=== PATIENT | female | born 1955 | race Caucasian/White ===

== ENCOUNTER 2016-12-05 02:53 | Inpatient (IN) ==
--- NOTE | 2016-12-05 02:55 | Emergency Department Note ---
Disposition Clinical Impression: Leukopenia, Pancytopenia, Panniculitis, Sepsis, Fever, Acute renal failure, Elevated troponin Disposition: Admitted As Inpatient Condition: Serious Referrals: NO,PCP [Primary Care Provider] - Forms: ED Satisfaction Letter General Adult HPI - General Chief complaint: ED Shortness of Breath/Dyspnea Stated complaint: fever,weakness, sob Time Seen by Provider: 12/05/16 02:54 - Related Data Home Medications Medication Instructions Recorded Confirmed Albuterol Sulfate [Proair Hfa] 2 puff IH Q6HR PRN 12/05/16 12/05/16 Allopurinol [Zyloprim] 300 mg PO DAILY 12/05/16 12/05/16 Carvedilol [Coreg] 25 mg PO BID 12/05/16 12/05/16 Furosemide [Lasix] 40 mg PO BID 12/05/16 12/05/16 Gabapentin [Neurontin] 900 mg PO BID 12/05/16 12/05/16 Insulin DETEMIR [Levemir] 27 unit SQ BID 12/05/16 12/05/16 Liraglutide [Victoza 2-Jordan] 1.2 ml SQ DAILY 12/05/16 12/05/16 Lisinopril [Zestril] 40 mg PO DAILY 12/05/16 12/05/16 Oxygen 2 unit CONT 12/05/16 12/05/16 Potassium Chloride [K-Tab ER] 20 meq PO BID 12/05/16 12/05/16 Sertraline [Zoloft] 100 mg PO DAILY 12/05/16 12/05/16 Simvastatin [Zocor] 40 mg PO HS 12/05/16 12/05/16 Warfarin [Coumadin] 3.75 mg PO 1800 12/05/16 12/05/16 Warfarin [Coumadin] 7.5 mg PO 1800 12/05/16 12/05/16 Allergies Allergy/AdvReac Type Severity Reaction Status Date / Time Oxycodone [From Percocet] AdvReac Nausea Verified 12/05/16 03:29 sulfamethoxazole AdvReac See Verified 12/05/16 03:29 [From Bactrim] Comments trimethoprim [From Bactrim] AdvReac See Verified 12/05/16 03:29 Comments Past Medical History - Past Medical History Medical history: Reports: arthritis, CHF, diabetes, hypertension, TIA Psychiatric history: Reports: no psych history 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 - Social History Smoking Status: Never smoker Smokeless Tobacco Status: No Alcohol use: Reports: none Drug use: Reports: none Course Vital Signs Temperature 100.8 F H 12/05/16 02:54 Pulse Rate 109 12/05/16 02:54 Respiratory Rate 22 12/05/16 02:54 Blood Pressure 86/53 12/05/16 02:54 O2 Sat by Pulse Oximetry 99 12/05/16 02:54 Temperature 100.8 F H 12/05/16 02:54 Pulse Rate 108 12/05/16 03:45 Respiratory Rate 24 12/05/16 03:45 Blood Pressure 94/74 12/05/16 03:45 O2 Sat by Pulse Oximetry 100 12/05/16 03:45 Oxygen Delivery Oxygen Delivery Nasal Cannula Medical Decision Making - Lab Data Result diagrams: 12/05/16 04:05 12/05/16 04:05 Lab Results 12/05/16 12/05/16 12/05/16 Range/Units 03:24 04:05 04:05 WBC 3.7 L (4.3-11.1) K/mcL RBC 3.12 L (3.82-4.97) M/mcL Hgb 10.0 L (11.5-15.4) g/dL Hct 31.4 L (35.3-44.9) % MCV 100.6 H (83.0-100.0) fL MCH 32.1 (28.0-33.3) pg MCHC 31.8 (31.6-35.5) g/dL RDW 13.1 (11.5-14.5) % Plt Count 72 L (140-400) K/mcL MPV 13.1 H (9.4-12.4) fL Immature Plt Fraction 8.7 H (1.1-6.1) % PT 35.3 H (9.4-12.1) Seconds INR 3.2 APTT 38.6 H (26.0-36.0) Seconds Sodium (136-145) mEq/L Potassium (3.5-4.5) mEq/L Chloride (98-109) mEq/L Carbon Dioxide (19-29) mEq/L BUN (7-20) mg/dL Creatinine (0.57-1.11) mg/dL Est GFR ( Amer) (> 60) Est GFR (Non-Af Amer) (> 60) BUN/Creatinine Ratio (6-26) Glucose (70-99) mg/dL Calculated Osmolality (280-300) Lactic Acid (0.5-2.2) mmol/L Calcium (8.6-10.8) mg/dL Phosphorus (2.3-4.7) mg/dL Magnesium (1.6-2.6) mg/dL Total Bilirubin (0.2-1.2) mg/dL Direct Bilirubin (0.0-0.5) mg/dL Indirect Bilirubin (0.0-1.2) mg/dL AST (5-34) Units/L ALT (0-55) Units/L Alkaline Phosphatase (38-126) Units/L Troponin I (0-0.03) ng/mL B-Natriuretic Peptide (0-100) pg/mL Serum Total Protein (6.0-8.3) g/dL Albumin (3.5-5.0) g/dL Globulin (2.4-3.5) g/dL Albumin/Globulin Ratio (1.1-2.2) Urine Color Yellow (Yellow) Urine Clarity Clear (Clear) Urine pH 5.0 (5.0-8.0) pH Units Ur Specific Hoffman 1.010 (1.010-1.025) Urine Protein Negative (Neg-Trace) mg/dL Urine Glucose (UA) Normal (Normal) mg/dL Urine Ketones Negative (Negative) mg/dL Urine Blood Negative (Negative) Urine Nitrite Negative (Negative) Urine Bilirubin Negative (Negative) Urine Urobilinogen Normal (Normal) mg/dL Ur Leukocyte Esterase Moderate H (Negative) Urine Microscopic RBC 0-3 (0-3) per hpf Urine Microscopic WBC 50-100 H (0-3) per hpf Ur Squamous Epith Cells Many H (None-Few) per lpf Urine Bacteria Moderate H (None-Few) per hpf Hyaline Casts Few (None-Few) per lpf Ur Culture Indicated? YES A (NO) 12/05/16 12/05/16 12/05/16 Range/Units 04:05 04:05 04:05 WBC (4.3-11.1) K/mcL RBC (3.82-4.97) M/mcL Hgb (11.5-15.4) g/dL Hct (35.3-44.9) % MCV (83.0-100.0) fL MCH (28.0-33.3) pg MCHC (31.6-35.5) g/dL RDW (11.5-14.5) % Plt Count (140-400) K/mcL MPV (9.4-12.4) fL Immature Plt Fraction (1.1-6.1) % PT (9.4-12.1) Seconds INR APTT (26.0-36.0) Seconds Sodium 138 (136-145) mEq/L Potassium 5.1 H (3.5-4.5) mEq/L Chloride 102 (98-109) mEq/L Carbon Dioxide 21 (19-29) mEq/L BUN 62 H (7-20) mg/dL Creatinine 3.07 H (0.57-1.11) mg/dL Est GFR ( Amer) 19 L (> 60) Est GFR (Non-Af Amer) 15 L (> 60) BUN/Creatinine Ratio 20 (6-26) Glucose 167 H (70-99) mg/dL Calculated Osmolality 307 H (280-300) Lactic Acid 2.8 H (0.5-2.2) mmol/L Calcium 8.8 (8.6-10.8) mg/dL Phosphorus 2.3 (2.3-4.7) mg/dL Magnesium 1.7 (1.6-2.6) mg/dL Total Bilirubin 1.0 (0.2-1.2) mg/dL Direct Bilirubin 0.5 (0.0-0.5) mg/dL Indirect Bilirubin 0.5 (0.0-1.2) mg/dL AST 15 (5-34) Units/L ALT 15 (0-55) Units/L Alkaline Phosphatase 64 (38-126) Units/L Troponin I 0.06 H* (0-0.03) ng/mL B-Natriuretic Peptide (0-100) pg/mL Serum Total Protein 5.6 L (6.0-8.3) g/dL Albumin 2.5 L (3.5-5.0) g/dL Globulin 3.1 (2.4-3.5) g/dL Albumin/Globulin Ratio 0.8 L (1.1-2.2) Urine Color (Yellow) Urine Clarity (Clear) Urine pH (5.0-8.0) pH Units Ur Specific Hoffman (1.010-1.025) Urine Protein (Neg-Trace) mg/dL Urine Glucose (UA) (Normal) mg/dL Urine Ketones (Negative) mg/dL Urine Blood (Negative) Urine Nitrite (Negative) Urine Bilirubin (Negative) Urine Urobilinogen (Normal) mg/dL Ur Leukocyte Esterase (Negative) Urine Microscopic RBC (0-3) per hpf Urine Microscopic WBC (0-3) per hpf Ur Squamous Epith Cells (None-Few) per lpf Urine Bacteria (None-Few) per hpf Hyaline Casts (None-Few) per lpf Ur Culture Indicated? (NO) 12/05/16 Range/Units 04:05 WBC (4.3-11.1) K/mcL RBC (3.82-4.97) M/mcL Hgb (11.5-15.4) g/dL Hct (35.3-44.9) % MCV (83.0-100.0) fL MCH (28.0-33.3) pg MCHC (31.6-35.5) g/dL RDW (11.5-14.5) % Plt Count (140-400) K/mcL MPV (9.4-12.4) fL Immature Plt Fraction (1.1-6.1) % PT (9.4-12.1) Seconds INR APTT (26.0-36.0) Seconds Sodium (136-145) mEq/L Potassium (3.5-4.5) mEq/L Chloride (98-109) mEq/L Carbon Dioxide (19-29) mEq/L BUN (7-20) mg/dL Creatinine (0.57-1.11) mg/dL Est GFR ( Amer) (> 60) Est GFR (Non-Af Amer) (> 60) BUN/Creatinine Ratio (6-26) Glucose (70-99) mg/dL Calculated Osmolality (280-300) Lactic Acid (0.5-2.2) mmol/L Calcium (8.6-10.8) mg/dL Phosphorus (2.3-4.7) mg/dL Magnesium (1.6-2.6) mg/dL Total Bilirubin (0.2-1.2) mg/dL Direct Bilirubin (0.0-0.5) mg/dL Indirect Bilirubin (0.0-1.2) mg/dL AST (5-34) Units/L ALT (0-55) Units/L Alkaline Phosphatase (38-126) Units/L Troponin I (0-0.03) ng/mL B-Natriuretic Peptide 270 H (0-100) pg/mL Serum Total Protein (6.0-8.3) g/dL Albumin (3.5-5.0) g/dL Globulin (2.4-3.5) g/dL Albumin/Globulin Ratio (1.1-2.2) Urine Color (Yellow) Urine Clarity (Clear) Urine pH (5.0-8.0) pH Units Ur Specific Hoffman (1.010-1.025) Urine Protein (Neg-Trace) mg/dL Urine Glucose (UA) (Normal) mg/dL Urine Ketones (Negative) mg/dL Urine Blood (Negative) Urine Nitrite (Negative) Urine Bilirubin (Negative) Urine Urobilinogen (Normal) mg/dL Ur Leukocyte Esterase (Negative) Urine Microscopic RBC (0-3) per hpf Urine Microscopic WBC (0-3) per hpf Ur Squamous Epith Cells (None-Few) per lpf Urine Bacteria (None-Few) per hpf Hyaline Casts (None-Few) per lpf Ur Culture Indicated? (NO) Critical Care Time Critical Care Time: Yes Total Critical Care Time: 45 Attestation: Patient presented with fever and weakness. She met sepsis criteria. Broad spectrum antibiotics initiated. Patient admitted Attestation Statement - Attestation Attestation: I examined this patient and my medical decision-making was reviewed with the DEMOGRAPHER/PA/Advanced Practice Nurse/Resident Physician. I agree with the documented findings, disposition and treatment plan as described except to the extent set forth below. [id number] time provided in conjunction with the resident physician Patient presents from home via EMS. She reports generalized weakness, fever. Pulse ox in the 70s prehospital. She appears unkempt. She is able to speak in full sentences. 03:05: Patient has a large skin fold which is either a pannus or hernia to her lower abdomen. It is erythematous with increased tactile warmth and some bluish discoloration to the skin. She states some of this is chronic and some of this is also new. This could be the source of her fever. 04:30: Case discussed with the on-call surgeon by the resident physician 04:44: Patient accepted for admission to the medicine service. Patient was not given 30 mL/kg of IV fluids due to her BMI of 55 and concern for volume overload
[2016-12-05] MEDS ORDERED: 0.9 % Sodium Chloride 1,000 ML IVC ONE ×4 (03:03→12:38)
--- NOTE | 2016-12-05 03:06 | Emergency Department Note ---
Disposition Clinical Impression: Pancytopenia, Panniculitis, Elevated troponin Leukopenia Qualifiers: Leukopenia type: unspecified Qualified Code(s): D72.819 - Decreased white blood cell count, unspecified Sepsis Qualifiers: Sepsis type: sepsis due to unspecified organism Qualified Code(s): A41.9 - Sepsis, unspecified organism Fever Qualifiers: Fever type: other Qualified Code(s): R50.81 - Fever presenting with conditions classified elsewhere Acute renal failure Qualifiers: Acute renal failure type: unspecified Qualified Code(s): N17.9 - Acute kidney failure, unspecified Disposition: Admitted As Inpatient Condition: Serious Time of Disposition: 04:50 (Accepted by Jr. ) SOB HPI - General Chief Complaint: ED Shortness of Breath/Dyspnea Stated Complaint: fever,weakness, sob Time Seen by Provider: 12/05/16 02:54 Source: patient, EMS Mode of arrival: EMS Limitations: no limitations Nursing Notes Reviewed: Yes Vital Signs Reviewed: Yes - History of Present Illness Patient is a 61-year-old female with past medical history of CHF, diabetes, hypertension, previous TIA. She presents today via EMS due to shortness of breath, pain in lower extremities, increased abdominal swelling and redness. EMS states that the patient was diaphoretic and mildly confused, hypoxic on arrival. They placed the patient on nonrebreather and then nasal cannula and got her O2 sat to upper 90s. Patient wears 2 L nasal cannula oxygen at home. Patient says she takes a water pill daily and has not missed any doses. She does admit to increased swelling of her abdomen and lower extremities. She also has increased redness and new purple discoloration of right lower abdomen pannus that she states started yesterday. Denies any fevers, nausea, vomiting. - Related Data Home Medications Medication Instructions Recorded Confirmed Albuterol Sulfate [Proair Hfa] 2 puff IH Q6HR PRN 12/05/16 12/05/16 Allopurinol [Zyloprim] 300 mg PO DAILY 12/05/16 12/05/16 Carvedilol [Coreg] 25 mg PO BID 12/05/16 12/05/16 Furosemide [Lasix] 40 mg PO BID 12/05/16 12/05/16 Gabapentin [Neurontin] 900 mg PO BID 12/05/16 12/05/16 Insulin DETEMIR [Levemir] 27 unit SQ BID 12/05/16 12/05/16 Liraglutide [Victoza 2-Jordan] 1.2 ml SQ DAILY 12/05/16 12/05/16 Lisinopril [Zestril] 40 mg PO DAILY 12/05/16 12/05/16 Oxygen 2 unit CONT 12/05/16 12/05/16 Potassium Chloride [K-Tab ER] 20 meq PO BID 12/05/16 12/05/16 Sertraline [Zoloft] 100 mg PO DAILY 12/05/16 12/05/16 Simvastatin [Zocor] 40 mg PO HS 12/05/16 12/05/16 Warfarin [Coumadin] 3.75 mg PO 1800 12/05/16 12/05/16 Warfarin [Coumadin] 7.5 mg PO 1800 12/05/16 12/05/16 Allergies Allergy/AdvReac Type Severity Reaction Status Date / Time Oxycodone [From Percocet] AdvReac Nausea Verified 12/05/16 03:29 sulfamethoxazole AdvReac See Verified 12/05/16 03:29 [From Bactrim] Comments trimethoprim [From Bactrim] AdvReac See Verified 12/05/16 03:29 Comments All systems ED: reviewed and negative except as stated. Past Medical History - Past Medical History Attestation: Yes The following information was validated with the patient. Medical history: Reports: arthritis, CHF, diabetes, hypertension, TIA Psychiatric history: Reports: no psych history ORTHOTICS ASSISTANT history: Reports: no ORTHOTICS ASSISTANT history - Social History Smoking Status: Never smoker Smokeless Tobacco Status: No Alcohol use: Reports: none Drug use: Reports: none Physical Exam - General Limitations: no limitations General appearance: alert, obese, other (mildly sleepy on exam) - Head Head exam: atraumatic, normocephalic, normal inspection - Eye Eye exam: Present: normal appearance, PERRL, EOMI - ENT ENT exam: normal exam, normal oropharynx, mucous membranes moist - Neck Neck exam: Present: normal inspection, full ROM, trachea midline - Chest Chest inspection: Present: normal inspection, symmetric chest wall rise - Respiratory Respiratory exam: Present: normal lung sounds bilaterally - Cardiovascular Cardiovascular exam: Present: normal rhythm, tachycardia, normal heart sounds - Abdominal Exam Abdominal exam: Present: other (Obese abdomen, large right lower abdominal pannus versus hernia with erythema, induration, purple discoloration) - Extremities Exam Extremities exam: Present: normal inspection, full ROM, pedal edema (Bilateral lower extremity nonpitting edema). Absent: tenderness - Back Exam Back exam: Present: normal inspection, full ROM. Absent: tenderness - Neurological Exam Neurological exam: Present: alert, oriented X3 - Psychiatric Psychiatric exam: Present: normal affect, normal mood - Skin Skin exam: Present: warm, dry, intact, normal color Course Course Narrative: Patient febrile, tachycardic, hypotensive on presentation. She is currently on 2 L nasal cannula and saturating and upper 90s. Concern for sepsis at this point. We will not give full 30 mL/kg IV fluids due to very large BMI and concern for fluid overload. WIll start with 3L of fluid and reassess. Sepsis labs are underway. We will also check EKG, troponin. We will obtain CT of abdomen and pelvis to assess for hernia versus panniculitis. Also give Tylenol for fever. 04:46 patient is pancytopenic, patient has acute renal failure with a creatinine of 3.0. Troponin is elevated 0.06. Patient will be given aspirin. UA shows possible signs of UTI, nitrate negative but positive for moderate leukocyte esterace. We will send for culture. CT scan shows panniculitis and significant fat stranding of lower abdomen. I spoke with surgery, Dr. Mejia, she stated that since there is no bowel or abscess in the pannus and it is panniculitis, this is a medicine admit and surgery will not be seeing the patient. Spoke with the hospitalist admit for pancytopenia, sepsis, panniculitis, acute renal failure, elevated troponin. Patient was accepted for admission by Dr. Norris. All cultures have been drawn. Zosyn and vancomycin have been started empirically for panniculitis/sepsis. BP is improved at 100/80s. Chest X-Ray 12/05/16 02:59 IMPRESSION: Unchanged cardiomegaly. Pulmonary venous congestion without overt edema. D/ / Donnie Almodovar MD / Donnie Almodovar MD Interpreting Provider: Donnie Almodovar MD Abdomen/Pelvis CT 12/05/16 03:07 IMPRESSION: 1. There is a large pannus of the lower abdomen/pelvis with extensive fat stranding and skin thickening. No discrete/drainable fluid collection. 2. No acute abnormality identified within the unenhanced abdomen or pelvis. 3. Cholelithiasis without CT evidence of acute cholecystitis. 4. Right adrenal adenoma. 5. Umbilical hernia containing fat as well as a small amount of fluid. 6. Cardiomegaly. D/ / Hans Lynch MD / Hans Lynch MD Interpreting Provider: Hans Lynch MD Vital Signs Temperature 100.8 F H 12/05/16 02:54 Pulse Rate 109 12/05/16 02:54 Respiratory Rate 22 12/05/16 02:54 Blood Pressure 86/53 12/05/16 02:54 O2 Sat by Pulse Oximetry 99 12/05/16 02:54 Temperature 100.8 F H 12/05/16 02:54 Pulse Rate 92 12/05/16 04:52 Respiratory Rate 20 12/05/16 04:52 Blood Pressure 122/103 12/05/16 04:52 O2 Sat by Pulse Oximetry 97 12/05/16 04:52 Oxygen Delivery Oxygen Delivery Nasal Cannula Shortness of Breath/Dyspnea - [facility] Narrative Medical decision making narrative: Patient febrile, tachycardic, hypotensive on presentation. She is currently on 2 L nasal cannula and saturating and upper 90s. Concern for sepsis at this point. We will not give full 30 mL/kg IV fluids due to very large BMI and concern for fluid overload. WIll start with 3L of fluid and reassess. Sepsis labs are underway. We will also check EKG, troponin. We will obtain CT of abdomen and pelvis to assess for hernia versus panniculitis. Also give Tylenol for fever. 04:46 patient is pancytopenic, patient has acute renal failure with a creatinine of 3.0. Troponin is elevated 0.06. Patient will be given aspirin. UA shows possible signs of UTI, nitrate negative but positive for moderate leukocyte esterace. We will send for culture. CT scan shows panniculitis and significant fat stranding of lower abdomen. I spoke with surgery, Dr. Mejia, she stated that since there is no bowel in the pannus and it is panniculitis, this is a medicine admit and surgery will not be seeing the patient. Spoke with the hospitalist admit for pancytopenia, sepsis, panniculitis, acute renal failure, elevated troponin. Patient was accepted for admission by Dr. Norris. All cultures have been drawn. Zosyn and vancomycin have been started empirically for panniculitis/sepsis. BP is improved at 100/70s. - Medical Records Medical records reviewed: Yes I reviewed the patient's medical records. - Lab Data Lab results reviewed: Yes I reviewed the patient's lab results. Result diagrams: 12/05/16 04:05 12/05/16 04:05 Lab Results 12/05/16 12/05/16 12/05/16 Range/Units 03:24 04:05 04:05 WBC 3.7 L (4.3-11.1) K/mcL RBC 3.12 L (3.82-4.97) M/mcL Hgb 10.0 L (11.5-15.4) g/dL Hct 31.4 L (35.3-44.9) % MCV 100.6 H (83.0-100.0) fL MCH 32.1 (28.0-33.3) pg MCHC 31.8 (31.6-35.5) g/dL RDW 13.1 (11.5-14.5) % Plt Count 72 L (140-400) K/mcL MPV 13.1 H (9.4-12.4) fL Immature Gran % 1.6 (0-4) % Seg Neutrophils % 80.0 % Lymphocytes % 7.0 % Monocytes % 10.8 % Eosinophils % 0.3 % Basophils % 0.3 % Neutrophils # 3.0 (1.6-8.9) K/mcL Lymphocytes # 0.3 L (0.6-4.6) K/mcL Monocytes # 0.4 (0.0-1.3) K/mcL Eosinophils # 0.0 (0.0-0.6) K/mcL Basophils # 0.0 (0.0-0.2) K/mcL Platelet Estimate Decreased L (Normal) Large Platelets Present A (Not Present) Immature Plt Fraction 8.7 H (1.1-6.1) % PT 35.3 H (9.4-12.1) Seconds INR 3.2 APTT 38.6 H (26.0-36.0) Seconds Sodium (136-145) mEq/L Potassium (3.5-4.5) mEq/L Chloride (98-109) mEq/L Carbon Dioxide (19-29) mEq/L BUN (7-20) mg/dL Creatinine (0.57-1.11) mg/dL Est GFR ( Amer) (> 60) Est GFR (Non-Af Amer) (> 60) BUN/Creatinine Ratio (6-26) Glucose (70-99) mg/dL Calculated Osmolality (280-300) Lactic Acid (0.5-2.2) mmol/L Calcium (8.6-10.8) mg/dL Phosphorus (2.3-4.7) mg/dL Magnesium (1.6-2.6) mg/dL Total Bilirubin (0.2-1.2) mg/dL Direct Bilirubin (0.0-0.5) mg/dL Indirect Bilirubin (0.0-1.2) mg/dL AST (5-34) Units/L ALT (0-55) Units/L Alkaline Phosphatase (38-126) Units/L Troponin I (0-0.03) ng/mL B-Natriuretic Peptide (0-100) pg/mL Serum Total Protein (6.0-8.3) g/dL Albumin (3.5-5.0) g/dL Globulin (2.4-3.5) g/dL Albumin/Globulin Ratio (1.1-2.2) Urine Color Yellow (Yellow) Urine Clarity Clear (Clear) Urine pH 5.0 (5.0-8.0) pH Units Ur Specific [place] 1.010 (1.010-1.025) Urine Protein Negative (Neg-Trace) mg/dL Urine Glucose (UA) Normal (Normal) mg/dL Urine Ketones Negative (Negative) mg/dL Urine Blood Negative (Negative) Urine Nitrite Negative (Negative) Urine Bilirubin Negative (Negative) Urine Urobilinogen Normal (Normal) mg/dL Ur Leukocyte Esterase Moderate H (Negative) Urine Microscopic RBC 0-3 (0-3) per hpf Urine Microscopic WBC 50-100 H (0-3) per hpf Ur Squamous Epith Cells Many H (None-Few) per lpf Urine Bacteria Moderate H (None-Few) per hpf Hyaline Casts Few (None-Few) per lpf Ur Culture Indicated? YES A (NO) 12/05/16 12/05/16 12/05/16 Range/Units 04:05 04:05 04:05 WBC (4.3-11.1) K/mcL RBC (3.82-4.97) M/mcL Hgb (11.5-15.4) g/dL Hct (35.3-44.9) % MCV (83.0-100.0) fL MCH (28.0-33.3) pg MCHC (31.6-35.5) g/dL RDW (11.5-14.5) % Plt Count (140-400) K/mcL MPV (9.4-12.4) fL Immature Gran % (0-4) % Seg Neutrophils % % Lymphocytes % % Monocytes % % Eosinophils % % Basophils % % Neutrophils # (1.6-8.9) K/mcL Lymphocytes # (0.6-4.6) K/mcL Monocytes # (0.0-1.3) K/mcL Eosinophils # (0.0-0.6) K/mcL Basophils # (0.0-0.2) K/mcL Platelet Estimate (Normal) Large Platelets (Not Present) Immature Plt Fraction (1.1-6.1) % PT (9.4-12.1) Seconds INR APTT (26.0-36.0) Seconds Sodium 138 (136-145) mEq/L Potassium 5.1 H (3.5-4.5) mEq/L Chloride 102 (98-109) mEq/L Carbon Dioxide 21 (19-29) mEq/L BUN 62 H (7-20) mg/dL Creatinine 3.07 H (0.57-1.11) mg/dL Est GFR ( Amer) 19 L (> 60) Est GFR (Non-Af Amer) 15 L (> 60) BUN/Creatinine Ratio 20 (6-26) Glucose 167 H (70-99) mg/dL Calculated Osmolality 307 H (280-300) Lactic Acid 2.8 H (0.5-2.2) mmol/L Calcium 8.8 (8.6-10.8) mg/dL Phosphorus 2.3 (2.3-4.7) mg/dL Magnesium 1.7 (1.6-2.6) mg/dL Total Bilirubin 1.0 (0.2-1.2) mg/dL Direct Bilirubin 0.5 (0.0-0.5) mg/dL Indirect Bilirubin 0.5 (0.0-1.2) mg/dL AST 15 (5-34) Units/L ALT 15 (0-55) Units/L Alkaline Phosphatase 64 (38-126) Units/L Troponin I 0.06 H* (0-0.03) ng/mL B-Natriuretic Peptide (0-100) pg/mL Serum Total Protein 5.6 L (6.0-8.3) g/dL Albumin 2.5 L (3.5-5.0) g/dL Globulin 3.1 (2.4-3.5) g/dL Albumin/Globulin Ratio 0.8 L (1.1-2.2) Urine Color (Yellow) Urine Clarity (Clear) Urine pH (5.0-8.0) pH Units Ur Specific [place] (1.010-1.025) Urine Protein (Neg-Trace) mg/dL Urine Glucose (UA) (Normal) mg/dL Urine Ketones (Negative) mg/dL Urine Blood (Negative) Urine Nitrite (Negative) Urine Bilirubin (Negative) Urine Urobilinogen (Normal) mg/dL Ur Leukocyte Esterase (Negative) Urine Microscopic RBC (0-3) per hpf Urine Microscopic WBC (0-3) per hpf Ur Squamous Epith Cells (None-Few) per lpf Urine Bacteria (None-Few) per hpf Hyaline Casts (None-Few) per lpf Ur Culture Indicated? (NO) 12/05/16 Range/Units 04:05 WBC (4.3-11.1) K/mcL RBC (3.82-4.97) M/mcL Hgb (11.5-15.4) g/dL Hct (35.3-44.9) % MCV (83.0-100.0) fL MCH (28.0-33.3) pg MCHC (31.6-35.5) g/dL RDW (11.5-14.5) % Plt Count (140-400) K/mcL MPV (9.4-12.4) fL Immature Gran % (0-4) % Seg Neutrophils % % Lymphocytes % % Monocytes % % Eosinophils % % Basophils % % Neutrophils # (1.6-8.9) K/mcL Lymphocytes # (0.6-4.6) K/mcL Monocytes # (0.0-1.3) K/mcL Eosinophils # (0.0-0.6) K/mcL Basophils # (0.0-0.2) K/mcL Platelet Estimate (Normal) Large Platelets (Not Present) Immature Plt Fraction (1.1-6.1) % PT (9.4-12.1) Seconds INR APTT (26.0-36.0) Seconds Sodium (136-145) mEq/L Potassium (3.5-4.5) mEq/L Chloride (98-109) mEq/L Carbon Dioxide (19-29) mEq/L BUN (7-20) mg/dL Creatinine (0.57-1.11) mg/dL Est GFR ( Amer) (> 60) Est GFR (Non-Af Amer) (> 60) BUN/Creatinine Ratio (6-26) Glucose (70-99) mg/dL Calculated Osmolality (280-300) Lactic Acid (0.5-2.2) mmol/L Calcium (8.6-10.8) mg/dL Phosphorus (2.3-4.7) mg/dL Magnesium (1.6-2.6) mg/dL Total Bilirubin (0.2-1.2) mg/dL Direct Bilirubin (0.0-0.5) mg/dL Indirect Bilirubin (0.0-1.2) mg/dL AST (5-34) Units/L ALT (0-55) Units/L Alkaline Phosphatase (38-126) Units/L Troponin I (0-0.03) ng/mL B-Natriuretic Peptide 270 H (0-100) pg/mL Serum Total Protein (6.0-8.3) g/dL Albumin (3.5-5.0) g/dL Globulin (2.4-3.5) g/dL Albumin/Globulin Ratio (1.1-2.2) Urine Color (Yellow) Urine Clarity (Clear) Urine pH (5.0-8.0) pH Units Ur Specific [place] (1.010-1.025) Urine Protein (Neg-Trace) mg/dL Urine Glucose (UA) (Normal) mg/dL Urine Ketones (Negative) mg/dL Urine Blood (Negative) Urine Nitrite (Negative) Urine Bilirubin (Negative) Urine Urobilinogen (Normal) mg/dL Ur Leukocyte Esterase (Negative) Urine Microscopic RBC (0-3) per hpf Urine Microscopic WBC (0-3) per hpf Ur Squamous Epith Cells (None-Few) per lpf Urine Bacteria (None-Few) per hpf Hyaline Casts (None-Few) per lpf Ur Culture Indicated? (NO) - Radiology Data Radiology results reviewed: Yes I reviewed the patient's radiology results. Chest X-Ray 12/05/16 02:59 IMPRESSION: Unchanged cardiomegaly. Pulmonary venous congestion without overt edema. D/ / Donnie Almodovar MD / Donnie Almodovar MD Interpreting Provider: Donnie Almodovar MD Abdomen/Pelvis CT 12/05/16 03:07 IMPRESSION: 1. There is a large pannus of the lower abdomen/pelvis with extensive fat stranding and skin thickening. No discrete/drainable fluid collection. 2. No acute abnormality identified within the unenhanced abdomen or pelvis. 3. Cholelithiasis without CT evidence of acute cholecystitis. 4. Right adrenal adenoma. 5. Umbilical hernia containing fat as well as a small amount of fluid. 6. Cardiomegaly. D/ / Hans Lynch MD / Hans Lynch MD Interpreting Provider: Hans Lynch MD - EKG Data EKG attestation: Yes I reviewed and interpreted this EKG. EKG results narrative: 12/05/2016 03:08. A. fib. Rate 108. QTC 380. No acute ST elevation or depression. Unchanged from previous EKG on 05.01.14 S.B.A.R. - S.B.A.R. Situation: Demographics, MOA Background: Presenting Complaint, Relevant PMH, Meds, & Allergies Assessment: Vital Signs, Course and respsone to treatment, Exam Concerns, Patient/Family Expectation, Pertinant Lab Results, Outstanding Labs Recommendation: Barrier(s) to disposition, Recommendation based on pending studies, treatments, or consults Sacha Report Given to: Dr. Jr Goncalves Repor Time: 04:50
[2016-12-05 03:32] LABS: Bilirubin,Urine Negative (Negative); Blood,Urine Negative (Negative); Clarity,Urine Clear (Clear); Color,Urine Yellow (Yellow); Glucose,Urine (UA) Normal (Normal); Ketones,Urine Negative (Negative); Leukocyte Esterase,Urine Moderate (Negative); Nitrite,Urine Negative (Negative); Protein,Urine Negative (Neg-Trace); Urobilinogen,Urine Normal (Normal)
[2016-12-05 03:35] LABS: Bacteria,Urine Moderate per hpf (None-Few); Hyaline Casts,Urine Few per lpf (None-Few); RBC,Urine 0-3 per hpf (0-3); Squamous Epithelial Cell,Urine Many per lpf (None-Few); WBC,Urine 50-100 per hpf (0-3)
[2016-12-05 04:18] LABS: INR 3.2; Prothrombin Time 35.3 Seconds (9.4-12.1)
[2016-12-05 04:21] LABS: Activated Partial Thrombo Time 38.6 Seconds (26.0-36.0)
[2016-12-05 04:25] LABS: Basophils % 0.3 %; Eosinophils % 0.3 %; Hematocrit 31.4 % (35.3-44.9); Immature Granulocytes % 1.6 % (0-4); Immature Platelets 8.7 % (1.1-6.1); Lymphocytes # 0.3 K/mcL (0.6-4.6); Mean Corpuscular HGB Conc 31.8 g/dL (31.6-35.5); Mean Corpuscular Hemoglobin 32.1 pg (28.0-33.3); Mean Corpuscular Volume 100.6 fL (83.0-100.0); Mean Platelet Volume 13.1 fL (9.4-12.4); Monocytes # 0.4 K/mcL (0.0-1.3); Monocytes % 10.8 %; Red Blood Count 3.12 M/mcL (3.82-4.97); Red Cell Distribution Width 13.1 % (11.5-14.5)
[2016-12-05 04:26] LABS: Platelet Count 72 K/mcL (140-400)
[2016-12-05 04:29] LABS: Albumin 2.5 g/dL (3.5-5.0); Albumin/Globulin Ratio 0.8 (1.1-2.2); Bilirubin,Direct 0.5 mg/dL (0.0-0.5); Bilirubin,Indirect 0.5 mg/dL (0.0-1.2); Calcium 8.8 mg/dL (8.6-10.8); Globulin 3.1 g/dL (2.4-3.5); Potassium 5.1 mEq/L (3.5-4.5); Total Protein 5.6 g/dL (6.0-8.3)
[2016-12-05] MEDS ORDERED: Piperacillin/Tazobactam 3.375 GM in D5% in Water (Mini-Bag+) 100 ML IVPB ONE (04:31)
[2016-12-05 04:42] LABS: Magnesium 1.7 mg/dL (1.6-2.6); Phosphorous 2.3 mg/dL (2.3-4.7)
[2016-12-05 04:54] LABS: Large Platelets Present (Not Present); Platelet Estimate Decreased (Normal)
[2016-12-05] MEDS ORDERED: Vancomycin 2,000 MG in D5% in Water 500 ML IVPB ONE (05:00)
[2016-12-05] MEDS ORDERED: Naloxone 0.4 MG/ML INJ IVP PRN (07:48)
[2016-12-05] MEDS ORDERED: Acetaminophen 325 MG TABLET PO PRN (07:48)
[2016-12-05] MEDS ORDERED: Dextrose Gel 15 GM PO PRN ×2 (07:53)
[2016-12-05] MEDS ORDERED: *HR* Dextrose 50 % in Water (Syg) 50 ML SYRINGE IVP PRN (07:53)
[2016-12-05] MEDS ORDERED: D5% in Water 1,000 ML IV PRN (07:53)
[2016-12-05] MEDS ORDERED: Vancomycin 2,000 MG in D5% in Water 250 ML IVPB SCH (08:00)
--- NOTE | 2016-12-05 08:06 | Internal Med History&Physical ---
Date of Encounter: 12/05/16 Time of Encounter: 06:30 Assessment and Plan (1) Panniculitis Current visit: Yes Status: Acute Treat with intervenous vancomycin and Zosyn. Consult surgery for further advise (2) Sepsis Current visit: Yes Status: Acute Likely due to panniculitis. Continue Vancomycin, zosyn, IV fluids. Surgical consultation. Qualifiers: Sepsis type: sepsis due to unspecified organism Qualified Code(s): A41.9 - Sepsis, unspecified organism (3) Pancytopenia Current visit: Yes Status: Acute We do not have labs to compare. Likely secondary to infection versus chronic. Monitor CBC (4) Acute renal failure Current visit: Yes Status: Acute Likely secondary to sepsis. Treated with intravenous fluids. Monitor renal function. Qualifiers: Acute renal failure type: unspecified Qualified Code(s): N17.9 - Acute kidney failure, unspecified (5) Diabetes mellitus Current visit: Yes Status: Chronic Treat with sliding-scale insulin Qualifiers: Diabetes mellitus type: type 2 Diabetes mellitus complication status: without complication Diabetes mellitus chcf insulin use: with chcf use Qualified Code(s): E11.9 - Type 2 diabetes mellitus without complications ; Z79.4 - long term care administrator (current) use of insulin (6) Elevated troponin Current visit: Yes Status: Acute Likely secondary to sepsis. Cardica monitor. Trend troponins (7) Leukopenia Current visit: Yes Status: Acute Qualifiers: Leukopenia type: unspecified Qualified Code(s): D72.819 - Decreased white blood cell count, unspecified (8) DVT prophylaxis Current visit: Yes Status: Acute Pt is on warfarin with therapeutic INR (9) Morbid obesity with BMI of 50.0-59.9, adult Current visit: Yes Status: Chronic Supportive care (10) Chronic anticoagulation Current visit: Yes Status: Chronic Pt is on warfarin and INR is therapeutic. Internal Medicine - H&P: HPI Chief complaint: Anterior abdominal wall pain Admitted From: Home Plans for Post Hospital Care: Home History of present illness: Ms. Dawn is a 61 year old female with past medical history of obesity, CAD / CABG, CHF, diabetes, CKD, gout, hypertension, previous TIA. She reports pain in the lower anterior abdominal wall started yesterday - moderate severity, feels like burning sensation, nonradiating, had some relief with pain medications in the emergency department. She noticed redness / purple coloration. Reports fever. She also reports dry cough for 2 weeks and shortness of breath. No orthopnea or PND. Denies dysuria, hematuria, bowel problems. She was evaluated in the emergency department and was given vancomycin and Zosyn for suspected panniculitis. He was thought to have sepsis and was given intravenous fluids. She is admitted to the hospitalist service for further management.. Past Med Surg Social Fam HX - Past Medical History Medical history: arthritis, CHF, diabetes, hypertension, renal disease, TIA Psychiatric history: no psych history - Past Surgical History Surgical History: coronary bypass (CABG) - Social History Smoking Status: Never smoker Smokeless Tobacco Status: No Alcohol use: none Drug use: none - Family History Mother Living Status: Hx Family Cancer: Yes (lung cancer) Father Living Status: Hx Family Cardiac Disorders: Yes (CHF) Internal Medicine - H&P: Meds Albuterol Sulfate [Proair Hfa] 2 puff IH Q6HR PRN 12/05/16 [History] Allopurinol [Zyloprim] 300 mg PO DAILY 12/05/16 [History] Carvedilol [Coreg] 25 mg PO BID 12/05/16 [History] Furosemide [Lasix] 40 mg PO BID 12/05/16 [History] Gabapentin [Neurontin] 900 mg PO BID 12/05/16 [History] Insulin DETEMIR [Levemir] 27 unit SQ BID 12/05/16 [History] Liraglutide [Victoza 2-Jordan] 1.2 ml SQ DAILY 12/05/16 [History] Lisinopril [Zestril] 40 mg PO DAILY 12/05/16 [History] Oxygen 2 unit CONT 12/05/16 [History] Potassium Chloride [K-Tab ER] 20 meq PO BID 12/05/16 [History] Sertraline [Zoloft] 100 mg PO DAILY 12/05/16 [History] Simvastatin [Zocor] 40 mg PO HS 12/05/16 [History] Warfarin [Coumadin] 3.75 mg PO 1800 12/05/16 [History] Warfarin [Coumadin] 7.5 mg PO 1800 12/05/16 [History] Allergies Oxycodone [From Percocet] Adverse Reaction (Verified 12/05/16 03:29) Nausea sulfamethoxazole [From Bactrim] Adverse Reaction (Verified 12/05/16 03:29) See Comments trimethoprim [From Bactrim] Adverse Reaction (Verified 12/05/16 03:29) See Comments All Systems PM: A 10-system review of systems was performed and is negative for pertinent findings except as documented above in the HPI. - Constitutional Vitals: Temp Pulse Resp BP Pulse Ox 99.4 F 102 18 69/42 100 12/05/16 07:03 12/05/16 07:03 12/05/16 07:03 12/05/16 07:03 12/05/16 07:03 Exam: General: Not in acute distress at the time of my evaluation HEENT: Oral mucosa is dry. No conjunctival palor or scleral icterus Neck: No obvious neck swellings Lungs: Clear to auscultation Cardiac: Regular rate and rhythm. No significant murmurs Abdomen: Obese. There is erythema, swelling, local warmth and tenderness of the lower anterior abdominal wall present. Bowel sounds present Genito-urinary: Fenton catheter in place Neurological: Alert and oriented. No gross localizing deficits Psych: Not aggressive or agitated Extremities: mild leg edema Skin: No generalized rash Internal Med - H&P Results - Labs CBC & Chem 7: 12/05/16 04:05 12/05/16 04:05 - Impressions ITS Impressions Chest X-Ray 12/05/16 02:59 IMPRESSION: Unchanged cardiomegaly. Pulmonary venous congestion without overt edema. D/ / Donnie Almodovar MD / Donnie Almodovar MD Interpreting Provider: Donnie Almodovar MD Abdomen/Pelvis CT 12/05/16 03:07 IMPRESSION: 1. There is a large pannus of the lower abdomen/pelvis with extensive fat stranding and skin thickening. No discrete/drainable fluid collection. 2. No acute abnormality identified within the unenhanced abdomen or pelvis. 3. Cholelithiasis without CT evidence of acute cholecystitis. 4. Right adrenal adenoma. 5. Umbilical hernia containing fat as well as a small amount of fluid. 6. Cardiomegaly. D/ / Hans Lynch MD / Hans Lynch MD Interpreting Provider: Hans Lynch MD
[2016-12-05] MEDS: Insulin LISPRO 300 UNITS/3 ML VIAL SQ SCH ×4 (08:36→20:41)
[2016-12-05] MEDS: 0.9 % Sodium Chloride 1,000 ML IVC SCH ×2 (08:55→23:31)
[2016-12-05] MEDS ORDERED: *HR* Heparin 5,000 UNIT/ML VIAL SQ SCH (10:00)
--- NOTE | 2016-12-05 16:13 | Electrocardiograph Report ---
[facility] Test Date: 2016-12-05 Pat Name: Jaimee Dawn Department: 103 Room: 2A35 Gender: F Compliance Analyst: VIOLETA : 1955 Requested By: Branden Vincent Order Number: [id number] Reading MD: Yolanda Ansari Measurements Intervals [place] Rate: 108 P: [place]: 0 QRS: 141 QRSD: 105 T: 93 QT: 317 QTc: 380 Interpretive Statements ATRIAL FIBRILLATION WITH RAPID VENTRICULAR RESPONSE POSSIBLE ANTERIOR MYOCARDIAL INFARCTION, PROBABLY OLD LOW VOLTAGE LIMB LEADS Electronically Signed On 12-05-16 16:12:00 EST by Yolanda Ansari
[2016-12-05] MEDS: Piperacillin/Tazobactam 3.375 GM in D5% in Water (Mini-Bag+) 100 ML IVPB SCH (16:46)
--- NOTE | 2016-12-05 17:00 | Event Note ---
Date of Encounter: 12/05/16 Time of Encounter: 12:45 Patient evaluated at bedside with all her daughters present Patient seemed to be in painful distress, history was obtained from her daughters She was apparently recently hospitalized at [facility] for acute systolic CHF exacerbation and discharged two weeks ago on Lasix 80mg daily, Coumadin, Lisinopril 20mg, KCL 20mg daily, Gabaentin 900mg bid, Coreg an Allopurinol Patient said to have been in her usual state of health since then, ambulatory until she started complaining of lower abdominal pain 2 days prior to hospitalization. No documented fever. Her other PMH is DM (Controlled, with A1C ~5), CKD III-Discharging Cr at outside facility was 1.41, GFR 40 Patient is able to answer questions and denies decreased urinary output but states she has been having more urine output for th past few days. Work up since admission revealed IVIS on CKD,CR 3.07, GFR 15, K5.1, Lactate 3.0 ( 2.8 on admission) Elevated roponin 0.06, BNP 270, with minimal urine output, Pancytopenia with PLT 71(79 at time of discharge from [place]), supratherapeutic INR 3.2, Abd CT with abd wall paniculitis, R adrenal adenoma and no hydronephrosis. ECHO from [place] 11/14/16 showed Concentric LVH with EF 40-45%, Mid inferior hypokinesis, apical hypokinesis severely dilated Left atrium. Physical Exam VS: Hypotensive, BP low, with MAP ranging from 60-69. Afebrile at time of review, febrile on admission Tmax 1008. HR-Tachycardia, possibly Afib. Gen: In painful distress, alert, oriented X4, able to speak full sentences Neuro: Moves all limbs spontaneously, no speech deficits HEENT: Dry oral mucosa Neck: No JVD Abdomen: Obese+++ with signiicant abdominal fold. RLQ abdominal wall with diffuse skin thickening, redness, some areas are mottled but warm, no palpable collections or abscess, tender to palpation, able to see underneath skin fold with no hidden ulcers. Extremities: No edema Labs and imaging reviewed, as above assessment/Plan 1. Severe Sepsis: With fever, tachycardia, hypotension, lactic acidosis, thrombocytopenia and IVIS. -Continue IV Vancomycin and Zosyn -Source of sepsis for now is abdominal wall cellulitis and panniculitis -Blood and Urine cultures have been drawn, follow results -Patient is high risk with current multiorgan failure and need for aggressive IVF hydration in the setting of systolic CHF -She is full code 2. Cellulitis: Continue Antibiotics. Consult surgery for possible extra tissue excision non-emergently. INR is supratherapeutic, I do not think the patient has acute thrombotic event at this time. 3. IVIS on CKD: Multifactorial; Sepsis, dehydration from diuretics, medications, ATN from hypotension. She is oliguric. Keep [place], strict intake/output, Renal anatomy on Abd CT no obstructive uropathy, no hydronephrosis. Continue to hold lasix. Will consult renal if no improvement 4. Hyperkalemia: GIve Kayexelate po. Possibly due to IVIS and Potassium supplements 5. Systolic CHF-Chronic. Hold Coreg, Lisinopril, Lasix. 6. Afib: Rate uncontrolled. Will start low dose Lopressor for rate control, continue IVF at same rate. Continue to hold Coumadin. 7. DM: Controlled, continue sliding scale insulin. Plan of care discussed with family, verbalized understanding patient is full code
--- NOTE | 2016-12-05 18:41 | Event Note ---
Date of Encounter: 12/05/16 Time of Encounter: 18:36 Patient with severe sepsis , lactic acidosis and IVIS She has not responded to IVF hydration and is not making adequate urine. She is now in septic shock BP initially responded to IVF bolus but has dropped once again Urine output is still minimal Patient and family requesting transfer out of [place] to [facility] BP at this time 79/50 with MAP of 60. Patient is wake, alert, oriented Will start dopamine infusion, transfer to I have initiated transfer to [facility] Will sign out to night team if this doesn't take place before end of shift
--- NOTE | 2016-12-05 19:34 | General Surgery Consult Note ---
Date of Encounter: 12/05/16 Time of Encounter: 19:00 History of Present Illness Consult date: 12/05/16 Requesting physician: Mohsen Durán History of present illness: 61-year-old female referred surgical services for further evaluation of possible cellulitis anterior abdominal wall. The patient is morbidly obese with a massive pannus. This pannus is severely dependent with significant fluid within the skin and subcutaneous tissue. There is extensive ecchymoses noted in the dependent portions of this pannus. The endings do not suggest cellulitis or an infectious process. Review of laboratories indicate the patient was supratherapeutic in her anticoagulation with an INR of 3.2 and PTT of 35.3. Daughter was present at bedside during my examination of the patient and we had a lengthy discussion about this patient's care. Past medical history is notable for morbid obesity; chronic atrial fibrillation for which the patient is anticoagulated; recent hospitalization at [facility] for acute systolic CHF; diabetes mellitus; CKD 3; with significant worsening renal status leading up to this admission. (BUN 62, creatinine 3.07, estimated GFR 15); right adrenal adenoma CT of the abdomen was personally reviewed with [facility]. Findings include a large dependent pannus of the lower abdomen/pelvis with extensive fat stranding and skin thickening strongly suggestive of a chronic condition. No discrete drainable fluid collection was identified. Incidental note of cholelithiasis without acute findings; right adrenal adenoma; and a fat containing umbilical hernia. Laboratories notable for white count of 3.7, hemoglobin 10.0, hematocrit 31.4, platelet count 72,000. PT as previously noted 35.3, INR 3.2 Impression: 61-year-old patient with significant ecchymoses of the dependent portion of a prominent abdominal wall pannus. I did not detect any signs or evidence of cellulitis cannot completely exclude this possibility. I have discussed this extensively with the patient and her daughter. I have no indications that require surgery. An incision and drainage of this abdominal wall pannus is likely to result in a nonhealing chronic wound which then could become secondarily infected. Any surgical intervention is severely complicated large compromised by the patient's morbid obesity, chronic atrial fibrillation and anticoagulated state. During my discussion with the patient and her family , expressed a desire to be transferred to a [facility] such as [facility]. My findings and the family's request has been discussed with Dr. Durán. I will follow with you as long as the patient remains at [facility]. Past Med Surg Social Fam HX - Past Medical History Medical history: arthritis, CHF, diabetes, hypertension, renal disease, TIA Psychiatric history: no psych history - Past Surgical History Surgical History: coronary bypass (CABG) - Social History Smoking Status: Never smoker Smokeless Tobacco Status: No Alcohol use: none Drug use: none - Family History Mother Living Status: Hx Family Cancer: Yes (lung cancer) Father Living Status: Hx Family Cardiac Disorders: Yes (CHF) Medications and Allergies Albuterol Sulfate [Proair Hfa] 2 puff IH Q6HR PRN 12/05/16 [History] Allopurinol [Zyloprim] 300 mg PO DAILY 12/05/16 [History] Aspirin [Lo-Dose Aspirin EC] 81 mg PO DAILY 12/05/16 [History] Carvedilol [Coreg] 25 mg PO BID 12/05/16 [History] Ergocalciferol (VITAMIN D2) [Vitamin D2] 50,000 unit PO QWEEK 12/05/16 [History] Furosemide [Lasix] 40 mg PO BID 12/05/16 [History] Gabapentin [Neurontin] 600 mg PO BID 12/05/16 [History] Insulin DETEMIR [Levemir] 27 unit SQ BID 12/05/16 [History] Liraglutide [Victoza 2-Jordan] 1.2 ml SQ DAILY 12/05/16 [History] Lisinopril [Zestril] 10 mg PO DAILY 12/05/16 [History] Omeprazole [PriLOSEC] 20 mg PO DAILY 12/05/16 [History] Oxygen 2 unit CONT 12/05/16 [History] Potassium Chloride [K-Tab ER] 10 meq PO DAILY 12/05/16 [History] Sertraline [Zoloft] 100 mg PO DAILY 12/05/16 [History] Simvastatin [Zocor] 40 mg PO HS 12/05/16 [History] Spironolactone [Aldactone] 12.5 mg PO DAILY 12/05/16 [History] Warfarin [Coumadin] 3.75 mg PO SUMOWEFR 12/05/16 [History] Warfarin [Coumadin] 7.5 mg PO TUTHSA 12/05/16 [History] Allergies sulfamethoxazole [From Bactrim] Allergy (Unknown, Verified 12/05/16 10:31) See Comments PATIENT'S FAMILY UNSURE OF REACTION- trimethoprim [From Bactrim] Allergy (Unknown, Verified 12/05/16 10:31) See Comments PATIENT'S FAMILY UNSURE OF REACTION- Oxycodone [From Percocet] Adverse Reaction (Verified 12/05/16 03:29) Nausea Review of Systems All systems PM: A 10-system review of systems was performed and is negative for pertinent findings except as documented above in the HPI. General Surgery Exam Initial Vital Signs Temp Pulse Resp BP Pulse Ox 100.8 F H 109 22 86/53 99 12/05/16 02:54 12/05/16 02:54 12/05/16 02:54 12/05/16 02:54 12/05/16 02:54 Exam Initial Vital Signs Temp Pulse Resp BP Pulse Ox 100.8 F H 109 22 86/53 99 12/05/16 02:54 12/05/16 02:54 12/05/16 02:54 12/05/16 02:54 12/05/16 02:54 Results - Labs 12/05/16 04:05 12/05/16 04:05 Abnormal lab results WBC 3.7 K/mcL (4.3-11.1) L 12/05/16 04:05 RBC 3.12 M/mcL (3.82-4.97) L 12/05/16 04:05 Hgb 10.0 g/dL (11.5-15.4) L 12/05/16 04:05 Hct 31.4 % (35.3-44.9) L 12/05/16 04:05 MCV 100.6 fL (83.0-100.0) H 12/05/16 04:05 Plt Count 72 K/mcL (140-400) L 12/05/16 04:05 MPV 13.1 fL (9.4-12.4) H 12/05/16 04:05 Lymphocytes # 0.3 K/mcL (0.6-4.6) L 12/05/16 04:05 Platelet Estimate Decreased (Normal) L 12/05/16 04:05 Large Platelets Present (Not Present) A 12/05/16 04:05 Immature Plt Fraction 8.7 % (1.1-6.1) H 12/05/16 04:05 PT 35.3 Seconds (9.4-12.1) H 12/05/16 04:05 APTT 38.6 Seconds (26.0-36.0) H 12/05/16 04:05 Potassium 5.1 mEq/L (3.5-4.5) H 12/05/16 04:05 BUN 62 mg/dL (7-20) H 12/05/16 04:05 Creatinine 3.07 mg/dL (0.57-1.11) H 12/05/16 04:05 Est GFR ( Amer) 19 (> 60) L 12/05/16 04:05 Est GFR (Non-Af Amer) 15 (> 60) L 12/05/16 04:05 Glucose 167 mg/dL (70-99) H 12/05/16 04:05 POC Glucose 166 (58-89) H 12/05/16 16:12 Calculated Osmolality 307 (280-300) H 12/05/16 04:05 Lactic Acid 3.0 mmol/L (0.5-2.2) H 12/05/16 08:59 Troponin I 0.06 ng/mL (0-0.03) H* 12/05/16 08:59 B-Natriuretic Peptide 270 pg/mL (0-100) H 12/05/16 04:05 Serum Total Protein 5.6 g/dL (6.0-8.3) L 12/05/16 04:05 Albumin 2.5 g/dL (3.5-5.0) L 12/05/16 04:05 Albumin/Globulin Ratio 0.8 (1.1-2.2) L 12/05/16 04:05 Ur Leukocyte Esterase Moderate (Negative) H 12/05/16 03:24 Urine Microscopic WBC 50-100 per hpf (0-3) H 12/05/16 03:24 Ur Squamous Epith Cells Many per lpf (None-Few) H 12/05/16 03:24 Urine Bacteria Moderate per hpf (None-Few) H 12/05/16 03:24 Ur Culture Indicated? YES (NO) A 12/05/16 03:24 All other labs normal. Consult Discharge Plan - Plan Referrals: Prema West MD [Primary Care Provider] -
[2016-12-06] MEDS ORDERED: Piperacillin/Tazobactam 3.375 GM in D5% in Water (Mini-Bag+) 100 ML IVPB SCH
[2016-12-06 01:03] LABS: Hematocrit 29.6 % (35.3-44.9); Hemoglobin 9.4 g/dL (11.5-15.4); Mean Corpuscular HGB Conc 31.8 g/dL (31.6-35.5); Mean Corpuscular Hemoglobin 31.9 pg (28.0-33.3); Mean Corpuscular Volume 100.3 fL (83.0-100.0); Mean Platelet Volume 12.1 fL (9.4-12.4); Red Blood Count 2.95 M/mcL (3.82-4.97); Red Cell Distribution Width 13.2 % (11.5-14.5)
[2016-12-06 01:05] LABS: Platelet Count 55 K/mcL (140-400)
[2016-12-06 01:08] LABS: INR 2.8; Prothrombin Time 30.8 Seconds (9.4-12.1)
[2016-12-06 01:18] LABS: Calcium 8.4 mg/dL (8.6-10.8)
[2016-12-06 02:00] LABS: ABG HCO3 25.4 mEQ/L (21-27); ABG Oxygen Saturation 98 % (95-98); ABG PCO2 44 mmHg (35-45); ABG PH 7.37 pH Units (7.32-7.45); ABG PO2 104 mmHg (85-104); ABG TCO2 26.8 mEq/L (20-26); Blood Gas FiO2 32 %
[2016-12-06] MEDS: Norepinephrine 4 MG in D5% in Water 250 ML IVC SCH (02:29)
[2016-12-06] MEDS ORDERED: 0.9 % Sodium Chloride 250 ML ONE (02:49)
[2016-12-06] MEDS: Piperacillin/Tazobactam 3.375 GM in D5% in Water (Mini-Bag+) 100 ML IVPB SCH ×2 (04:32→15:40)
--- NOTE | 2016-12-06 05:20 | Pulmonology History & Physical ---
Date of Encounter: 12/06/16 Time of Encounter: 05:19 History of Present Illness Chief complaint: Abdominal pain 2 days. Dry cough 2 weeks. HPI: Ms. Dawn is a 61 year old female Past Med Surg Social Fam HX - Past Medical History Medical history: arthritis, CHF, diabetes, hypertension, renal disease, TIA Psychiatric history: no psych history - Past Surgical History Surgical History: coronary bypass (CABG) - Social History Smoking Status: Never smoker Smokeless Tobacco Status: No Alcohol use: none Drug use: none - Family History Mother Living Status: Hx Family Cancer: Yes (lung cancer) Father Living Status: Hx Family Cardiac Disorders: Yes (CHF) Medications and Allergies Albuterol Sulfate [Proair Hfa] 2 puff IH Q6HR PRN 12/05/16 [History] Allopurinol [Zyloprim] 300 mg PO DAILY 12/05/16 [History] Aspirin [Lo-Dose Aspirin EC] 81 mg PO DAILY 12/05/16 [History] Carvedilol [Coreg] 25 mg PO BID 12/05/16 [History] Ergocalciferol (VITAMIN D2) [Vitamin D2] 50,000 unit PO QWEEK 12/05/16 [History] Furosemide [Lasix] 40 mg PO BID 12/05/16 [History] Gabapentin [Neurontin] 600 mg PO BID 12/05/16 [History] Insulin DETEMIR [Levemir] 27 unit SQ BID 12/05/16 [History] Liraglutide [Victoza 2-Jordan] 1.2 ml SQ DAILY 12/05/16 [History] Lisinopril [Zestril] 10 mg PO DAILY 12/05/16 [History] Omeprazole [PriLOSEC] 20 mg PO DAILY 12/05/16 [History] Oxygen 2 unit CONT 12/05/16 [History] Potassium Chloride [K-Tab ER] 10 meq PO DAILY 12/05/16 [History] Sertraline [Zoloft] 100 mg PO DAILY 12/05/16 [History] Simvastatin [Zocor] 40 mg PO HS 12/05/16 [History] Spironolactone [Aldactone] 12.5 mg PO DAILY 12/05/16 [History] Warfarin [Coumadin] 3.75 mg PO SUMOWEFR 12/05/16 [History] Warfarin [Coumadin] 7.5 mg PO TUTHSA 12/05/16 [History] Allergies sulfamethoxazole [From Bactrim] Allergy (Unknown, Verified 12/05/16 10:31) See Comments PATIENT'S FAMILY UNSURE OF REACTION- trimethoprim [From Bactrim] Allergy (Unknown, Verified 12/05/16 10:31) See Comments PATIENT'S FAMILY UNSURE OF REACTION- Oxycodone [From Percocet] Adverse Reaction (Verified 12/05/16 03:29) Nausea All Systems: A 10-system review of systems was performed and is negative for pertinent findings except as documented above in the HPI. Physical Examination Vital Signs: Vital Signs, Last 4 Hours Temp Pulse Resp BP Pulse Ox 12/06/16 05:00 125 16 91/77 99 12/06/16 04:00 115 16 87/63 99 12/06/16 03:58 100.6 F H 109 18 82/58 97 12/06/16 03:41 100.6 F H 123 24 70/51 100 12/06/16 03:04 100.8 F H 116 20 72/58 100 12/06/16 03:00 100.8 F H 121 23 72/58 99 12/06/16 02:49 100.8 F H 121 23 89/46 99 12/06/16 02:31 114 12/06/16 02:00 118 72/42 12/06/16 01:35 16 99 Results - Laboratory Findings CBC and BMP: 12/06/16 00:39 12/06/16 00:39 ABG ABG pH 7.37 pH Units (7.32-7.45) 12/06/16 01:48 ABG pCO2 44 mmHg (35-45) 12/06/16 01:48 ABG pO2 104 mmHg (85-104) 12/06/16 01:48 ABG O2 Saturation 98 % (95-98) 12/06/16 01:48 PT/INR, D-dimer PT 30.8 Seconds (9.4-12.1) H 12/06/16 00:39 Abnormal lab findings: Abnormal lab results WBC 3.5 K/mcL (4.3-11.1) L 12/06/16 00:39 RBC 2.95 M/mcL (3.82-4.97) L 12/06/16 00:39 Hgb 9.4 g/dL (11.5-15.4) L 12/06/16 00:39 Hct 29.6 % (35.3-44.9) L 12/06/16 00:39 MCV 100.3 fL (83.0-100.0) H 12/06/16 00:39 Plt Count 55 K/mcL (140-400) L 12/06/16 00:39 Lymphocytes # 0.3 K/mcL (0.6-4.6) L 12/05/16 04:05 Platelet Estimate Decreased (Normal) L 12/05/16 04:05 Large Platelets Present (Not Present) A 12/05/16 04:05 Immature Plt Fraction 8.7 % (1.1-6.1) H 12/05/16 04:05 PT 30.8 Seconds (9.4-12.1) H 12/06/16 00:39 APTT 38.6 Seconds (26.0-36.0) H 12/05/16 04:05 ABG Total CO2 26.8 mEq/L (20-26) H 12/06/16 01:48 Potassium 5.0 mEq/L (3.5-4.5) H 12/06/16 00:39 BUN 70 mg/dL (7-20) H 12/06/16 00:39 Creatinine 3.55 mg/dL (0.57-1.11) H 12/06/16 00:39 Est GFR ( Amer) 16 (> 60) L 12/06/16 00:39 Est GFR (Non-Af Amer) 13 (> 60) L 12/06/16 00:39 Glucose 156 mg/dL (70-99) H 12/06/16 00:39 POC Glucose 164 (58-89) H 12/06/16 01:05 Calculated Osmolality 306 (280-300) H 12/06/16 00:39 Lactic Acid 3.0 mmol/L (0.5-2.2) H 12/05/16 08:59 Calcium 8.4 mg/dL (8.6-10.8) L 12/06/16 00:39 Troponin I 0.06 ng/mL (0-0.03) H* 12/05/16 08:59 B-Natriuretic Peptide 270 pg/mL (0-100) H 12/05/16 04:05 Serum Total Protein 5.6 g/dL (6.0-8.3) L 12/05/16 04:05 Albumin 2.5 g/dL (3.5-5.0) L 12/05/16 04:05 Albumin/Globulin Ratio 0.8 (1.1-2.2) L 12/05/16 04:05 Ur Leukocyte Esterase Moderate (Negative) H 12/05/16 03:24 Urine Microscopic WBC 50-100 per hpf (0-3) H 12/05/16 03:24 Ur Squamous Epith Cells Many per lpf (None-Few) H 12/05/16 03:24 Urine Bacteria Moderate per hpf (None-Few) H 12/05/16 03:24 Ur Culture Indicated? YES (NO) A 12/05/16 03:24
[2016-12-06 06:38] LABS: INR 2.4; Prothrombin Time 26.4 Seconds (9.4-12.1)
[2016-12-06] MEDS: Insulin LISPRO 300 UNITS/3 ML VIAL SQ SCH ×4 (08:35→23:42)
--- NOTE | 2016-12-06 09:51 | Nephrology Consult Note ---
<Shraddha Blum - Last Filed: 12/06/16 14:48> Date of Encounter: 12/06/16 Time of Encounter: 09:30 Assessment and Plan (1) Acute kidney injury superimposed on chronic kidney disease Current Visit: Yes Status: Acute Oliguric acute kidney injury in the setting of septic shock. Patient with known chronic kidney disease stage III, baseline GFR approximately 50. Patient with pancytopenia and panniculitis requiring short-term vasopressors due to hypotension. Patient had a rise in her serum creatinine overnight to 3.55 with minimal urine output. Creatinine kinase, uric acid, urine creatinine, and urine sodium pending. Temporary hemodialysis catheter will be placed at the bedside by interventional radiology and Lalitha initiated. Continue a renal protective strategy with dosing medications accordingly. (2) Septic shock Current Visit: Yes Status: Acute (3) Pancytopenia Current Visit: Yes Status: Acute (4) Panniculitis Current Visit: Yes Status: Acute (5) Atrial fibrillation, chronic Current Visit: Yes Status: Acute History of Present Illness - Reason for Consult Consult date: 12/06/16 Acute Kidney Injury, Chronic Kidney Disease - Chief Complaint IVIS on CKDIII - History of Present Illness Ms. Dawn is a 61-year-old woman with a past medical history of diabetes mellitus, coronary artery disease, congestive heart failure, chronic kidney disease stage III, hypertension, prior CVA, atrial fibrillation on chronic Coumadin, obstructive sleep apnea requiring CPAP, and gout who presented to the emergency department complaining of shortness of breath and lower anterior abdominal wall pain 2 days. Vancomycin and Zosyn was started in the emergency department for suspected panniculitis and patient was ultimately transferred to the ICU for septic shock. Patient does have a history of chronic kidney disease stage III, but nephrology was consulted for acute kidney injury. Serum creatinine on admission was found to be 3.07, today 3.55. Patient required vasopressors for a short period of time and since has been stable with IV fluid. Patient has had only 150 mL of urine output today. Past Med Surg Social Fam HX - Past Medical History Medical history: arthritis, atrial fibrillation, CHF, coronary artery disease, CVA, diabetes, hypertension, renal disease, TIA Psychiatric history: no psych history - Past Surgical History Surgical History: coronary bypass (CABG) - Social History Smoking Status: Never smoker Smokeless Tobacco Status: No Alcohol use: none Drug use: none - Family History Mother Living Status: Hx Family Cancer: Yes (lung cancer) Father Living Status: Hx Family Cardiac Disorders: Yes (CHF) Medications and Allergies Albuterol Sulfate [Proair Hfa] 2 puff IH Q6HR PRN 12/05/16 [History] Allopurinol [Zyloprim] 300 mg PO DAILY 12/05/16 [History] Aspirin [Lo-Dose Aspirin EC] 81 mg PO DAILY 12/05/16 [History] Carvedilol [Coreg] 25 mg PO BID 12/05/16 [History] Ergocalciferol (VITAMIN D2) [Vitamin D2] 50,000 unit PO QWEEK 12/05/16 [History] Furosemide [Lasix] 40 mg PO BID 12/05/16 [History] Gabapentin [Neurontin] 600 mg PO BID 12/05/16 [History] Insulin DETEMIR [Levemir] 27 unit SQ BID 12/05/16 [History] Liraglutide [Victoza 2-Jordan] 1.2 ml SQ DAILY 12/05/16 [History] Lisinopril [Zestril] 10 mg PO DAILY 12/05/16 [History] Omeprazole [PriLOSEC] 20 mg PO DAILY 12/05/16 [History] Oxygen 2 unit CONT 12/05/16 [History] Potassium Chloride [K-Tab ER] 10 meq PO DAILY 12/05/16 [History] Sertraline [Zoloft] 100 mg PO DAILY 12/05/16 [History] Simvastatin [Zocor] 40 mg PO HS 12/05/16 [History] Spironolactone [Aldactone] 12.5 mg PO DAILY 12/05/16 [History] Warfarin [Coumadin] 3.75 mg PO SUMOWEFR 12/05/16 [History] Warfarin [Coumadin] 7.5 mg PO TUTHSA 12/05/16 [History] Allergies sulfamethoxazole [From Bactrim] Allergy (Unknown, Verified 12/05/16 10:31) See Comments PATIENT'S FAMILY UNSURE OF REACTION- trimethoprim [From Bactrim] Allergy (Unknown, Verified 12/05/16 10:31) See Comments PATIENT'S FAMILY UNSURE OF REACTION- Oxycodone [From Percocet] Adverse Reaction (Verified 12/05/16 03:29) Nausea Review of Systems All Systems: reviewed and no additional remarkable complaints except as stated Exam - Vital Signs Vital signs: Initial Vital Signs Temp Pulse Resp BP Pulse Ox 100.8 F H 109 22 86/53 99 12/05/16 02:54 12/05/16 02:54 12/05/16 02:54 12/05/16 02:54 12/05/16 02:54 Vital Signs - Last 8 Hours Temp Pulse Resp BP Pulse Ox 12/06/16 07:49 101 24 93/71 99 12/06/16 07:10 99.8 F H 12/06/16 06:00 101 24 90/66 99 12/06/16 05:30 100.1 F H 109 24 99/64 99 12/06/16 05:00 125 16 91/77 99 12/06/16 04:00 115 16 87/63 99 12/06/16 03:58 100.6 F H 109 18 82/58 97 12/06/16 03:41 100.6 F H 123 24 70/51 100 12/06/16 03:04 100.8 F H 116 20 72/58 100 12/06/16 03:00 100.8 F H 121 23 72/58 99 12/06/16 02:49 100.8 F H 121 23 89/46 99 12/06/16 02:31 114 12/06/16 02:00 118 72/42 Intake and Output 12/05/16 12/06/16 12/06/16 23:59 07:59 15:59 Intake Total 1100 / 1100 812.6 / 812.6 100 / 100 Output Total 425 / 425 250 / 250 Balance 675 / 675 562.6 / 562.6 100 / 100 Intake: IV Fluids 1100 / 1100 72.6 / 72.6 100 / 100 0.9 % Sodium Chloride 1, 1000 / 1000 000 ML @ 80 mls/hr IVC . [id number] [facility] Rx#: [id number] Levophed 4 MG In Dextrose 72.6 / 72.6 5% 250 ML @ 2 MCG/MIN 7. 62 mls/hr IVC .CONT [facility] Rx#:[id number] Zosyn 3.375 GM In 100 / 100 100 / 100 Dextrose 5% (Minibag+) 100 ML 100 ML @ 25 mls/hr IVPB Q12H [facility] Rx#: [id number] Oral 240 / 240 Blood Product 500 / 500 Plasma Unit 250 / 250 [id number] Plasma Unit 250 / 250 [id number] Output: Rectal Tube 100 / 100 Catheter 425 / 425 150 / 150 Other: Stool Size Copious Stool Consistency loose liquid Stool Color Brown Weight 137.2 kg Blood Glucose* 171 162 - General Appearance Exam: General: Patient is alert and in no acute distress HEENT: Normocephalic atraumatic, pupils are equal round and reactive to light and accommodation, tympanic membrane is intact, nares is patent, mucous membranes moist, throat is not injected, no JVD, trachea is midline Cardiovascular: Tachycardic with irregularly irregular rhythm Respiratory: Lungs are managed bilaterally clear to auscultation bilaterally, no wheezing, rhonchi, rales Abdomen: Obese with significant abdominal pannus, induration of the right lower pannus, ecchymosis noted Extremities: Warm, dry, trace lower extremity edema Neuro: A&Ox3, speech is appropriate, cranial nerves II through XII are normal as tested Results - Lab Results 12/06/16 00:39 12/06/16 00:39 Most recent lab results ABG pH 7.37 pH Units (7.32-7.45) 12/06/16 01:48 ABG pCO2 44 mmHg (35-45) 12/06/16 01:48 ABG pO2 104 mmHg (85-104) 12/06/16 01:48 ABG HCO3 25.4 mEQ/L (21-27) 12/06/16 01:48 ABG O2 Saturation 98 % (95-98) 12/06/16 01:48 Calcium 8.4 mg/dL (8.6-10.8) L 12/06/16 00:39 Phosphorus 2.3 mg/dL (2.3-4.7) 12/05/16 04:05 Magnesium 1.7 mg/dL (1.6-2.6) 12/05/16 04:05 Consult Discharge Plan - Plan Referrals: Prema West MD [Primary Care Provider] - <Ye Ghosh - Last Filed: 12/06/16 16:45> Exam - Vital Signs Vital signs: Initial Vital Signs Temp Pulse Resp BP Pulse Ox 100.8 F H 109 22 86/53 99 12/05/16 02:54 12/05/16 02:54 12/05/16 02:54 12/05/16 02:54 12/05/16 02:54 Vital Signs - Last 8 Hours Temp Pulse Resp BP Pulse Ox 12/06/16 16:00 111 20 96/53 97 12/06/16 15:00 119 20 73/59 97 12/06/16 14:00 106 20 78/58 99 12/06/16 13:36 97.7 F 115 20 90/34 99 12/06/16 13:02 98.3 F 120 22 79/61 100 12/06/16 13:00 113 20 79/61 99 12/06/16 12:53 98.3 F 129 20 82/48 98 12/06/16 12:23 99.2 F 113 18 87/74 100 12/06/16 12:00 99.2 F 113 20 87/74 100 12/06/16 11:04 112 12/06/16 11:00 112 24 78/50 99 12/06/16 10:00 131 24 86/46 99 Intake and Output 12/06/16 12/06/16 12/06/16 07:59 15:59 23:59 Intake Total 812.6 / 812.6 3260 / 3260 Output Total 250 / 250 0 / 0 Balance 562.6 / 562.6 3260 / 3260 Intake: IV Fluids 72.6 / 72.6 2100 / 2100 0.9 % Sodium Chloride 500 2000 / 2000 ML @ 200 mls/hr IVC . Q2H30M [facility] Rx#:[id number] Levophed 4 MG In Dextrose 72.6 / 72.6 5% 250 ML @ 2 MCG/MIN 7. 62 mls/hr IVC .CONT [facility] Rx#:[id number] Zosyn 3.375 GM In 100 / 100 Dextrose 5% (Minibag+) 100 ML 100 ML @ 25 mls/hr IVPB Q12H [facility] Rx#: [id number] Oral 240 / 240 Blood Product 500 / 500 1160 / 1160 Plasma Unit 250 / 250 [id number] Plasma Unit 250 / 250 [id number] Plasma Unit 592 / 592 [id number] Plasma Unit 568 / 568 [id number] Output: Rectal Tube 100 / 100 0 / 0 Catheter 150 / 150 0 / 0 Other: Blood Glucose* 162 192 192 Results - Lab Results 12/06/16 00:39 12/06/16 00:39 Most recent lab results ABG pH 7.37 pH Units (7.32-7.45) 12/06/16 01:48 ABG pCO2 44 mmHg (35-45) 12/06/16 01:48 ABG pO2 104 mmHg (85-104) 12/06/16 01:48 ABG HCO3 25.4 mEQ/L (21-27) 12/06/16 01:48 ABG O2 Saturation 98 % (95-98) 12/06/16 01:48 Calcium 8.4 mg/dL (8.6-10.8) L 12/06/16 00:39 Phosphorus 2.3 mg/dL (2.3-4.7) 12/05/16 04:05 Magnesium 1.7 mg/dL (1.6-2.6) 12/05/16 04:05 Urine Creatinine 71 mg/dL 12/05/16 03:24 Urine Sodium < 20.0 mEq/L 12/05/16 03:24 - Attending Attestation I examined this patient and my medical decision-making was reviewed with the COMMUNICATIONS DEPARTMENT HEAD/PA/Advanced Practice Nurse/Resident Physician. I agree with the documented findings, disposition and treatment plan as described except to the extent set forth below. Pt seen and examined with family present in septic shock with resultant IVIS would benefit from renal replacemnet therapy. Pt agreable, will proceed with temporary HD catheter placement via IR once inr corrected and subsequently CRRT
[2016-12-06 10:20] LABS: Uric Acid 5.6 mg/dL (2.6-6.0)
[2016-12-06] MEDS ORDERED: Vancomycin 750 MG in D5% in Water 250 ML IVPB ONE (12:00)
[2016-12-06] MEDS: 0.9 % Sodium Chloride 1,000 ML IVC SCH (12:49)
--- NOTE | 2016-12-06 13:08 | General Surgery Progress Note ---
Date of Encounter: 12/06/16 Time of Encounter: 13:02 Subjective Narrative: General Surgery: follow up ecchymosis v cellulitis abdominal panus. Patient has been transferred to ICU for continued care and management. Seems slightly more awake and alert. Daughter at bedside. Patient on pressors for BP support The abdominal pannus appears stable, stable in appearance and the blue discoloration consistent with ecchymosis Labs: stable CBC; PT improved to 26.4; INR 2.4. persistent hyperkalemia, BUN has increased to 70 and Cr 3.55 Urine cultures - GNR, appears likely source of sepsis picture. Discussed with patient ' s daughter - no surgical intervention anticipated at this time. Will continue to follow. Patient to have IV access for Lalitha. Objective Vital Signs - Last 8 Hours Temp Pulse Resp BP Pulse Ox 12/06/16 12:53 98.3 F 129 20 82/48 98 12/06/16 12:23 99.2 F 113 18 87/74 100 12/06/16 12:00 99.2 F 113 20 87/74 100 12/06/16 11:04 112 12/06/16 11:00 112 24 78/50 99 12/06/16 10:00 131 24 86/46 99 12/06/16 07:49 101 24 93/71 99 12/06/16 07:10 99.8 F H 12/06/16 06:00 101 24 90/66 99 12/06/16 05:30 100.1 F H 109 24 99/64 99 Intake and Output 12/05/16 12/06/16 12/06/16 23:59 07:59 15:59 Intake Total 1100 / 1100 812.6 / 812.6 1692 / 1692 Output Total 425 / 425 250 / 250 Balance 675 / 675 562.6 / 562.6 1692 / 1692 Intake: IV Fluids 1100 / 1100 72.6 / 72.6 1100 / 1100 0.9 % Sodium Chloride 1, 1000 / 1000 1000 / 1000 000 ML @ 80 mls/hr IVC . [id number] [facility] Rx#: [id number] Levophed 4 MG In Dextrose 72.6 / 72.6 5% 250 ML @ 2 MCG/MIN 7. 62 mls/hr IVC .CONT [facility] Rx#:[id number] Zosyn 3.375 GM In 100 / 100 100 / 100 Dextrose 5% (Minibag+) 100 ML 100 ML @ 25 mls/hr IVPB Q12H [facility] Rx#: [id number] Oral 240 / 240 Blood Product 500 / 500 592 / 592 Plasma Unit 250 / 250 [id number] Plasma Unit 250 / 250 [id number] Plasma Unit 592 / 592 [id number] Output: Rectal Tube 100 / 100 Catheter 425 / 425 150 / 150 Other: Stool Size Copious Stool Consistency loose liquid Stool Color Brown Weight 137.2 kg Blood Glucose* 171 162 164 - Labs 12/06/16 00:39 12/06/16 00:39 Diabetes panel 12/06/16 Range/Units 00:39 Sodium 136 (136-145) mEq/L Potassium 5.0 H (3.5-4.5) mEq/L Chloride 101 (98-109) mEq/L Carbon Dioxide 20 (19-29) mEq/L BUN 70 H (7-20) mg/dL Creatinine 3.55 H (0.57-1.11) mg/dL Glucose 156 H (70-99) mg/dL Calcium 8.4 L (8.6-10.8) mg/dL Calcium panel 12/06/16 Range/Units 00:39 Calcium 8.4 L (8.6-10.8) mg/dL Pituitary panel 12/06/16 Range/Units 00:39 Sodium 136 (136-145) mEq/L Potassium 5.0 H (3.5-4.5) mEq/L Chloride 101 (98-109) mEq/L Carbon Dioxide 20 (19-29) mEq/L BUN 70 H (7-20) mg/dL Creatinine 3.55 H (0.57-1.11) mg/dL Glucose 156 H (70-99) mg/dL Calcium 8.4 L (8.6-10.8) mg/dL Adrenal panel 12/06/16 Range/Units 00:39 Sodium 136 (136-145) mEq/L Potassium 5.0 H (3.5-4.5) mEq/L Chloride 101 (98-109) mEq/L Carbon Dioxide 20 (19-29) mEq/L BUN 70 H (7-20) mg/dL Creatinine 3.55 H (0.57-1.11) mg/dL Glucose 156 H (70-99) mg/dL Calcium 8.4 L (8.6-10.8) mg/dL Consult Discharge Plan - Plan Referrals: Prema West MD [Primary Care Provider] -
--- NOTE | 2016-12-06 13:29 | Pulmonology Consult Note ---
Addendum entered and electronically signed by Carmel Julien DO 12/06/16 18:07: Review of systems: Patient admits: Lower abdominal pain, low back pain bilaterally, right upper quadrant abdominal pain, changes in vision described as black spots appearing earlier in the morning before her blood pressure had come up, skin changes in color of her lower abdomen associated with pain and redness, burning on urination and pain on urination. Patient denies: Nausea, vomiting, fever, constipation, headache, syncope, neck stiffness or pain, dysphasia, early satiety, chest pain, dyspnea, numbness or tingling of the upper or lower extremities, paresthesia. Physical examination: Gen.: No acute distress. Morbidly obese white female. Pleasant and responding appropriately. HEENT: Dry oral mucosa. No conjunctival pallor or scleral icterus. Neck: Increased neck circumference without lymphadenopathy, trachea midline. Lungs: Clear to auscultation bilaterally however decreased sounds. Cardiac: Irregular rate and rhythm. Atrial fibrillation and Tachycardia with rates 110 to 115. No murmurs rubs or gallops appreciated. Abdomen: Extensive abdominal panniculus adiposis extending down bilaterally to both knees with erythema, localized warmth and tenderness to palpation of the lower anterior abdominal wall with ecchymosis present in dependent areas and areas that are hardened/sclerotic. Bowel sounds are present. Genitourinary: Fenton catheter in place Neurologic: Alert and oriented 4. Nonfocal neurologic exam. Psych: Patient is pleasant and interactive without agitation or aggression. Extremities: Mild 2+ edema noted bilaterally Skin: Warm, no generalized rash. Original Note: <Carmel Julien - Last Filed: 12/06/16 16:59> Date of Encounter: 12/06/16 Time of Encounter: 05:19 Assessment and Plan (1) Septic shock Current Visit: Yes Status: Acute Patient arrived to ICU meeting criteria for severe sepsis and septic shock due to hypotension unresponsive to fluid. Source of infection is likely a urinary tract infection/sepsis secondary to UTI. Severe sepsis: Likely secondary to UTI/urosepsis. Fever: 100.8 tachycardia: Heart Rate of 125 Tachypnea: Respiratory rate of 26 with labored breathing and use of accessory muscles hypotension: Blood pressure of 70/30 lactic acidosis: 3.0 pancytopenia IVIS: Oliguria and creatinine of 3.0 and GFR of 15 Altered mental status: Confusion and changes in vision High risk due to multiorgan failure and need for aggressive IVF in the setting of systolic CHF. (2) Panniculitis Current Visit: Yes Status: Acute Patient is morbidly obese with extensive abdominal panniculus adiposis extending down to her knees bilaterally. Inflammation of the subcutaneous fat or panniculitis is evident on physical exam as nonspecific erythema and on palpation there appeared to be a deep-seated areas of hardened/sclerosis characteristic of inflammatory process beneath the dermis. Cellulitis cannot be excluded however, physical exam is more consistent with panniculitis versus cellulitis (where the overlying dermis is mainly affected and underlying fascia with extension to nearby tissue). Extensive ecchymosis on dependent portions of the panniculus may be due to small capillary bleeding. Patient is supratherapeutic on anticoagulation with INR 3.2 and PTT of 35.3. CT scan of abdomen more consistent with a chronic condition. Unclear etiology of panniculitis at this time likely chronic in nature superimposed with subtherapeutic INR versus infectious panniculitis through hematogenous dissemination of microorganisms/bacteremia/sepsis. Chest X-Ray 12/05/16 02:59 IMPRESSION: Unchanged cardiomegaly. Pulmonary venous congestion without overt edema. Abdomen/Pelvis CT 12/05/16 03:07 IMPRESSION: 1. There is a large pannus of the lower abdomen/pelvis with extensive fat stranding and skin thickening. No discrete/drainable fluid collection. 2. No acute abnormality identified within the unenhanced abdomen or pelvis. 3. Cholelithiasis without CT evidence of acute cholecystitis. 4. Right adrenal adenoma. 5. Umbilical hernia containing fat as well as a small amount of fluid. 6. Cardiomegaly. Patient presented to the ICU in a state of septic shock with oliguric acute kidney injury on chronic kidney disease occurring acutely overnight having a rise in serum creatinine to 3.35, pancytopenia, positive urine culture for gram- negative rods so her septic shock may be due to urosepsis. Vasopressors were needed for a short period of time however have since been stopped and patient has been stable with IV fluids. Surgery was consulted: is following. Surgical intervention noted to be severely complicated by patient's morbid obesity, chronic atrial fibrillation and anticoagulation state. Supratherapeutic on anticoagulation: INR 3.2, 2.8, 2.4. A total of 4 units of fresh frozen plasma were given today. Acute kidney injury on chronic kidney disease: BUN of 70, creatinine of 3.55 estimated GFR at 16. Nephrology is following. Right internal jugular temporary hemodialysis catheter was placed by interventional radiology on 12/06/16 in anticipation of CVVHF therapy. Serology: C. difficile toxin PCR was negative. Urine cultures: Preliminary results revealed gram-negative rods. Blood cultures x2 : Preliminary results demonstrate no growth. Antibiotics: Vancomycin was started in the emergency room 12/05/16 but has subsequently been stopped due to trough of 17.6 on 12/06/16 and acute kidney injury. May consider restarting at later date after CVVHF. Zosyn start date: 12/05/16 for 7-10 days. Stop date: 12/15/16 Added Cipro at renal dosing for additional gram-negative coverage. Start date: 12/06/16 (3) Acute renal failure Current Visit: Yes Status: Acute Nephrology following as above. Qualifiers: Acute renal failure type: unspecified Qualified Code(s): N17.9 - Acute kidney failure, unspecified (4) Pancytopenia Current Visit: Yes Status: Acute see above (5) Chronic anticoagulation Current Visit: Yes Status: Chronic Supratherapeutic we will hold for now. 4 units of fresh frozen plasma were given. Continue to monitor INR. Will check daily coags/PT/INR. (6) Diabetes mellitus Current Visit: Yes Status: Chronic Qualifiers: Diabetes mellitus type: type 2 Diabetes mellitus complication status: without complication Diabetes mellitus middle or intermediate school principal insulin use: with middle or intermediate school principal use Qualified Code(s): E11.9 - Type 2 diabetes mellitus without complications ; Z79.4 - intermediate designer (current) use of insulin (7) Morbid obesity with BMI of 50.0-59.9, adult Current Visit: Yes Status: Chronic (8) Elevated troponin Current Visit: Yes Status: Acute In the setting of sepsis and CHF unlikely due to acute myocardial event. Most likely supply demand ischemia. History of Present Illness Consult date: 12/06/16 Requesting physician: Mohsen Durán Reason for consult: dyspnea, COPD, hypoxemia Chief complaint: Abdominal pain 2 days and cough for 2 weeks History of present illness: Patient is a 61-year-old female with a past medical history of hypertension, coronary artery disease/CABG, CHF, TIA, diabetes, chronic kidney disease stage III, gout, morbid obesity, atrial fibrillation on chronic anticoagulation with Coumadin therapy who presented to the ICU in septic shock as a transfer from the medical floor . Patient was noted to have severe sepsis with lactic acidosis and acute kidney injury she had not been responding to IV fluid hydration or making adequate urine. Blood pressure continued to drop despite IV fluid boluses and a dopamine infusion was required to maintain adequate perfusion. A left intraosseous was placed due to poor venous access and 2 units of fresh frozen plasma were given due to supratherapeutic INR. Patient was on vancomycin and Zosyn as well. Additionally, there were 2 peripheral IVs established in the left and right antecubital fossa. Patient was on CPAP overnight with an FiO2 of 32. Initially, patient presented to the emergency department via EMS on 12/05/16 for generalized weakness and fever. Patient reported pain in the lower anterior abdominal wall that began 2 days ago describing burning sensation that was localized and was made worse when she attempted to walk. Patient states that she noticed changes in the color of her lower abdomen describing it as red and purple. Patient reported subjective fever as well as dry cough and shortness of breath over the past 2 weeks stable without progression. Patient is on home oxygen 2 L nasal cannula at home. Patient was recently hospitalized at [facility] due to acute systolic CHF exacerbation 2 weeks prior, however, she had been in good health until 2 days prior to admission. Past Med Surg Social Fam HX - Past Medical History Medical history: arthritis, atrial fibrillation, CHF, coronary artery disease, CVA, diabetes, hypertension, renal disease, TIA Psychiatric history: no psych history - Past Surgical History Surgical History: coronary bypass (CABG) - Social History Smoking Status: Never smoker Smokeless Tobacco Status: No Alcohol use: none Drug use: none - Family History Mother Living Status: Hx Family Cancer: Yes (lung cancer) Father Living Status: Hx Family Cardiac Disorders: Yes (CHF) Medications and Allergies Albuterol Sulfate [Proair Hfa] 2 puff IH Q6HR PRN 12/05/16 [History] Allopurinol [Zyloprim] 300 mg PO DAILY 12/05/16 [History] Aspirin [Lo-Dose Aspirin EC] 81 mg PO DAILY 12/05/16 [History] Carvedilol [Coreg] 25 mg PO BID 12/05/16 [History] Ergocalciferol (VITAMIN D2) [Vitamin D2] 50,000 unit PO QWEEK 12/05/16 [History] Furosemide [Lasix] 40 mg PO BID 12/05/16 [History] Gabapentin [Neurontin] 600 mg PO BID 12/05/16 [History] Insulin DETEMIR [Levemir] 27 unit SQ BID 12/05/16 [History] Liraglutide [Victoza 2-Jordan] 1.2 ml SQ DAILY 12/05/16 [History] Lisinopril [Zestril] 10 mg PO DAILY 12/05/16 [History] Omeprazole [PriLOSEC] 20 mg PO DAILY 12/05/16 [History] Oxygen 2 unit CONT 12/05/16 [History] Potassium Chloride [K-Tab ER] 10 meq PO DAILY 12/05/16 [History] Sertraline [Zoloft] 100 mg PO DAILY 12/05/16 [History] Simvastatin [Zocor] 40 mg PO HS 12/05/16 [History] Spironolactone [Aldactone] 12.5 mg PO DAILY 12/05/16 [History] Warfarin [Coumadin] 3.75 mg PO SUMOWEFR 12/05/16 [History] Warfarin [Coumadin] 7.5 mg PO TUTHSA 12/05/16 [History] Allergies sulfamethoxazole [From Bactrim] Allergy (Unknown, Verified 12/05/16 10:31) See Comments PATIENT'S FAMILY UNSURE OF REACTION- trimethoprim [From Bactrim] Allergy (Unknown, Verified 12/05/16 10:31) See Comments PATIENT'S FAMILY UNSURE OF REACTION- Oxycodone [From Percocet] Adverse Reaction (Verified 12/05/16 03:29) Nausea All Systems: A 10-system review of systems was performed and is negative for pertinent findings except as documented above in the HPI. Physical Examination Vital Signs: Vital Signs, Last 4 Hours Temp Pulse Resp BP Pulse Ox 12/06/16 13:02 98.3 F 120 22 79/61 100 12/06/16 13:00 113 20 79/61 99 12/06/16 12:53 98.3 F 129 20 82/48 98 12/06/16 12:23 99.2 F 113 18 87/74 100 12/06/16 12:00 99.2 F 113 20 87/74 100 12/06/16 11:04 112 12/06/16 11:00 112 24 78/50 99 12/06/16 10:00 131 24 86/46 99 Results - Laboratory Findings CBC and BMP: 12/06/16 00:39 12/06/16 00:39 ABG ABG pH 7.37 pH Units (7.32-7.45) 12/06/16 01:48 ABG pCO2 44 mmHg (35-45) 12/06/16 01:48 ABG pO2 104 mmHg (85-104) 12/06/16 01:48 ABG O2 Saturation 98 % (95-98) 12/06/16 01:48 PT/INR, D-dimer PT 26.4 Seconds (9.4-12.1) H 12/06/16 06:16 Abnormal lab findings: Abnormal lab results WBC 3.5 K/mcL (4.3-11.1) L 12/06/16 00:39 RBC 2.95 M/mcL (3.82-4.97) L 12/06/16 00:39 Hgb 9.4 g/dL (11.5-15.4) L 12/06/16 00:39 Hct 29.6 % (35.3-44.9) L 12/06/16 00:39 MCV 100.3 fL (83.0-100.0) H 12/06/16 00:39 Plt Count 55 K/mcL (140-400) L 12/06/16 00:39 Lymphocytes # 0.3 K/mcL (0.6-4.6) L 12/05/16 04:05 Platelet Estimate Decreased (Normal) L 12/05/16 04:05 Large Platelets Present (Not Present) A 12/05/16 04:05 Immature Plt Fraction 8.7 % (1.1-6.1) H 12/05/16 04:05 PT 26.4 Seconds (9.4-12.1) H 12/06/16 06:16 APTT 38.6 Seconds (26.0-36.0) H 12/05/16 04:05 ABG Total CO2 26.8 mEq/L (20-26) H 12/06/16 01:48 Potassium 5.0 mEq/L (3.5-4.5) H 12/06/16 00:39 BUN 70 mg/dL (7-20) H 12/06/16 00:39 Creatinine 3.55 mg/dL (0.57-1.11) H 12/06/16 00:39 Est GFR ( Amer) 16 (> 60) L 12/06/16 00:39 Est GFR (Non-Af Amer) 13 (> 60) L 12/06/16 00:39 Glucose 156 mg/dL (70-99) H 12/06/16 00:39 POC Glucose 184 (58-89) H 12/06/16 11:52 Calculated Osmolality 306 (280-300) H 12/06/16 00:39 Lactic Acid 3.0 mmol/L (0.5-2.2) H 12/05/16 08:59 Calcium 8.4 mg/dL (8.6-10.8) L 12/06/16 00:39 Troponin I 0.06 ng/mL (0-0.03) H* 12/05/16 08:59 B-Natriuretic Peptide 270 pg/mL (0-100) H 12/05/16 04:05 Serum Total Protein 5.6 g/dL (6.0-8.3) L 12/05/16 04:05 Albumin 2.5 g/dL (3.5-5.0) L 12/05/16 04:05 Albumin/Globulin Ratio 0.8 (1.1-2.2) L 12/05/16 04:05 Ur Leukocyte Esterase Moderate (Negative) H 12/05/16 03:24 Urine Microscopic WBC 50-100 per hpf (0-3) H 12/05/16 03:24 Ur Squamous Epith Cells Many per lpf (None-Few) H 12/05/16 03:24 Urine Bacteria Moderate per hpf (None-Few) H 12/05/16 03:24 Ur Culture Indicated? YES (NO) A 12/05/16 03:24 - Clinical Findings Intake & Output: Intake & Output 12/05/16 12/06/16 12/06/16 23:59 07:59 15:59 Intake Total 1100 / 1100 812.6 / 812.6 1975 Output Total 425 / 425 250 / 250 Balance 675 / 675 562.6 / 562.6 1975 Weight 137.2 kg Consult Discharge Plan - Plan Referrals: Prema West MD [Primary Care Provider] - <Rosie Hope Brittany - Last Filed: 12/06/16 17:53> All Systems: A 10-system review of systems was performed and is negative for pertinent findings except as documented above in the HPI. Physical Examination Vital Signs: Vital Signs, Last 4 Hours Pulse Resp BP Pulse Ox 12/06/16 17:00 123 18 85/52 97 12/06/16 16:00 111 20 96/53 97 12/06/16 15:00 119 20 73/59 97 12/06/16 14:00 106 20 78/58 99 Results - Laboratory Findings CBC and BMP: 12/06/16 00:39 12/06/16 00:39 ABG ABG pH 7.37 pH Units (7.32-7.45) 12/06/16 01:48 ABG pCO2 44 mmHg (35-45) 12/06/16 01:48 ABG pO2 104 mmHg (85-104) 12/06/16 01:48 ABG O2 Saturation 98 % (95-98) 12/06/16 01:48 PT/INR, D-dimer PT 26.4 Seconds (9.4-12.1) H 12/06/16 06:16 Abnormal lab findings: Abnormal lab results WBC 3.5 K/mcL (4.3-11.1) L 12/06/16 00:39 RBC 2.95 M/mcL (3.82-4.97) L 12/06/16 00:39 Hgb 9.4 g/dL (11.5-15.4) L 12/06/16 00:39 Hct 29.6 % (35.3-44.9) L 12/06/16 00:39 MCV 100.3 fL (83.0-100.0) H 12/06/16 00:39 Plt Count 55 K/mcL (140-400) L 12/06/16 00:39 Lymphocytes # 0.3 K/mcL (0.6-4.6) L 12/05/16 04:05 Platelet Estimate Decreased (Normal) L 12/05/16 04:05 Large Platelets Present (Not Present) A 12/05/16 04:05 Immature Plt Fraction 8.7 % (1.1-6.1) H 12/05/16 04:05 PT 26.4 Seconds (9.4-12.1) H 12/06/16 06:16 APTT 38.6 Seconds (26.0-36.0) H 12/05/16 04:05 ABG Total CO2 26.8 mEq/L (20-26) H 12/06/16 01:48 Potassium 5.0 mEq/L (3.5-4.5) H 12/06/16 00:39 BUN 70 mg/dL (7-20) H 12/06/16 00:39 Creatinine 3.55 mg/dL (0.57-1.11) H 12/06/16 00:39 Est GFR ( Amer) 16 (> 60) L 12/06/16 00:39 Est GFR (Non-Af Amer) 13 (> 60) L 12/06/16 00:39 Glucose 156 mg/dL (70-99) H 12/06/16 00:39 POC Glucose 192 (58-89) H 12/06/16 15:07 Calculated Osmolality 306 (280-300) H 12/06/16 00:39 Calcium 8.4 mg/dL (8.6-10.8) L 12/06/16 00:39 Troponin I 0.06 ng/mL (0-0.03) H* 12/05/16 08:59 B-Natriuretic Peptide 270 pg/mL (0-100) H 12/05/16 04:05 Serum Total Protein 5.6 g/dL (6.0-8.3) L 12/05/16 04:05 Albumin 2.5 g/dL (3.5-5.0) L 12/05/16 04:05 Albumin/Globulin Ratio 0.8 (1.1-2.2) L 12/05/16 04:05 Ur Leukocyte Esterase Moderate (Negative) H 12/05/16 03:24 Urine Microscopic WBC 50-100 per hpf (0-3) H 12/05/16 03:24 Ur Squamous Epith Cells Many per lpf (None-Few) H 12/05/16 03:24 Urine Bacteria Moderate per hpf (None-Few) H 12/05/16 03:24 Ur Culture Indicated? YES (NO) A 12/05/16 03:24 - Clinical Findings Intake & Output: Intake & Output 12/06/16 12/06/16 12/06/16 07:59 15:59 23:59 Intake Total 812.6 / 812.6 3259 / 3259 Output Total 250 / 250 0 / 0 Balance 562.6 / 562.6 3259 - Attending Attestation I examined this patient and my medical decision-making was reviewed with the PHYSICS TEACHER/PA/Advanced Practice Nurse/Resident Physician. I agree with the documented findings, disposition and treatment plan as described except to the extent set forth below. Patient seen and examined. Labs, radiology, chart personally reviewed. 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 She does have chronic respiratory failure on home oxygen and I am concerned that her condition could deteriorate that may require invasive mechanical ventilation and explained that to the family at the bedside and they understand. Cardiovascular: Patient has history of congestive heart failure into the family which is chronic and no evidence of exacerbation, however with fluid resuscitation she could deteriorate and the family understand that. GI: Patient to be nothing by mouth at this time Heme: Patient received FFP due to coagulopathy and also she needs central line placement. ID: Continue antibiotics and plan to de-escalation. It is not clear if septic shock source, however it could be urinary tract and also she has evidence of abdominal wall inflammation. Surgery has been consulted and appreciate the input. Renal; urine out put and renal funtion reviewed. Patient has chronic kidney disease and no evidence of acute kidney injury with organ system dysfunction and agree with manufacturing operations manager recommendation. Endorcine: blood glucose is monitored Lines: all lines checked and no evidence of infections Skin: skin care to prevent pressure ulcers per nursing routine care I spent 40 min of Critical Care time with this patient. It involved decision making of high complexity to assess, manipulate, and support vital organ system failure and/or to prevent further life threatening deterioration of the patient' s condition. The time involved in the performance of separately reportable procedures was not counted toward critical care time.
[2016-12-06 14:17] LABS: Creatinine,Urine 71 mg/dL; Sodium, Urine < 20.0 mEq/L
[2016-12-06] MEDS ORDERED: *HR* Heparin 5,000 UNIT/ML VIAL ONE (14:53)
[2016-12-06] MEDS: 0.9 % Sodium Chloride 500 ML IVC SCH ×2 (15:48→15:50)
--- NOTE | 2016-12-06 16:01 | IR Procedure Note ---
Date of procedure: 12/06/16 Consent Obtained: Verbal consent Timeout: Correct patient and procedure verified, Correct site verified, Time out performed, Skin prep completed Local anesthetic: Lidocaine 1% Indications: Sepsis, cellulitis, to be d/c'd on abx Procedure Performed: Tunneled small bore catheter placement. Site/Technique: RIJV Results/Findings: Catheter working well. Estimated blood loss (cc): 1 Complications: None; Tolerated procedure well Post Procedure Treatment Plan: Monitoring in pts room
[2016-12-06] MEDS ORDERED: 0.9 % Sodium Chloride 1,000 ML PRIME SCH (16:34)
[2016-12-06] MEDS ORDERED: *HR* Alteplase (Cathflo) 2 MG VIAL IVP PRN (16:34)
[2016-12-06] MEDS: PrismaSATE BGK 4/2.5 5,000 ML CRRT SCH ×2 (17:26→17:27)
[2016-12-07] MEDS ORDERED: Piperacillin/Tazobactam 3.375 GM in D5% in Water (Mini-Bag+) 100 ML IVPB SCH
[2016-12-07] MEDS: PrismaSATE BGK 4/2.5 5,000 ML CRRT SCH ×6 (00:26→20:00)
[2016-12-07] MEDS: 0.9 % Sodium Chloride 1,000 ML IVC SCH ×2 (00:34→08:57)
--- NOTE | 2016-12-07 05:00 | Pulmonology Progress Note ---
<Carmel Julien - Last Filed: 12/07/16 11:22> Date of Encounter: 12/07/16 Time of Encounter: 04:59 Assessment and Plan (1) Septic shock Current Visit: Yes Status: Acute Patient arrived to ICU meeting criteria for severe sepsis and septic shock due to hypotension unresponsive to fluid. Source of infection is likely a urinary tract infection/sepsis secondary to UTI. Severe sepsis: Likely secondary to UTI/urosepsis. Fever: 100.8 tachycardia: Heart Rate of 125 Tachypnea: Respiratory rate of 26 with labored breathing and use of accessory muscles hypotension: Blood pressure of 70/30 lactic acidosis: 3.0 pancytopenia IVIS: Oliguria and creatinine of 3.0 and GFR of 15 Altered mental status: Confusion and changes in vision High risk due to multiorgan failure and need for aggressive IVF in the setting of systolic CHF. Initially, 4 L of fluid given without significant response. We will continue supportive therapy with fluids. Normal saline at 80 mils an hour discontinued. Boluses of 250 as needed. BP continues to be labile 79-89/45-60. pt still in Afib. Left radial arterial line was attempted. Will assess femoral arterial line for placement. Chest X-Ray 12/05/16 02:59 IMPRESSION: Unchanged cardiomegaly. Pulmonary venous congestion without overt edema. Serology: C. difficile toxin PCR was negative. Blood cultures x2 : Preliminary results demonstrate no growth. Urine cultures: Final results revealed gram-negative rods identified as Ecoli. Pansensitive. Will deescalate Vancomycin and Zosyn switch to Ceftriaxone for Skin/Staph Coverage and enteric Gram negative rods. Antibiotics: STOP: 12/07/16 -Vancomycin was initiated in the emergency room 12/05/16 but has subsequently been stopped due to trough of 17.6 on 12/06/16 and acute kidney injury. Trough on 12/07/16 of 11.4. - Zosyn start date: 12/05/16. - Cipro at renal dosing 400 Q24 for additional gram-negative coverage. May return to Q 12 as renal function improves. Start date: 12/06/16 START 12/07/16: Ceftriaxone 2 mg Q 24 for 7 days. Stop: 12/13/16. Acute kidney injury on chronic kidney disease: BUN of 70, creatinine of 3.55 estimated GFR at 16. Nephrology is following. Right internal jugular temporary hemodialysis catheter was placed by interventional radiology on 12/06/16 in anticipation of CVVHF therapy. On pressor support: Decreased gastric excretions may prevent full absorb - will give Protonix IV until pt is off pressor support - then switch to PO Omeprazole for Stress ulcer prophylaxis (2) Panniculitis Current Visit: Yes Status: Acute Patient is morbidly obese with extensive abdominal panniculus adiposis extending down to her knees bilaterally. Inflammation of the subcutaneous fat or panniculitis is evident on physical exam as nonspecific erythema and on palpation there appeared to be a deep-seated areas of hardened/sclerosis characteristic of inflammatory process beneath the dermis. Cellulitis cannot be excluded however, physical exam is more consistent with panniculitis versus cellulitis (where the overlying dermis is mainly affected and underlying fascia with extension to nearby tissue). Extensive ecchymosis on dependent portions of the panniculus may be due to small capillary bleeding. Patient is supratherapeutic on anticoagulation with INR 3.2 and PTT of 35.3. CT scan of abdomen more consistent with a chronic condition. Unclear etiology of panniculitis at this time likely chronic in nature superimposed with subtherapeutic INR versus infectious panniculitis through hematogenous dissemination of microorganisms/bacteremia/sepsis. Abdomen/Pelvis CT 12/05/16 03:07 IMPRESSION: 1. There is a large pannus of the lower abdomen/pelvis with extensive fat stranding and skin thickening. No discrete/drainable fluid collection. 2. No acute abnormality identified within the unenhanced abdomen or pelvis. 3. Cholelithiasis without CT evidence of acute cholecystitis. 4. Right adrenal adenoma. 5. Umbilical hernia containing fat as well as a small amount of fluid. 6. Cardiomegaly. Patient presented to the ICU in a state of septic shock with oliguric acute kidney injury on chronic kidney disease occurring acutely overnight after admission having a rise in serum creatinine to 3.35, pancytopenia, positive urine culture for gram-negative rods so her septic shock may be due to urosepsis. Vasopressors were needed for a short period of time however have since been stopped and patient has been stable with IV fluids. Surgery was consulted: is following. Surgical intervention noted to be severely complicated by patient's morbid obesity, chronic atrial fibrillation and anticoagulation state. Supratherapeutic on anticoagulation: INR 3.2, 2.8, 2.4, A total of 4 units of fresh frozen plasma were given. (3) Acute renal failure Current Visit: Yes Status: Acute Nephrology following as above. Qualifiers: Acute renal failure type: unspecified Qualified Code(s): N17.9 - Acute kidney failure, unspecified (4) Pancytopenia Current Visit: Yes Status: Acute As above. (5) Chronic anticoagulation Current Visit: Yes Status: Chronic Patient has history of paroxysmal atrial fibrillation and has been on Coumadin. Also, history of TIA. Supratherapeutic on presentation to the ICU. 4 units of fresh frozen plasma were given. Continue to monitor INR. Will check daily coags/PT/INR. 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 Most likely supply demand ischemia. (9) Congestive cardiac failure Current Visit: Yes Status: Acute Patient was experiencing increased shortness of breath on 11/13/16. Patient was brought in by ambulance to [facility] and was hospitalized 11/13/16-11/15/16 for acute decompensated heart failure. On 11/14/16 AGUSTINA demonstrated concentric hypertrophy of the left ventricle with mild inferior hypokinesis. Left atrium severely dilated. Right atrium mildly dilated. Mild to moderate mitral tricuspid and pulmonic regurgitation. LVEF of 40-45% Qualifiers: Congestive heart failure type: unspecified congestive heart failure type Congestive heart failure chronicity: unspecified congestive heart failure chronicity Qualified Code(s): I50.9 - Heart failure, unspecified (10) Atrial fibrillation, chronic Current Visit: Yes Status: Acute Paroxysmal atrial fibrillation patient is on long-term Coumadin. Please see above. EKG 12/05/16 demonstrated atrial fibrillation with rapid ventricular response as well as right ventricular hypertrophy. At bedside rates have been between 110 and 117. Subjective Principal diagnosis: Septic shock Interval history: Overnight patient rested comfortably and was on 3 L of oxygen by nasal cannula satting well at 99%. Patient's blood pressure was labile systolic 93-79 and diastolic 59 -45. Patient received a total of 4 L of IV fluid as well as 4 units of fresh frozen plasma and fluids with her antibiotics total fluid intake was 645 while total out put was 557 for a total balance of +88, with overall balance greater than 8L. At bedside monitor still atrial fibrillation rate between 111-117. Patient has no complaints at this time. Patient did have a right jugular temporary HD catheter placed and is currently CVVHF/Lalitha. Objective PUL Vital signs: Last Vital Signs Temp 97.7 F 12/07/16 04:00 Pulse 117 12/07/16 04:00 Resp 17 12/07/16 04:00 BP 79/45 12/07/16 04:00 Pulse Ox 99 12/07/16 04:00 General appearance: no acute distress Eyes: nonicteric ENT: oropharynx moist Mallampati (class): 3 Neck: supple, no lymphadenopathy, other (Right jugular temporary hemodialysis catheter) Effort: normal Auscultation: bilateral: diminished breath sounds Cardiovascular: irregular rhythm, other (Atrial fibrillation rate 117) Gastrointestinal: normoactive bowel sounds, tender (Over dependent portion of abdominal panniculus adiposis and right upper quadrant), hepatomegaly, splenomegaly Integumentary: other (Erythema and hardening of the dermis on the dependent portion of the abdominal panniculus adiposis with ecchymosis) Extremities: pink and warm, edema (2+ bilaterally lower extremities), other ( Pulses 1+) Musculoskeletal: other (Morbid obesity and decreased range of motion due to body habitus. Patient states she has arthritis and a right knee arthroplasty. There is no pain, swelling within the right knee.) normal mental status, non-focal exam, pupils equal and round mood appropriate, affect normal Results - Laboratory Findings CBC and BMP: 12/07/16 04:52 12/07/16 04:52 ABG ABG pH 7.37 pH Units (7.32-7.45) 12/06/16 01:48 ABG pCO2 44 mmHg (35-45) 12/06/16 01:48 ABG pO2 104 mmHg (85-104) 12/06/16 01:48 ABG O2 Saturation 98 % (95-98) 12/06/16 01:48 PT/INR, D-dimer PT 26.4 Seconds (9.4-12.1) H 12/06/16 06:16 Abnormal lab findings: Abnormal lab results WBC 3.5 K/mcL (4.3-11.1) L 12/06/16 00:39 RBC 2.95 M/mcL (3.82-4.97) L 12/06/16 00:39 Hgb 9.4 g/dL (11.5-15.4) L 12/06/16 00:39 Hct 29.6 % (35.3-44.9) L 12/06/16 00:39 MCV 100.3 fL (83.0-100.0) H 12/06/16 00:39 Plt Count 55 K/mcL (140-400) L 12/06/16 00:39 Lymphocytes # 0.3 K/mcL (0.6-4.6) L 12/05/16 04:05 Platelet Estimate Decreased (Normal) L 12/05/16 04:05 Large Platelets Present (Not Present) A 12/05/16 04:05 Immature Plt Fraction 8.7 % (1.1-6.1) H 12/05/16 04:05 PT 26.4 Seconds (9.4-12.1) H 12/06/16 06:16 APTT 38.6 Seconds (26.0-36.0) H 12/05/16 04:05 ABG Total CO2 26.8 mEq/L (20-26) H 12/06/16 01:48 Potassium 5.0 mEq/L (3.5-4.5) H 12/06/16 00:39 BUN 70 mg/dL (7-20) H 12/06/16 00:39 Creatinine 3.55 mg/dL (0.57-1.11) H 12/06/16 00:39 Est GFR ( Amer) 16 (> 60) L 12/06/16 00:39 Est GFR (Non-Af Amer) 13 (> 60) L 12/06/16 00:39 Glucose 156 mg/dL (70-99) H 12/06/16 00:39 POC Glucose 127 (58-89) H 12/06/16 23:18 Calculated Osmolality 306 (280-300) H 12/06/16 00:39 Calcium 8.4 mg/dL (8.6-10.8) L 12/06/16 00:39 Troponin I 0.06 ng/mL (0-0.03) H* 12/05/16 08:59 B-Natriuretic Peptide 270 pg/mL (0-100) H 12/05/16 04:05 Serum Total Protein 5.6 g/dL (6.0-8.3) L 12/05/16 04:05 Albumin 2.5 g/dL (3.5-5.0) L 12/05/16 04:05 Albumin/Globulin Ratio 0.8 (1.1-2.2) L 12/05/16 04:05 Ur Leukocyte Esterase Moderate (Negative) H 12/05/16 03:24 Urine Microscopic WBC 50-100 per hpf (0-3) H 12/05/16 03:24 Ur Squamous Epith Cells Many per lpf (None-Few) H 12/05/16 03:24 Urine Bacteria Moderate per hpf (None-Few) H 12/05/16 03:24 Ur Culture Indicated? YES (NO) A 12/05/16 03:24 - Clinical Findings Intake & Output: Intake & Output 12/06/16 12/06/16 12/07/16 15:59 23:59 07:59 Intake Total 3260 / 3260 4380.4 / 4380.4 645 / 645 Output Total 0 / 0 616 / 616 557 / 557 Balance 3260 / 3260 3764.4 / 3764.4 88 / 88 Weight 137 kg 137 kg Pulmonary Procedures - Arterial Line Consent obtained: written consent Time out performed: Yes Size (Gauge): 22 (introducer needle) Technique used: guide wire technique Patient tolerated procedure: well, other Complications: other (Guide wire unable to traverse fully as upstream of puncture site there were aterial calcifications.) Site: left, radial Additional comments: Radial artery significantly calcified. 3 attempts with radial artery set were attempted without success. Consult Discharge Plan - Plan Referrals: Prema West MD [Primary Care Provider] - <Rosie Hope - Last Filed: 12/07/16 16:18> Objective PUL Vital signs: Last Vital Signs Temp 97 F L 12/07/16 08:00 Pulse 121 12/07/16 14:10 Resp 16 12/07/16 14:10 BP 92/57 12/07/16 14:10 Pulse Ox 99 12/07/16 14:10 Results - Laboratory Findings CBC and BMP: 12/07/16 04:52 12/07/16 04:52 ABG ABG pH 7.37 pH Units (7.32-7.45) 12/06/16 01:48 ABG pCO2 44 mmHg (35-45) 12/06/16 01:48 ABG pO2 104 mmHg (85-104) 12/06/16 01:48 ABG O2 Saturation 98 % (95-98) 12/06/16 01:48 PT/INR, D-dimer PT 27.9 Seconds (9.4-12.1) H 12/07/16 04:52 Abnormal lab findings: Abnormal lab results RBC 2.89 M/mcL (3.82-4.97) L 12/07/16 04:52 Hgb 9.0 g/dL (11.5-15.4) L 12/07/16 04:52 Hct 29.3 % (35.3-44.9) L 12/07/16 04:52 MCV 101.4 fL (83.0-100.0) H 12/07/16 04:52 MCHC 30.7 g/dL (31.6-35.5) L 12/07/16 04:52 Plt Count 76 K/mcL (140-400) L 12/07/16 04:52 MPV 13.0 fL (9.4-12.4) H 12/07/16 04:52 Lymphocytes # 0.3 K/mcL (0.6-4.6) L 12/07/16 04:52 Nucleated RBCs/100 WBC 0.2 /100 WBC (0) H 12/07/16 04:52 Platelet Estimate Decreased (Normal) L 12/07/16 04:52 Large Platelets Present (Not Present) A 12/07/16 04:52 Immature Plt Fraction 14.8 % (1.1-6.1) H 12/07/16 04:52 Macrocytosis Present (Not Present) A 12/07/16 04:52 PT 27.9 Seconds (9.4-12.1) H 12/07/16 04:52 APTT 41.5 Seconds (26.0-36.0) H 12/07/16 04:52 ABG Total CO2 26.8 mEq/L (20-26) H 12/06/16 01:48 Potassium 4.8 mEq/L (3.5-4.5) H 12/07/16 04:52 BUN 67 mg/dL (7-20) H 12/07/16 04:52 Creatinine 3.50 mg/dL (0.57-1.11) H 12/07/16 04:52 Est GFR ( Amer) 16 (> 60) L 12/07/16 04:52 Est GFR (Non-Af Amer) 13 (> 60) L 12/07/16 04:52 Glucose 154 mg/dL (70-99) H 12/07/16 04:52 POC Glucose 187 (58-89) H 12/07/16 11:13 Calculated Osmolality 306 (280-300) H 12/07/16 04:52 Magnesium 1.5 mg/dL (1.6-2.6) L 12/07/16 04:52 Total Bilirubin 1.4 mg/dL (0.2-1.2) H 12/07/16 04:52 Direct Bilirubin 0.9 mg/dL (0.0-0.5) H 12/07/16 04:52 Troponin I 0.06 ng/mL (0-0.03) H* 12/05/16 08:59 B-Natriuretic Peptide 270 pg/mL (0-100) H 12/05/16 04:05 Serum Total Protein 5.8 g/dL (6.0-8.3) L 12/07/16 04:52 Albumin 2.1 g/dL (3.5-5.0) L 12/07/16 04:52 Globulin 3.7 g/dL (2.4-3.5) H 12/07/16 04:52 Albumin/Globulin Ratio 0.6 (1.1-2.2) L 12/07/16 04:52 Ur Leukocyte Esterase Moderate (Negative) H 12/05/16 03:24 Urine Microscopic WBC 50-100 per hpf (0-3) H 12/05/16 03:24 Ur Squamous Epith Cells Many per lpf (None-Few) H 12/05/16 03:24 Urine Bacteria Moderate per hpf (None-Few) H 12/05/16 03:24 Ur Culture Indicated? YES (NO) A 12/05/16 03:24 - Clinical Findings Intake & Output: Intake & Output 12/07/16 12/07/16 12/07/16 07:59 15:59 23:59 Intake Total 1290 / 1290 1394 / 1394 Output Total 667 / 667 1140 / 1140 Balance 623 / 623 254 / 254 Weight 141 kg 141 kg - Attending Attestation I examined this patient and my medical decision-making was reviewed with the ANALYTICAL LAB ANALYST/PA/Advanced Practice Nurse/Resident Physician. I agree with the documented findings, disposition and treatment plan as described except to the extent set forth below. Patient seen and examined. Labs, radiology, chart personally reviewed. 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 Cardiovascular: Shock and patient has history of CHF and it is difficult to remove any fluid even though she is way positive at this time. Patient had A- line placed for better monitoring BP since patient has A. fib. Patient condition could deteriorate with her history of underlying heart disease. If possible to wean off Levophed, otherwise will need to add Vasopressin GI: Nutrition per dietary and GI prophylaxis per routine. Need to be careful because her breathing if she deteriorate and need to be intubated. Heme: DVT prophylaxis per routine. Monitor INR. ID: Continue antibiotics and plan to de-escalation Renal; urine out put and renal funtion reviewed. Continue CRRT per nephrology. Gentle fluid removal Endorcine: blood glucose is monitored Lines: all lines checked and no evidence of infections Skin: skin care to prevent pressure ulcers per nursing routine care I spent 35 min of Critical Care time with this patient. It involved decision making of high complexity to assess, manipulate, and support vital organ system failure and/or to prevent further life threatening deterioration of the patient' s condition. The time involved in the performance of separately reportable procedures was not counted toward critical care time.
[2016-12-07 05:04] LABS: Mean Corpuscular Volume 101.4 fL (83.0-100.0)
[2016-12-07 05:05] LABS: Basophils % 0.1 %; Eosinophils % 0.1 %; Hematocrit 29.3 % (35.3-44.9); Immature Granulocytes % 0.7 % (0-4); Immature Platelets 14.8 % (1.1-6.1); Lymphocytes # 0.3 K/mcL (0.6-4.6); Lymphocytes % 3.5 %; Mean Corpuscular HGB Conc 30.7 g/dL (31.6-35.5); Mean Corpuscular Hemoglobin 31.1 pg (28.0-33.3); Monocytes % 11.5 %; Neutrophils # 7.5 K/mcL (1.6-8.9); Nucleated Red Blood Cells 0.2 /100 WBC (0); Red Blood Count 2.89 M/mcL (3.82-4.97); Red Cell Distribution Width 13.3 % (11.5-14.5); Segmented Neutrophils % 84.1 %
[2016-12-07 05:10] LABS: Activated Partial Thrombo Time 41.5 Seconds (26.0-36.0)
[2016-12-07 05:17] LABS: Albumin 2.1 g/dL (3.5-5.0); Albumin/Globulin Ratio 0.6 (1.1-2.2); Bilirubin,Direct 0.9 mg/dL (0.0-0.5); Bilirubin,Indirect 0.5 mg/dL (0.0-1.2); Bilirubin,Total 1.4 mg/dL (0.2-1.2); Calcium 8.8 mg/dL (8.6-10.8); Globulin 3.7 g/dL (2.4-3.5); Magnesium 1.5 mg/dL (1.6-2.6); Potassium 4.8 mEq/L (3.5-4.5); Total Protein 5.8 g/dL (6.0-8.3)
[2016-12-07 05:23] LABS: Phosphorous 4.3 mg/dL (2.3-4.7)
[2016-12-07 05:30] LABS: Platelet Count 76 K/mcL (140-400)
[2016-12-07 05:32] LABS: Macrocytosis Present (Not Present); Platelet Estimate Decreased (Normal)
[2016-12-07 05:33] LABS: Large Platelets Present (Not Present)
[2016-12-07] MEDS ORDERED: 0.9 % Sodium Chloride 250 ML IVC PRN (05:48)
[2016-12-07] MEDS ORDERED: Vancomycin 1,000 MG in D5% in Water 250 ML IVPB ONE (06:00)
[2016-12-07] MEDS: Norepinephrine 4 MG in D5% in Water 250 ML IVC SCH ×3 (06:20→21:33)
[2016-12-07 07:49] LABS: INR 2.5; Prothrombin Time 27.9 Seconds (9.4-12.1)
[2016-12-07] MEDS ORDERED: Aminoglycoside Consult 1 EACH MC ONE (08:01)
[2016-12-07] MEDS: Insulin LISPRO 300 UNITS/3 ML VIAL SQ SCH ×4 (08:10→19:59)
[2016-12-07] MEDS: Pantoprazole 40 MG VIAL IVP SCH (09:18)
--- NOTE | 2016-12-07 09:46 | Nephrology Progress Note ---
<Shraddha Blum Uriah - Last Filed: 12/07/16 13:57> Date of Encounter: 12/07/16 Time of Encounter: 09:00 - Assessment and Plan (1) Acute kidney injury superimposed on chronic kidney disease Current Visit: Yes Status: Acute Oliguric acute kidney injury in the setting of septic shock. Patient with a known history of chronic kidney disease stage III. Serum creatinine today 3.5 from 3.55 yesterday. Continuing to require low-dose vasopressor during Lalitha. Attempting to wean down if possible and begin gentle fluid removal. Patient's +11 L since admission. Continue renal protective strategy with any medications and attempt to avoid nephrotoxins. (2) Septic shock Current Visit: Yes Status: Acute (3) Panniculitis Current Visit: Yes Status: Acute (4) UTI (urinary tract infection) Current Visit: Yes Status: Acute Qualifiers: Urinary tract infection type: acute cystitis Hematuria presence: without hematuria Qualified Code(s): N30.00 - Acute cystitis without hematuria (7) Atrial fibrillation, chronic Current Visit: Yes Status: Acute (8) Pancytopenia Current Visit: Yes Status: Acute Subjective Principal diagnosis: Septic shock Interval history: Patient seen and examined at the bedside. No acute events overnight per nursing staff. Difficulty yesterday removing any fluid with Lalitha secondary to the patient's hypotension. Currently requiring 8-12 g of levophed to maintain appropriate mean arterial pressure. Patient is resting comfortably in bed on 3 L nasal cannula. She denies any complaints or concerns at this time. Arterial line attempted by ICU staff. Continue Lalitha with gentle fluid removal. Objective - Vital Signs Vital signs: Vital Signs Temp Pulse Resp BP Pulse Ox 12/07/16 08:00 97 F L 122 20 78/43 99 12/07/16 07:50 97.0 F L 12/07/16 07:00 114 14 83/56 99 12/07/16 06:00 118 12 79/59 99 12/07/16 05:00 125 12 89/68 99 12/07/16 04:00 97.7 F 117 17 79/45 99 12/07/16 03:00 113 17 89/60 98 12/07/16 02:00 112 18 89/56 98 12/07/16 01:00 111 20 93/59 98 12/07/16 00:00 98.5 F 115 12 91/68 98 01/31/17 23:00 114 12 80/58 98 12/06/16 22:00 114 13 70/41 100 12/06/16 21:00 113 22 78/45 100 12/06/16 20:00 122 16 97/67 99 12/06/16 19:36 98.2 F 106 16 92/62 97 12/06/16 19:00 114 18 80/52 99 12/06/16 18:00 109 17 76/53 97 12/06/16 17:00 123 18 85/52 97 12/06/16 16:00 111 20 96/53 97 12/06/16 15:00 119 20 73/59 97 12/06/16 14:00 106 20 78/58 99 12/06/16 13:36 97.7 F 115 20 90/34 99 12/06/16 13:02 98.3 F 120 22 79/61 100 12/06/16 13:00 113 20 79/61 99 12/06/16 12:53 98.3 F 129 20 82/48 98 12/06/16 12:23 99.2 F 113 18 87/74 100 12/06/16 12:00 99.2 F 113 20 87/74 100 12/06/16 11:04 112 12/06/16 11:00 112 24 78/50 99 12/06/16 10:00 131 24 86/46 99 Intake and Output 12/06/16 12/07/16 12/07/16 23:59 07:59 15:59 Intake Total 4380.4 / 4380.4 1290 / 1290 783 / 783 Output Total 616 / 616 667 / 667 0 / 0 Balance 3764.4 / 3764.4 623 / 623 783 / 783 Intake: IV Fluids 2231.4 / 2231.4 1250 / 1250 783 / 783 PrismaSATE BGK 4/2.5 5, 0 / 0 0 / 0 000 ML @ 1000 mls/hr CRRT CONT [facility] Rx#:[id number] 0.9 % Sodium Chloride 1, 900 / 900 750 / 750 620 / 620 000 ML @ 80 mls/hr IVC . [id number] [facility] Rx#: [id number] Levophed 4 MG In Dextrose 31.4 / 31.4 150 / 150 163 / 163 5% 250 ML @ 2 MCG/MIN 7. 62 mls/hr IVC .CONT [facility] Rx#:[id number] Cipro 400 MG/200 ML 400 200 / 200 mg In 200 ml @ 200 mls/hr IVPB Q24H [facility] Rx#: [id number] Zosyn 3.375 GM In 100 / 100 100 / 100 Dextrose 5% (Minibag+) 100 ML 100 ML @ 25 mls/hr IVPB Q8H [facility] Rx#: [id number] Vancocin 1,000 MG In 250 / 250 Dextrose 5% 250 ML @ 166. 667 mls/hr IVPB ONCE [facility] Rx#:[id number] 0.9 % Sodium Chloride 1, 1000 / 1000 000 ML @ 999 mls/hr PRIME .Q1H1M [facility] Rx#: [id number] Oral 40 / 40 0 / 0 Other 2148 / 2148 Output: Lalitha 293 / 293 0 / 0 Catheter 110 / 110 5 / 5 0 / 0 Fluid Removed by 213 / 213 662 / 662 0 / 0 Prismaflex Other: Weight 137 kg 141 kg 141 kg Blood Glucose* 127 177 177 Patient Weight 12/07/16 23:59 Weight 141 kg - General Appearance Exam: General: Patient is alert and in no acute distress HEENT: Normocephalic atraumatic, pupils are equal round and reactive to light and accommodation, tympanic membrane is intact, nares is patent, mucous membranes moist, throat is not injected, no JVD, trachea is midline Cardiovascular: Tachycardic, irregularly irregular rhythm Respiratory: Lungs are diminished bilaterally Abdomen: Obese with significant abdominal pannus, induration of the right lower pannus, ecchymosis noted Extremities: Warm, dry, 2+ bilateral lower extremity edema Neuro: A&Ox3, speech is appropriate, cranial nerves II through XII are normal as tested - Lab 12/07/16 04:52 12/07/16 04:52 Most recent lab results ABG pH 7.37 pH Units (7.32-7.45) 12/06/16 01:48 ABG pCO2 44 mmHg (35-45) 12/06/16 01:48 ABG pO2 104 mmHg (85-104) 12/06/16 01:48 ABG HCO3 25.4 mEQ/L (21-27) 12/06/16 01:48 ABG O2 Saturation 98 % (95-98) 12/06/16 01:48 Calcium 8.8 mg/dL (8.6-10.8) 12/07/16 04:52 Phosphorus 4.3 mg/dL (2.3-4.7) D 12/07/16 04:52 Magnesium 1.5 mg/dL (1.6-2.6) L 12/07/16 04:52 Urine Creatinine 71 mg/dL 12/05/16 03:24 Urine Sodium < 20.0 mEq/L 12/05/16 03:24 Consult Discharge Plan - Plan Referrals: Prema West MD [Primary Care Provider] - <Ye Ghosh - Last Filed: 12/09/16 00:06> Objective - Vital Signs Vital signs: Vital Signs Temp Pulse Resp BP Pulse Ox 12/08/16 23:13 97.8 F 83 14 106/57 100 12/08/16 23:00 97.8 F 83 14 106/57 100 12/08/16 22:07 98 F 94 20 108/55 12/08/16 22:05 97.8 F 108 100 106/55 12/08/16 22:00 98 F 108 14 106/55 100 12/08/16 21:00 98.3 F 102 13 136/64 98 12/08/16 20:17 98.3 F 17 109/53 99 12/08/16 20:14 105 16 104/52 99 12/08/16 20:00 105 16 104/52 99 12/08/16 19:00 112 14 99/50 98 12/08/16 18:45 97.5 F L 101 18 102/52 98 12/08/16 18:30 97.6 F 105 16 94/49 12/08/16 18:21 98.3 F 98 16 96/53 98 12/08/16 18:00 97.6 F 107 16 96/55 97 12/08/16 17:04 97.6 F 113 18 107/63 99 12/08/16 17:00 114 20 97/55 97 12/08/16 16:49 97.5 F L 118 18 104/60 98 12/08/16 16:00 98.2 F 114 16 111/60 99 12/08/16 15:00 119 16 108/84 99 12/08/16 14:00 76 18 106/58 99 12/08/16 13:30 129 20 104/53 98 12/08/16 12:00 125 18 106/66 97 12/08/16 11:00 97.9 F 129 20 105/55 98 12/08/16 10:00 124 16 92/53 97 12/08/16 09:00 120 18 99/56 97 12/08/16 08:00 98.3 F 120 16 97/56 99 12/08/16 07:00 97.9 F 125 16 110/60 99 12/08/16 06:00 127 12 98/55 98 12/08/16 05:00 97.9 F 128 16 98/53 99 12/08/16 04:52 118 12/08/16 04:00 118 16 101/62 98 12/08/16 03:00 124 22 96/57 98 12/08/16 02:00 118 20 100/59 100 12/08/16 01:00 114 16 96/54 93 L 12/08/16 00:19 120 Intake and Output 12/08/16 12/08/16 12/09/16 15:59 23:59 07:59 Intake Total 316.25 / 316.25 2048 / 2048 Output Total 185 / 185 137 / 137 Balance 131.25 / 131.25 1911 / 1911 Intake: IV Fluids 310.25 / 310.25 340 / 340 0.9 % Sodium Chloride 250 40 / 40 ML As .ROUTE .[facility] Rx#:[id number] 0.9 % Sodium Chloride 500 100 / 100 ML As .ROUTE .[facility] Rx#:[id number] PrismaSATE BGK 4/2.5 5, 0 / 0 000 ML @ 1000 mls/hr CRRT CONT [facility] Rx#:[id number] Flexbumin 25 gm In 100 ml 160 / 160 200 / 200 @ 60 mls/hr IVC .Q1H40M [facility] Rx#:[id number] Rocephin 2,000 MG In 100 / 100 Dextrose 5% (Minibag+) 100 ML 100 ML @ 200 mls/ hr IVPB Q24H [facility] Rx#: [id number] AquaMephyton 2.5 MG In 0. 50.25 / 50.25 9 % Sodium Chloride 50 ML @ 100 mls/hr IVPB ONCE ONE Rx#:[id number] Oral 6 / 6 0 / 0 Blood Product 1709 / 1709 Plasma Unit 330 / 330 [id number] Plasma Unit 289 / 289 [id number] Plasma Unit 375 / 375 [id number] Plasma Unit 715 / 715 [id number] Output: Lalitha 143 / 143 127 / 127 Catheter 42 / 42 Other: Meal Lunch Percent of Meal Consumed 5% Blood Glucose* 147 136 - Lab 12/08/16 14:00 12/08/16 04:13 Most recent lab results ABG pH 7.37 pH Units (7.32-7.45) 12/06/16 01:48 ABG pCO2 44 mmHg (35-45) 12/06/16 01:48 ABG pO2 104 mmHg (85-104) 12/06/16 01:48 ABG HCO3 25.4 mEQ/L (21-27) 12/06/16 01:48 ABG O2 Saturation 98 % (95-98) 12/06/16 01:48 Calcium 9.4 mg/dL (8.6-10.8) 12/08/16 04:13 Phosphorus 4.3 mg/dL (2.3-4.7) D 12/07/16 04:52 Magnesium 1.5 mg/dL (1.6-2.6) L 12/07/16 04:52 Urine Creatinine 71 mg/dL 12/05/16 03:24 Urine Sodium < 20.0 mEq/L 12/05/16 03:24 - Attending Attestation I examined this patient and my medical decision-making was reviewed with the [employer]ENT/PA/Advanced Practice Nurse/Resident Physician. I agree with the documented findings, disposition and treatment plan as described except to the extent set forth below. Pt seen and examined on CVVH, discussed with nurse who has been unable to keep even fluid balance due to hypotensive issues despite albumin bolus earlier.
[2016-12-07] MEDS ORDERED: 0.9 % Sodium Chloride 500 ML ONE (10:18)
[2016-12-07] MEDS ORDERED: Albumin 25% 25gram/100mL 25 GM/100 ML IV.SOLN IVPB ONE (13:38)
--- NOTE | 2016-12-07 14:53 | General Surgery Progress Note ---
Date of Encounter: 12/07/16 Time of Encounter: 14:53 Subjective Patient reports: no new complaints, other (anemia) Narrative: General Surgery: Continued follow-up ecchymoses abdominal pannus Hemodialysis/Lalitha initiated; with removal of fluid the patient has been hypotensive requiring pressor port Intermittently confused alternating with patient being awake alert and oriented. Patient remains afebrile, heart rate tachycardic as high as 122; respiratory rate 16, blood pressure currently 92/57 on pressors. Abdominal pannus remained stable with slight improvement in blue discoloration dependent portion of the pannus. No detected erythema or overt inflammation. Skin thickening due to her cutaneous and subcutaneous fluid persists and is likely chronic Laboratories: White count 8.9; hemoglobin 9.0 with hematocrit 29.3; PT is increased to 27.9; INR also increased to 2.5; APTT 41.5 Potassium improved to 4.8; BUN 67, creatinine 3.5. Magnesium 1.5, total bilirubin 1.4, other LFTs within normal limits Ultrasound of the gallbladder, completed due to CT evidence of cholelithiasis confirms the presence of cholelithiasis no intra- or extrahepatic ductal dilatation. Trace focal pericholecystic fluid is described without obvious gallbladder wall thickening. Impression: Morbidly obese female with a prominent pannus. Blue discoloration consistent with ecchymoses related to the patient's supratherapeutic status on presentation to the hospital. The abdominal pannus is notable for extensive fat stranding and skin thickening consistent with a chronic condition. Acute kidney injury superimposed on CK D3 - patient currently on hemodialysis. Chronic atrial fibrillation with history of anticoagulation Acute systolic CHF; chronic CHF Hyperbilirubinemia - likely due to the patient's acute renal failure as well as CHF but cannot exclude cholecystitis due to cholelithiasis Cholelithiasis - no detected symptomatology except for the hyperbilirubinemia. Patient is an extremely poor candidate for any surgical intervention. Recommendation: Continue to monitor abdominal pannus. Serial examinations over the last 3 days indicative of slow resolution. Continue to monitor bilirubin and other LFTs due to the presence of cholelithiasis. I will follow along with you Objective Vital Signs - Last 8 Hours Temp Pulse Resp BP Pulse Ox 12/07/16 14:10 121 16 92/57 99 12/07/16 13:10 119 20 92/63 99 12/07/16 12:25 116 18 101/74 99 12/07/16 12:00 101 12/07/16 11:00 114 14 98/47 99 12/07/16 10:00 106 16 88/64 100 12/07/16 09:00 116 18 92/76 100 12/07/16 08:00 97 F L 122 20 78/43 99 12/07/16 07:50 97.0 F L 12/07/16 07:00 114 14 83/56 99 Intake and Output 12/06/16 12/07/16 12/07/16 23:59 07:59 15:59 Intake Total 4380.4 / 4380.4 1290 / 1290 1294 / 1294 Output Total 616 / 616 667 / 667 1140 / 1140 Balance 3764.4 / 3764.4 623 / 623 154 / 154 Intake: IV Fluids 2231.4 / 2231.4 1250 / 1250 974 / 974 PrismaSATE BGK 4/2.5 5, 0 / 0 0 / 0 0 / 0 000 ML @ 1000 mls/hr CRRT CONT [facility] Rx#:[id number] 0.9 % Sodium Chloride 1, 900 / 900 750 / 750 620 / 620 000 ML @ 80 mls/hr IVC . [id number] [facility] Rx#: [id number] Levophed 4 MG In Dextrose 31.4 / 31.4 150 / 150 254 / 254 5% 250 ML @ 2 MCG/MIN 7. 62 mls/hr IVC .CONT [facility] Rx#:[id number] Rocephin 2,000 MG In 100 / 100 Dextrose 5% (Minibag+) 100 ML 100 ML @ 200 mls/ hr IVPB Q24H [facility] Rx#: [id number] Cipro 400 MG/200 ML 400 200 / 200 mg In 200 ml @ 200 mls/hr IVPB Q24H [facility] Rx#: [id number] Zosyn 3.375 GM In 100 / 100 100 / 100 Dextrose 5% (Minibag+) 100 ML 100 ML @ 25 mls/hr IVPB Q8H [facility] Rx#: [id number] Vancocin 1,000 MG In 250 / 250 Dextrose 5% 250 ML @ 166. 667 mls/hr IVPB ONCE ONE Rx#:[id number] 0.9 % Sodium Chloride 1, 1000 / 1000 000 ML @ 999 mls/hr PRIME .Q1H1M [facility] Rx#: [id number] Oral 40 / 40 320 / 320 Other 2148 Output: Lalitha 293 / 293 570 / 570 Rectal Tube 0 / 0 Catheter 110 / 110 5 / 5 0 / 0 Fluid Removed by 213 / 213 662 / 662 570 / 570 Prismaflex Other: Meal Lunch Percent of Meal Consumed 10% Weight 137 kg 141 kg 141 kg Blood Glucose* 127 177 187 Patient Weight 12/07/16 23:59 Weight 141 kg - Labs 12/07/16 04:52 12/07/16 04:52 Diabetes panel 12/07/16 Range/Units 04:52 Sodium 137 (136-145) mEq/L Potassium 4.8 H (3.5-4.5) mEq/L Chloride 102 (98-109) mEq/L Carbon Dioxide 20 (19-29) mEq/L BUN 67 H (7-20) mg/dL Creatinine 3.50 H (0.57-1.11) mg/dL Glucose 154 H (70-99) mg/dL Calcium 8.8 (8.6-10.8) mg/dL AST 20 (5-34) Units/L ALT 16 (0-55) Units/L Alkaline Phosphatase 51 (38-126) Units/L Albumin 2.1 L (3.5-5.0) g/dL Calcium panel 12/07/16 Range/Units 04:52 Calcium 8.8 (8.6-10.8) mg/dL Phosphorus 4.3 D (2.3-4.7) mg/dL Albumin 2.1 L (3.5-5.0) g/dL Pituitary panel 12/07/16 Range/Units 04:52 Sodium 137 (136-145) mEq/L Potassium 4.8 H (3.5-4.5) mEq/L Chloride 102 (98-109) mEq/L Carbon Dioxide 20 (19-29) mEq/L BUN 67 H (7-20) mg/dL Creatinine 3.50 H (0.57-1.11) mg/dL Glucose 154 H (70-99) mg/dL Calcium 8.8 (8.6-10.8) mg/dL Adrenal panel 02/01/17 Range/Units 04:52 Sodium 137 (136-145) mEq/L Potassium 4.8 H (3.5-4.5) mEq/L Chloride 102 (98-109) mEq/L Carbon Dioxide 20 (19-29) mEq/L BUN 67 H (7-20) mg/dL Creatinine 3.50 H (0.57-1.11) mg/dL Glucose 154 H (70-99) mg/dL Calcium 8.8 (8.6-10.8) mg/dL Total Bilirubin 1.4 H (0.2-1.2) mg/dL AST 20 (5-34) Units/L ALT 16 (0-55) Units/L Alkaline Phosphatase 51 (38-126) Units/L Albumin 2.1 L (3.5-5.0) g/dL Consult Discharge Plan - Plan Referrals: Prema Wset MD [Primary Care Provider] -
--- NOTE | 2016-12-07 15:26 | Procedure Note ---
<Alexis Rae G - Last Filed: 12/07/16 15:22> Date of procedure: 12/07/16 Pre-op diagnosis: hypotension Post-op diagnosis: same Procedure: Written consent was obtained from the daughter. The patient was cleaned and draped in usual sterile fashion. The right radial artery was identified using ultrasound and under ultrasound guidance a needle was passed into the right radial artery. Bright red pulsatile blood flow was returned. A guidewire was passed through the needle without resistance. The needle was removed and a catheter was passed over the guidewire and into the radial artery. The guidewire was removed intact. At this point a pressure transducer set up was attached to the catheter and a good arterial waveform was displayed. The catheter was sutured in place. Sterile dressing was applied. The patient tolerated the procedure well. There were no immediate complications. Barbara Blum, PGY 3, was present and assisted with the procedure. Anesthesia: none Surgeon: Alexis Rae Watch Crystal Cutter: Shraddha Blum Estimated blood loss (cc): 5 Pathology: none sent Condition: critical Disposition: ICU <Rosie Hope M - Last Filed: 12/07/16 16:28> Procedure: First left side radial artery was tried, but due to calcification was not able to pass the guide wire, but then right side was successful by Dr. Rae.
[2016-12-08] MEDS: PrismaSATE BGK 4/2.5 5,000 ML CRRT SCH ×4 (02:09→17:17)
[2016-12-08] MEDS: 0.9 % Sodium Chloride 1,000 ML IVC SCH (03:09)
[2016-12-08] MEDS ORDERED: 0.9 % Sodium Chloride 1,000 ML PRIME PRN (03:12)
[2016-12-08 04:22] LABS: Basophils % 0.1 %; Hematocrit 28.4 % (35.3-44.9); Hemoglobin 8.9 g/dL (11.5-15.4); Immature Granulocytes % 2.4 % (0-4); Immature Platelets 13.4 % (1.1-6.1); Lymphocytes # 0.3 K/mcL (0.6-4.6); Lymphocytes % 2.8 %; Mean Corpuscular HGB Conc 31.3 g/dL (31.6-35.5); Mean Corpuscular Hemoglobin 31.6 pg (28.0-33.3); Mean Corpuscular Volume 100.7 fL (83.0-100.0); Mean Platelet Volume 12.6 fL (9.4-12.4); Monocytes # 0.8 K/mcL (0.0-1.3); Monocytes % 7.4 %; Red Blood Count 2.82 M/mcL (3.82-4.97); Red Cell Distribution Width 13.5 % (11.5-14.5); Segmented Neutrophils % 87.3 %
[2016-12-08 04:28] LABS: INR 3.8
[2016-12-08 04:32] LABS: Platelet Count 76 K/mcL (140-400)
[2016-12-08 04:35] LABS: Albumin/Globulin Ratio 0.5 (1.1-2.2); Bilirubin,Total 0.9 mg/dL (0.2-1.2); Calcium 9.4 mg/dL (8.6-10.8); Globulin 3.8 g/dL (2.4-3.5); Potassium 4.9 mEq/L (3.5-4.5); Total Protein 5.8 g/dL (6.0-8.3)
[2016-12-08 04:39] LABS: Ionized Calcium 1.16 mmol/L (1.15-1.35)
--- NOTE | 2016-12-08 05:23 | Pulmonology Progress Note ---
<Carmel Julien - Last Filed: 12/08/16 13:18> Date of Encounter: 12/08/16 Time of Encounter: 05:00 Assessment and Plan (1) Septic shock Current Visit: Yes Status: Acute Patient arrived to ICU meeting criteria for severe sepsis and septic shock due to hypotension unresponsive to fluid. Source of infection is likely a urinary tract infection/sepsis secondary to UTI. Severe sepsis: Likely secondary to UTI/urosepsis. Fever: 100.8 tachycardia: Heart Rate of 125 Tachypnea: Respiratory rate of 26 with labored breathing and use of accessory muscles hypotension: Blood pressure of 70/30 lactic acidosis: 3.0 pancytopenia IVIS: Oliguria and creatinine of 3.0 and GFR of 15 Altered mental status: Confusion and changes in vision High risk due to multiorgan failure and need for aggressive IVF in the setting of systolic CHF. Initially, 4 L of fluid given without significant response. Abdomen/Pelvis CT 12/05/16 03:07 IMPRESSION: 1. There is a large pannus of the lower abdomen/pelvis with extensive fat stranding and skin thickening. No discrete/drainable fluid collection. 2. No acute abnormality identified within the unenhanced abdomen or pelvis. 3. Cholelithiasis without CT evidence of acute cholecystitis. 4. Right adrenal adenoma. 5. Umbilical hernia containing fat as well as a small amount of fluid. 6. Cardiomegaly. Insertion Non-Tunneled Catheter 12/06/16 00:00 IMPRESSION: Successful ultrasound guided non-tunneled temporary hemodialysis catheter placement. Gallbladder Ultrasound 12/06/16 20:00 IMPRESSION: Cholelithiasis with a trace amount of focal pericholecystic fluid. Negative sonographic Womack's sign. Chest X-Ray 12/08/16 04:24 IMPRESSION: Mild congestive heart failure slightly improved from prior study. Serology: C. difficile toxin PCR was negative. Blood cultures x2 : Preliminary results demonstrate no growth. Urine cultures: Final results revealed gram-negative rods identified as Ecoli. Pansensitive. Ceftriaxone for Skin/Staph Coverage and enteric Gram negative rods. Antibiotics: START 12/07/16: Ceftriaxone 2 mg Q 24 for 7 days. Stop: 12/13/16. Acute kidney injury on chronic kidney disease: Initially, BUN of 70, creatinine of 3.55 estimated GFR at 16. Nephrology is following. Right internal jugular temporary hemodialysis catheter was placed by interventional radiology on 12/06/16 in anticipation of CVVHF therapy. Gentle fluid removal 25-30cc/hr. Pressor suport: Decreased gastric excretions may prevent full absorb -will give Protonix IV until pt is off pressor support and eating. Will switch to PO Omeprazole for Stress ulcer prophylaxis when pt is eating full diet. DIC panel: PT 43.7 INR 3.9 AP TT 49.0 D-dimer 1041 Fibrinogen 942: This should be decreased in DIC not elevated as labs demonstrate today. 12/08/16 (2) Panniculitis Current Visit: Yes Status: Acute Patient is morbidly obese with extensive abdominal panniculus adiposis extending down to her knees bilaterally. Inflammation of the subcutaneous fat or panniculitis is evident on physical exam as nonspecific erythema and on palpation there appeared to be a deep-seated areas of hardened/sclerosis characteristic of inflammatory process beneath the dermis. Cellulitis cannot be excluded however, physical exam is more consistent with panniculitis versus cellulitis (where the overlying dermis is mainly affected and underlying fascia with extension to nearby tissue). Extensive ecchymosis on dependent portions of the panniculus may be due to small capillary bleeding. Patient is supratherapeutic on anticoagulation with INR 3.2 and PTT of 35.3. CT scan of abdomen more consistent with a chronic condition. Unclear etiology of panniculitis at this time likely chronic in nature superimposed with subtherapeutic INR versus infectious panniculitis through hematogenous dissemination of microorganisms/bacteremia/sepsis. Abdomen/Pelvis CT 12/05/16 03:07 IMPRESSION: 1. There is a large pannus of the lower abdomen/pelvis with extensive fat stranding and skin thickening. No discrete/drainable fluid collection. 2. No acute abnormality identified within the unenhanced abdomen or pelvis. 3. Cholelithiasis without CT evidence of acute cholecystitis. 4. Right adrenal adenoma. 5. Umbilical hernia containing fat as well as a small amount of fluid. 6. Cardiomegaly. Patient presented to the ICU in a state of septic shock with oliguric acute kidney injury on chronic kidney disease occurring acutely overnight after admission having a rise in serum creatinine to 3.35, pancytopenia, positive urine culture for gram-negative rods so her septic shock may be due to urosepsis. Vasopressors were needed for a short period of time however have since been stopped and patient has been stable with IV fluids. Surgery was consulted: is following. Surgical intervention noted to be severely complicated by patient's morbid obesity, chronic atrial fibrillation and anticoagulation state. Supratherapeutic on anticoagulation: INR 3.2, 2.8, 2.4, 3.8 A total of 4 units of fresh frozen plasma were given initially on arrival to ICU. 2.5 mg of vitamin K IV PB given 12/08/16. (3) Acute renal failure Current Visit: Yes Status: Acute Nephrology following as above. Qualifiers: Acute renal failure type: unspecified Qualified Code(s): N17.9 - Acute kidney failure, unspecified (4) Pancytopenia Current Visit: Yes Status: Acute Anemia, thrombocytopenia, neutropenia. As above. (5) Chronic anticoagulation Current Visit: Yes Status: Chronic Patient has history of paroxysmal atrial fibrillation and has been on Coumadin. Also, history of TIA. Supratherapeutic on presentation to the ICU. 4 units of fresh frozen plasma were given. 12/08/16 Vitamin K 2.5 given IVPB. Continue to monitor INR. Will check daily coags/PT/INR. (6) Atrial fibrillation, chronic Current Visit: Yes Status: Chronic Paroxysmal atrial fibrillation patient is on long-term Coumadin. Please see above. EKG 12/05/16 demonstrated atrial fibrillation with rapid ventricular response as well as right ventricular hypertrophy. At bedside rates have been between 110 and 117. 12.5 mg twice a day carvedilol for rate control. (7) Congestive cardiac failure Current Visit: Yes Status: Acute Patient was experiencing increased shortness of breath on 11/13/16. Patient was brought in by ambulance to [facility] and was hospitalized 11/13/16-11/15/16 for acute decompensated heart failure. On 11/14/16 AGUSTINA demonstrated concentric hypertrophy of the left ventricle with mild inferior hypokinesis. Left atrium severely dilated. Right atrium mildly dilated. Mild to moderate mitral tricuspid and pulmonic regurgitation. 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 Most likely supply demand ischemia. (11) DVT prophylaxis Current Visit: Yes Status: Acute Continue Heparin 5000 units IV. Subjective Principal diagnosis: Septic shock Interval history: Overnight patient rested comfortably and was on 2 L of oxygen by nasal cannula satting well at 99%. Pressor support was turned off. Patient's blood pressure improved systolic 101-96 and diastolic 62 -53. Patients overall fluid balance greater than 11 L. At bedside monitor still atrial fibrillation rate between 128-118. Patient has no complaints at this time. Patient does have a right jugular temporary HD catheter placed and is currently CVVHF/Lalitha. Objective PUL Vital signs: Last Vital Signs Temp 97.9 F 12/08/16 05:00 Pulse 128 12/08/16 05:00 Resp 16 12/08/16 05:00 BP 98/53 12/08/16 05:00 Pulse Ox 99 12/08/16 05:00 General appearance: no acute distress Eyes: nonicteric ENT: oropharynx dry Mallampati (class): 3 Neck: supple, no lymphadenopathy, other (Increased neck circumference. Right jugular temporary hemodialysis catheter) Effort: normal Auscultation: bilateral: diminished breath sounds Cardiovascular: irregular rhythm (Atrial fibrillation 118-128) Gastrointestinal: normoactive bowel sounds, tender (Over dependent portion of the abdominal panniculus adiposis), hepatomegaly, splenomegaly Integumentary: other (Erythema and hardening of the dermis on dependent portion of abdominal panniculus is adipose is with ecchymosis) Extremities: pink and warm Musculoskeletal: other (Morbid obesity decreased range of motion due to body habitus.) pupils equal and round mood appropriate, affect normal Results - Laboratory Findings CBC and BMP: 12/08/16 10:15 12/08/16 04:13 ABG ABG pH 7.37 pH Units (7.32-7.45) 12/06/16 01:48 ABG pCO2 44 mmHg (35-45) 12/06/16 01:48 ABG pO2 104 mmHg (85-104) 12/06/16 01:48 ABG O2 Saturation 98 % (95-98) 12/06/16 01:48 PT/INR, D-dimer PT 43.0 Seconds (9.4-12.1) H D 12/08/16 04:13 Abnormal lab findings: Abnormal lab results RBC 2.82 M/mcL (3.82-4.97) L 12/08/16 04:13 Hgb 8.9 g/dL (11.5-15.4) L 12/08/16 04:13 Hct 28.4 % (35.3-44.9) L 12/08/16 04:13 MCV 100.7 fL (83.0-100.0) H 12/08/16 04:13 MCHC 31.3 g/dL (31.6-35.5) L 12/08/16 04:13 Plt Count 76 K/mcL (140-400) L 12/08/16 04:13 MPV 12.6 fL (9.4-12.4) H 12/08/16 04:13 Lymphocytes # 0.3 K/mcL (0.6-4.6) L 12/07/16 04:52 Nucleated RBCs/100 WBC 0.2 /100 WBC (0) H 12/07/16 04:52 Platelet Estimate Decreased (Normal) L 12/07/16 04:52 Large Platelets Present (Not Present) A 12/07/16 04:52 Immature Plt Fraction 13.4 % (1.1-6.1) H 12/08/16 04:13 Macrocytosis Present (Not Present) A 12/07/16 04:52 PT 43.0 Seconds (9.4-12.1) H D 12/08/16 04:13 APTT 41.5 Seconds (26.0-36.0) H 12/07/16 04:52 ABG Total CO2 26.8 mEq/L (20-26) H 12/06/16 01:48 Sodium 134 mEq/L (136-145) L 12/08/16 04:13 Potassium 4.9 mEq/L (3.5-4.5) H 12/08/16 04:13 BUN 57 mg/dL (7-20) H 12/08/16 04:13 Creatinine 3.00 mg/dL (0.57-1.11) H 12/08/16 04:13 Est GFR ( Amer) 19 (> 60) L 12/08/16 04:13 Est GFR (Non-Af Amer) 16 (> 60) L 12/08/16 04:13 Glucose 141 mg/dL (70-99) H 12/08/16 04:13 POC Glucose 141 (58-89) H 12/07/16 19:47 Magnesium 1.5 mg/dL (1.6-2.6) L 12/07/16 04:52 Direct Bilirubin 0.9 mg/dL (0.0-0.5) H 12/07/16 04:52 Troponin I 0.06 ng/mL (0-0.03) H* 12/05/16 08:59 B-Natriuretic Peptide 270 pg/mL (0-100) H 12/05/16 04:05 Serum Total Protein 5.8 g/dL (6.0-8.3) L 12/08/16 04:13 Albumin 2.0 g/dL (3.5-5.0) L 12/08/16 04:13 Globulin 3.8 g/dL (2.4-3.5) H 12/08/16 04:13 Albumin/Globulin Ratio 0.5 (1.1-2.2) L 12/08/16 04:13 Ur Leukocyte Esterase Moderate (Negative) H 12/05/16 03:24 Urine Microscopic WBC 50-100 per hpf (0-3) H 12/05/16 03:24 Ur Squamous Epith Cells Many per lpf (None-Few) H 12/05/16 03:24 Urine Bacteria Moderate per hpf (None-Few) H 12/05/16 03:24 Ur Culture Indicated? YES (NO) A 12/05/16 03:24 - Clinical Findings Intake & Output: Intake & Output 12/07/16 12/07/16 12/08/16 15:59 23:59 07:59 Intake Total 1394 / 1394 254 / 254 55 / 55 Output Total 1236 / 1236 640 / 640 169 / 169 Balance 158 / 158 -386 / -386 -114 / -114 Weight 141 kg 137 kg 137 kg Pulmonary Procedures - Arterial Line Size (Gauge): 22 (introducer needle) Consult Discharge Plan - Plan Referrals: Prema West MD [Primary Care Provider] - <Rosie Hope - Last Filed: 12/08/16 16:47> Objective PUL Vital signs: Last Vital Signs Temp 98.2 F 12/08/16 16:00 Pulse 121 12/08/16 16:00 Resp 16 12/08/16 16:00 BP 111/60 12/08/16 16:00 Pulse Ox 99 12/08/16 16:00 Results - Laboratory Findings CBC and BMP: 12/08/16 14:00 12/08/16 04:13 ABG ABG pH 7.37 pH Units (7.32-7.45) 12/06/16 01:48 ABG pCO2 44 mmHg (35-45) 12/06/16 01:48 ABG pO2 104 mmHg (85-104) 12/06/16 01:48 ABG O2 Saturation 98 % (95-98) 12/06/16 01:48 PT/INR, D-dimer PT 50.0 Seconds (9.4-12.1) H* 12/08/16 14:17 D-Dimer 1041 ng/mLFEU (0-500) H 12/08/16 10:15 Abnormal lab findings: Abnormal lab results WBC 11.2 K/mcL (4.3-11.1) H 12/08/16 14:00 RBC 2.79 M/mcL (3.82-4.97) L 12/08/16 14:00 Hgb 8.8 g/dL (11.5-15.4) L 12/08/16 14:00 Hct 28.4 % (35.3-44.9) L 12/08/16 14:00 MCV 101.8 fL (83.0-100.0) H 12/08/16 14:00 MCHC 31.0 g/dL (31.6-35.5) L 12/08/16 14:00 Plt Count 74 K/mcL (140-400) L 12/08/16 14:00 MPV 13.2 fL (9.4-12.4) H 12/08/16 14:00 Neutrophils # 9.8 K/mcL (1.6-8.9) H 12/08/16 14:00 Lymphocytes # 0.3 K/mcL (0.6-4.6) L 12/08/16 14:00 Nucleated RBCs/100 WBC 0.2 /100 WBC (0) H 12/07/16 04:52 Toxic Granulation Present (Not Present) A 12/08/16 14:00 Platelet Estimate Decreased (Normal) L 12/08/16 14:00 Large Platelets Present (Not Present) A 12/08/16 14:00 Immature Plt Fraction 15.1 % (1.1-6.1) H 12/08/16 14:00 Macrocytosis Present (Not Present) A 12/08/16 14:00 PT 50.0 Seconds (9.4-12.1) H* 12/08/16 14:17 INR 4.4 H* 12/08/16 14:17 APTT 49.0 Seconds (26.0-36.0) H 12/08/16 10:15 Fibrinogen 942 mg/dL (169-393) H* 12/08/16 10:15 D-Dimer 1041 ng/mLFEU (0-500) H 12/08/16 10:15 ABG Total CO2 26.8 mEq/L (20-26) H 12/06/16 01:48 Sodium 134 mEq/L (136-145) L 12/08/16 04:13 Potassium 4.9 mEq/L (3.5-4.5) H 12/08/16 04:13 BUN 57 mg/dL (7-20) H 12/08/16 04:13 Creatinine 3.00 mg/dL (0.57-1.11) H 12/08/16 04:13 Est GFR ( Amer) 19 (> 60) L 12/08/16 04:13 Est GFR (Non-Af Amer) 16 (> 60) L 12/08/16 04:13 Glucose 141 mg/dL (70-99) H 12/08/16 04:13 POC Glucose 128 (58-89) H 12/08/16 15:25 Magnesium 1.5 mg/dL (1.6-2.6) L 12/07/16 04:52 Direct Bilirubin 0.9 mg/dL (0.0-0.5) H 12/07/16 04:52 Troponin I 0.06 ng/mL (0-0.03) H* 12/05/16 08:59 B-Natriuretic Peptide 270 pg/mL (0-100) H 12/05/16 04:05 Serum Total Protein 5.8 g/dL (6.0-8.3) L 12/08/16 04:13 Albumin 2.0 g/dL (3.5-5.0) L 12/08/16 04:13 Globulin 3.8 g/dL (2.4-3.5) H 12/08/16 04:13 Albumin/Globulin Ratio 0.5 (1.1-2.2) L 12/08/16 04:13 Ur Leukocyte Esterase Moderate (Negative) H 12/05/16 03:24 Urine Microscopic WBC 50-100 per hpf (0-3) H 12/05/16 03:24 Ur Squamous Epith Cells Many per lpf (None-Few) H 12/05/16 03:24 Urine Bacteria Moderate per hpf (None-Few) H 12/05/16 03:24 Ur Culture Indicated? YES (NO) A 12/05/16 03:24 - Clinical Findings Intake & Output: Intake & Output 12/08/16 12/08/16 12/08/16 07:59 15:59 23:59 Intake Total 55 / 55 316.25 / 316.25 100 / 100 Output Total 212 / 212 185 / 185 Balance -157 / -157 131.25 / 131.25 100 / 100 Weight 137 kg - Attending Attestation I examined this patient and my medical decision-making was reviewed with the TANYARD WORKER/PA/Advanced Practice Nurse/Resident Physician. I agree with the documented findings, disposition and treatment plan as described except to the extent set forth below. Patient seen and examined. Labs, radiology, chart personally reviewed. 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 fib with RVR with resume her home medicine, but half the dose due to unstable BP. Even though she is off pressors at this time, I'm still concern. GI: Nutrition per dietary and GI prophylaxis per routine Heme: DVT prophylaxis per routine. Patient is coagulopathic, I suspect this is from her sepsis and DIC is possibility. Will give FFP and vit K ID: Continue antibiotics and plan to de-escalation Renal; urine out put and renal funtion reviewed Endorcine: blood glucose is monitored Lines: all lines checked and no evidence of infections Skin: skin care to prevent pressure ulcers per nursing routine care Family has been updated I spent 35 min of Critical Care time with this patient. It involved decision making of high complexity to assess, manipulate, and support vital organ system failure and/or to prevent further life threatening deterioration of the patient' s condition. The time involved in the performance of separately reportable procedures was not counted toward critical care time.
[2016-12-08 05:50] LABS: Platelet Estimate Decreased (Normal)
[2016-12-08 05:51] LABS: Toxic Granulation Present (Not Present)
[2016-12-08] MEDS: Insulin LISPRO 300 UNITS/3 ML VIAL SQ SCH ×4 (07:47→21:31)
[2016-12-08] MEDS: Pantoprazole 40 MG VIAL IVP SCH (08:12)
--- NOTE | 2016-12-08 09:58 | Nephrology Progress Note ---
<Shraddha Blum Uriah - Last Filed: 12/08/16 11:17> Date of Encounter: 12/08/16 Time of Encounter: 09:00 - Assessment and Plan (1) Acute kidney injury superimposed on chronic kidney disease Current Visit: Yes Status: Acute Oliguric acute kidney injury in the setting of septic shock. Patient with a known history of chronic kidney disease stage III. Serum creatinine today 3.0 from 3.5 yesterday. Continue Lalitha with gentle fluid removal as tolerated. Patient's +11 L since admission. Continue renal protective strategy with any medications and attempt to avoid nephrotoxins. (2) Septic shock Current Visit: Yes Status: Acute (3) Panniculitis Current Visit: Yes Status: Acute (4) UTI (urinary tract infection) Current Visit: Yes Status: Acute Qualifiers: Urinary tract infection type: acute cystitis Hematuria presence: without hematuria Qualified Code(s): N30.00 - Acute cystitis without hematuria (5) Thrombocytopenia Current Visit: Yes Status: Acute (6) Elevated INR Current Visit: Yes Status: Acute (7) Atrial fibrillation, chronic Current Visit: Yes Status: Chronic Subjective Principal diagnosis: Septic shock Interval history: Patient seen and examined at the bedside. No acute events overnight per nursing staff. Levophed has been weaned off and 20-25cc/hr being removed with Lalitha. Patient is resting comfortably in bed on 3 L nasal cannula. She denies any complaints or concerns at this time. Beginning to make minimal UOP. Objective - Vital Signs Vital signs: Vital Signs Temp Pulse Resp BP Pulse Ox 12/08/16 09:00 120 18 99/56 97 12/08/16 08:00 98.3 F 120 16 97/56 99 12/08/16 07:00 97.9 F 125 16 110/60 99 12/08/16 06:00 127 12 98/55 98 12/08/16 05:00 97.9 F 128 16 98/53 99 12/08/16 04:52 118 12/08/16 04:00 118 16 101/62 98 12/08/16 03:00 124 22 96/57 98 12/08/16 02:00 118 20 100/59 100 12/08/16 01:00 114 16 96/54 93 L 12/08/16 00:19 120 12/08/16 00:00 97.8 F 122 16 94/53 100 12/07/16 23:00 123 18 107/56 100 12/07/16 22:00 118 20 97/56 99 12/07/16 21:00 115 18 95/56 98 12/07/16 20:00 125 14 105/57 100 12/07/16 19:48 104 12/07/16 19:45 98.2 F 104 20 99/53 100 12/07/16 19:00 122 16 98/52 100 12/07/16 17:57 98.2 F 112 18 96/45 100 12/07/16 17:00 98.2 F 116 16 90/45 100 12/07/16 16:15 110 18 91/47 100 12/07/16 16:00 105 12/07/16 15:10 117 20 87/68 100 12/07/16 14:10 121 16 92/57 99 12/07/16 13:10 119 20 92/63 99 12/07/16 12:25 116 18 101/74 99 12/07/16 12:00 101 12/07/16 11:00 114 14 98/47 99 12/07/16 10:00 106 16 88/64 100 Intake and Output 12/07/16 12/08/16 12/08/16 23:59 07:59 15:59 Intake Total 254 / 254 55 / 55 100 / 100 Output Total 640 / 640 212 / 212 46 / 46 Balance -386 / -386 -157 / -157 54 / 54 Intake: IV Fluids 254 / 254 55 / 55 100 / 100 PrismaSATE BGK 4/2.5 5, 0 / 0 0 / 0 0 / 0 000 ML @ 1000 mls/hr CRRT [facility] Rx#:[id number] Levophed 4 MG In Dextrose 254 / 254 55 / 55 5% 250 ML @ 2 MCG/MIN 7. 62 mls/hr IVC .CONT [facility] Rx#:[id number] Rocephin 2,000 MG In 100 / 100 Dextrose 5% (Minibag+) 100 ML 100 ML @ 200 mls/ hr IVPB Q24H [facility] Rx#: [id number] Oral 0 / 0 0 / 0 0 / 0 Output: Urine 0 / 0 0 / 0 Lalitha 316 / 316 111 / 111 36 / 36 Rectal Tube 0 / 0 0 / 0 Catheter 8 / 8 40 / 40 10 / 10 Fluid Removed by 316 / 316 61 / 61 Prismaflex Other: Meal Dinner Percent of Meal Consumed 5% Weight 137 kg 137 kg Blood Glucose* 141 131 Patient Weight 12/08/16 23:59 Weight 137 kg - General Appearance Exam: General: Patient is alert and in no acute distress, drowsy HEENT: Normocephalic atraumatic, pupils are equal round and reactive to light and accommodation, tympanic membrane is intact, nares is patent, mucous membranes moist, throat is not injected, no JVD, trachea is midline Cardiovascular: Tachycardic, irregularly irregular rhythm Respiratory: Lungs are diminished but clear to auscultation bilaterally, no wheezing, rhonchi, rales Abdomen: Obese with significant abdominal pannus, induration of the right lower pannus with mild ecchymosis noted Extremities: Warm, dry, 2-3+ bilateral lower extremity edema Neuro: A&Ox3, speech is appropriate, cranial nerves II through XII are normal as tested - Lab 12/08/16 10:15 12/08/16 04:13 Most recent lab results ABG pH 7.37 pH Units (7.32-7.45) 12/06/16 01:48 ABG pCO2 44 mmHg (35-45) 12/06/16 01:48 ABG pO2 104 mmHg (85-104) 12/06/16 01:48 ABG HCO3 25.4 mEQ/L (21-27) 12/06/16 01:48 ABG O2 Saturation 98 % (95-98) 12/06/16 01:48 Calcium 9.4 mg/dL (8.6-10.8) 12/08/16 04:13 Phosphorus 4.3 mg/dL (2.3-4.7) D 12/07/16 04:52 Magnesium 1.5 mg/dL (1.6-2.6) L 12/07/16 04:52 Urine Creatinine 71 mg/dL 12/05/16 03:24 Urine Sodium < 20.0 mEq/L 12/05/16 03:24 Consult Discharge Plan - Plan Referrals: Prema West MD [Primary Care Provider] - <Ye Ghosh - Last Filed: 12/09/16 00:09> Objective - Vital Signs Vital signs: Vital Signs Temp Pulse Resp BP Pulse Ox 12/08/16 23:13 97.8 F 83 14 106/57 100 12/08/16 23:00 97.8 F 83 14 106/57 100 12/08/16 22:07 98 F 94 20 108/55 12/08/16 22:05 97.8 F 108 100 106/55 12/08/16 22:00 98 F 108 14 106/55 100 12/08/16 21:00 98.3 F 102 13 136/64 98 12/08/16 20:17 98.3 F 17 109/53 99 12/08/16 20:14 105 16 104/52 99 12/08/16 20:00 105 16 104/52 99 12/08/16 19:00 112 14 99/50 98 12/08/16 18:45 97.5 F L 101 18 102/52 98 12/08/16 18:30 97.6 F 105 16 94/49 12/08/16 18:21 98.3 F 98 16 96/53 98 12/08/16 18:00 97.6 F 107 16 96/55 97 12/08/16 17:04 97.6 F 113 18 107/63 99 12/08/16 17:00 114 20 97/55 97 12/08/16 16:49 97.5 F L 118 18 104/60 98 12/08/16 16:00 98.2 F 114 16 111/60 99 12/08/16 15:00 119 16 108/84 99 12/08/16 14:00 76 18 106/58 99 12/08/16 13:30 129 20 104/53 98 12/08/16 12:00 125 18 106/66 97 12/08/16 11:00 97.9 F 129 20 105/55 98 12/08/16 10:00 124 16 92/53 97 12/08/16 09:00 120 18 99/56 97 12/08/16 08:00 98.3 F 120 16 97/56 99 12/08/16 07:00 97.9 F 125 16 110/60 99 12/08/16 06:00 127 12 98/55 98 12/08/16 05:00 97.9 F 128 16 98/53 99 12/08/16 04:52 118 12/08/16 04:00 118 16 101/62 98 12/08/16 03:00 124 22 96/57 98 12/08/16 02:00 118 20 100/59 100 12/08/16 01:00 114 16 96/54 93 L 12/08/16 00:19 120 Intake and Output 12/08/16 12/08/16 12/09/16 15:59 23:59 07:59 Intake Total 316.25 / 316.25 2048 Output Total 185 / 185 137 / 137 Balance 131.25 / 131.25 1911 Intake: IV Fluids 310.25 / 310.25 340 / 340 0.9 % Sodium Chloride 250 40 / 40 ML As .ROUTE .[facility] Rx#:[id number] 0.9 % Sodium Chloride 500 100 / 100 ML As .ROUTE .[facility] Rx#:[id number] PrismaSATE BGK 4/2.5 5, 0 / 0 000 ML @ 1000 mls/hr CRRT [facility] Rx#:[id number] Flexbumin 25 gm In 100 ml 160 / 160 200 / 200 @ 60 mls/hr IVC .Q1H40M [facility] Rx#:[id number] Rocephin 2,000 MG In 100 / 100 Dextrose 5% (Minibag+) 100 ML 100 ML @ 200 mls/ hr IVPB Q24H [facility] Rx#: [id number] AquaMephyton 2.5 MG In 0. 50.25 / 50.25 9 % Sodium Chloride 50 ML @ 100 mls/hr IVPB ONCE [facility] Rx#:[id number] Oral 6 / 6 0 / 0 Blood Product 1709 / 1709 Plasma Unit 330 / 330 [id number] Plasma Unit 289 / 289 [id number] Plasma Unit 375 / 375 [id number] Plasma Unit 715 / 715 [id number] Output: Lalitha 143 / 143 127 / 127 Catheter 42 / 42 10 Other: Meal Lunch Percent of Meal Consumed 5% Blood Glucose* 147 136 - Lab 12/08/16 14:00 12/08/16 04:13 Most recent lab results ABG pH 7.37 pH Units (7.32-7.45) 12/06/16 01:48 ABG pCO2 44 mmHg (35-45) 12/06/16 01:48 ABG pO2 104 mmHg (85-104) 12/06/16 01:48 ABG HCO3 25.4 mEQ/L (21-27) 12/06/16 01:48 ABG O2 Saturation 98 % (95-98) 12/06/16 01:48 Calcium 9.4 mg/dL (8.6-10.8) 12/08/16 04:13 Phosphorus 4.3 mg/dL (2.3-4.7) D 12/07/16 04:52 Magnesium 1.5 mg/dL (1.6-2.6) L 12/07/16 04:52 Urine Creatinine 71 mg/dL 12/05/16 03:24 Urine Sodium < 20.0 mEq/L 12/05/16 03:24 - Attending Attestation I examined this patient and my medical decision-making was reviewed with the REGULATORY SPECIALIST/PA/Advanced Practice Nurse/Resident Physician. I agree with the documented findings, disposition and treatment plan as described except to the extent set forth below. Pt seen and examined and discussed with critical care team. She remains on CVVH and still very positive fluid balance. will dose with albumin again and continue CVVH with fluid removal as tolerated.
[2016-12-08 10:23] LABS: Hemoglobin 9.1 g/dL (11.5-15.4); Red Cell Distribution Width 13.6 % (11.5-14.5)
[2016-12-08 10:24] LABS: Basophils % 0.1 %; Immature Granulocytes % 2.8 % (0-4); Lymphocytes % 2.4 %
[2016-12-08 10:25] LABS: Hematocrit 29.1 % (35.3-44.9); Immature Platelets 13.5 % (1.1-6.1); Lymphocytes # 0.3 K/mcL (0.6-4.6); Mean Corpuscular HGB Conc 31.3 g/dL (31.6-35.5); Mean Corpuscular Hemoglobin 31.5 pg (28.0-33.3); Mean Corpuscular Volume 100.7 fL (83.0-100.0); Mean Platelet Volume 13.4 fL (9.4-12.4); Monocytes % 7.3 %; Neutrophils # 10.1 K/mcL (1.6-8.9); Red Blood Count 2.89 M/mcL (3.82-4.97); Segmented Neutrophils % 87.4 %
[2016-12-08 10:26] LABS: Monocytes # 0.9 K/mcL (0.0-1.3); Platelet Count 77 K/mcL (140-400)
[2016-12-08 10:32] LABS: INR 3.9
[2016-12-08 10:51] LABS: Large Platelets Present (Not Present); Platelet Estimate Decreased (Normal); Prothrombin Time 43.7 Seconds (9.4-12.1); Toxic Granulation Present (Not Present)
[2016-12-08 10:52] LABS: Macrocytosis Present (Not Present)
[2016-12-08] MEDS: Albumin 25% 25gram/100mL 25 GM/100 ML IV.SOLN IVC SCH ×4 (11:38→16:35)
[2016-12-08] MEDS ORDERED: *HR* HYDROcodone/Acet 5/325 mg TABLET PO ONE (13:09)
[2016-12-08 14:09] LABS: Basophils % 0.1 %; Hemoglobin 8.8 g/dL (11.5-15.4); Red Cell Distribution Width 13.6 % (11.5-14.5)
[2016-12-08 14:11] LABS: Eosinophils % 0.1 %; Hematocrit 28.4 % (35.3-44.9); Immature Granulocytes % 2.9 % (0-4); Immature Platelets 15.1 % (1.1-6.1); Lymphocytes # 0.3 K/mcL (0.6-4.6); Lymphocytes % 2.7 %; Mean Corpuscular Hemoglobin 31.5 pg (28.0-33.3); Mean Corpuscular Volume 101.8 fL (83.0-100.0); Mean Platelet Volume 13.2 fL (9.4-12.4); Monocytes # 0.7 K/mcL (0.0-1.3); Monocytes % 6.3 %; Neutrophils # 9.8 K/mcL (1.6-8.9); Platelet Count 74 K/mcL (140-400); Red Blood Count 2.79 M/mcL (3.82-4.97); Segmented Neutrophils % 87.9 %
[2016-12-08 14:35] LABS: INR 4.4
[2016-12-08 14:39] LABS: Large Platelets Present (Not Present); Platelet Estimate Decreased (Normal); Toxic Granulation Present (Not Present)
[2016-12-08] MEDS: *HR* Heparin 5,000 UNIT/ML VIAL IV PRN (14:39)
[2016-12-08 14:40] LABS: Macrocytosis Present (Not Present)
--- NOTE | 2016-12-08 14:49 | Event Note ---
<Carmel Julien - Last Filed: 12/08/16 16:38> Date of Encounter: 12/08/16 Time of Encounter: 13:00 Patient became restless in bed complaining of pain to nursing staff. Patient has not complained of pain in days prior. In fact, pain meds/morphine has been held. On physical examination, patient had new bruising on the upper abdomen around epigastric region with abdominal rigidity and tenderness to palpation. Furthermore patient had pain mid thoracic region lateral to spinous processes bilaterally. New bruising seen in the left upper outer quadrant. Bedside ultrasound performed by Dr. Kimball and myself, demonstrated bilateral fluid collections. Patient's PT was 50, INR 4.4, APTT 49, fibrinogen 942, d-dimer 1041. Hemoglobin has been steadily dropping over the past 4 days: Initially hemoglobin 10, 9.4, 9.0, 8.8 Patient's vital signs were stable she was sent to CT scan for further evaluation of fluid collections due to suspicion of retroperitoneal bleeding vs free fluid. Surgery was notified and re-evaluated pt. 2 units of blood ordered and to be administered if the patient's hemoglobin drops below 7 with repeat CBC at midnight. Nephrology was notified and Dr. Blum advised Lalitha hold. Abdomen/Pelvis CT 12/08/16 13:46 IMPRESSION: 1. Subcutaneous fluid along the right flank, possibly secondary to third spacing. 2. Small amount of free fluid along the margin of the right hepatic lobe. Based on the attenuation, it is simple fluid and may be secondary to third spacing. There is no evidence of retroperitoneal hematoma. 3. Fat containing anterior abdominal wall hernia. 4. Cholelithiasis. No CT evidence of cholecystitis. 5. Small bilateral pleural effusions with bibasilar atelectasis. D/ / 12/08/2016 15:32:42 Mann Hammond MD / Cecilia Olea Interpreting Provider: Mann Hammond MD <Rosie Hope - Last Filed: 12/08/16 21:39> Above discussed with resident and discussed with surgery team. Images reviewed. Continue supportive care and also FFP with vit K.
[2016-12-08] MEDS ORDERED: 0.9 % Sodium Chloride 500 ML ONE ×2 (16:28→20:20)
[2016-12-08] MEDS ORDERED: 0.9 % Sodium Chloride 250 ML ONE (21:37)
[2016-12-09 00:20] LABS: Basophils % 0.1 %; Eosinophils % 0.1 %; Hematocrit 26.9 % (35.3-44.9); Hemoglobin 8.4 g/dL (11.5-15.4); Immature Granulocytes % 1.8 % (0-4); Immature Platelets 14.7 % (1.1-6.1); Lymphocytes # 0.3 K/mcL (0.6-4.6); Lymphocytes % 3.1 %; Mean Corpuscular HGB Conc 31.2 g/dL (31.6-35.5); Mean Corpuscular Hemoglobin 31.8 pg (28.0-33.3); Mean Corpuscular Volume 101.9 fL (83.0-100.0); Mean Platelet Volume 12.8 fL (9.4-12.4); Monocytes # 0.6 K/mcL (0.0-1.3); Monocytes % 7.3 %; Red Blood Count 2.64 M/mcL (3.82-4.97); Red Cell Distribution Width 13.5 % (11.5-14.5); Segmented Neutrophils % 87.6 %
[2016-12-09 00:30] LABS: Neutrophils # 7.5 K/mcL (1.6-8.9); Platelet Count 62 K/mcL (140-400)
[2016-12-09 00:41] LABS: INR 1.5; Prothrombin Time 16.8 Seconds (9.4-12.1)
[2016-12-09] MEDS: PrismaSATE BGK 4/2.5 5,000 ML CRRT SCH ×6 (01:04→21:46)
[2016-12-09] MEDS: *HR* Morphine 2 MG/ML SYRINGE IVP PRN ×2 (01:17→20:27)
[2016-12-09 04:35] LABS: Basophils % 0.1 %; Eosinophils % 0.1 %; Lymphocytes % 3.7 %; Nucleated Red Blood Cells 0.2 /100 WBC (0)
[2016-12-09 04:37] LABS: Hematocrit 27.5 % (35.3-44.9); Hemoglobin 8.5 g/dL (11.5-15.4); Immature Granulocytes % 2.9 % (0-4); Lymphocytes # 0.3 K/mcL (0.6-4.6); Mean Corpuscular HGB Conc 30.9 g/dL (31.6-35.5); Mean Corpuscular Hemoglobin 31.6 pg (28.0-33.3); Mean Corpuscular Volume 102.2 fL (83.0-100.0); Monocytes # 0.5 K/mcL (0.0-1.3); Neutrophils # 7.5 K/mcL (1.6-8.9); Platelet Count 66 K/mcL (140-400); Red Blood Count 2.69 M/mcL (3.82-4.97); Red Cell Distribution Width 13.5 % (11.5-14.5); Segmented Neutrophils % 87.2 %
[2016-12-09 04:41] LABS: Ionized Calcium 1.2 mmol/L (1.15-1.35)
[2016-12-09 04:49] LABS: Albumin/Globulin Ratio 0.9 (1.1-2.2); Calcium 9.5 mg/dL (8.6-10.8); Globulin 3.3 g/dL (2.4-3.5); Magnesium 2.1 mg/dL (1.6-2.6); Phosphorous 4.4 mg/dL (2.3-4.7); Potassium 4.7 mEq/L (3.5-4.5); Total Protein 6.3 g/dL (6.0-8.3)
[2016-12-09 04:50] LABS: Bilirubin,Total 1.4 mg/dL (0.2-1.2)
[2016-12-09 04:51] LABS: INR 1.4; Prothrombin Time 15.7 Seconds (9.4-12.1)
--- NOTE | 2016-12-09 07:23 | Nephrology Progress Note ---
<Khadar Matamoros - Last Filed: 12/09/16 07:17> - Assessment and Plan (1) Acute kidney injury superimposed on chronic kidney disease Current Visit: Yes Status: Acute I reviewed the progress notes of my colleague, Dr. Navarro: oligioanuric IVIS on CKD stage III requiring Prsima. However the pt remains hyperkalemic; I recommend optimizing the CRRT modality to CVVHDF for improved clearance and fluid removal. This modality is the preferred approach in the setting of sepsis and could help better manage electrolytes. Dialysate: 4K/2.5Ca Replacement fluid: 4K/2.5ca Effluent dose: should be at least 25 Fluid removal targets: Net+ Thrombocytopenia/bruising: I read the event notes and so I recommend avoiding Citrate in the Lalitha Continue close UOP and hemodynamic monitoring. If her UOP and MAP improve in the coming days, then I would aim to transition to iHD. (2) Hyperkalemia Current Visit: Yes Status: Acute (3) Thrombocytopenia Current Visit: Yes Status: Acute (4) Sepsis Current Visit: Yes Status: Acute Qualifiers: Sepsis type: sepsis due to unspecified organism Qualified Code(s): A41.9 - Sepsis, unspecified organism Subjective Principal diagnosis: Septic shock Objective - Vital Signs Vital signs: Vital Signs Temp Pulse Resp BP Pulse Ox 12/09/16 06:00 120 12 114/59 99 12/09/16 05:00 116 11 109/60 99 12/09/16 04:00 97.7 F 112 19 111/56 99 12/09/16 03:00 113 20 112/55 100 12/09/16 02:00 112 20 108/53 100 12/09/16 01:00 129 20 119/52 100 12/09/16 00:00 106 17 110/52 100 12/08/16 23:13 97.8 F 83 14 106/57 100 12/08/16 23:00 97.8 F 83 14 106/57 100 12/08/16 22:07 98 F 94 20 108/55 12/08/16 22:05 97.8 F 108 100 106/55 12/08/16 22:00 98 F 108 14 106/55 100 12/08/16 21:00 98.3 F 102 13 136/64 98 12/08/16 20:17 98.3 F 17 109/53 99 12/08/16 20:14 105 16 104/52 99 12/08/16 20:00 105 16 104/52 99 12/08/16 19:00 112 14 99/50 98 12/08/16 18:45 97.5 F L 101 18 102/52 98 12/08/16 18:30 97.6 F 105 16 94/49 12/08/16 18:21 98.3 F 98 16 96/53 98 12/08/16 18:00 97.6 F 107 16 96/55 97 12/08/16 17:04 97.6 F 113 18 107/63 99 12/08/16 17:00 114 20 97/55 97 12/08/16 16:49 97.5 F L 118 18 104/60 98 12/08/16 16:00 98.2 F 114 16 111/60 99 12/08/16 15:00 119 16 108/84 99 12/08/16 14:00 76 18 106/58 99 12/08/16 13:30 129 20 104/53 98 12/08/16 12:00 125 18 106/66 97 12/08/16 11:00 97.9 F 129 20 105/55 98 12/08/16 10:00 124 16 92/53 97 12/08/16 09:00 120 18 99/56 97 12/08/16 08:00 98.3 F 120 16 97/56 99 Intake and Output 12/08/16 12/08/16 12/09/16 15:59 23:59 07:59 Intake Total 316.25 / 316.25 2048 Output Total 185 / 185 137 / 137 331 / 331 Balance 131.25 / 131.25 1912 / 191 -331 / -331 Intake: IV Fluids 310.25 / 310.25 340 / 340 0.9 % Sodium Chloride 250 40 / 40 ML As .ROUTE .STK-MED ONE Rx#:[id number] 0.9 % Sodium Chloride 500 100 / 100 ML As .ROUTE .STK-MED [facility] Rx#:[id number] PrismaSATE BGK 4/2.5 5, 0 / 0 0 / 0 000 ML @ 1000 mls/hr CRRT [facility] Rx#:[id number] Flexbumin 25 gm In 100 ml 160 / 160 200 / 200 @ 60 mls/hr IVC .Q1H40M [facility] Rx#:[id number] Rocephin 2,000 MG In 100 / 100 Dextrose 5% (Minibag+) 100 ML 100 ML @ 200 mls/ hr IVPB Q24H [facility] Rx#: [id number] AquaMephyton 2.5 MG In 0. 50.25 / 50.25 9 % Sodium Chloride 50 ML @ 100 mls/hr IVPB ONCE [facility] Rx#:[id number] Oral 6 / 6 0 / 0 Blood Product 1709 / 1709 Plasma Unit 330 / 330 [id number] Plasma Unit 289 / 289 [id number] Plasma Unit 375 / 375 [id number] Plasma Unit 715 / 715 [id number] Output: Lalitha 143 / 143 127 / 127 331 / 331 Catheter 42 / 42 Other: Meal Lunch Percent of Meal Consumed 5% Stool Size Moderate Stool Characteristics Seedy Stool Color Yellow Blood Glucose* 147 136 - Lab 12/09/16 04:25 12/09/16 04:25 Most recent lab results ABG pH 7.37 pH Units (7.32-7.45) 12/06/16 01:48 ABG pCO2 44 mmHg (35-45) 12/06/16 01:48 ABG pO2 104 mmHg (85-104) 12/06/16 01:48 ABG HCO3 25.4 mEQ/L (21-27) 12/06/16 01:48 ABG O2 Saturation 98 % (95-98) 12/06/16 01:48 Calcium 9.5 mg/dL (8.6-10.8) 12/09/16 04:25 Phosphorus 4.4 mg/dL (2.3-4.7) 12/09/16 04:25 Magnesium 2.1 mg/dL (1.6-2.6) 12/09/16 04:25 Urine Creatinine 71 mg/dL 12/05/16 03:24 Urine Sodium < 20.0 mEq/L 12/05/16 03:24 Consult Discharge Plan - Plan Referrals: Prema West MD [Primary Care Provider] - <Shraddha Blum - Last Filed: 12/09/16 11:20> Date of Encounter: 12/09/16 Time of Encounter: 11:09 - Assessment and Plan (1) Acute kidney injury superimposed on chronic kidney disease Current Visit: Yes Status: Acute Entered By Khadar Matamoros - 12/09/16 07:23 > I reviewed the progress notes of my colleague, Dr. Navarro: oligioanuric IVIS on CKD stage III requiring Prsima. However the pt remains hyperkalemic; I recommend optimizing the CRRT modality to CVVHDF for improved clearance and fluid removal. This modality is the preferred approach in the setting of sepsis and could help better manage electrolytes. Dialysate: 4K/2.5Ca Replacement fluid: 4K/2.5ca Effluent dose: should be at least 25 Fluid removal targets: Net+ Thrombocytopenia/bruising: I read the event notes and so I recommend avoiding Citrate in the Lalitha Continue close UOP and hemodynamic monitoring. If her UOP and MAP improve in the coming days, then I would aim to transition to iHD. (2) Septic shock Current Visit: Yes Status: Acute Resolved. Patient's mean arterial pressure in the 80s, levophed has been discontinued for several days. Antibiotics per ICU team. E. coli UTI v. panniculitis (3) Panniculitis Current Visit: Yes Status: Acute (4) UTI (urinary tract infection) Current Visit: Yes Status: Acute Qualifiers: Qualified Code(s): N30.00 - Acute cystitis without hematuria (5) Thrombocytopenia Current Visit: Yes Status: Acute (6) Elevated INR Current Visit: Yes Status: Acute S/p 4 units FFP with improvement in INR. Continue to hold citrate during HD. (7) Atrial fibrillation, chronic Current Visit: Yes Status: Chronic Subjective Interval history: Seen and examined at the bedside. No acute events overnight. Patient drowsy, but arousable. No complaints or concerns currently. Changing HD modality to CVVHDF for better clearance. 4 units fresh frozen plasma administered yesterday for correction in elevated INR. Objective - Vital Signs Vital signs: Vital Signs Temp Pulse Resp BP Pulse Ox 12/09/16 10:00 103 14 115/62 100 12/09/16 09:00 102 18 124/65 98 12/09/16 08:00 127 16 116/73 93 L 12/09/16 07:38 96.0 F L 12/09/16 07:00 108 16 102/57 95 12/09/16 06:00 120 12 114/59 99 02/03/17 05:00 116 11 109/60 99 12/09/16 04:00 97.7 F 112 19 111/56 99 12/09/16 03:00 113 20 112/55 100 12/09/16 02:00 112 20 108/53 100 12/09/16 01:00 129 20 119/52 100 12/09/16 00:00 106 17 110/52 100 12/08/16 23:13 97.8 F 83 14 106/57 100 12/08/16 23:00 97.8 F 83 14 106/57 100 12/08/16 22:07 98 F 94 20 108/55 12/08/16 22:05 97.8 F 108 100 106/55 12/08/16 22:00 98 F 108 14 106/55 100 12/08/16 21:00 98.3 F 102 13 136/64 98 12/08/16 20:17 98.3 F 17 109/53 99 12/08/16 20:14 105 16 104/52 99 12/08/16 20:00 105 16 104/52 99 12/08/16 19:00 112 14 99/50 98 12/08/16 18:45 97.5 F L 101 18 102/52 98 12/08/16 18:30 97.6 F 105 16 94/49 12/08/16 18:21 98.3 F 98 16 96/53 98 12/08/16 18:00 97.6 F 107 16 96/55 97 12/08/16 17:04 97.6 F 113 18 107/63 99 12/08/16 17:00 114 20 97/55 97 12/08/16 16:49 97.5 F L 118 18 104/60 98 12/08/16 16:00 98.2 F 114 16 111/60 99 12/08/16 15:00 119 16 108/84 99 12/08/16 14:00 76 18 106/58 99 12/08/16 13:30 129 20 104/53 98 12/08/16 12:00 125 18 106/66 97 Intake and Output 12/08/16 12/09/16 12/09/16 23:59 07:59 15:59 Intake Total 2048 / 2048 0 / 0 Output Total 137 / 137 331 / 331 188 / 188 Balance 1912 / 191 -331 / -331 -188 / -188 Intake: IV Fluids 340 / 340 0.9 % Sodium Chloride 250 40 / 40 ML As .ROUTE .STK-MED ONE Rx#:[id number] 0.9 % Sodium Chloride 500 100 / 100 ML As .ROUTE .STK-MED ONE Rx#:[id number] PrismaSATE BGK 4/2.5 5, 0 / 0 000 ML @ 1000 mls/hr CRRT CONT [facility] Rx#:[id number] Flexbumin 25 gm In 100 ml 200 / 200 @ 60 mls/hr IVC .Q1H40M [facility] Rx#:[id number] Oral 0 / 0 0 / 0 Blood Product 1709 / 1709 Plasma Unit 330 / 330 [id number] Plasma Unit 289 / 289 [id number] Plasma Unit 375 / 375 [id number] Plasma Unit 715 / 715 [id number] Output: Urine 0 / 0 Urethral ([place]) 0 / 0 Lalitha 127 / 127 331 / 331 178 / 178 Catheter Other: Meal Breakfast Percent of Meal Consumed 0% Stool Size Moderate Stool Characteristics Seedy Stool Color Yellow Blood Glucose* 136 149 149 - General Appearance Exam: General: Patient is alert and in no acute distress, drowsy HEENT: Normocephalic atraumatic, pupils are equal round and reactive to light and accommodation, tympanic membrane is intact, nares is patent, mucous membranes moist, throat is not injected, no JVD, trachea is midline Cardiovascular: Tachycardic, irregularly irregular rhythm Respiratory: Lungs are diminished but clear to auscultation bilaterally, no wheezing, rhonchi, rales Abdomen: Obese with significant abdominal pannus, induration at the lower portion of the pannus with mild ecchymosis noted Extremities: Warm, dry, 2-3+ bilateral lower extremity edema Neuro: A&Ox3, speech is appropriate, cranial nerves II through XII are normal as tested - Lab 12/09/16 04:25 12/09/16 04:25 Most recent lab results ABG pH 7.37 pH Units (7.32-7.45) 12/06/16 01:48 ABG pCO2 44 mmHg (35-45) 12/06/16 01:48 ABG pO2 104 mmHg (85-104) 12/06/16 01:48 ABG HCO3 25.4 mEQ/L (21-27) 12/06/16 01:48 ABG O2 Saturation 98 % (95-98) 12/06/16 01:48 Calcium 9.5 mg/dL (8.6-10.8) 12/09/16 04:25 Phosphorus 4.4 mg/dL (2.3-4.7) 12/09/16 04:25 Magnesium 2.1 mg/dL (1.6-2.6) 12/09/16 04:25 Urine Creatinine 71 mg/dL 12/05/16 03:24 Urine Sodium < 20.0 mEq/L 12/05/16 03:24
--- NOTE | 2016-12-09 08:52 | Pulmonology Progress Note ---
<Carmel Julien - Last Filed: 12/09/16 10:45> Date of Encounter: 12/09/16 Time of Encounter: 08:00 Assessment and Plan (1) Septic shock Current Visit: Yes Status: Acute Patient arrived to ICU meeting criteria for severe sepsis and septic shock due to hypotension unresponsive to fluid. Source of infection is likely a urinary tract infection/sepsis secondary to UTI. Severe sepsis: Likely secondary to UTI/urosepsis. Fever: 100.8 tachycardia: Heart Rate of 125 Tachypnea: Respiratory rate of 26 with labored breathing and use of accessory muscles hypotension: Blood pressure of 70/30 lactic acidosis: 3.0 pancytopenia IVIS: Oliguria and creatinine of 3.0 and GFR of 15 Altered mental status: Confusion and changes in vision High risk due to multiorgan failure and need for aggressive IVF in the setting of systolic CHF. Initially, 4 L of fluid given without significant response. Abdomen/Pelvis CT 12/05/16 03:07 IMPRESSION: 1. There is a large pannus of the lower abdomen/pelvis with extensive fat stranding and skin thickening. No discrete/drainable fluid collection. 2. No acute abnormality identified within the unenhanced abdomen or pelvis. 3. Cholelithiasis without CT evidence of acute cholecystitis. 4. Right adrenal adenoma. 5. Umbilical hernia containing fat as well as a small amount of fluid. 6. Cardiomegaly. Insertion Non-Tunneled Catheter 12/06/16 00:00 IMPRESSION: Successful ultrasound guided non-tunneled temporary hemodialysis catheter placement. Gallbladder Ultrasound 12/06/16 20:00 IMPRESSION: Cholelithiasis with a trace amount of focal pericholecystic fluid. Negative sonographic Womack's sign. Chest X-Ray 12/08/16 04:24 IMPRESSION: Mild congestive heart failure slightly improved from prior study. Abdomen/Pelvis CT 12/08/16 13:46 IMPRESSION: 1. Subcutaneous fluid along the right flank, possibly secondary to third spacing. 2. Small amount of free fluid along the margin of the right hepatic lobe. Based on the attenuation, it is simple fluid and may be secondary to third spacing. There is no evidence of retroperitoneal hematoma. 3. Fat containing anterior abdominal wall hernia. 4. Cholelithiasis. No CT evidence of cholecystitis. 5. Small bilateral pleural effusions with bibasilar atelectasis. Labs: Serology: C. difficile toxin PCR was negative. Blood cultures x2 : Preliminary results demonstrate no growth. Urine cultures: Final results revealed gram-negative rods identified as Ecoli. Pansensitive. Ceftriaxone for Skin/Staph Coverage and enteric Gram negative rods. 12/08/16 DIC panel: PT 43.7 INR 3.9 AP TT 49.0 D-dimer 1041 Fibrinogen 942: This should be decreased in DIC not elevated as labs demonstrate today. 12/08/16 12/09/16 CK pending Antibiotics: START 12/07/16: Ceftriaxone 2 mg Q 24 for 7 days. STOP: 12/13/16. Acute kidney injury on chronic kidney disease: Nephrology is following. Initially, BUN of 70, creatinine of 3.55 estimated GFR at 16. Right internal jugular temporary hemodialysis catheter was placed by interventional radiology on 12/06/16 in anticipation of CVVHF therapy. Patient is a net overall positive fluid volume of 12.95 L. Gentle fluid removal 25-30cc/hr (net +25). No citrate with CRRT. Will change to CVVH DF when CRRT filter becomes occluded per nephrology. Pressor suport: Decreased gastric excretions may prevent full absorb -will give Protonix IV until pt is off pressor support and eating. Will switch to PO Omeprazole for Stress ulcer prophylaxis when pt is eating full diet. Dietary per dietitian recommendation: ADA/renal/Nepro 3 times a day We will continue to monitor patient's Hemoglobin daily as it has continued to drop since patient's arrival. 2 units of red blood cells on hold for patient and to be given if hemoglobin drops below 7. Platelets have dropped again today to 66. We will continue to follow daily and hold heparin if platelets are less than 50. (2) Panniculitis Current Visit: Yes Status: Acute Patient is morbidly obese with extensive abdominal panniculus adiposis extending down to her knees bilaterally. Inflammation of the subcutaneous fat or panniculitis is evident on physical exam as nonspecific erythema and on palpation there appeared to be a deep-seated areas of hardened/sclerosis characteristic of inflammatory process beneath the dermis. Cellulitis cannot be excluded however, physical exam is more consistent with panniculitis versus cellulitis (where the overlying dermis is mainly affected and underlying fascia with extension to nearby tissue). Extensive ecchymosis on dependent portions of the panniculus may be due to small capillary bleeding. Patient is supratherapeutic on anticoagulation with INR 3.2 and PTT of 35.3. CT scan of abdomen more consistent with a chronic condition. Unclear etiology of panniculitis at this time likely chronic in nature superimposed with subtherapeutic INR versus infectious panniculitis through hematogenous dissemination of microorganisms/bacteremia/sepsis. Abdomen/Pelvis CT 12/05/16 03:07 IMPRESSION: 1. There is a large pannus of the lower abdomen/pelvis with extensive fat stranding and skin thickening. No discrete/drainable fluid collection. 2. No acute abnormality identified within the unenhanced abdomen or pelvis. 3. Cholelithiasis without CT evidence of acute cholecystitis. 4. Right adrenal adenoma. 5. Umbilical hernia containing fat as well as a small amount of fluid. 6. Cardiomegaly. Patient presented to the ICU in a state of septic shock with oliguric acute kidney injury on chronic kidney disease occurring acutely overnight after admission having a rise in serum creatinine to 3.35, pancytopenia, positive urine culture for gram-negative rods so her septic shock may be due to urosepsis. Vasopressors were needed for a short period of time however have since been stopped and patient has been stable with IV fluids. Surgery was consulted: is following. Surgical intervention noted to be severely complicated by patient's morbid obesity, chronic atrial fibrillation and anticoagulation state. Supratherapeutic on anticoagulation: INR 3.2, 2.8, 2.4, 3.8, 1.5. A total of 4 units of fresh frozen plasma were given initially on arrival to ICU. 12/08/16: 2.5 mg of vitamin K IV PB given . As well as 4 units of fresh frozen plasma. (3) Acute renal failure Current Visit: Yes Status: Acute Nephrology following as above. Qualifiers: Acute renal failure type: unspecified Qualified Code(s): N17.9 - Acute kidney failure, unspecified (4) Pancytopenia Current Visit: Yes Status: Acute Anemia, thrombocytopenia, neutropenia. As above. Likely due to sepsis. (5) Chronic anticoagulation Current Visit: Yes Status: Chronic Patient has history of paroxysmal atrial fibrillation and has been on Coumadin. Also, history of TIA. Supratherapeutic on presentation to the ICU. 4 units of fresh frozen plasma were given. 02/02/17 Vitamin K 2.5 given IVPB. 4 units of fresh frozen plasma. Continue to monitor INR. Will check daily coags/PT/INR. (6) Atrial fibrillation, chronic Current Visit: Yes Status: Chronic Paroxysmal atrial fibrillation patient is on long-term Coumadin. Please see above. EKG 12/05/16 demonstrated atrial fibrillation with rapid ventricular response as well as right ventricular hypertrophy. At bedside rates have been between 110 and 117. 12.5 mg twice a day carvedilol for rate control. (7) Congestive cardiac failure Current Visit: Yes Status: Acute Patient was experiencing increased shortness of breath on 11/13/16. Patient was brought in by ambulance to [facility] and was hospitalized 11/13/16-11/15/16 for acute decompensated heart failure. On 11/14/16 AGUSTINA demonstrated concentric hypertrophy of the left ventricle with mild inferior hypokinesis. Left atrium severely dilated. Right atrium mildly dilated. Mild to moderate mitral tricuspid and pulmonic regurgitation. LVEF of 40-45% Qualifiers: Congestive heart failure type: unspecified congestive heart failure type Congestive heart failure chronicity: unspecified congestive heart failure chronicity Qualified Code(s): I50.9 - Heart failure, unspecified (8) Diabetes mellitus Current Visit: Yes Status: Chronic Continue insulin per protocol. Qualifiers: Diabetes mellitus type: type 2 Diabetes mellitus complication status: without complication Diabetes mellitus digital archivist insulin use: with digital archivist use Qualified Code(s): E11.9 - Type 2 diabetes mellitus without complications ; Z79.4 - prison (current) use of insulin (9) DVT prophylaxis Current Visit: Yes Status: Acute Continue Heparin 5000 units subcutaneous daily Hold heparin if platelets less than 50. (10) Morbid obesity with BMI of 50.0-59.9, adult Current Visit: Yes Status: Chronic (11) Elevated troponin Current Visit: Yes Status: Acute In the setting of sepsis and CHF unlikely due to acute myocardial event. Most likely supply demand ischemia. Subjective Principal diagnosis: Septic shock Interval history: Yesterday, patient began complaining of pain for which she has not expressed during her stay exhibiting restlessness and increased ecchymosis with tenderness to palpation. Bedside echo demonstrated free fluid and was confirmed by CT scan. No abdominal hemorrhaging or retroperitoneal bleed. Overnight patient rested comfortably and was on 2 L of oxygen by nasal cannula satting well at 99%. Patient remained hemodynamically stable off pressors. Patient's blood pressure continued to improve systolic 124-102 and diastolic 73- 57. At bedside monitor still atrial fibrillation rate controlled with carvedilol between 102-127. Patient has no complaints at this time. Patient does have a right jugular temporary HD catheter placed and is currently CVVHF/ Martin. As per nephrology, gentle fluid removal net +25. Patient did receive 4 units of fresh frozen plasma yesterday. Patients overall fluid balance 12.95 L. Objective PUL Vital signs: Last Vital Signs Temp 96.0 F L 12/09/16 07:38 Pulse 104 12/09/16 08:00 Resp 16 12/09/16 08:00 BP 116/73 12/09/16 08:00 Pulse Ox 93 L 12/09/16 08:00 General appearance: no acute distress Eyes: nonicteric ENT: oropharynx dry Mallampati (class): 3 Neck: supple, no lymphadenopathy, other (Increased neck circumference. Right jugular temporary hemodialysis catheter.) Effort: normal, mildly labored Auscultation: bilateral: diminished breath sounds Cardiovascular: irregular rhythm (Atrial fibrillation ) Gastrointestinal: normoactive bowel sounds, tender (Over dependent portion of abdominal panniculus adiposis), hepatomegaly, splenomegaly Integumentary: other (Erythema and hardening of the dermis on dependent portion of abdominal panniculus adiposis with ecchymosis varying degrees of resolution/ healing) Extremities: pink and warm, pulses normal, edema (2+ pitting edema bilaterally) Musculoskeletal: other (Morbid obesity decreased range of motion due to body habitus) pupils equal and round mood appropriate, affect normal Results - Laboratory Findings CBC and BMP: 12/09/16 04:25 12/09/16 04:25 ABG ABG pH 7.37 pH Units (7.32-7.45) 12/06/16 01:48 ABG pCO2 44 mmHg (35-45) 12/06/16 01:48 ABG pO2 104 mmHg (85-104) 12/06/16 01:48 ABG O2 Saturation 98 % (95-98) 12/06/16 01:48 PT/INR, D-dimer PT 15.7 Seconds (9.4-12.1) H 12/09/16 04:25 D-Dimer 1041 ng/mLFEU (0-500) H 12/08/16 10:15 Abnormal lab findings: Abnormal lab results RBC 2.69 M/mcL (3.82-4.97) L 12/09/16 04:25 Hgb 8.5 g/dL (11.5-15.4) L 12/09/16 04:25 Hct 27.5 % (35.3-44.9) L 12/09/16 04:25 MCV 102.2 fL (83.0-100.0) H 12/09/16 04:25 MCHC 30.9 g/dL (31.6-35.5) L 12/09/16 04:25 Plt Count 66 K/mcL (140-400) L 12/09/16 04:25 MPV 13.0 fL (9.4-12.4) H 12/09/16 04:25 Lymphocytes # 0.3 K/mcL (0.6-4.6) L 12/09/16 04:25 Nucleated RBCs/100 WBC 0.2 /100 WBC (0) H 12/09/16 04:25 Toxic Granulation Present (Not Present) A 12/08/16 14:00 Platelet Estimate Decreased (Normal) L 12/08/16 14:00 Large Platelets Present (Not Present) A 12/08/16 14:00 Immature Plt Fraction 16.0 % (1.1-6.1) H 12/09/16 04:25 Macrocytosis Present (Not Present) A 12/08/16 14:00 PT 15.7 Seconds (9.4-12.1) H 12/09/16 04:25 APTT 49.0 Seconds (26.0-36.0) H 12/08/16 10:15 Fibrinogen 942 mg/dL (169-393) H* 12/08/16 10:15 D-Dimer 1041 ng/mLFEU (0-500) H 12/08/16 10:15 ABG Total CO2 26.8 mEq/L (20-26) H 12/06/16 01:48 Potassium 4.7 mEq/L (3.5-4.5) H 12/09/16 04:25 BUN 55 mg/dL (7-20) H 12/09/16 04:25 Creatinine 2.64 mg/dL (0.57-1.11) H 12/09/16 04:25 Est GFR ( Amer) 22 (> 60) L 12/09/16 04:25 Est GFR (Non-Af Amer) 18 (> 60) L 12/09/16 04:25 Glucose 162 mg/dL (70-99) H 12/09/16 04:25 POC Glucose 149 (58-89) H 12/09/16 07:06 Calculated Osmolality 301 (280-300) H 12/09/16 04:25 Total Bilirubin 1.4 mg/dL (0.2-1.2) H D 12/09/16 04:25 Direct Bilirubin 0.9 mg/dL (0.0-0.5) H 12/07/16 04:52 Troponin I 0.06 ng/mL (0-0.03) H* 12/05/16 08:59 B-Natriuretic Peptide 270 pg/mL (0-100) H 12/05/16 04:05 Albumin 3.0 g/dL (3.5-5.0) L D 12/09/16 04:25 Albumin/Globulin Ratio 0.9 (1.1-2.2) L 12/09/16 04:25 Ur Leukocyte Esterase Moderate (Negative) H 12/05/16 03:24 Urine Microscopic WBC 50-100 per hpf (0-3) H 12/05/16 03:24 Ur Squamous Epith Cells Many per lpf (None-Few) H 12/05/16 03:24 Urine Bacteria Moderate per hpf (None-Few) H 12/05/16 03:24 Ur Culture Indicated? YES (NO) A 12/05/16 03:24 - Clinical Findings Intake & Output: Intake & Output 12/08/16 12/09/16 12/09/16 23:59 07:59 15:59 Intake Total 2048 / 2048 Output Total 137 / 137 331 / 331 0 / 0 Balance 2 / 1911 -331 / -331 0 / 0 Pulmonary Procedures - Arterial Line Size (Gauge): 22 (introducer needle) Consult Discharge Plan - Plan Referrals: Prema West MD [Primary Care Provider] - <Rosie Hope - Last Filed: 12/09/16 14:38> Objective PUL Vital signs: Last Vital Signs Temp 96.8 F L 12/09/16 11:00 Pulse 95 12/09/16 14:00 Resp 18 12/09/16 14:00 BP 120/54 12/09/16 14:00 Pulse Ox 98 12/09/16 14:00 Results - Laboratory Findings CBC and BMP: 12/09/16 04:25 12/09/16 04:25 ABG ABG pH 7.37 pH Units (7.32-7.45) 12/06/16 01:48 ABG pCO2 44 mmHg (35-45) 12/06/16 01:48 ABG pO2 104 mmHg (85-104) 12/06/16 01:48 ABG O2 Saturation 98 % (95-98) 12/06/16 01:48 PT/INR, D-dimer PT 16.0 Seconds (9.4-12.1) H 12/09/16 09:28 D-Dimer 1041 ng/mLFEU (0-500) H 12/08/16 10:15 Abnormal lab findings: Abnormal lab results RBC 2.69 M/mcL (3.82-4.97) L 12/09/16 04:25 Hgb 8.5 g/dL (11.5-15.4) L 12/09/16 04:25 Hct 27.5 % (35.3-44.9) L 12/09/16 04:25 MCV 102.2 fL (83.0-100.0) H 12/09/16 04:25 MCHC 30.9 g/dL (31.6-35.5) L 12/09/16 04:25 Plt Count 66 K/mcL (140-400) L 12/09/16 04:25 MPV 13.0 fL (9.4-12.4) H 12/09/16 04:25 Lymphocytes # 0.3 K/mcL (0.6-4.6) L 12/09/16 04:25 Nucleated RBCs/100 WBC 0.2 /100 WBC (0) H 12/09/16 04:25 Toxic Granulation Present (Not Present) A 12/08/16 14:00 Platelet Estimate Decreased (Normal) L 12/08/16 14:00 Large Platelets Present (Not Present) A 12/08/16 14:00 Immature Plt Fraction 16.0 % (1.1-6.1) H 12/09/16 04:25 Macrocytosis Present (Not Present) A 12/08/16 14:00 PT 16.0 Seconds (9.4-12.1) H 12/09/16 09:28 APTT 49.0 Seconds (26.0-36.0) H 12/08/16 10:15 Fibrinogen 942 mg/dL (169-393) H* 12/08/16 10:15 D-Dimer 1041 ng/mLFEU (0-500) H 12/08/16 10:15 ABG Total CO2 26.8 mEq/L (20-26) H 12/06/16 01:48 Potassium 4.7 mEq/L (3.5-4.5) H 12/09/16 04:25 BUN 55 mg/dL (7-20) H 12/09/16 04:25 Creatinine 2.64 mg/dL (0.57-1.11) H 12/09/16 04:25 Est GFR ( Amer) 22 (> 60) L 12/09/16 04:25 Est GFR (Non-Af Amer) 18 (> 60) L 12/09/16 04:25 Glucose 162 mg/dL (70-99) H 12/09/16 04:25 POC Glucose 143 (58-89) H 12/09/16 11:32 Calculated Osmolality 301 (280-300) H 12/09/16 04:25 Total Bilirubin 1.4 mg/dL (0.2-1.2) H D 12/09/16 04:25 Direct Bilirubin 0.9 mg/dL (0.0-0.5) H 12/07/16 04:52 Troponin I 0.06 ng/mL (0-0.03) H* 12/05/16 08:59 B-Natriuretic Peptide 270 pg/mL (0-100) H 12/05/16 04:05 Albumin 3.0 g/dL (3.5-5.0) L D 12/09/16 04:25 Albumin/Globulin Ratio 0.9 (1.1-2.2) L 12/09/16 04:25 Ur Leukocyte Esterase Moderate (Negative) H 12/05/16 03:24 Urine Microscopic WBC 50-100 per hpf (0-3) H 12/05/16 03:24 Ur Squamous Epith Cells Many per lpf (None-Few) H 12/05/16 03:24 Urine Bacteria Moderate per hpf (None-Few) H 12/05/16 03:24 Ur Culture Indicated? YES (NO) A 12/05/16 03:24 - Clinical Findings Intake & Output: Intake & Output 12/08/16 12/09/16 12/09/16 23:59 07:59 15:59 Intake Total 2048 / 2048 100 / 100 Output Total 137 / 137 331 / 331 374 / 374 Balance 1911 / 1911 -331 / -331 -274 / -274 - Attending Attestation I examined this patient and my medical decision-making was reviewed with the CMM PROGRAMMER/PA/Advanced Practice Nurse/Resident Physician. I agree with the documented findings, disposition and treatment plan as described except to the extent set forth below. Patient seen and examined. Labs, radiology, chart personally reviewed. 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 Pulmonary: Acceptable oxygenation and ventilation and continue nasal canula Cardiovascular: Afib with RVR, patient was given her B-danelle and there is still risk that she could deteriorate GI: Nutrition per dietary and GI prophylaxis per routine Heme: DVT prophylaxis per routine. Patient is high risk for VTE and even though she has thrombocytopnea, will start low dose Heparin and stop if Platelet is < 50 K or signs of bleeding. ID: Continue antibiotics and plan to de-escalation Renal; urine out put and renal funtion reviewed. Patient on MARTIN Endorcine: blood glucose is monitored Lines: all lines checked and no evidence of infections Skin: skin care to prevent pressure ulcers per nursing routine care Patient remain at risk that her condition could deteriorate and discussed with Dr. Portillo and agree with his assessment that patient is high risk for surgical intervention due to her multiple co-morbidities and her morbid obesity. Patient still have multiple organs with dysfunction, cardiac, renal, respiratory and hematology. I spent 35 min of Critical Care time with this patient. It involved decision making of high complexity to assess, manipulate, and support vital organ system failure and/or to prevent further life threatening deterioration of the patient' s condition. The time involved in the performance of separately reportable procedures was not counted toward critical care time.
[2016-12-09] MEDS: Pantoprazole 40 MG VIAL IVP SCH (09:34)
[2016-12-09] MEDS: Insulin LISPRO 300 UNITS/3 ML VIAL SQ SCH ×4 (09:35→20:31)
[2016-12-09 10:08] LABS: INR 1.5
[2016-12-09] MEDS ORDERED: 0.9 % Sodium Chloride 1,000 ML PRIME SCH (10:24)
[2016-12-09] MEDS ORDERED: PrismaSATE BGK 4/2.5 5,000 ML CRRT SCH ×2 (10:30)
[2016-12-09] MEDS ORDERED: *HR* Heparin 5,000 UNIT/ML VIAL ONE (12:16)
[2016-12-09] MEDS: *HR* Heparin 5,000 UNIT/ML VIAL IV PRN (12:19)
[2016-12-09] MEDS: 0.9 % Sodium Chloride 1,000 ML IV SCH (15:26)
[2016-12-10] MEDS ORDERED: *HR* Heparin 5,000 UNIT/ML VIAL ONE (03:23)
[2016-12-10 04:07] LABS: Basophils % 0.1 %; Eosinophils % 0.2 %; Hematocrit 28.5 % (35.3-44.9); Hemoglobin 8.7 g/dL (11.5-15.4); Immature Granulocytes % 3.3 % (0-4); Lymphocytes % 3.9 %; Mean Corpuscular HGB Conc 30.5 g/dL (31.6-35.5); Mean Corpuscular Hemoglobin 31.3 pg (28.0-33.3); Mean Corpuscular Volume 102.5 fL (83.0-100.0); Mean Platelet Volume 12.9 fL (9.4-12.4); Monocytes % 4.8 %; Red Blood Count 2.78 M/mcL (3.82-4.97); Red Cell Distribution Width 13.5 % (11.5-14.5); Segmented Neutrophils % 87.7 %
[2016-12-10 04:08] LABS: Lymphocytes # 0.3 K/mcL (0.6-4.6); Monocytes # 0.4 K/mcL (0.0-1.3); Neutrophils # 7.7 K/mcL (1.6-8.9)
[2016-12-10 04:09] LABS: Ionized Calcium 1.19 mmol/L (1.15-1.35); Platelet Count 68 K/mcL (140-400)
[2016-12-10 04:16] LABS: INR 1.9; Prothrombin Time 21.3 Seconds (9.4-12.1)
[2016-12-10 04:19] LABS: Albumin 2.5 g/dL (3.5-5.0); Albumin/Globulin Ratio 0.8 (1.1-2.2); Bilirubin,Total 0.8 mg/dL (0.2-1.2); Globulin 3.3 g/dL (2.4-3.5); Magnesium 2.1 mg/dL (1.6-2.6); Phosphorous 3.7 mg/dL (2.3-4.7); Potassium 4.7 mEq/L (3.5-4.5); Total Protein 5.8 g/dL (6.0-8.3)
[2016-12-10] MEDS ORDERED: 0.9 % Sodium Chloride 250 ML ONE ×2 (05:40→20:25)
[2016-12-10] MEDS: PrismaSATE BGK 4/2.5 5,000 ML CRRT SCH ×12 (06:56→22:00)
[2016-12-10] MEDS: Pantoprazole 40 MG VIAL IVP SCH (07:48)
[2016-12-10] MEDS: Insulin LISPRO 300 UNITS/3 ML VIAL SQ SCH ×4 (07:49→21:28)
[2016-12-10] MEDS: *HR* Morphine 2 MG/ML SYRINGE IVP PRN ×2 (09:59→12:51)
[2016-12-10] MEDS: 0.9 % Sodium Chloride 1,000 ML IV SCH (11:31)
--- NOTE | 2016-12-10 11:36 | Pulmonology Progress Note ---
<Leydi Kimball - Last Filed: 12/10/16 12:12> Date of Encounter: 12/10/16 Time of Encounter: 07:00 Assessment and Plan (1) Septic shock Current Visit: Yes Status: Acute Pt arrived to ICU meeting criteria for severe sepsis and septic shock due to hypotension unresponsive to fluid Source of infection likely UTI Urine culture demonstrated gram-negative rods identified as E.coli which is pansensitive Ceftriaxone for skin/staph coverage Initial CT Abd/Pelvis demonstrated: Large pannus of lower abdomen/pelvis with extensive fat stranding and skin thickening. No discrete/drainable fluid collection No acute abnormality identified within the unenhanced abdomen or pelvis Cholelithiasis without CT evidence of acute cholecystitis Right adrenal adenoma Umbilical hernia containing fat as well as a small amount of fluid Cardiomegaly Gallbladder US:Cholelithiasis with trace amount of focal pericholecystic fluid CXR: Mild congestive heart failure slightly improved from prior study Bedside ultrasound 12/08 demonstrated fluid in the abdomen and a CT Abd/pelvis was subsequently ordered CT Abd/pelvis 12/08/16 demonstrated: Subcutaneous fluid along the right flank, possibly secondary to third spacing Small amount of free fluid along the margin of the right hepatic lobe. Based on attenuation, it is simple fluid and may be secondary to third spacing. No evidence of retroperitoneal hematoma (2) Panniculitis Current Visit: Yes Status: Acute Pt morbidly obese with extensive abdominal panniculus adiposis extending down to her knees bilaterally Cellulitis cannot be excluded, however, physical exam more consistent with panniculitis Pt was initially supratherapeutic on anticoagulation, FFP and Vitamin K used to reverse this with INR today of 1.9 (3) Acute renal failure Current Visit: Yes Status: Acute Nephrology following Non-tunneled hemodialysis catheter placed in Right IJ Overall fluid balance of 12.12L Continue with gentle fluid removal Currently CVVH DF Qualifiers: Acute renal failure type: unspecified Qualified Code(s): N17.9 - Acute kidney failure, unspecified (4) Pancytopenia Current Visit: Yes Status: Acute Anemia, thrombocytopenia, neutropenia Likely due to sepsis Today Hgb: 8.7, Platelets: 68 Continue to monitor labs DIC panel 12/08/16 PT: 43.7 INR:3.9 aPT:49.0 [id number] Fibrinogen 942-would expect this to be decreased in DIC (5) Atrial fibrillation, chronic Current Visit: Yes Status: Chronic Hx of paroxysmal atrial fibrillation on chronic anticoagulation with Coumadin. EKG 12/05/16 demonstrated afib with RVR as well as RVH Carvedilol 12.5 mg bid for rate control (6) Chronic anticoagulation Current Visit: Yes Status: Chronic History of paroxysmal atrial fibrillation, chronically anticoagulated on Coumadin Supratherapeutic on presentation to the ICU at which time 4 units FFP were given Vitamin K 2.5 IVPB given 12/08/16 along with 4 units FFP INR today 1.9, continue to monitor (7) Congestive cardiac failure Current Visit: Yes Status: Acute Pt hospitalized from 11/13-11/15/16 for acute decompensated heart failure AGUSTINA on 11/14/16 demonstrated EF 40-45%, concentric hypertrophy of left ventricle with mild inferior hypokinesis, left atrium severely dilated, right atrium mildly dilated, mild to moderate mitral tricuspid and pulmonic regurgitation. 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 She continues to have decreased appetite, eating very little at meals. The ecchymosis on her abdomen and flank have remained stable at this time. O2 saturation is 99% on 2L NC. Pt has a right IJ dialysis catheter in place. Continuing with gentle fluid removal per nephrology. Overall fluid balance is 12.12 L. Objective PUL Vital signs: Last Vital Signs Temp 96.3 F L 12/10/16 11:00 Pulse 110 12/10/16 11:00 Resp 12 12/10/16 11:00 BP 112/62 12/10/16 11:00 Pulse Ox 99 12/10/16 11:00 General appearance: no acute distress Eyes: nonicteric ENT: oropharynx dry Neck: supple, other (Right IJ HD catheter in place) Auscultation: bilateral: diminished breath sounds Cardiovascular: irregular rhythm Gastrointestinal: normoactive bowel sounds, other (Morbidly obese with large pannus ) Integumentary: normal (Erythema and hardening of dermis on dependent portion of panniculus) Extremities: pink and warm, pulses normal, edema (2+ pitting edema BLE) Musculoskeletal: other (Decreased ROM due to morbid obesity) mood appropriate, affect normal Results - Laboratory Findings CBC and BMP: 12/10/16 03:57 12/10/16 03:57 ABG ABG pH 7.37 pH Units (7.32-7.45) 12/06/16 01:48 ABG pCO2 44 mmHg (35-45) 12/06/16 01:48 ABG pO2 104 mmHg (85-104) 12/06/16 01:48 ABG O2 Saturation 98 % (95-98) 12/06/16 01:48 PT/INR, D-dimer PT 21.3 Seconds (9.4-12.1) H 12/10/16 03:57 D-Dimer 1041 ng/mLFEU (0-500) H 12/08/16 10:15 Abnormal lab findings: Abnormal lab results RBC 2.78 M/mcL (3.82-4.97) L 12/10/16 03:57 Hgb 8.7 g/dL (11.5-15.4) L 12/10/16 03:57 Hct 28.5 % (35.3-44.9) L 12/10/16 03:57 MCV 102.5 fL (83.0-100.0) H 12/10/16 03:57 MCHC 30.5 g/dL (31.6-35.5) L 12/10/16 03:57 Plt Count 68 K/mcL (140-400) L 12/10/16 03:57 MPV 12.9 fL (9.4-12.4) H 12/10/16 03:57 Lymphocytes # 0.3 K/mcL (0.6-4.6) L 12/10/16 03:57 Nucleated RBCs/100 WBC 0.2 /100 WBC (0) H 12/09/16 04:25 Toxic Granulation Present (Not Present) A 12/08/16 14:00 Platelet Estimate Decreased (Normal) L 12/08/16 14:00 Large Platelets Present (Not Present) A 12/08/16 14:00 Immature Plt Fraction 16.0 % (1.1-6.1) H 12/09/16 04:25 Macrocytosis Present (Not Present) A 12/08/16 14:00 PT 21.3 Seconds (9.4-12.1) H 12/10/16 03:57 APTT 49.0 Seconds (26.0-36.0) H 12/08/16 10:15 Fibrinogen 942 mg/dL (169-393) H* 12/08/16 10:15 D-Dimer 1041 ng/mLFEU (0-500) H 12/08/16 10:15 ABG Total CO2 26.8 mEq/L (20-26) H 12/06/16 01:48 Potassium 4.7 mEq/L (3.5-4.5) H 12/10/16 03:57 BUN 42 mg/dL (7-20) H D 12/10/16 03:57 Creatinine 1.79 mg/dL (0.57-1.11) H 12/10/16 03:57 Est GFR ( Amer) 35 (> 60) L 12/10/16 03:57 Est GFR (Non-Af Amer) 29 (> 60) L 12/10/16 03:57 Glucose 162 mg/dL (70-99) H 12/10/16 03:57 POC Glucose 169 (58-89) H 12/10/16 11:24 Direct Bilirubin 0.9 mg/dL (0.0-0.5) H 12/07/16 04:52 Troponin I 0.06 ng/mL (0-0.03) H* 12/05/16 08:59 B-Natriuretic Peptide 270 pg/mL (0-100) H 12/05/16 04:05 Serum Total Protein 5.8 g/dL (6.0-8.3) L 12/10/16 03:57 Albumin 2.5 g/dL (3.5-5.0) L 12/10/16 03:57 Albumin/Globulin Ratio 0.8 (1.1-2.2) L 12/10/16 03:57 Ur Leukocyte Esterase Moderate (Negative) H 12/05/16 03:24 Urine Microscopic WBC 50-100 per hpf (0-3) H 12/05/16 03:24 Ur Squamous Epith Cells Many per lpf (None-Few) H 12/05/16 03:24 Urine Bacteria Moderate per hpf (None-Few) H 12/05/16 03:24 Ur Culture Indicated? YES (NO) A 12/05/16 03:24 - Clinical Findings Intake & Output: Intake & Output 12/09/16 12/10/16 12/10/16 23:59 07:59 15:59 Intake Total 0 / 0 0 / 0 337 / 337 Output Total 652 / 652 277 / 277 244 / 244 Balance -652 / -652 -277 / -277 93 / 93 Weight 137 kg 137 kg Pulmonary Procedures - Arterial Line Size (Gauge): 22 (introducer needle) Consult Discharge Plan - Plan Referrals: Prema West MD [Primary Care Provider] - <Rosie Hope - Last Filed: 12/10/16 21:25> Objective PUL Vital signs: Last Vital Signs Temp 96.9 F L 12/10/16 16:00 Pulse 104 12/10/16 19:03 Resp 12 12/10/16 19:03 BP 105/59 12/10/16 19:03 Pulse Ox 100 12/10/16 19:03 Results - Laboratory Findings CBC and BMP: 12/10/16 03:57 12/10/16 03:57 ABG ABG pH 7.37 pH Units (7.32-7.45) 12/06/16 01:48 ABG pCO2 44 mmHg (35-45) 12/06/16 01:48 ABG pO2 104 mmHg (85-104) 12/06/16 01:48 ABG O2 Saturation 98 % (95-98) 12/06/16 01:48 PT/INR, D-dimer PT 21.3 Seconds (9.4-12.1) H 12/10/16 03:57 D-Dimer 1041 ng/mLFEU (0-500) H 12/08/16 10:15 Abnormal lab findings: Abnormal lab results RBC 2.78 M/mcL (3.82-4.97) L 12/10/16 03:57 Hgb 8.7 g/dL (11.5-15.4) L 12/10/16 03:57 Hct 28.5 % (35.3-44.9) L 12/10/16 03:57 MCV 102.5 fL (83.0-100.0) H 12/10/16 03:57 MCHC 30.5 g/dL (31.6-35.5) L 12/10/16 03:57 Plt Count 68 K/mcL (140-400) L 12/10/16 03:57 MPV 12.9 fL (9.4-12.4) H 12/10/16 03:57 Lymphocytes # 0.3 K/mcL (0.6-4.6) L 12/10/16 03:57 Nucleated RBCs/100 WBC 0.2 /100 WBC (0) H 12/09/16 04:25 Toxic Granulation Present (Not Present) A 12/08/16 14:00 Platelet Estimate Decreased (Normal) L 12/08/16 14:00 Large Platelets Present (Not Present) A 12/08/16 14:00 Immature Plt Fraction 16.0 % (1.1-6.1) H 12/09/16 04:25 Macrocytosis Present (Not Present) A 12/08/16 14:00 PT 21.3 Seconds (9.4-12.1) H 12/10/16 03:57 APTT 49.0 Seconds (26.0-36.0) H 12/08/16 10:15 Fibrinogen 942 mg/dL (169-393) H* 12/08/16 10:15 D-Dimer 1041 ng/mLFEU (0-500) H 12/08/16 10:15 ABG Total CO2 26.8 mEq/L (20-26) H 12/06/16 01:48 Potassium 4.7 mEq/L (3.5-4.5) H 12/10/16 03:57 BUN 42 mg/dL (7-20) H D 12/10/16 03:57 Creatinine 1.79 mg/dL (0.57-1.11) H 12/10/16 03:57 Est GFR ( Amer) 35 (> 60) L 12/10/16 03:57 Est GFR (Non-Af Amer) 29 (> 60) L 12/10/16 03:57 Glucose 162 mg/dL (70-99) H 12/10/16 03:57 POC Glucose 188 (58-89) H 12/10/16 17:01 Direct Bilirubin 0.9 mg/dL (0.0-0.5) H 12/07/16 04:52 Troponin I 0.06 ng/mL (0-0.03) H* 12/05/16 08:59 B-Natriuretic Peptide 270 pg/mL (0-100) H 12/05/16 04:05 Serum Total Protein 5.8 g/dL (6.0-8.3) L 12/10/16 03:57 Albumin 2.5 g/dL (3.5-5.0) L 12/10/16 03:57 Albumin/Globulin Ratio 0.8 (1.1-2.2) L 12/10/16 03:57 Ur Leukocyte Esterase Moderate (Negative) H 12/05/16 03:24 Urine Microscopic WBC 50-100 per hpf (0-3) H 12/05/16 03:24 Ur Squamous Epith Cells Many per lpf (None-Few) H 12/05/16 03:24 Urine Bacteria Moderate per hpf (None-Few) H 12/05/16 03:24 Ur Culture Indicated? YES (NO) A 12/05/16 03:24 - Clinical Findings Intake & Output: Intake & Output 12/10/16 12/10/16 12/10/16 07:59 15:59 23:59 Intake Total 0 / 0 337 / 337 237 / 237 Output Total 277 / 277 450 / 450 422 / 422 Balance -277 / -277 -113 / -113 -185 / -185 Weight 137 kg 137 kg 137 kg - Attending Attestation I examined this patient and my medical decision-making was reviewed with the SKID MAN/PA/Advanced Practice Nurse/Resident Physician. I agree with the documented findings, disposition and treatment plan as described except to the extent set forth below. Patient seen and examined. Labs, radiology, chart personally reviewed. 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 Suspect ICU related possible delerium or even sepsis related mental status change, if this continue, will consider head CT to make sure no intracranial abnormalities. Pulmonary: Acceptable oxygenation and ventilation Cardiovascular: borderline hypotension, tolerating removal of some fluid, need to be gentle regarding fluid removal. Afib reasonably controlled, need to give low dose B-danelle. Still very tenuous and it will not surprise me if she needs to go back of pressors, again. GI: Nutrition is concerning, she is not eating enough and due to her mental status, I am concern she could aspirate. Placing smaller feeding because of risk of bleeding because of thrombocytopnea. Heme: DVT prophylaxis per routine and monitor platelets count. ID: Continue antibiotics and plan to de-escalation Renal; urine out put and renal funtion reviewed. Continue renal replacement therapy and nephrology follow up Endorcine: blood glucose is monitored Lines: all lines checked and no evidence of infections Skin: skin care to prevent pressure ulcers per nursing routine care Discussed with family at the bedside, they understand there is still a possibility her condition could deteriorate and the fact there is no significant improvement so far, that is not a good sign. I spent 35 min of Critical Care time with this patient. It involved decision making of high complexity to assess, manipulate, and support vital organ system failure and/or to prevent further life threatening deterioration of the patient' s condition. The time involved in the performance of separately reportable procedures was not counted toward critical care time.
[2016-12-10] MEDS ORDERED: 0.9 % Sodium Chloride 500 ML ONE (13:00)
--- NOTE | 2016-12-10 14:28 | Nephrology Progress Note ---
Date of Encounter: 12/10/16 Time of Encounter: 08:30 - Assessment and Plan (1) Acute kidney injury superimposed on chronic kidney disease Current Visit: Yes Status: Acute Oligioanuric IVIS on CKD stage III requiring Prsima. Continue CVVHDF for improved clearance and fluid removal. This modality is the preferred approach in the setting of sepsis. Dialysate: 4K/2.5Ca at 1750 Replacement fluid: 4K/2.5ca at 1750 Effluent dose: should be at least 25 Fluid removal targets: Net+ Continue close UOP and hemodynamic monitoring. If her UOP and MAP improve in the coming days, then I would aim to transition to iHD. Follow a renal protective strategy. Thank you (2) Hyperkalemia Current Visit: Yes Status: Acute (3) Thrombocytopenia Current Visit: Yes Status: Acute (4) Sepsis Current Visit: Yes Status: Acute Qualifiers: Sepsis type: sepsis due to unspecified organism Qualified Code(s): A41.9 - Sepsis, unspecified organism Subjective Principal diagnosis: Septic shock Interval history: Pt was s/e earlier today and she did not affirm N/V/D. The Lalitha filter clotted once and she has been tolerating increased fluid removal per hour, per RN. Objective - Vital Signs Vital signs: Vital Signs Temp Pulse Resp BP Pulse Ox 12/10/16 14:00 108 12 99/51 98 12/10/16 13:45 97.5 F L 90 20 101/43 98 12/10/16 13:00 110 12 88/50 97 12/10/16 12:00 103 12 119/55 99 12/10/16 11:00 96.3 F L 110 12 112/62 99 12/10/16 10:00 102 12 90/51 99 12/10/16 09:00 83 12 101/52 99 12/10/16 08:00 100 12 103/54 100 12/10/16 07:47 94.5 F L 93 12 106/57 100 12/10/16 07:45 94.5 F L 12/10/16 06:00 108 20 96/53 100 12/10/16 05:00 107 19 94/45 99 12/10/16 04:00 97.5 F L 97 19 99/50 100 12/10/16 03:00 97.2 F L 100 13 117/55 99 12/10/16 02:00 89 14 105/53 100 12/10/16 01:00 89 11 105/56 99 12/10/16 00:00 92 11 116/63 100 12/09/16 23:00 105 16 103/57 99 12/09/16 22:00 97 13 99/50 99 12/09/16 21:00 91 20 97/51 100 12/09/16 20:00 84 16 104/53 100 12/09/16 19:00 97.5 F L 99 12 104/51 100 12/09/16 18:00 96.7 F L 102 13 113/63 99 12/09/16 17:00 103 17 123/66 100 12/09/16 16:00 113 13 127/63 99 12/09/16 15:33 96.9 F L 98 18 135/62 99 12/09/16 15:00 95 13 125/60 99 Intake and Output 12/09/16 12/10/16 12/10/16 23:59 07:59 15:59 Intake Total 0 / 0 0 / 0 337 / 337 Output Total 652 / 652 277 / 277 380 / 380 Balance -652 / -652 -277 / -277 -43 / -43 Intake: IV Fluids 0 / 0 0 / 0 100 / 100 PrismaSATE BGK 4/2.5 5, 0 / 0 0 / 0 0 / 0 000 ML @ 1750 mls/hr CRRT CONT [facility] Rx#:[id number] Rocephin 2,000 MG In 100 / 100 Dextrose 5% (Minibag+) 100 ML 100 ML @ 200 mls/ hr IVPB Q24H [facility] Rx#: [id number] Oral 0 / 0 0 / 0 237 / 237 Blood Product 0 / 0 Plasma Unit 0 / 0 [id number] Output: Urine 0 / 0 10 / 10 0 / 0 Urethral (Fenton) 0 / 0 0 / 0 Lalitha 622 / 622 229 / 229 190 / 190 Rectal Tube 0 / 0 Catheter 30 / 30 20 / 20 Fluid Removed by 18 18 190 / 190 Prismaflex Other: Meal Nourishment/Supplement Percent of Meal Consumed 100% Stool Size Small Stool Consistency liquid Stool Color Yellow Weight 137 kg 137 kg Blood Glucose* 142 151 169 Patient Weight 12/10/16 23:59 Weight 137 kg - General Appearance General appearance: Present: chronically ill, fatigue, frail EENT: Present: ATNC, mucous membranes dry Neck: Present: supple Respiratory: Present: course breath sounds Cardiology: Present: edema, regular rate, regular rhythm, normal S1, normal S2 Gastrointestinal: Present: normoactive bowel sounds, no tenderness, no guarding Integumentary: Present: no rash, warm and dry Neurologic: Present: no focal deficit, no asterixis Musculoskeletal: Present: no deformities, no erythema, no clubbing Psychiatric: Present: cooperative - Lab 12/10/16 03:57 12/10/16 03:57 Most recent lab results ABG pH 7.37 pH Units (7.32-7.45) 12/06/16 01:48 ABG pCO2 44 mmHg (35-45) 12/06/16 01:48 ABG pO2 104 mmHg (85-104) 12/06/16 01:48 ABG HCO3 25.4 mEQ/L (21-27) 12/06/16 01:48 ABG O2 Saturation 98 % (95-98) 12/06/16 01:48 Calcium 9.0 mg/dL (8.6-10.8) 12/10/16 03:57 Phosphorus 3.7 mg/dL (2.3-4.7) 12/10/16 03:57 Magnesium 2.1 mg/dL (1.6-2.6) 12/10/16 03:57 Urine Creatinine 71 mg/dL 12/05/16 03:24 Urine Sodium < 20.0 mEq/L 12/05/16 03:24 Consult Discharge Plan - Plan Referrals: Prema West MD [Primary Care Provider] -
[2016-12-10] MEDS: *HR* Heparin 5,000 UNIT/ML VIAL SQ SCH (16:51)
[2016-12-11] MEDS: PrismaSATE BGK 4/2.5 5,000 ML CRRT SCH ×8 (01:45→17:37)
[2016-12-11] MEDS: *HR* Heparin 5,000 UNIT/ML VIAL SQ SCH ×4 (01:46→22:13)
[2016-12-11 04:53] LABS: Mean Corpuscular Volume 103.7 fL (83.0-100.0); Mean Platelet Volume 13.2 fL (9.4-12.4); Nucleated Red Blood Cells 0.2 /100 WBC (0)
[2016-12-11 04:55] LABS: Hemoglobin 9.3 g/dL (11.5-15.4); Immature Platelets 16.6 % (1.1-6.1); Mean Corpuscular Hemoglobin 31.1 pg (28.0-33.3); Red Blood Count 2.99 M/mcL (3.82-4.97); Red Cell Distribution Width 13.4 % (11.5-14.5)
[2016-12-11 04:57] LABS: INR 2.2; Ionized Calcium 1.13 mmol/L (1.15-1.35); Prothrombin Time 23.8 Seconds (9.4-12.1)
[2016-12-11 05:06] LABS: Alanine Aminotransferase 14 Units/L (0-55); Albumin 2.5 g/dL (3.5-5.0); Albumin/Globulin Ratio 0.7 (1.1-2.2); Alkaline Phosphatase 104 Units/L (38-126); Aspartate Amino Transferase 12 Units/L (5-34); BUN/Creatinine Ratio 22 (6-26); Bilirubin,Total 0.7 mg/dL (0.2-1.2); Calcium 8.9 mg/dL (8.6-10.8); Carbon Dioxide 27 mEq/L (19-29); Chloride 104 mEq/L (98-109); Globulin 3.5 g/dL (2.4-3.5); Glucose 168 mg/dL (70-99); Osmolality,Calculated 294 (280-300); Potassium 4.4 mEq/L (3.5-4.5); Sodium 138 mEq/L (136-145); eGFR For African Americans > 60 (> 60); eGFR For Non-African Americans 53 (> 60)
[2016-12-11 05:08] LABS: Blood Urea Nitrogen 23 mg/dL (7-20)
[2016-12-11 05:22] LABS: Platelet Count 88 K/mcL (140-400)
[2016-12-11 05:25] LABS: Eosinophils # 0.2 K/mcL (0.0-0.6); Large Platelets Present (Not Present); Lymphocytes # 0.4 K/mcL (0.6-4.6); Monocytes # 0.4 K/mcL (0.0-1.3); Neutrophils # 9.7 K/mcL (1.6-8.9); Platelet Estimate Decreased (Normal)
[2016-12-11 05:26] LABS: Toxic Granulation Present (Not Present)
[2016-12-11 05:27] LABS: Macrocytosis Present (Not Present)
--- NOTE | 2016-12-11 06:58 | Pulmonology Progress Note ---
<Leydi Kimball - Last Filed: 12/11/16 08:26> Date of Encounter: 12/11/16 Time of Encounter: 06:40 Assessment and Plan (1) Septic shock Current Visit: Yes Status: Acute Pt arrived to ICU meeting criteria for severe sepsis and septic shock due to hypotension unresponsive to fluid Source of infection likely UTI Urine culture demonstrated gram-negative rods identified as E.coli which is pansensitive Ceftriaxone for skin/staph coverage Initial CT Abd/Pelvis demonstrated: Large pannus of lower abdomen/pelvis with extensive fat stranding and skin thickening. No discrete/drainable fluid collection No acute abnormality identified within the unenhanced abdomen or pelvis Cholelithiasis without CT evidence of acute cholecystitis Right adrenal adenoma Umbilical hernia containing fat as well as a small amount of fluid Cardiomegaly Gallbladder US:Cholelithiasis with trace amount of focal pericholecystic fluid CXR: Mild congestive heart failure slightly improved from prior study Bedside ultrasound 12/08 demonstrated fluid in the abdomen and a CT Abd/pelvis was subsequently ordered CT Abd/pelvis 12/08/16 demonstrated: Subcutaneous fluid along the right flank, possibly secondary to third spacing Small amount of free fluid along the margin of the right hepatic lobe. Based on attenuation, it is simple fluid and may be secondary to third spacing. No evidence of retroperitoneal hematoma Due to decreased po intake, Dobhoff was placed for nutritional supplementation (2) Panniculitis Current Visit: Yes Status: Acute Pt morbidly obese with extensive abdominal panniculus adiposis extending down to her knees bilaterally Cellulitis cannot be excluded, however, physical exam more consistent with panniculitis Pt was initially supratherapeutic on anticoagulation, FFP and Vitamin K used to reverse this which did start to decrease INR. Over the last two days, INR has again increased and today INR:2.2 Plan to administer Vitamin K today (3) Acute renal failure Current Visit: Yes Status: Acute Nephrology following Non-tunneled hemodialysis catheter placed in Right IJ Overall fluid balance of 10.84L Continue with gentle fluid removal Currently CVVH DF Qualifiers: Acute renal failure type: unspecified Qualified Code(s): N17.9 - Acute kidney failure, unspecified (4) Pancytopenia Current Visit: Yes Status: Acute Anemia, thrombocytopenia, neutropenia Likely due to sepsis Today Hgb: 9.3, Platelets:88 Continue to monitor labs DIC panel 12/08/16 PT: 43.7 INR:3.9 aPT:49.0 [id number] Fibrinogen 942-would expect this to be decreased in DIC (5) Atrial fibrillation, chronic Current Visit: Yes Status: Chronic Hx of paroxysmal atrial fibrillation on chronic anticoagulation with Coumadin. EKG 12/05/16 demonstrated afib with RVR as well as RVH Carvedilol 12.5 mg bid for rate control (6) Chronic anticoagulation Current Visit: Yes Status: Chronic History of paroxysmal atrial fibrillation, chronically anticoagulated on Coumadin Supratherapeutic on presentation to the ICU at which time 4 units FFP were given Vitamin K 2.5 IVPB given 12/08/16 along with 4 units FFP INR today 2.2, plan to administer Vitamin K today (7) Congestive cardiac failure Current Visit: Yes Status: Acute Pt hospitalized from 11/13-11/15/16 for acute decompensated heart failure AGUSTINA on 11/14/16 demonstrated EF 40-45%, concentric hypertrophy of left ventricle with mild inferior hypokinesis, left atrium severely dilated, right atrium mildly dilated, mild to moderate mitral tricuspid and pulmonic regurgitation. Qualifiers: Congestive heart failure type: unspecified congestive heart failure type Congestive heart failure chronicity: unspecified congestive heart failure chronicity Qualified Code(s): I50.9 - Heart failure, unspecified (8) Diabetes mellitus Current Visit: Yes Status: Chronic SSI during hospital stay Continue to monitor glucose and make adjustments as necessary Qualifiers: Diabetes mellitus type: type 2 Diabetes mellitus complication status: without complication Diabetes mellitus watermelon inspector insulin use: with snf use Qualified Code(s): E11.9 - Type 2 diabetes mellitus without complications ; Z79.4 - group home (current) use of insulin (9) Morbid obesity with BMI of 50.0-59.9, adult Current Visit: Yes Status: Chronic (10) Elevated troponin Current Visit: Yes Status: Acute In setting of sepsis and CHF Most likely demand ischemia (11) DVT prophylaxis Current Visit: Yes Status: Acute Heparin SQ, hold for platelets less than 50 Subjective Principal diagnosis: Septic shock Interval history: Pt is resting comfortably this morning and complaining of no pain/discomfort at this time. She continues to have decreased appetite, eating very little at meals. Dobhoff is in place and positioning is confirmed by KUB. The ecchymosis on her abdomen and flank have remained stable. O2 saturation is 100% on 2L NC. Pt has a right IJ dialysis catheter in place. Continuing with gentle fluid removal per nephrology. Overall fluid balance is 10.84 L. Objective PUL Vital signs: Last Vital Signs Temp 97.5 F L 12/11/16 03:00 Pulse 114 12/11/16 06:00 Resp 18 12/11/16 06:00 BP 117/57 12/11/16 06:00 Pulse Ox 100 12/11/16 06:00 General appearance: no acute distress Eyes: nonicteric ENT: oropharynx dry, other (Dobhoff tube in place) Neck: supple Effort: normal Auscultation: bilateral: diminished breath sounds Cardiovascular: irregular rhythm Gastrointestinal: normoactive bowel sounds, soft, other (Morbidly obese with large pannus) Integumentary: other (Erythema and hardening of dermis on dependent portion of panniculus) Extremities: no clubbing, pink and warm, pulses normal, edema (2+ pitting edema BLE) Musculoskeletal: other (Decreased ROM due to morbid obesity) mood appropriate, affect normal Results - Laboratory Findings CBC and BMP: 12/11/16 04:40 12/11/16 04:40 ABG ABG pH 7.37 pH Units (7.32-7.45) 12/06/16 01:48 ABG pCO2 44 mmHg (35-45) 12/06/16 01:48 ABG pO2 104 mmHg (85-104) 12/06/16 01:48 ABG O2 Saturation 98 % (95-98) 12/06/16 01:48 PT/INR, D-dimer PT 23.8 Seconds (9.4-12.1) H 12/11/16 04:40 D-Dimer 1041 ng/mLFEU (0-500) H 12/08/16 10:15 Abnormal lab findings: Abnormal lab results RBC 2.99 M/mcL (3.82-4.97) L 12/11/16 04:40 Hgb 9.3 g/dL (11.5-15.4) L 12/11/16 04:40 Hct 31.0 % (35.3-44.9) L 12/11/16 04:40 MCV 103.7 fL (83.0-100.0) H 12/11/16 04:40 MCHC 30.0 g/dL (31.6-35.5) L 12/11/16 04:40 Plt Count 88 K/mcL (140-400) L 12/11/16 04:40 MPV 13.2 fL (9.4-12.4) H 12/11/16 04:40 Neutrophils # 9.7 K/mcL (1.6-8.9) H 12/11/16 04:40 Lymphocytes # 0.4 K/mcL (0.6-4.6) L 12/11/16 04:40 Nucleated RBCs/100 WBC 0.2 /100 WBC (0) H 12/11/16 04:40 Toxic Granulation Present (Not Present) A 12/11/16 04:40 Platelet Estimate Decreased (Normal) L 12/11/16 04:40 Large Platelets Present (Not Present) A 12/11/16 04:40 Immature Plt Fraction 16.6 % (1.1-6.1) H 12/11/16 04:40 Macrocytosis Present (Not Present) A 12/11/16 04:40 PT 23.8 Seconds (9.4-12.1) H 12/11/16 04:40 APTT 49.0 Seconds (26.0-36.0) H 12/08/16 10:15 Fibrinogen 942 mg/dL (169-393) H* 12/08/16 10:15 D-Dimer 1041 ng/mLFEU (0-500) H 12/08/16 10:15 ABG Total CO2 26.8 mEq/L (20-26) H 12/06/16 01:48 BUN 23 mg/dL (7-20) H D 12/11/16 04:40 Est GFR (Non-Af Amer) 53 (> 60) L 12/11/16 04:40 Glucose 168 mg/dL (70-99) H 12/11/16 04:40 POC Glucose 138 (58-89) H 12/10/16 21:02 Ionized Calcium 1.13 mmol/L (1.15-1.35) L 12/11/16 04:40 Phosphorus 2.0 mg/dL (2.3-4.7) L 12/11/16 04:40 Direct Bilirubin 0.9 mg/dL (0.0-0.5) H 12/07/16 04:52 Troponin I 0.06 ng/mL (0-0.03) H* 12/05/16 08:59 B-Natriuretic Peptide 270 pg/mL (0-100) H 12/05/16 04:05 Albumin 2.5 g/dL (3.5-5.0) L 12/11/16 04:40 Albumin/Globulin Ratio 0.7 (1.1-2.2) L 12/11/16 04:40 Ur Leukocyte Esterase Moderate (Negative) H 12/05/16 03:24 Urine Microscopic WBC 50-100 per hpf (0-3) H 12/05/16 03:24 Ur Squamous Epith Cells Many per lpf (None-Few) H 12/05/16 03:24 Urine Bacteria Moderate per hpf (None-Few) H 12/05/16 03:24 Ur Culture Indicated? YES (NO) A 12/05/16 03:24 - Clinical Findings Intake & Output: Intake & Output 12/10/16 12/10/16 12/11/16 15:59 23:59 07:59 Intake Total 337 / 337 237 / 237 0 / 0 Output Total 450 / 450 772 / 772 600 / 600 Balance -113 / -113 -535 / -535 -600 / -600 Weight 137 kg 137 kg 137 kg Pulmonary Procedures - Arterial Line Size (Gauge): 22 (introducer needle) Consult Discharge Plan - Plan Referrals: Prema West MD [Primary Care Provider] - <Rosie Hope - Last Filed: 12/11/16 09:01> Objective PUL Vital signs: Last Vital Signs Temp 94 F L 12/11/16 08:00 Pulse 86 12/11/16 08:00 Resp 12 12/11/16 08:00 BP 120/61 12/11/16 08:00 Pulse Ox 100 12/11/16 08:00 Results - Laboratory Findings CBC and BMP: 12/11/16 04:40 12/11/16 04:40 ABG ABG pH 7.37 pH Units (7.32-7.45) 12/06/16 01:48 ABG pCO2 44 mmHg (35-45) 12/06/16 01:48 ABG pO2 104 mmHg (85-104) 12/06/16 01:48 ABG O2 Saturation 98 % (95-98) 12/06/16 01:48 PT/INR, D-dimer PT 23.8 Seconds (9.4-12.1) H 12/11/16 04:40 D-Dimer 1041 ng/mLFEU (0-500) H 12/08/16 10:15 Abnormal lab findings: Abnormal lab results RBC 2.99 M/mcL (3.82-4.97) L 12/11/16 04:40 Hgb 9.3 g/dL (11.5-15.4) L 12/11/16 04:40 Hct 31.0 % (35.3-44.9) L 12/11/16 04:40 MCV 103.7 fL (83.0-100.0) H 12/11/16 04:40 MCHC 30.0 g/dL (31.6-35.5) L 12/11/16 04:40 Plt Count 88 K/mcL (140-400) L 12/11/16 04:40 MPV 13.2 fL (9.4-12.4) H 12/11/16 04:40 Neutrophils # 9.7 K/mcL (1.6-8.9) H 12/11/16 04:40 Lymphocytes # 0.4 K/mcL (0.6-4.6) L 12/11/16 04:40 Nucleated RBCs/100 WBC 0.2 /100 WBC (0) H 12/11/16 04:40 Toxic Granulation Present (Not Present) A 12/11/16 04:40 Platelet Estimate Decreased (Normal) L 12/11/16 04:40 Large Platelets Present (Not Present) A 12/11/16 04:40 Immature Plt Fraction 16.6 % (1.1-6.1) H 12/11/16 04:40 Macrocytosis Present (Not Present) A 12/11/16 04:40 PT 23.8 Seconds (9.4-12.1) H 12/11/16 04:40 APTT 49.0 Seconds (26.0-36.0) H 12/08/16 10:15 Fibrinogen 942 mg/dL (169-393) H* 12/08/16 10:15 D-Dimer 1041 ng/mLFEU (0-500) H 12/08/16 10:15 ABG Total CO2 26.8 mEq/L (20-26) H 12/06/16 01:48 BUN 23 mg/dL (7-20) H D 12/11/16 04:40 Est GFR (Non-Af Amer) 53 (> 60) L 12/11/16 04:40 Glucose 168 mg/dL (70-99) H 12/11/16 04:40 POC Glucose 142 (58-89) H 12/11/16 07:49 Ionized Calcium 1.13 mmol/L (1.15-1.35) L 12/11/16 04:40 Phosphorus 2.0 mg/dL (2.3-4.7) L 12/11/16 04:40 Direct Bilirubin 0.9 mg/dL (0.0-0.5) H 12/07/16 04:52 Troponin I 0.06 ng/mL (0-0.03) H* 12/05/16 08:59 B-Natriuretic Peptide 270 pg/mL (0-100) H 12/05/16 04:05 Albumin 2.5 g/dL (3.5-5.0) L 12/11/16 04:40 Albumin/Globulin Ratio 0.7 (1.1-2.2) L 12/11/16 04:40 Ur Leukocyte Esterase Moderate (Negative) H 12/05/16 03:24 Urine Microscopic WBC 50-100 per hpf (0-3) H 12/05/16 03:24 Ur Squamous Epith Cells Many per lpf (None-Few) H 12/05/16 03:24 Urine Bacteria Moderate per hpf (None-Few) H 12/05/16 03:24 Ur Culture Indicated? YES (NO) A 12/05/16 03:24 - Clinical Findings Intake & Output: Intake & Output 12/10/16 12/11/16 12/11/16 23:59 07:59 15:59 Intake Total 237 / 237 0 / 0 0 / 0 Output Total 772 / 772 696 / 696 242 / 242 Balance -535 / -535 -696 / -696 -242 / -242 Weight 137 kg 137 kg 137 kg - Attending Attestation I examined this patient and my medical decision-making was reviewed with the ORTHOTICS TECHNICIAN/PA/Advanced Practice Nurse/Resident Physician. I agree with the documented findings, disposition and treatment plan as described except to the extent set forth below. Patient seen and examined. Labs, radiology, chart personally reviewed. Agree with resident's history and physical, assessment, plan with following comments: PHARMACOVIGILANCE SAFETY EXPERT: Patient follows commands, Pulmonary: Acceptable oxygenation and ventilation. Incentive spirometry Cardiovascular: stable at this time and overall atrial fibrillation acceptable rate. Tolerating gentle fluid removal. GI: Nutrition per dietary and GI prophylaxis per routine. Start lower rate to feed Heme: DVT prophylaxis per routine. INR elevated will treat with vitamin K and monitor platelets count. I suspect nutrition has something to do with coagulopathy. ID: Continue antibiotic and plan to de-escalation Renal; urine out put and renal funtion reviewed Endorcine: blood glucose is monitored Lines: all lines checked and no evidence of infections Skin: skin care to prevent pressure ulcers per nursing routine care Discussed with the family at the bedside and continue ICU care.
[2016-12-11] MEDS: Pantoprazole 40 MG VIAL IVP SCH (08:01)
[2016-12-11] MEDS: Insulin LISPRO 300 UNITS/3 ML VIAL SQ SCH ×4 (08:03→19:47)
[2016-12-11] MEDS ORDERED: 0.9 % Sodium Chloride 500 ML ONE (10:47)
[2016-12-11] MEDS: 0.9 % Sodium Chloride 1,000 ML IV SCH (11:53)
--- NOTE | 2016-12-11 12:56 | Nephrology Progress Note ---
Date of Encounter: 12/11/16 Time of Encounter: 09:10 - Assessment and Plan (1) Acute kidney injury superimposed on chronic kidney disease Current Visit: Yes Status: Acute Oligioanuric IVIS on CKD stage III requiring Prsima. SCr is improved but this represents the work of the Lalitha, and less likely to represent the pt's own renal function as she remains essentially anuric. Hemodynamics however are improved and she tolerated more and more fluid removal. When her filter clots today, I plan to hold Lalitha and switch to intermittent HD on Monday . Hypophosphatemia: will replete with powder packets. This also represents the enhanced clearance from the Lalitha. Follow a renal protective strategy. Thank you (2) Hyperkalemia Current Visit: Yes Status: Acute Improved wit CVVHDF. (3) Thrombocytopenia Current Visit: Yes Status: Acute Trending better (4) Sepsis Current Visit: Yes Status: Acute As per primary. BPs are improving. Qualifiers: Sepsis type: sepsis due to unspecified organism Qualified Code(s): A41.9 - Sepsis, unspecified organism (5) Hypophosphatemia Current Visit: Yes Status: Acute See above Subjective Principal diagnosis: Septic shock Interval history: Pt was s/e earlier today and she did not affirm N/V/D. Tolerating fluid removal as her BPs are improving. Spoke with the ICU RNs. Objective - Vital Signs Vital signs: Vital Signs Temp Pulse Resp BP Pulse Ox 12/11/16 12:00 107 12 153/82 98 12/11/16 11:00 96.0 F L 110 12 143/80 100 12/11/16 10:00 87 12 139/74 100 12/11/16 09:03 104 12 137/81 100 12/11/16 08:00 94 F L 86 12 120/61 100 12/11/16 07:52 111 12/11/16 06:00 114 18 117/57 100 12/11/16 05:00 107 16 119/62 100 12/11/16 04:00 113 16 116/55 100 12/11/16 03:00 97.5 F L 104 13 127/67 100 12/11/16 02:00 100 13 128/64 100 12/11/16 01:00 103 11 119/63 99 12/11/16 00:00 109 13 117/63 99 12/10/16 23:00 110 12 105/59 99 12/10/16 22:00 97 16 105/64 98 12/10/16 21:00 104 14 101/46 100 12/10/16 20:00 97.9 F 116 17 120/53 100 12/10/16 19:03 104 12 105/59 100 12/10/16 18:13 104 12 135/73 90 L 12/10/16 17:00 116 12 101/50 98 12/10/16 16:51 103 12/10/16 16:00 96.9 F L 96 12 108/55 98 12/10/16 15:20 103 12 104/51 98 12/10/16 14:34 96.9 F L 90 12 94/48 99 12/10/16 14:00 93 12 94/48 98 12/10/16 13:45 97.5 F L 90 20 101/43 98 12/10/16 13:00 110 12 88/50 97 Intake and Output 12/10/16 12/11/16 12/11/16 23:59 07:59 15:59 Intake Total 237 / 237 0 / 0 45 / 45 Output Total 772 / 772 696 / 696 906 / 906 Balance -535 / -535 -696 / -696 -861 / -861 Intake: IV Fluids 0 / 0 0 / 0 0 / 0 PrismaSATE BGK 4/2.5 5, 0 / 0 0 / 0 0 / 0 000 ML @ 1750 mls/hr CRRT CONT [facility] Rx#:[id number] Oral 237 / 237 0 / 0 Tube Feeding 45 / 45 Output: Urine 6 / 6 18 / 18 Stool 50 / 50 Lalitha 348 / 348 348 / 348 336 / 336 Rectal Tube 150 / 150 Catheter 20 / 20 Fluid Removed by 348 / 348 348 / 348 402 / 402 Prismaflex Other: Stool Consistency liquid liquid Stool Color Brown Brown Yellow Weight 137 kg 137 kg 137 kg Blood Glucose* 138 143 Patient Weight 12/11/16 23:59 Weight 137 kg - General Appearance General appearance: Present: chronically ill, fatigue, frail EENT: Present: ATNC, mucous membranes dry (Dubhoff line was noted) Neck: Present: supple Respiratory: Present: clear Cardiology: Present: edema, regular rate, regular rhythm, normal S1, normal S2 Dialysis Vascular Access: Venous Catheter (RIJ temporary HD catheter was in place with clean/dry dressing and Tegaderm.) Gastrointestinal: Present: normoactive bowel sounds, no guarding, obese Integumentary: Present: warm and dry Neurologic: Present: no asterixis, confused Musculoskeletal: Present: no cyanosis, no clubbing Psychiatric: Present: cooperative - Lab 12/11/16 04:40 12/11/16 04:40 Most recent lab results ABG pH 7.37 pH Units (7.32-7.45) 12/06/16 01:48 ABG pCO2 44 mmHg (35-45) 12/06/16 01:48 ABG pO2 104 mmHg (85-104) 12/06/16 01:48 ABG HCO3 25.4 mEQ/L (21-27) 12/06/16 01:48 ABG O2 Saturation 98 % (95-98) 12/06/16 01:48 Calcium 8.9 mg/dL (8.6-10.8) 12/11/16 04:40 Phosphorus 2.0 mg/dL (2.3-4.7) L 12/11/16 04:40 Magnesium 2.0 mg/dL (1.6-2.6) 12/11/16 04:40 Urine Creatinine 71 mg/dL 12/05/16 03:24 Urine Sodium < 20.0 mEq/L 12/05/16 03:24 Consult Discharge Plan - Plan Referrals: Prema West MD [Primary Care Provider] -
[2016-12-11] MEDS ORDERED: *HR* Heparin 5,000 UNIT/ML VIAL ONE (13:35)
[2016-12-11] MEDS: *HR* Heparin 5,000 UNIT/ML VIAL IV PRN ×2 (13:53→13:54)
[2016-12-11] MEDS ORDERED: *HR* Metoprolol 5 MG/5 ML VIAL IVP ONE ×4 (14:56→23:53)
[2016-12-11] MEDS: *HR* Morphine 2 MG/ML SYRINGE IVP PRN ×3 (15:09→23:12)
[2016-12-11] MEDS ORDERED: Amiodarone Premix 360 MG/200 ML BAG IVC ONE ×2 (17:16→17:22)
[2016-12-11] MEDS ORDERED: Amiodarone Premix 150 MG/100 ML BAG IVPB ONE ×2 (17:16→17:21)
[2016-12-11] MEDS: Amiodarone Premix 360 MG/200 ML BAG IVC SCH (22:12)
[2016-12-12] MEDS: *HR* Morphine 2 MG/ML SYRINGE IVP PRN ×2 (02:38→07:23)
[2016-12-12 03:18] LABS: Hematocrit 31.1 % (35.3-44.9); Hemoglobin 9.6 g/dL (11.5-15.4); Mean Corpuscular HGB Conc 30.9 g/dL (31.6-35.5); Mean Corpuscular Hemoglobin 31.2 pg (28.0-33.3); Mean Platelet Volume 12.8 fL (9.4-12.4); Nucleated Red Blood Cells 0.4 /100 WBC (0); Platelet Count 115 K/mcL (140-400); Red Blood Count 3.08 M/mcL (3.82-4.97); Red Cell Distribution Width 13.4 % (11.5-14.5)
[2016-12-12 03:21] LABS: Ionized Calcium 1.19 mmol/L (1.15-1.35)
[2016-12-12 03:23] LABS: INR 1.4; Prothrombin Time 14.9 Seconds (9.4-12.1)
[2016-12-12 03:31] LABS: Albumin 2.4 g/dL (3.5-5.0); Albumin/Globulin Ratio 0.7 (1.1-2.2); Bilirubin,Total 0.5 mg/dL (0.2-1.2); Calcium 9.3 mg/dL (8.6-10.8); Globulin 3.6 g/dL (2.4-3.5); Magnesium 2.2 mg/dL (1.6-2.6); Phosphorous 2.8 mg/dL (2.3-4.7); Potassium 4.3 mEq/L (3.5-4.5)
[2016-12-12 03:42] LABS: Eosinophils # 0.2 K/mcL (0.0-0.6); Lymphocytes # 0.9 K/mcL (0.6-4.6); Monocytes # 0.7 K/mcL (0.0-1.3); Neutrophils # 9.4 K/mcL (1.6-8.9)
[2016-12-12 03:43] LABS: Large Platelets Present (Not Present); Platelet Estimate Normal (Normal); Polychromasia 1+ (Not Present)
--- NOTE | 2016-12-12 05:55 | Pulmonology Progress Note ---
<Carmel Julien - Last Filed: 12/12/16 07:26> Date of Encounter: 12/12/16 Time of Encounter: 05:55 Assessment and Plan (1) Septic shock Current Visit: Yes Status: Acute Patient arrived to ICU meeting criteria for severe sepsis and septic shock due to hypotension unresponsive to fluid. Source of infection is likely a urinary tract infection/sepsis secondary to UTI. Severe sepsis: Likely secondary to UTI/urosepsis. Fever: 100.8 tachycardia: Heart Rate of 125 Tachypnea: Respiratory rate of 26 with labored breathing and use of accessory muscles hypotension: Blood pressure of 70/30 lactic acidosis: 3.0 pancytopenia IVIS: Oliguria and creatinine of 3.0 and GFR of 15 Altered mental status: Confusion and changes in vision High risk due to multiorgan failure and need for aggressive IVF in the setting of systolic CHF. Initially, 4 L of fluid given without significant response. Abdomen/Pelvis CT 12/05/16 03:07 IMPRESSION: 1. There is a large pannus of the lower abdomen/pelvis with extensive fat stranding and skin thickening. No discrete/drainable fluid collection. 2. No acute abnormality identified within the unenhanced abdomen or pelvis. 3. Cholelithiasis without CT evidence of acute cholecystitis. 4. Right adrenal adenoma. 5. Umbilical hernia containing fat as well as a small amount of fluid. 6. Cardiomegaly. Insertion Non-Tunneled Catheter 12/06/16 00:00 IMPRESSION: Successful ultrasound guided non-tunneled temporary hemodialysis catheter placement. Gallbladder Ultrasound 12/06/16 20:00 IMPRESSION: Cholelithiasis with a trace amount of focal pericholecystic fluid. Negative sonographic Womack's sign. Chest X-Ray 12/08/16 04:24 IMPRESSION: Mild congestive heart failure slightly improved from prior study. Abdomen/Pelvis CT 12/08/16 13:46 IMPRESSION: 1. Subcutaneous fluid along the right flank, possibly secondary to third spacing. 2. Small amount of free fluid along the margin of the right hepatic lobe. Based on the attenuation, it is simple fluid and may be secondary to third spacing. There is no evidence of retroperitoneal hematoma. 3. Fat containing anterior abdominal wall hernia. 4. Cholelithiasis. No CT evidence of cholecystitis. 5. Small bilateral pleural effusions with bibasilar atelectasis. Labs: Serology: C. difficile toxin PCR was negative. Blood cultures x2 : Preliminary results demonstrate no growth. Urine cultures: Final results revealed gram-negative rods identified as Ecoli. Pansensitive. Ceftriaxone for Skin/Staph Coverage and enteric Gram negative rods. Antibiotics: START 12/07/16: Ceftriaxone 2 mg Q 24 for 7 days. STOP: 12/13/16. Acute kidney injury on chronic kidney disease: Nephrology is following. Initially, BUN of 70, creatinine of 3.55 estimated GFR at 16. Right internal jugular temporary hemodialysis catheter was placed by interventional radiology on 12/06/16 in anticipation of CVVHF therapy. Patient is a net overall positive fluid volume of 10 L. Per nephrology, patient is scheduled for dialysis today. Pressor suport: Decreased gastric excretions may prevent full absorb -will give Protonix IV until pt is off pressor support and eating. Will switch to PO Omeprazole for Stress ulcer prophylaxis when pt is eating full diet. Dietary per dietitian recommendation: ADA/renal/Nepro 3 times a day Due to decreased po intake, Dobhoff was placed for nutritional supplementation We will continue to monitor patient's Hemoglobin and hematocrit daily. 2 units of red blood cells on hold for patient and to be given if hemoglobin drops below 7. Today patient's hemoglobin is 9.6. Platelets have improved to 115. We will continue to follow daily and hold heparin if platelets are less than 50. (2) Panniculitis Current Visit: Yes Status: Acute Patient is morbidly obese with extensive abdominal panniculus adiposis extending down to her knees bilaterally. Inflammation of the subcutaneous fat or panniculitis is evident on physical exam as nonspecific erythema and on palpation there appeared to be a deep-seated areas of hardened/sclerosis characteristic of inflammatory process beneath the dermis. Cellulitis cannot be excluded however, physical exam is more consistent with panniculitis versus cellulitis (where the overlying dermis is mainly affected and underlying fascia with extension to nearby tissue). Extensive ecchymosis on dependent portions of the panniculus may be due to small capillary bleeding. Patient is supratherapeutic on anticoagulation with INR 3.2 and PTT of 35.3. CT scan of abdomen more consistent with a chronic condition. Unclear etiology of panniculitis at this time likely chronic in nature superimposed with subtherapeutic INR versus infectious panniculitis through hematogenous dissemination of microorganisms/bacteremia/sepsis. Abdomen/Pelvis CT 12/05/16 03:07 IMPRESSION: 1. There is a large pannus of the lower abdomen/pelvis with extensive fat stranding and skin thickening. No discrete/drainable fluid collection. 2. No acute abnormality identified within the unenhanced abdomen or pelvis. 3. Cholelithiasis without CT evidence of acute cholecystitis. 4. Right adrenal adenoma. 5. Umbilical hernia containing fat as well as a small amount of fluid. 6. Cardiomegaly. Patient presented to the ICU in a state of septic shock with oliguric acute kidney injury on chronic kidney disease occurring acutely overnight after admission having a rise in serum creatinine to 3.35, pancytopenia, positive urine culture for gram-negative rods so her septic shock may be due to urosepsis. Vasopressors were needed for a short period of time however have since been stopped and patient has been stable with IV fluids. Surgery was consulted: is following. Surgical intervention noted to be severely complicated by patient's morbid obesity, chronic atrial fibrillation and anticoagulation state. Supratherapeutic on anticoagulation: INR 3.2, 2.8, 2.4, 3.8, 1.5, 1.9, 2.2, 1.4. A total of 4 units of fresh frozen plasma were given initially on arrival to ICU. 12/08/16: 2.5 mg of vitamin K IV PB given . As well as 4 units of fresh frozen plasma. 12/10/16: 1 unit of fresh frozen plasma. 12/11/16:5 mg vitamin K given IV. (3) Acute renal failure Current Visit: Yes Status: Acute Nephrology following as above. Patient should begin dialysis on 12/12/16. Qualifiers: Acute renal failure type: unspecified Qualified Code(s): N17.9 - Acute kidney failure, unspecified (4) Pancytopenia Current Visit: Yes Status: Acute Anemia, thrombocytopenia, neutropenia. As above. Likely due to sepsis. (5) Chronic anticoagulation Current Visit: Yes Status: Chronic Patient has history of paroxysmal atrial fibrillation and has been on Coumadin. Also, history of TIA. Supratherapeutic on presentation to the ICU. 4 units of fresh frozen plasma were given. See above for subsequent therapies. Continue to monitor INR. Will check daily coags/PT/INR. (6) Atrial fibrillation, chronic Current Visit: Yes Status: Chronic Paroxysmal atrial fibrillation patient is on long-term Coumadin. Please see above. EKG 12/05/16 demonstrated atrial fibrillation with rapid ventricular response as well as right ventricular hypertrophy. At bedside rates have been between 110 and 117. 12.5 mg twice a day carvedilol for rate control. patient is on amiodarone drip for rhythm and Lopressor for rate control. (7) Congestive cardiac failure Current Visit: Yes Status: Acute Patient was experiencing increased shortness of breath on 11/13/16. Patient was brought in by ambulance to [facility] and was hospitalized 11/13/16-11/15/16 for acute decompensated heart failure. On 11/14/16 AGUSTINA demonstrated concentric hypertrophy of the left ventricle with mild inferior hypokinesis. Left atrium severely dilated. Right atrium mildly dilated. Mild to moderate mitral tricuspid and pulmonic regurgitation. LVEF of 40-45% Qualifiers: Congestive heart failure type: unspecified congestive heart failure type Congestive heart failure chronicity: unspecified congestive heart failure chronicity Qualified Code(s): I50.9 - Heart failure, unspecified (8) Diabetes mellitus Current Visit: Yes Status: Chronic Continue blood glucose checks and corrective insulin per protocol. Qualifiers: Diabetes mellitus type: type 2 Diabetes mellitus complication status: without complication Diabetes mellitus fdc insulin use: with fdc use Qualified Code(s): E11.9 - Type 2 diabetes mellitus without complications ; Z79.4 - MCFP (current) use of insulin (9) DVT prophylaxis Current Visit: Yes Status: Acute Continue Heparin 5000 units subcutaneous daily Hold heparin if platelets less than 50. (10) Morbid obesity with BMI of 50.0-59.9, adult Current Visit: Yes Status: Chronic (11) Elevated troponin Current Visit: Yes Status: Acute In the setting of sepsis and CHF unlikely due to acute myocardial event. Most likely supply demand ischemia. Subjective Principal diagnosis: Septic shock Interval history: Last night patient became tachycardic with a heart rate noted to be in the 145- 150's bedside monitor demonstrated A. fib with RVR. Amiodarone drip was started. Lopressor for rate control. Overnight patient rested comfortably and was on on room air with an oxygen saturation of 96%. Patient's blood pressure continued to improve systolic 160-134 and diastolic 73-58. Patient does have a right jugular temporary HD catheter placed although Lalitha has been discontinued. As per nephrology,dialysis is scheduled to begin today as patient is hemodynamically stable. Patients overall fluid balance 10 L. Objective PUL Vital signs: Last Vital Signs Temp 98.4 F 12/11/16 19:00 Pulse 107 12/12/16 03:59 Resp 18 12/12/16 03:59 BP 150/73 12/12/16 03:59 Pulse Ox 97 12/12/16 03:59 General appearance: no acute distress, other Eyes: nonicteric ENT: oropharynx dry Mallampati (class): 3 Neck: supple, no lymphadenopathy, other (Increased neck circumference, right jugular temporary hemodialysis catheter) Effort: normal Auscultation: bilateral: clear Cardiovascular: irregular rhythm (Atrial fibrillation rate 109-115) Gastrointestinal: normoactive bowel sounds, non-tender, hepatomegaly, splenomegaly Integumentary: other (Hardening of the dermis on dependent portion of abdominal panniculus adiposis with ecchymosis in various stages of healing) Extremities: no cyanosis, pink and warm, pulses normal, edema Musculoskeletal: other (Morbidly obese decreased range of motion due to body habitus.) pupils equal and round mood appropriate, affect normal Results - Laboratory Findings CBC and BMP: 12/12/16 03:11 12/12/16 03:11 ABG ABG pH 7.37 pH Units (7.32-7.45) 12/06/16 01:48 ABG pCO2 44 mmHg (35-45) 12/06/16 01:48 ABG pO2 104 mmHg (85-104) 12/06/16 01:48 ABG O2 Saturation 98 % (95-98) 12/06/16 01:48 PT/INR, D-dimer PT 14.9 Seconds (9.4-12.1) H 12/12/16 03:11 D-Dimer 1041 ng/mLFEU (0-500) H 12/08/16 10:15 Abnormal lab findings: Abnormal lab results WBC 11.4 K/mcL (4.3-11.1) H 12/12/16 03:11 RBC 3.08 M/mcL (3.82-4.97) L 12/12/16 03:11 Hgb 9.6 g/dL (11.5-15.4) L 12/12/16 03:11 Hct 31.1 % (35.3-44.9) L 12/12/16 03:11 MCV 101.0 fL (83.0-100.0) H 12/12/16 03:11 MCHC 30.9 g/dL (31.6-35.5) L 12/12/16 03:11 Plt Count 115 K/mcL (140-400) L 12/12/16 03:11 MPV 12.8 fL (9.4-12.4) H 12/12/16 03:11 Band Neutrophils % 16.0 % (0-4) H 12/12/16 03:11 Metamyelocytes % 2.0 % (0) H 12/12/16 03:11 Neutrophils # 9.4 K/mcL (1.6-8.9) H 12/12/16 03:11 Nucleated RBCs/100 WBC 0.4 /100 WBC (0) H 12/12/16 03:11 Toxic Granulation Present (Not Present) A 12/11/16 04:40 Large Platelets Present (Not Present) A 12/12/16 03:11 Immature Plt Fraction 16.6 % (1.1-6.1) H 12/11/16 04:40 Polychromasia 1+ (Not Present) A 12/12/16 03:11 Macrocytosis Present (Not Present) A 12/11/16 04:40 PT 14.9 Seconds (9.4-12.1) H 12/12/16 03:11 APTT 49.0 Seconds (26.0-36.0) H 12/08/16 10:15 Fibrinogen 942 mg/dL (169-393) H* 12/08/16 10:15 D-Dimer 1041 ng/mLFEU (0-500) H 12/08/16 10:15 ABG Total CO2 26.8 mEq/L (20-26) H 12/06/16 01:48 BUN 33 mg/dL (7-20) H D 12/12/16 03:11 Creatinine 1.44 mg/dL (0.57-1.11) H 12/12/16 03:11 Est GFR ( Amer) 45 (> 60) L 12/12/16 03:11 Est GFR (Non-Af Amer) 37 (> 60) L 12/12/16 03:11 Glucose 209 mg/dL (70-99) H 12/12/16 03:11 POC Glucose 154 (58-89) H 12/11/16 19:46 Calculated Osmolality 303 (280-300) H 12/12/16 03:11 Direct Bilirubin 0.9 mg/dL (0.0-0.5) H 12/07/16 04:52 Troponin I 0.06 ng/mL (0-0.03) H* 12/05/16 08:59 B-Natriuretic Peptide 270 pg/mL (0-100) H 12/05/16 04:05 Albumin 2.4 g/dL (3.5-5.0) L 12/12/16 03:11 Globulin 3.6 g/dL (2.4-3.5) H 12/12/16 03:11 Albumin/Globulin Ratio 0.7 (1.1-2.2) L 12/12/16 03:11 Ur Leukocyte Esterase Moderate (Negative) H 12/05/16 03:24 Urine Microscopic WBC 50-100 per hpf (0-3) H 12/05/16 03:24 Ur Squamous Epith Cells Many per lpf (None-Few) H 12/05/16 03:24 Urine Bacteria Moderate per hpf (None-Few) H 12/05/16 03:24 Ur Culture Indicated? YES (NO) A 12/05/16 03:24 - Clinical Findings Intake & Output: Intake & Output 12/11/16 12/11/16 12/12/16 15:59 23:59 07:59 Intake Total 45 / 45 548 / 548 Output Total 1037 / 1037 175 / 175 25 / Balance -992 / -992 373 / 373 -25 / -25 Weight 137 kg Pulmonary Procedures - Arterial Line Size (Gauge): 22 (introducer needle) Consult Discharge Plan - Plan Referrals: Prema West MD [Primary Care Provider] - <Edinson Ferguson W - Last Filed: 12/12/16 10:13> Objective PUL Vital signs: Last Vital Signs Temp 98.3 F 12/12/16 07:00 Pulse 107 12/12/16 08:00 Resp 18 12/12/16 08:00 BP 165/75 12/12/16 08:00 Pulse Ox 93 L 12/12/16 08:00 Results - Laboratory Findings CBC and BMP: 12/12/16 03:11 12/12/16 03:11 ABG ABG pH 7.37 pH Units (7.32-7.45) 12/06/16 01:48 ABG pCO2 44 mmHg (35-45) 12/06/16 01:48 ABG pO2 104 mmHg (85-104) 12/06/16 01:48 ABG O2 Saturation 98 % (95-98) 12/06/16 01:48 PT/INR, D-dimer PT 14.9 Seconds (9.4-12.1) H 12/12/16 03:11 D-Dimer 1041 ng/mLFEU (0-500) H 12/08/16 10:15 Abnormal lab findings: Abnormal lab results WBC 11.4 K/mcL (4.3-11.1) H 12/12/16 03:11 RBC 3.08 M/mcL (3.82-4.97) L 12/12/16 03:11 Hgb 9.6 g/dL (11.5-15.4) L 12/12/16 03:11 Hct 31.1 % (35.3-44.9) L 12/12/16 03:11 MCV 101.0 fL (83.0-100.0) H 12/12/16 03:11 MCHC 30.9 g/dL (31.6-35.5) L 12/12/16 03:11 Plt Count 115 K/mcL (140-400) L 12/12/16 03:11 MPV 12.8 fL (9.4-12.4) H 12/12/16 03:11 Band Neutrophils % 16.0 % (0-4) H 12/12/16 03:11 Metamyelocytes % 2.0 % (0) H 12/12/16 03:11 Neutrophils # 9.4 K/mcL (1.6-8.9) H 12/12/16 03:11 Nucleated RBCs/100 WBC 0.4 /100 WBC (0) H 12/12/16 03:11 Toxic Granulation Present (Not Present) A 12/11/16 04:40 Large Platelets Present (Not Present) A 12/12/16 03:11 Immature Plt Fraction 16.6 % (1.1-6.1) H 12/11/16 04:40 Polychromasia 1+ (Not Present) A 12/12/16 03:11 Macrocytosis Present (Not Present) A 12/11/16 04:40 PT 14.9 Seconds (9.4-12.1) H 12/12/16 03:11 APTT 49.0 Seconds (26.0-36.0) H 12/08/16 10:15 Fibrinogen 942 mg/dL (169-393) H* 12/08/16 10:15 D-Dimer 1041 ng/mLFEU (0-500) H 12/08/16 10:15 ABG Total CO2 26.8 mEq/L (20-26) H 12/06/16 01:48 BUN 33 mg/dL (7-20) H D 12/12/16 03:11 Creatinine 1.44 mg/dL (0.57-1.11) H 12/12/16 03:11 Est GFR ( Amer) 45 (> 60) L 12/12/16 03:11 Est GFR (Non-Af Amer) 37 (> 60) L 12/12/16 03:11 Glucose 209 mg/dL (70-99) H 12/12/16 03:11 POC Glucose 201 (58-89) H 12/12/16 07:38 Calculated Osmolality 303 (280-300) H 12/12/16 03:11 Direct Bilirubin 0.9 mg/dL (0.0-0.5) H 12/07/16 04:52 Troponin I 0.06 ng/mL (0-0.03) H* 12/05/16 08:59 B-Natriuretic Peptide 270 pg/mL (0-100) H 12/05/16 04:05 Albumin 2.4 g/dL (3.5-5.0) L 12/12/16 03:11 Globulin 3.6 g/dL (2.4-3.5) H 12/12/16 03:11 Albumin/Globulin Ratio 0.7 (1.1-2.2) L 12/12/16 03:11 Ur Leukocyte Esterase Moderate (Negative) H 12/05/16 03:24 Urine Microscopic WBC 50-100 per hpf (0-3) H 12/05/16 03:24 Ur Squamous Epith Cells Many per lpf (None-Few) H 12/05/16 03:24 Urine Bacteria Moderate per hpf (None-Few) H 12/05/16 03:24 Ur Culture Indicated? YES (NO) A 12/05/16 03:24 - Clinical Findings Intake & Output: Intake & Output 12/11/16 12/12/16 12/12/16 23:59 07:59 15:59 Intake Total 548 / 548 127 / 127 Output Total 175 / 175 / Balance 373 / 373 102 / 102 - Attending Attestation I examined this patient and my medical decision-making was reviewed with the CARDIOVASCULAR SPECIALIST/PA/Advanced Practice Nurse/Resident Physician. I agree with the documented findings, disposition and treatment plan as described except to the extent set forth below. Patient seen and examined at bedside Labs, radiology, chart personally reviewed. All lines examined without evidence of infection. Neuropsych: Awake and follows commands restless today with increasing pain. cont analgesis with narcotics as needed. restart SSRI. Pulm: Acceptable oxygenation and ventilation comfortable on room air Cards: Distributive shock has resolved; BP on higher side today can reintroduce/ titrate BP meds after IHD. 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 IHD planned today. Nephro following appreciate their recommendations ID: Panniculitis with Ecoli UTI with severe sepsis (now resolving) cont Ceftriaxone day 05/15 Heme/Onc: Afib on LTA with acute coagulopathy (DIC vs Nutritional) imprved with vitk/ffp and thrombocytopenia now resolving. INR 1.4 today cont DVT prophy likely restart anticoagulation tomorrow given clinical risk would not bridge with heparin gtt at this time but will reassess daily Endo: glucose monitored Integ/MSK: Morbid obesity with panniculitis. cont RN protocol for skin care to prevent ulcers. remove rectal tube. CODE: Full - Daughter updated at bedside
[2016-12-12] MEDS: *HR* Heparin 5,000 UNIT/ML VIAL SQ SCH ×2 (07:23→15:30)
[2016-12-12] MEDS: Insulin LISPRO 300 UNITS/3 ML VIAL SQ SCH ×4 (07:39→15:30)
[2016-12-12] MEDS: Pantoprazole 40 MG VIAL IVP SCH (08:26)
[2016-12-12] MEDS: Amiodarone Premix 360 MG/200 ML BAG IVC SCH (09:41)
[2016-12-12] MEDS: 0.9 % Sodium Chloride 1,000 ML IV SCH (10:19)
--- NOTE | 2016-12-12 11:21 | Nephrology Progress Note ---
Date of Encounter: 12/12/16 Time of Encounter: 08:35 - Assessment and Plan (1) Acute kidney injury superimposed on chronic kidney disease Current Visit: Yes Status: Acute Oligioanuric IVIS on CKD stage III requiring Prsima, which I had changed to CVVHDF on Monday, which led to much improved clearance. On Monday she remains essentially oligioanuric, but on Monday her SCr was excellent, so I held Lalitha. Today her SCr is only minimally elevated (it did not double) and she has made more UOP, thus far about 150mL. She is not fluid overloaded, so I will hold off on starting iHD today, but will reassess tomorrow. AFib with RVR: okay from my perspective to give the Coreg I recommend keeping the RIJ temporary HD catheter in place over the next few days while trending her renal function Continue to follow a renal protective strategy: dose Rx by GFR, avoid NSAIDs, Bactrim, Contrast and other nephrotoxins. Phos has improved today. Will follow with you. Thank you (2) Hyperkalemia Current Visit: Yes Status: Acute Resolved. Would still utilize the low K+ Tube Feed (Nepro) and/or a renal diet whenever her diet is advanced. (3) Thrombocytopenia Current Visit: Yes Status: Acute Trending better (4) Sepsis Current Visit: Yes Status: Acute As per primary. BPs are improving. Qualifiers: Sepsis type: sepsis due to unspecified organism Qualified Code(s): A41.9 - Sepsis, unspecified organism (5) Hypophosphatemia Current Visit: Yes Status: Resolved Resolved Subjective Principal diagnosis: Septic shock Interval history: Pt was s/e earlier today, her daughter was at the ICU bedside. The pt was lethargic but did not report any major complaints. The RN reported that she is having AF with RVR and rising BPs. UOP is also slightly improved. Objective - Vital Signs Vital signs: Vital Signs Temp Pulse Resp BP Pulse Ox 12/12/16 10:00 125 18 170/80 94 L 12/12/16 09:00 118 18 170/80 96 12/12/16 08:00 107 18 165/75 93 L 12/12/16 07:30 122 12/12/16 07:00 98.3 F 122 14 146/79 97 12/12/16 06:11 109 19 160/67 97 12/12/16 05:00 109 17 134/58 97 12/12/16 03:59 107 18 150/73 97 12/12/16 03:00 105 20 146/70 97 12/12/16 02:59 105 12/12/16 02:03 105 18 127/63 94 L 12/12/16 01:00 105 18 98/65 92 L 12/12/16 00:00 118 15 136/59 94 L 12/11/16 23:00 105 16 136/59 92 L 12/11/16 22:57 109 12/11/16 22:00 109 14 114/59 90 L 12/11/16 21:00 102 14 147/70 97 12/11/16 19:58 120 14 139/73 94 L 12/11/16 19:00 98.4 F 115 16 132/79 94 L 12/11/16 18:02 115 16 160/75 97 12/11/16 17:13 132 16 139/68 95 12/11/16 16:15 119 16 140/73 95 12/11/16 15:03 98.1 F 112 16 129/72 97 12/11/16 14:11 115 16 154/81 99 12/11/16 13:00 106 14 127/75 99 12/11/16 12:00 107 12 153/82 98 Intake and Output 12/11/16 12/12/16 12/12/16 23:59 07:59 15:59 Intake Total 548 / 548 127 / 127 200 / 200 Output Total 175 / 175 25 / 25 Balance 373 / 373 102 / 102 200 / 200 Intake: IV Fluids 300 / 300 200 / 200 PrismaSATE BGK 4/2.5 5, 0 / 0 000 ML @ 1750 mls/hr CRRT CONT [facility]AG Rx#:[id number] Amiodarone 360mg/200mL 200 / 200 200 / 200 Drip Premix 360 mg In 200 ml @ 0.5 MG/MIN 16.667 mls/hr IVC CONT [facility]AG Rx#: [id number] Amiodarone 150mg/100mL 100 / 100 Premix 150 mg In 100 ml @ 300 mls/hr IVPB ONCE ONE Rx#:[id number] Tube Feeding 138 / 138 127 / 127 Free Water 110 / 110 Output: Urine 25 / 25 Catheter 150 / 150 25 / 25 Other: Meal Nourishment/Supplement Percent of Meal Consumed 100% Blood Glucose* 201 - General Appearance General appearance: Present: well-developed, well-nourished, obese, chronically ill, fatigue, frail EENT: Present: ATNC, PERRL, mucous membranes moist Neck: Present: supple Respiratory: Present: clear Cardiology: Present: edema (trace pedal edema b/l ), normal S1, normal S2 Gastrointestinal: Present: normoactive bowel sounds, obese (large pannus) Integumentary: Present: warm and dry Neurologic: Present: no asterixis, confused, disoriented Musculoskeletal: Present: no clubbing Psychiatric: Present: cooperative - Lab 12/12/16 03:11 12/12/16 03:11 Most recent lab results ABG pH 7.37 pH Units (7.32-7.45) 12/06/16 01:48 ABG pCO2 44 mmHg (35-45) 12/06/16 01:48 ABG pO2 104 mmHg (85-104) 12/06/16 01:48 ABG HCO3 25.4 mEQ/L (21-27) 12/06/16 01:48 ABG O2 Saturation 98 % (95-98) 12/06/16 01:48 Calcium 9.3 mg/dL (8.6-10.8) 12/12/16 03:11 Phosphorus 2.8 mg/dL (2.3-4.7) 12/12/16 03:11 Magnesium 2.2 mg/dL (1.6-2.6) 12/12/16 03:11 Urine Creatinine 71 mg/dL 12/05/16 03:24 Urine Sodium < 20.0 mEq/L 12/05/16 03:24 Consult Discharge Plan - Plan Referrals: Prema West MD [Primary Care Provider] -
--- NOTE | 2016-12-12 12:21 | Event Note ---
Date of Encounter: 12/12/16 Time of Encounter: 12:20 Spoke with patient's daughter and healthcare power of employment law attorney who based upon mother's clinical course would like her to have a second opinion at a tertiary referral center. We have contacted [facility] and are making arrangements for transfer for further evaluation we will update based upon clinical course all questions answered to the daughter and she felt satisfied with our care up to this point but would like another opinion regarding her mother's care
[2016-12-12 17:34] VITALS: BP 158/77
[2016-12-12] MEDS ORDERED: *HR* Metoprolol 5 MG/5 ML VIAL IVP ONE (23:42)
[2016-12-13] MEDS ORDERED: amLODIPine 5 MG TABLET PO SCH (09:00)
--- NOTE | 2016-12-13 15:25 | Electrocardiograph Report ---
[address] [place], [place] [address] Test Date: 2016-12-12 Pat Name: Jaimee Dawn Department: 109 Room: 02 Gender: F Head Counselor: : 1955 Requested By: Rogelio Houser Order Number: [id number] Reading MD: Beryl Hoyos Measurements Intervals [place] Rate: 123 P: [place]: 0 QRS: -67 QRSD: 118 T: 89 QT: 337 QTc: 410 Interpretive Statements ATRIAL FIBRILLATION WITH RAPID VENTRICULAR RESPONSE LOW QRS VOLTAGE IN EXTREMITY LEADS LEFT ANTERIOR FASCICULAR BLOCK POSSIBLE ANTERIOR MYOCARDIAL INFARCTION, PROBABLY OLD Electronically Signed On 12-13-2016 15:23:44 EST by Beryl Hoyos
--- NOTE | 2016-12-16 07:43 | Discharge Summary ---
Date of Encounter: 12/12/16 Time of Encounter: 05:00 - Discharge Diagnosis (1) Septic shock Priority: Primary Status: Acute Comments: Patient arrived to ICU meeting criteria for severe sepsis and septic shock due to hypotension unresponsive to fluid. Source of infection is likely a urinary tract infection/sepsis secondary to UTI. Severe sepsis: Likely secondary to UTI/urosepsis. Fever: 100.8 tachycardia: Heart Rate of 125 Tachypnea: Respiratory rate of 26 with labored breathing and use of accessory muscles hypotension: Blood pressure of 70/30 lactic acidosis: 3.0 pancytopenia IVIS: Oliguria and creatinine of 3.0 and GFR of 15 Altered mental status: Confusion and changes in vision High risk due to multiorgan failure and need for aggressive IVF in the setting of systolic CHF. Initially, 4 L of fluid given without significant response. Abdomen/Pelvis CT 12/05/16 03:07 IMPRESSION: 1. There is a large pannus of the lower abdomen/pelvis with extensive fat stranding and skin thickening. No discrete/drainable fluid collection. 2. No acute abnormality identified within the unenhanced abdomen or pelvis. 3. Cholelithiasis without CT evidence of acute cholecystitis. 4. Right adrenal adenoma. 5. Umbilical hernia containing fat as well as a small amount of fluid. 6. Cardiomegaly. Insertion Non-Tunneled Catheter 12/06/16 00:00 IMPRESSION: Successful ultrasound guided non-tunneled temporary hemodialysis catheter placement. Gallbladder Ultrasound 12/06/16 20:00 IMPRESSION: Cholelithiasis with a trace amount of focal pericholecystic fluid. Negative sonographic Womack's sign. Chest X-Ray 12/08/16 04:24 IMPRESSION: Mild congestive heart failure slightly improved from prior study. Abdomen/Pelvis CT 12/08/16 13:46 IMPRESSION: 1. Subcutaneous fluid along the right flank, possibly secondary to third spacing. 2. Small amount of free fluid along the margin of the right hepatic lobe. Based on the attenuation, it is simple fluid and may be secondary to third spacing. There is no evidence of retroperitoneal hematoma. 3. Fat containing anterior abdominal wall hernia. 4. Cholelithiasis. No CT evidence of cholecystitis. 5. Small bilateral pleural effusions with bibasilar atelectasis. Labs: Serology: C. difficile toxin PCR was negative. Blood cultures x2 : Preliminary results demonstrate no growth. Urine cultures: Final results revealed gram-negative rods identified as Ecoli. Pansensitive. Ceftriaxone for Skin/Staph Coverage and enteric Gram negative rods. Antibiotics: START 12/07/16: Ceftriaxone 2 mg Q 24 for 7 days. STOP: 12/13/16. Acute kidney injury on chronic kidney disease: Nephrology is following. Initially, BUN of 70, creatinine of 3.55 estimated GFR at 16. Right internal jugular temporary hemodialysis catheter was placed by interventional radiology on 12/06/16 in anticipation of CVVHF therapy. Patient is a net overall positive fluid volume of 10 L. Per nephrology, patient is scheduled for dialysis today. Pressor suport: Decreased gastric excretions may prevent full absorb -will give Protonix IV until pt is off pressor support and eating. Will switch to PO Omeprazole for Stress ulcer prophylaxis when pt is eating full diet. Dietary per dietitian recommendation: ADA/renal/Nepro 3 times a day Due to decreased po intake, Dobhoff was placed for nutritional supplementation We will continue to monitor patient's Hemoglobin and hematocrit daily. 2 units of red blood cells on hold for patient and to be given if hemoglobin drops below 7. Today patient's hemoglobin is 9.6. Platelets have improved to 115. We will continue to follow daily and hold heparin if platelets are less than 50. (2) Panniculitis Priority: Primary Status: Acute Comments: Patient is morbidly obese with extensive abdominal panniculus adiposis extending down to her knees bilaterally. Inflammation of the subcutaneous fat or panniculitis is evident on physical exam as nonspecific erythema and on palpation there appeared to be a deep-seated areas of hardened/sclerosis characteristic of inflammatory process beneath the dermis. Cellulitis cannot be excluded however, physical exam is more consistent with panniculitis versus cellulitis (where the overlying dermis is mainly affected and underlying fascia with extension to nearby tissue). Extensive ecchymosis on dependent portions of the panniculus may be due to small capillary bleeding. Patient is supratherapeutic on anticoagulation with INR 3.2 and PTT of 35.3. CT scan of abdomen more consistent with a chronic condition. Unclear etiology of panniculitis at this time likely chronic in nature superimposed with subtherapeutic INR versus infectious panniculitis through hematogenous dissemination of microorganisms/bacteremia/sepsis. Abdomen/Pelvis CT 12/05/16 03:07 IMPRESSION: 1. There is a large pannus of the lower abdomen/pelvis with extensive fat stranding and skin thickening. No discrete/drainable fluid collection. 2. No acute abnormality identified within the unenhanced abdomen or pelvis. 3. Cholelithiasis without CT evidence of acute cholecystitis. 4. Right adrenal adenoma. 5. Umbilical hernia containing fat as well as a small amount of fluid. 6. Cardiomegaly. Patient presented to the ICU in a state of septic shock with oliguric acute kidney injury on chronic kidney disease occurring acutely overnight after admission having a rise in serum creatinine to 3.35, pancytopenia, positive urine culture for gram-negative rods so her septic shock may be due to urosepsis. Vasopressors were needed for a short period of time however have since been stopped and patient has been stable with IV fluids. Surgery was consulted: is following. Surgical intervention noted to be severely complicated by patient's morbid obesity, chronic atrial fibrillation and anticoagulation state. Supratherapeutic on anticoagulation: INR 3.2, 2.8, 2.4, 3.8, 1.5, 1.9, 2.2, 1.4. A total of 4 units of fresh frozen plasma were given initially on arrival to ICU. 12/08/16: 2.5 mg of vitamin K IV PB given . As well as 4 units of fresh frozen plasma. 12/10/16: 1 unit of fresh frozen plasma. 12/11/16:5 mg vitamin K given IV. (3) Acute renal failure Priority: Primary Status: Acute Comments: Nephrology following as above. Patient should begin dialysis on 12/12/16. Qualifiers: Acute renal failure type: unspecified Qualified Code(s): N17.9 - Acute kidney failure, unspecified (4) Pancytopenia Priority: Secondary Status: Acute Comments: Anemia, thrombocytopenia, neutropenia. As above. Likely due to sepsis. (5) Chronic anticoagulation Priority: Secondary Status: Chronic Comments: Patient has history of paroxysmal atrial fibrillation and has been on Coumadin. Also, history of TIA. Supratherapeutic on presentation to the ICU. 4 units of fresh frozen plasma were given. See above for subsequent therapies. Continue to monitor INR. Will check daily coags/PT/INR. (6) Atrial fibrillation, chronic Priority: Secondary Status: Chronic Comments: Paroxysmal atrial fibrillation patient is on long-term Coumadin. Please see above. EKG 12/05/16 demonstrated atrial fibrillation with rapid ventricular response as well as right ventricular hypertrophy. At bedside rates have been between 110 and 117. 12.5 mg twice a day carvedilol for rate control. patient is on amiodarone drip for rhythm and Lopressor for rate control. (7) Congestive cardiac failure Priority: Secondary Status: Acute Comments: Patient was experiencing increased shortness of breath on 11/13/16. Patient was brought in by ambulance to [facility] and was hospitalized 11/13/16-11/15/16 for acute decompensated heart failure. On 11/14/16 AGUSTINA demonstrated concentric hypertrophy of the left ventricle with mild inferior hypokinesis. Left atrium severely dilated. Right atrium mildly dilated. Mild to moderate mitral tricuspid and pulmonic regurgitation. LVEF of 40-45% Qualifiers: Congestive heart failure type: unspecified congestive heart failure type Congestive heart failure chronicity: unspecified congestive heart failure chronicity Qualified Code(s): I50.9 - Heart failure, unspecified (8) Diabetes mellitus Priority: Secondary Status: Chronic Comments: Continue blood glucose checks and corrective insulin per protocol. Qualifiers: Diabetes mellitus type: type 2 Diabetes mellitus complication status: without complication Diabetes mellitus intermission coordinator insulin use: with intermission coordinator use Qualified Code(s): E11.9 - Type 2 diabetes mellitus without complications ; Z79.4 - MCC (current) use of insulin (9) DVT prophylaxis Priority: Secondary Status: Acute Comments: Continue Heparin 5000 units subcutaneous daily Hold heparin if platelets less than 50. (10) Morbid obesity with BMI of 50.0-59.9, adult Priority: Primary Status: Chronic (11) Elevated troponin Priority: Secondary Status: Acute Comments: In the setting of sepsis and CHF unlikely due to acute myocardial event. Most likely supply demand ischemia. - Discharge Medications Home Medications: Albuterol Sulfate [Proair Hfa] 2 puff IH Q6HR PRN 12/05/16 [History] Allopurinol [Zyloprim] 300 mg PO DAILY 12/05/16 [History] Aspirin [Lo-Dose Aspirin EC] 81 mg PO DAILY 12/05/16 [History] Carvedilol [Coreg] 25 mg PO BID 12/05/16 [History] Ergocalciferol (VITAMIN D2) [Vitamin D2] 50,000 unit PO QWEEK 12/05/16 [History] Furosemide [Lasix] 40 mg PO BID 12/05/16 [History] Gabapentin [Neurontin] 600 mg PO BID 12/05/16 [History] Insulin DETEMIR [Levemir] 27 unit SQ BID 12/05/16 [History] Liraglutide [Victoza 2-Jordan] 1.2 ml SQ DAILY 12/05/16 [History] Lisinopril [Zestril] 10 mg PO DAILY 12/05/16 [History] Omeprazole [PriLOSEC] 20 mg PO DAILY 12/05/16 [History] Oxygen 2 unit CONT 12/05/16 [History] Potassium Chloride [K-Tab ER] 10 meq PO DAILY 12/05/16 [History] Sertraline [Zoloft] 100 mg PO DAILY 12/05/16 [History] Simvastatin [Zocor] 40 mg PO HS 12/05/16 [History] Spironolactone [Aldactone] 12.5 mg PO DAILY 12/05/16 [History] Warfarin [Coumadin] 3.75 mg PO SUMOWEFR 12/05/16 [History] Warfarin [Coumadin] 7.5 mg PO TUTHSA 12/05/16 [History] Allergies/Adverse Reactions: Allergies sulfamethoxazole [From Bactrim] Allergy (Unknown, Verified 12/05/16 10:31) See Comments PATIENT'S FAMILY UNSURE OF REACTION- trimethoprim [From Bactrim] Allergy (Unknown, Verified 12/05/16 10:31) See Comments PATIENT'S FAMILY UNSURE OF REACTION- Oxycodone [From Percocet] Adverse Reaction (Verified 12/05/16 03:29) Nausea Procedures and tests throughout hospitalization: Right internal jugular central venous catheter 12/06/16 Right radial arterial line 12/06/16 - Impressions ITS Impressions Guidance Needle Placement Ultrasound 12/06/16 00:00 IMPRESSION: Successful ultrasound guided non-tunneled temporary hemodialysis catheter placement. D/ / 12/06/2016 16:09:08 Mauricio Urbina MD / manuel Interpreting Provider: Mauricio Urbina MD Insertion Non-Tunneled Catheter 12/06/16 00:00 IMPRESSION: Successful ultrasound guided non-tunneled temporary hemodialysis catheter placement. D/ / 12/06/2016 16:09:08 Mauricio Urbina MD / manuel Interpreting Provider: Mauricio Urbina MD Chest X-Ray 12/06/16 14:48 IMPRESSION: Right jugular central line courses to the level the right atrium. There is no pneumothorax. Enlarged cardiac silhouette, suggestive of cardiomegaly. Vascular congestion and mild edema versus atelectasis in the lung bases. Pneumonia is a differential possibility. D/ / Evan Patel MD / Evan Patel MD Interpreting Provider: Evan Patel MD Gallbladder Ultrasound 12/06/16 20:00 IMPRESSION: Cholelithiasis with a trace amount of focal pericholecystic fluid. Negative sonographic Womack's sign. D/ / Harshal Tai MD / Harshal Tai MD Interpreting Provider: Harshal Tai MD Chest X-Ray 12/08/16 04:24 IMPRESSION: Mild congestive heart failure slightly improved from prior study. D/ / 12/08/2016 07:23:36 Gerardo Bobby [facility] / [facility] Inter[facility]ting Provider: Gerardo Bobby MD Abdomen/Pelvis CT 12/08/16 13:46 IMPRESSION: 1. Subcutaneous fluid along the right flank, possibly secondary to third spacing. 2. Small amount of free fluid along the margin of the right hepatic lobe. Based on the attenuation, it is simple fluid and may be secondary to third spacing. There is no evidence of retroperitoneal hematoma. 3. Fat containing anterior abdominal wall hernia. 4. Cholelithiasis. No CT evidence of cholecystitis. 5. Small bilateral pleural effusions with bibasilar atelectasis. D/ / 12/08/2016 15:32:42 Mann Hammond MD / Cecilia Olea Interpreting Provider: Mann Hammond MD X-Ray 12/10/16 17:14 IMPRESSION: Feeding tube extends to the abdominal left upper quadrant. D/ / Khadar Carmona MD / Khadar Carmona MD Interpreting Provider: Khadar Carmona MD X-Ray 12/10/16 18:00 IMPRESSION: Tip of the Dobhoff tube in the gastric body. D/ / Mack Briones MD / Mack Briones MD Interpreting Provider: Mack Briones MD X-Ray 12/12/16 10:42 IMPRESSION: Orogastric tube is folded onto itself in the distal esophagus. Tip terminates in the distal esophagus and is directed cephalad. Recommend repositioning. The findings were sent to the Radiology Results Communication [facility] at 11:20 am on 12/12/2016to be communicated to a licensed caregiver. D/ / 12/12/2016 11:24:30 Guillermo Otto MD / earnold Interpreting Provider: Guillermo Otto MD X-Ray 12/12/16 11:45 IMPRESSION: Midportion of nasogastric tube is looped in the gastric fundus. Side port and distal tip project over the gastric fundus. D/ / 12/12/2016 13:09:39 [facility]ill[facility] MD / [facility] Inter[facility] Provider: Guillermo Otto MD Date of admission: 12/05/16 09:43 Primary care physician: Prema West MD Consults: 12/05/16 14:27 Consult to Surgery [CONS] Stat Consulting Provider: Surgery [facility] Surgical Reason for Consult: Abdominal wall cellulitis, panniculitis with overling skin mottling. CT scan with large pannus of lower abdomen/skin thickening and fat stranding. Kindly evaluate, thank you. Call Completed: Yes 12/05/16 18:54 Consult to Nephrology [CONS] Routine Consulting Provider: [facility]/ANGELICA/GUNJAN/MEMO Reason for Consult: OLiguric IVIS on CKD Call Completed: No 12/06/16 11:01 Consult to Pulmonology [CONS] Stat Consulting Provider: Pulm [facility] Reason for Consult: Septic shock Call Completed: Yes 12/06/16 11:25 Consult to Interventional Radiology [CONS] Routine Consulting Provider: Radiology Interventional Cols Reason for Consult: HD catheter placement Call Completed: Yes 12/12/16 09:44 Consult to Interventional Radiology [CONS] Stat Consulting Provider: Radiology Interventional Cols Reason for Consult: EPIV insertion Call Completed: No 12/12/16 10:26 consult to bending press operator [Consult to Nutrition] [CONS] Routine Comment: Consulting Provider: NUTRITION Reason for Dietary Consult: TF Start and Manage 12/12/16 10:40 Consult to Invasive Line Access Team [CONS] Routine Reason for Consult: poor access Line Type: EPIV Discharging clinician: Edinson Ferguson Anticipated date of discharge: 12/12/16 - Patient Status Disposition: Transfer Other Condition: Serious Functional capacity at discharge: bed bound Overall status at discharge: patient is not back to baseline - Discharge Instructions Follow Up With: Pream West MD [Primary Care Provider] - - Diet and Activity Activity: increase activity as tolerated Diet: other (Renal) - Hospital Course Hospital course: Ms. Dawn is a 61 year old female past medical history of morbidly obese with extensive pediculosis adiposis, hypertension, coronary artery disease/CABG , CHF, TIA, diabetes, chronic kidney disease stage III, gout, atrial fibrillation on chronic anticoagulation with Coumadin therapy who presented to the ICU in septic shock as a transfer from the medical floor 2N just shortly after arriving to the floor. Patient was noted to have severe sepsis with lactic acidosis and acute kidney injury she had not been responding to IV fluid hydration or making adequate urine. Blood pressure continued to drop despite IV fluid boluses and a dopamine infusion was required to maintain adequate perfusion. A left intraosseous was placed due to poor venous access and 2 units of fresh frozen plasma were given due to supratherapeutic INR. Patient was on vancomycin and Zosyn as well. Additionally, there were 2 peripheral IVs established in the left and right antecubital fossa. Patient was on CPAP overnight with an FiO2 of 32. Initially, patient presented to the [facility] emergency department via EMS on for generalized weakness and fever. Patient reported pain in the lower anterior abdominal wall that began 2 days ago describing burning sensation that was localized and was made worse when she attempted to walk. Patient states that she noticed changes in the color of her lower abdomen describing it as red and purple. Patient reported subjective fever as well as dry cough and shortness of breath over the past 2 weeks stable without progression. Patient is on home oxygen 2 L nasal cannula at home. Patient was recently hospitalized at [facility] due to acute systolic CHF exacerbation 2 weeks prior, however, she had been in good health until 2 days prior to admission. During the course of her stay: she was followed daily by nephrology and a Temporary hemodialysis catheter was placed at the bedside by interventional radiology and Lalitha initiated. She was on CVVH and with a positive fluid balance and slow fluid removal as tolerated 20 -25cc/hr. Next, started CVVHDF as BPs were stable and fluid removal was slowly improving. the Dialysate and Replacement fluid were adjusted to 1750ml/hr on both for a combined effluent dose of 26, as it should be at least >25. TMP was WNL off Citrate. Followed a renal protective strategy with dosing medications accordingly. Renal diet and Nepro. She was followed daily by general surgery, Dr Portillo, who discussed at length with patient and daughter that no surgical intervention could be anticipated at this time. Surgery examined her daily to monitor abdominal pannus. Serial examinations indicative of slow resolution. Continued to monitor her bilirubin and other LFTs due to the presence of cholelithiasis. Patient's daughter and healthcare power of staff attorney requested a second opinion. Patient to be transferred to a tertiary center [facility] per family request. All questions answered regarding clinical course to daughter who stated she felt satisfied with our care of her mother up to this point. - Time Spent with Patient Total time spent providing and/or coordinating discharge services: Physical Examination General appearance: no acute distress Eyes: nonicteric ENT: oropharynx dry Mallampati (class): 3 Neck: supple, no lymphadenopathy, other (Increased neck circumference, right jugular temporary hemodialysis catheter) Effort: normal Auscultation: bilateral: clear Cardiovascular: irregular rhythm (Atrial fibrillation rate 109 to 115) Gastrointestinal: normoactive bowel sounds, non-tender, hepatomegaly, splenomegaly Integumentary: other (Hardening of the dermis on the dependent portion of the pediculosis adiposis with ecchymosis in various stages of healing) Extremities: no cyanosis, pink and warm, pulses normal, edema Musculoskeletal: other (Morbid obesity decreased range of motion due to body habitus) pupils equal and round mood appropriate, affect normal
== END 2016-12-12 18:18 | disposition other institution (70) | DRG 871 ==
LOC: 2ANU 02:53 → EMEROO 02:53 → 2ANU 05:53 → SUATTDRO 09:43 → 2NNU 19:34 → ICNU 12-06 01:25
PROVIDERS: ADMIT Internal Medicine; ATTEND Internal Medicine

== ENCOUNTER 2020-06-04 13:44 | Inpatient (IN) ==
[2020-06-04 19:54] LABS: Basophils # 0.1 K/mcL (0.0-0.2); Basophils % 0.7 %; Eosinophils # 0.2 K/mcL (0.0-0.6); Eosinophils % 1.6 %; Hematocrit 37.6 % (35.3-44.9); Hemoglobin 11.4 g/dL (11.5-15.4); Immature Granulocytes % 3.3 % (0-4); Lymphocytes # 0.7 K/mcL (0.6-4.6); Lymphocytes % 5.8 %; Mean Corpuscular HGB Conc 30.3 g/dL (31.6-35.5); Mean Corpuscular Volume 112.2 fL (83.0-100.0); Mean Platelet Volume 11.8 fL (9.4-12.4); Monocytes # 0.8 K/mcL (0.0-1.3); Monocytes % 6.3 %; Nucleated Red Blood Cells 0.4 /100 WBC (0); Platelet Count 132 K/mcL (140-400); Red Blood Count 3.35 M/mcL (3.82-4.97); Red Cell Distribution Width 14.4 % (11.5-14.5); Segmented Neutrophils % 82.3 %; White Blood Count 12.2 K/mcL (4.3-11.1)
[2020-06-04] MEDS ORDERED: Naloxone 0.4 MG/ML INJ IVP PRN (19:57)
[2020-06-04 20:13] LABS: Macrocytosis Present (Not Present); Platelet Estimate Normal (Normal)
[2020-06-04 20:28] LABS: Albumin 3.6 g/dL (3.5-5.7); Albumin/Globulin Ratio 1.4 (1.1-2.2); Bilirubin,Total 0.6 mg/dL (0.3-1.0); Calcium 9.3 mg/dL (8.6-10.3); Globulin 2.6 g/dL (2.4-3.5); Potassium 5.6 mEq/L (3.5-5.1); Total Protein 6.2 g/dL (6.4-8.9)
[2020-06-04 20:29] LABS: Troponin I 0.03 ng/mL (< 0.04)
[2020-06-04] MEDS ORDERED: D5% in Water 1,000 ML IVC PRN (21:34)
[2020-06-04] MEDS ORDERED: *HR* Dextrose 50 % in Water (Vial) 50 ML VIAL IVP PRN (21:34)
[2020-06-04] MEDS ORDERED: Dextrose Gel 15 GM/37.5 ML TUBE PO PRN ×2 (21:34)
[2020-06-04 21:44] LABS: Phosphorous 5.1 mg/dL (2.7-4.5)
[2020-06-04 23:12] LABS: ABG Base Excess 1 mEq/L (-2 to 3); ABG HCO3 31 mEq/L (21-27); ABG Oxygen Saturation 90 % (95-98); ABG PCO2 79 mmHg (35-45); ABG PO2 74 mmHg (85-104); ABG TCO2 33 mEq/L (20-26)
[2020-06-05 06:05] LABS: Basophils # 0.1 K/mcL (0.0-0.2); Basophils % 0.6 %; Eosinophils # 0.3 K/mcL (0.0-0.6); Eosinophils % 2.3 %; Hematocrit 36.6 % (35.3-44.9); Lymphocytes # 0.8 K/mcL (0.6-4.6); Lymphocytes % 6.7 %; Mean Corpuscular HGB Conc 30.1 g/dL (31.6-35.5); Mean Corpuscular Hemoglobin 33.8 pg (28.0-33.3); Mean Corpuscular Volume 112.6 fL (83.0-100.0); Mean Platelet Volume 12.1 fL (9.4-12.4); Monocytes # 0.9 K/mcL (0.0-1.3); Monocytes % 7.9 %; Neutrophils # 9.3 K/mcL (1.6-8.9); Nucleated Red Blood Cells 0.2 /100 WBC (0); Platelet Count 138 K/mcL (140-400); Red Blood Count 3.25 M/mcL (3.82-4.97); Red Cell Distribution Width 14.4 % (11.5-14.5); Segmented Neutrophils % 80.5 %; White Blood Count 11.6 K/mcL (4.3-11.1)
[2020-06-05 06:24] LABS: Albumin 3.5 g/dL (3.5-5.7); Albumin/Globulin Ratio 1.3 (1.1-2.2); Bilirubin,Total 0.5 mg/dL (0.3-1.0); Calcium 8.8 mg/dL (8.6-10.3); Globulin 2.7 g/dL (2.4-3.5); Potassium 5.6 mEq/L (3.5-5.1); Total Protein 6.2 g/dL (6.4-8.9)
[2020-06-05 06:30] LABS: Basophilic Stippling 1+ (Not Present); Platelet Estimate Normal (Normal); Polychromasia 1+ (Not Present)
[2020-06-05 06:31] LABS: Macrocytosis Present (Not Present)
[2020-06-05 06:41] LABS: Folate 16.1 ng/mL (3.0-16.0)
[2020-06-05 06:42] LABS: Vitamin B12 987 pg/mL (250-1100)
[2020-06-05] MEDS: Insulin LISPRO 300 UNITS/3 ML VIAL SQ SCH ×3 (09:11→17:03)
[2020-06-05 09:31] LABS: INR 1.1; Prothrombin Time 12.7 Seconds (9.4-12.1)
[2020-06-05 09:34] LABS: Activated Partial Thrombo Time 33.3 Seconds (26.0-36.0)
[2020-06-05 09:41] LABS: Color,Urine Red (Yellow)
[2020-06-05 09:42] LABS: Bilirubin,Urine Negative (Negative); Blood,Urine Large (Negative); Clarity,Urine Cloudy (Clear); Glucose,Urine (UA) Normal (Normal); Ketones,Urine Negative (Negative); Specific Gravity,Urine 1.008 (1.010-1.025)
[2020-06-05 09:43] LABS: Leukocyte Esterase,Urine Large (Negative); Nitrite,Urine Negative (Negative); Protein,Urine 200 mg/dL (Neg-Trace); Urobilinogen,Urine Normal (Normal)
[2020-06-05] MEDS ORDERED: 0.9 % Sodium Chloride 250 ML IVC PRN (09:47)
[2020-06-05 09:51] LABS: ABG Base Excess 3 mEq/L (-2 to 3); ABG HCO3 34 mEq/L (21-27); ABG Oxygen Saturation 97 % (95-98); ABG PCO2 88 mmHg (35-45); ABG PH 7.19 pH Units (7.32-7.45); ABG PO2 116 mmHg (85-104); ABG TCO2 36 mEq/L (20-26)
[2020-06-05 10:03] LABS: Protein/Creatinine Ratio,Urine 27.49 mg/mg (0.00-0.20); Sodium, Urine 107.5 mEq/L
[2020-06-05] MEDS ORDERED: Heparin 1,000 UNITS/500 mL 500 ML ONE (10:39)
[2020-06-05] MEDS ORDERED: *HR* Heparin 5,000 UNIT/ML VIAL ONE (11:11)
[2020-06-05] MEDS ORDERED: Perflutren Lipid Microsphere 1.3 ML in 0.9 % Sodium Chloride 8.7 ML IVP PRN (11:42)
[2020-06-05 11:46] LABS: Hepatitis B Surface Antibody < 3.10 mIU/mL
[2020-06-05 11:57] LABS: Hepatitis B Surface Antigen Nonreactive (Nonreactive)
[2020-06-05] MEDS ORDERED: cefTRIAXone 2,000 MG in Water for inj. (sterile) 20 ML IVP SCH (12:00)
[2020-06-05 13:47] LABS: ABG Base Excess 4 mEq/L (-2 to 3); ABG HCO3 35 mEq/L (21-27); ABG Oxygen Saturation 97 % (95-98); ABG PCO2 89 mmHg (35-45); ABG PH 7.21 pH Units (7.32-7.45); ABG PO2 117 mmHg (85-104); ABG TCO2 38 mEq/L (20-26)
[2020-06-05] MEDS: *HR* Heparin 5,000 UNIT/ML VIAL SQ SCH (17:21)
[2020-06-05] MEDS: Piperacillin/Tazobactam 3.375 GM in 0.9 % Sodium Chloride Mini Bag 100 ML IVPB SCH (17:21)
[2020-06-06 00:24] LABS: ABG Base Excess 3 mEq/L (-2 to 3); ABG HCO3 29 mEq/L (21-27); ABG Oxygen Saturation 99 % (95-98); ABG PCO2 55 mmHg (35-45); ABG PH 7.33 pH Units (7.32-7.45); ABG PO2 138 mmHg (85-104); ABG TCO2 31 mEq/L (20-26); Blood Gas Modality avaps; Blood Gas VT 550 cc
[2020-06-06] MEDS: Insulin LISPRO 300 UNITS/3 ML VIAL SQ SCH ×5 (01:31→21:01)
[2020-06-06 05:52] LABS: Basophils % 0.3 %; Eosinophils # 0.2 K/mcL (0.0-0.6); Eosinophils % 2.3 %; Hematocrit 32.1 % (35.3-44.9); Hemoglobin 10.1 g/dL (11.5-15.4); Immature Granulocytes % 1.2 % (0-4); Lymphocytes # 0.8 K/mcL (0.6-4.6); Lymphocytes % 9.4 %; Mean Corpuscular HGB Conc 31.5 g/dL (31.6-35.5); Mean Corpuscular Hemoglobin 33.9 pg (28.0-33.3); Mean Corpuscular Volume 107.7 fL (83.0-100.0); Mean Platelet Volume 12.1 fL (9.4-12.4); Monocytes # 0.7 K/mcL (0.0-1.3); Monocytes % 8.4 %; Neutrophils # 6.8 K/mcL (1.6-8.9); Platelet Count 131 K/mcL (140-400); Red Blood Count 2.98 M/mcL (3.82-4.97); Red Cell Distribution Width 14.3 % (11.5-14.5); Segmented Neutrophils % 78.4 %; White Blood Count 8.7 K/mcL (4.3-11.1)
[2020-06-06] MEDS: Piperacillin/Tazobactam 3.375 GM in 0.9 % Sodium Chloride Mini Bag 100 ML IVPB SCH ×2 (05:54→17:50)
[2020-06-06] MEDS: *HR* Heparin 5,000 UNIT/ML VIAL SQ SCH ×2 (06:01→17:50)
[2020-06-06 06:15] LABS: Albumin 3.1 g/dL (3.5-5.7); Albumin/Globulin Ratio 1.3 (1.1-2.2); Bilirubin,Total 0.6 mg/dL (0.3-1.0); Calcium 8.5 mg/dL (8.6-10.3); Globulin 2.4 g/dL (2.4-3.5); Magnesium 2.3 mg/dL (1.6-2.6); Phosphorous 4.1 mg/dL (2.7-4.5); Potassium 5.1 mEq/L (3.5-5.1); Total Protein 5.5 g/dL (6.4-8.9)
[2020-06-06] MEDS ORDERED: 0.9 % Sodium Chloride 250 ML IVC PRN (07:13)
[2020-06-06] MEDS: Acetaminophen 325 MG TABLET PO PRN ×2 (10:56→17:49)
[2020-06-06] MEDS: Aspirin Enteric Coated 81 MG Tablet PO SCH (14:13)
[2020-06-06] MEDS: allopurinoL 100 MG TABLET PO SCH (14:14)
[2020-06-06] MEDS: Cholecalciferol (D-3) 1,000 UNIT (25MCG) TABLET PO SCH (14:15)
[2020-06-06] MEDS: Ondansetron ODT 4 MG TAB.RAPDIS SL PRN (17:50)
[2020-06-06] MEDS: Melatonin 3 MG TABLET PO SCH (20:54)
[2020-06-07] MEDS: Piperacillin/Tazobactam 3.375 GM in 0.9 % Sodium Chloride Mini Bag 100 ML IVPB SCH ×2 (05:29→17:01)
[2020-06-07] MEDS: *HR* Heparin 5,000 UNIT/ML VIAL SQ SCH ×2 (05:33→17:00)
[2020-06-07 05:50] LABS: Basophils % 0.6 %; Eosinophils # 0.2 K/mcL (0.0-0.6); Eosinophils % 3.3 %; Hemoglobin 9.7 g/dL (11.5-15.4); Immature Granulocytes % 1.4 % (0-4); Lymphocytes # 0.8 K/mcL (0.6-4.6); Mean Corpuscular HGB Conc 30.3 g/dL (31.6-35.5); Mean Corpuscular Volume 108.8 fL (83.0-100.0); Mean Platelet Volume 11.5 fL (9.4-12.4); Monocytes # 0.8 K/mcL (0.0-1.3); Monocytes % 11.6 %; Neutrophils # 5.2 K/mcL (1.6-8.9); Platelet Count 128 K/mcL (140-400); Red Blood Count 2.94 M/mcL (3.82-4.97); Red Cell Distribution Width 14.2 % (11.5-14.5); Segmented Neutrophils % 72.1 %; White Blood Count 7.2 K/mcL (4.3-11.1)
[2020-06-07 06:12] LABS: Potassium 4.5 mEq/L (3.5-5.1)
[2020-06-07] MEDS: Insulin LISPRO 300 UNITS/3 ML VIAL SQ SCH ×4 (09:00→20:31)
[2020-06-07] MEDS: Nystatin POWDER 30 GM BOTTLE TP SCH ×3 (09:07→20:40)
[2020-06-07] MEDS: allopurinoL 100 MG TABLET PO SCH (09:12)
[2020-06-07] MEDS: Aspirin Enteric Coated 81 MG Tablet PO SCH (09:13)
[2020-06-07] MEDS: Acetaminophen 325 MG TABLET PO PRN ×2 (09:13→19:07)
[2020-06-07] MEDS: Cholecalciferol (D-3) 1,000 UNIT (25MCG) TABLET PO SCH (09:15)
[2020-06-07] MEDS: Ondansetron ODT 4 MG TAB.RAPDIS SL PRN (12:10)
[2020-06-07] MEDS ORDERED: Prochlorperazine 10 MG/2 ML VIAL IVP ONE (14:11)
[2020-06-07] MEDS: Melatonin 3 MG TABLET PO SCH (20:39)
[2020-06-08 04:28] LABS: Mean Corpuscular HGB Conc 30.4 g/dL (31.6-35.5); Platelet Count 111 K/mcL (140-400)
[2020-06-08 04:30] LABS: Basophils % 0.5 %; Eosinophils # 0.2 K/mcL (0.0-0.6); Eosinophils % 3.1 %; Hematocrit 30.9 % (35.3-44.9); Hemoglobin 9.4 g/dL (11.5-15.4); Immature Granulocytes % 1.4 % (0-4); Immature Platelets 7.7 % (1.1-6.1); Lymphocytes # 0.7 K/mcL (0.6-4.6); Lymphocytes % 10.2 %; Mean Corpuscular Hemoglobin 33.1 pg (28.0-33.3); Mean Corpuscular Volume 108.8 fL (83.0-100.0); Monocytes # 0.8 K/mcL (0.0-1.3); Monocytes % 11.6 %; Neutrophils # 4.8 K/mcL (1.6-8.9); Red Blood Count 2.84 M/mcL (3.82-4.97); Red Cell Distribution Width 14.1 % (11.5-14.5); Segmented Neutrophils % 73.2 %; White Blood Count 6.5 K/mcL (4.3-11.1)
[2020-06-08 04:43] LABS: Calcium 8.6 mg/dL (8.6-10.3); Potassium 4.6 mEq/L (3.5-5.1)
[2020-06-08 05:32] LABS: Platelet Estimate Decreased (Normal)
[2020-06-08] MEDS: Piperacillin/Tazobactam 3.375 GM in 0.9 % Sodium Chloride Mini Bag 100 ML IVPB SCH ×2 (05:45→17:30)
[2020-06-08] MEDS: *HR* Heparin 5,000 UNIT/ML VIAL SQ SCH ×2 (05:49→17:30)
[2020-06-08] MEDS ORDERED: 0.9 % Sodium Chloride 250 ML IVC PRN ×2 (06:54→15:39)
[2020-06-08] MEDS ORDERED: 0.9 % Sodium Chloride 1,000 ML PRIME SCH (07:00)
[2020-06-08] MEDS: Insulin LISPRO 300 UNITS/3 ML VIAL SQ SCH ×4 (07:16→20:52)
[2020-06-08] MEDS: Aspirin Enteric Coated 81 MG Tablet PO SCH (07:39)
[2020-06-08] MEDS: allopurinoL 100 MG TABLET PO SCH (07:39)
[2020-06-08] MEDS: Cholecalciferol (D-3) 1,000 UNIT (25MCG) TABLET PO SCH (07:39)
[2020-06-08] MEDS: Nystatin POWDER 30 GM BOTTLE TP SCH ×2 (07:40→21:46)
[2020-06-08] MEDS: Ondansetron ODT 4 MG TAB.RAPDIS SL PRN (13:19)
[2020-06-08] MEDS: Acetaminophen 325 MG TABLET PO PRN (13:19)
[2020-06-08] MEDS ORDERED: *HR* Heparin 10,000 UNIT/10 ML VIAL IV PRN (15:39)
[2020-06-08] MEDS: Melatonin 3 MG TABLET PO SCH (21:45)
[2020-06-08] MEDS ORDERED: tiZANidine 4 MG TABLET PO ONE (21:59)
[2020-06-09 04:09] LABS: Calcium 8.5 mg/dL (8.6-10.3); Potassium 4.3 mEq/L (3.5-5.1)
[2020-06-09 04:19] LABS: Hematocrit 29.4 % (35.3-44.9); Immature Platelets 8.9 % (1.1-6.1); Mean Corpuscular HGB Conc 30.6 g/dL (31.6-35.5); Mean Corpuscular Hemoglobin 33.3 pg (28.0-33.3); Mean Corpuscular Volume 108.9 fL (83.0-100.0); Mean Platelet Volume 11.9 fL (9.4-12.4); Red Blood Count 2.7 M/mcL (3.82-4.97); Red Cell Distribution Width 14.3 % (11.5-14.5); White Blood Count 5.5 K/mcL (4.3-11.1)
[2020-06-09] MEDS: Piperacillin/Tazobactam 3.375 GM in 0.9 % Sodium Chloride Mini Bag 100 ML IVPB SCH ×2 (05:15→18:29)
[2020-06-09] MEDS: *HR* Heparin 5,000 UNIT/ML VIAL SQ SCH ×2 (05:18→18:28)
[2020-06-09] MEDS ORDERED: 0.9 % Sodium Chloride 250 ML IVC PRN (07:14)
[2020-06-09] MEDS: Insulin LISPRO 300 UNITS/3 ML VIAL SQ SCH ×4 (07:48→19:58)
[2020-06-09] MEDS: Aspirin Enteric Coated 81 MG Tablet PO SCH (08:22)
[2020-06-09] MEDS: allopurinoL 100 MG TABLET PO SCH (08:22)
[2020-06-09] MEDS: Nystatin POWDER 30 GM BOTTLE TP SCH ×2 (08:23→22:19)
[2020-06-09] MEDS: Cholecalciferol (D-3) 1,000 UNIT (25MCG) TABLET PO SCH (08:23)
[2020-06-09] MEDS: Acetaminophen 325 MG TABLET PO PRN ×2 (12:34→18:35)
[2020-06-09] MEDS: Furosemide 40 MG TABLET PO SCH ×2 (18:27→18:32)
[2020-06-09] MEDS: Melatonin 3 MG TABLET PO SCH (22:19)
[2020-06-10] MEDS ORDERED: tiZANidine 4 MG TABLET PO ONE (00:27)
[2020-06-10] MEDS: *HR* Heparin 5,000 UNIT/ML VIAL SQ SCH ×2 (03:10→18:04)
[2020-06-10 03:36] LABS: Calcium 8.9 mg/dL (8.6-10.3); Magnesium 2.1 mg/dL (1.6-2.6); Potassium 4.5 mEq/L (3.5-5.1)
[2020-06-10] MEDS: Acetaminophen 325 MG TABLET PO PRN ×4 (04:03→22:20)
[2020-06-10] MEDS ORDERED: 0.9 % Sodium Chloride 250 ML IVC PRN (07:02)
[2020-06-10] MEDS: Insulin LISPRO 300 UNITS/3 ML VIAL SQ SCH ×4 (09:42→19:52)
[2020-06-10] MEDS: Aspirin Enteric Coated 81 MG Tablet PO SCH (09:58)
[2020-06-10] MEDS: Furosemide 40 MG TABLET PO SCH ×2 (09:58→18:04)
[2020-06-10] MEDS: allopurinoL 100 MG TABLET PO SCH (09:59)
[2020-06-10] MEDS: Nystatin POWDER 30 GM BOTTLE TP SCH ×2 (09:59→19:52)
[2020-06-10] MEDS: Cholecalciferol (D-3) 1,000 UNIT (25MCG) TABLET PO SCH (09:59)
[2020-06-10] MEDS: Melatonin 3 MG TABLET PO SCH (19:51)
[2020-06-11 03:55] LABS: Calcium 8.8 mg/dL (8.6-10.3); Potassium 3.9 mEq/L (3.5-5.1)
[2020-06-11 06:02] LABS: Hemoglobin 9.9 g/dL (11.5-15.4)
[2020-06-11] MEDS: *HR* Heparin 5,000 UNIT/ML VIAL SQ SCH (06:17)
[2020-06-11] MEDS ORDERED: *HR* Heparin 5,000 UNIT/ML VIAL IVP ONE (07:36)
[2020-06-11] MEDS ORDERED: *HR* Heparin 5,000 UNIT/ML VIAL IVP PRN ×2 (07:36)
[2020-06-11] MEDS ORDERED: Heparin 25,000UNIT/250ML 1/2NS 25,000 UNIT/250 ML IV.SOLN IVC SCH (07:45)
[2020-06-11] MEDS: Insulin LISPRO 300 UNITS/3 ML VIAL SQ SCH ×4 (08:25→19:43)
[2020-06-11] MEDS: Acetaminophen 325 MG TABLET PO PRN ×2 (08:27→18:02)
[2020-06-11] MEDS: allopurinoL 100 MG TABLET PO SCH (08:27)
[2020-06-11] MEDS: Cholecalciferol (D-3) 1,000 UNIT (25MCG) TABLET PO SCH (08:27)
[2020-06-11] MEDS: Aspirin Enteric Coated 81 MG Tablet PO SCH (08:27)
[2020-06-11] MEDS: Furosemide 40 MG TABLET PO SCH ×2 (08:27→18:02)
[2020-06-11] MEDS: Nystatin POWDER 30 GM BOTTLE TP SCH ×2 (08:28→19:55)
[2020-06-11 09:04] LABS: Heparin anti-factor XA UFH 0.11 IU/mL (0.30-0.70)
[2020-06-11 09:05] LABS: INR 1.1; Prothrombin Time 12.1 Seconds (9.4-12.1)
[2020-06-11] MEDS: Heparin 25,000UNIT/250ML 1/2NS 25,000 UNIT/250 ML IV.SOLN IVC SCH (14:19)
[2020-06-11] MEDS: Miconazole 2% ointment 141 APPL/141 GM TUBE TP SCH ×2 (18:03→19:56)
[2020-06-11] MEDS: Melatonin 3 MG TABLET PO SCH (19:55)
[2020-06-12] MEDS: Heparin 25,000UNIT/250ML 1/2NS 25,000 UNIT/250 ML IV.SOLN IVC SCH ×2 (03:18→20:11)
[2020-06-12 05:27] LABS: Hemoglobin 9.1 g/dL (11.5-15.4); Red Cell Distribution Width 14.6 % (11.5-14.5)
[2020-06-12 05:29] LABS: Basophils % 0.4 %; Eosinophils # 0.2 K/mcL (0.0-0.6); Eosinophils % 3.1 %; Hematocrit 30.1 % (35.3-44.9); Immature Granulocytes % 0.5 % (0-4); Immature Platelets 10.2 % (1.1-6.1); Lymphocytes # 0.6 K/mcL (0.6-4.6); Lymphocytes % 8.2 %; Mean Corpuscular HGB Conc 30.2 g/dL (31.6-35.5); Mean Corpuscular Hemoglobin 32.7 pg (28.0-33.3); Mean Corpuscular Volume 108.3 fL (83.0-100.0); Mean Platelet Volume 11.6 fL (9.4-12.4); Monocytes # 0.9 K/mcL (0.0-1.3); Monocytes % 11.4 %; Red Blood Count 2.78 M/mcL (3.82-4.97); Segmented Neutrophils % 76.4 %; White Blood Count 7.8 K/mcL (4.3-11.1)
[2020-06-12 05:33] LABS: Platelet Count 90 K/mcL (140-400)
[2020-06-12 05:36] LABS: Heparin anti-factor XA UFH 0.77 IU/mL (0.30-0.70); INR 1.1; Prothrombin Time 12.8 Seconds (9.4-12.1)
[2020-06-12 05:45] LABS: Calcium 8.9 mg/dL (8.6-10.3); Potassium 4.2 mEq/L (3.5-5.1)
[2020-06-12] MEDS: Insulin LISPRO 300 UNITS/3 ML VIAL SQ SCH ×4 (07:33→20:34)
[2020-06-12] MEDS: Aspirin Enteric Coated 81 MG Tablet PO SCH (08:49)
[2020-06-12] MEDS: Cholecalciferol (D-3) 1,000 UNIT (25MCG) TABLET PO SCH (08:49)
[2020-06-12] MEDS: Miconazole 2% ointment 141 APPL/141 GM TUBE TP SCH ×2 (08:49→20:10)
[2020-06-12] MEDS: Furosemide 40 MG TABLET PO SCH ×2 (08:49→17:03)
[2020-06-12] MEDS: allopurinoL 100 MG TABLET PO SCH (08:49)
[2020-06-12] MEDS: Nystatin POWDER 30 GM BOTTLE TP SCH ×2 (08:50→20:11)
[2020-06-12] MEDS: Acetaminophen 325 MG TABLET PO PRN ×2 (12:35→20:10)
[2020-06-12] MEDS: Melatonin 3 MG TABLET PO SCH (20:11)
[2020-06-13] MEDS: Heparin 25,000UNIT/250ML 1/2NS 25,000 UNIT/250 ML IV.SOLN IVC SCH ×2 (03:16→23:17)
[2020-06-13] MEDS: Acetaminophen 325 MG TABLET PO PRN ×3 (05:20→20:59)
[2020-06-13 05:44] LABS: Red Cell Distribution Width 14.6 % (11.5-14.5)
[2020-06-13 05:46] LABS: Hematocrit 29.8 % (35.3-44.9); Hemoglobin 9.1 g/dL (11.5-15.4); Immature Platelets 10.9 % (1.1-6.1); Mean Corpuscular HGB Conc 30.5 g/dL (31.6-35.5); Mean Corpuscular Hemoglobin 33.5 pg (28.0-33.3); Mean Corpuscular Volume 109.6 fL (83.0-100.0); Mean Platelet Volume 12.2 fL (9.4-12.4); Red Blood Count 2.72 M/mcL (3.82-4.97); White Blood Count 6.6 K/mcL (4.3-11.1)
[2020-06-13 05:58] LABS: Potassium 4.3 mEq/L (3.5-5.1)
[2020-06-13] MEDS: Insulin LISPRO 300 UNITS/3 ML VIAL SQ SCH ×4 (07:32→20:09)
[2020-06-13] MEDS ORDERED: *HR* Heparin 10,000 UNIT/10 ML VIAL IV PRN ×2 (08:01)
[2020-06-13] MEDS ORDERED: 0.9 % Sodium Chloride 250 ML IVC PRN (08:01)
[2020-06-13] MEDS: allopurinoL 100 MG TABLET PO SCH (09:54)
[2020-06-13] MEDS: Furosemide 40 MG TABLET PO SCH ×2 (09:54→17:35)
[2020-06-13] MEDS: Cholecalciferol (D-3) 1,000 UNIT (25MCG) TABLET PO SCH (09:54)
[2020-06-13] MEDS: Aspirin Enteric Coated 81 MG Tablet PO SCH (09:54)
[2020-06-13] MEDS: Nystatin POWDER 30 GM BOTTLE TP SCH ×2 (09:55→20:15)
[2020-06-13] MEDS: Miconazole 2% ointment 141 APPL/141 GM TUBE TP SCH ×2 (09:55→20:15)
[2020-06-13] MEDS: Melatonin 3 MG TABLET PO SCH (20:14)
[2020-06-14] MEDS: Heparin 25,000UNIT/250ML 1/2NS 25,000 UNIT/250 ML IV.SOLN IVC SCH (03:35)
[2020-06-14 06:13] LABS: Mean Platelet Volume 11.7 fL (9.4-12.4)
[2020-06-14 06:15] LABS: Hematocrit 29.3 % (35.3-44.9); Hemoglobin 8.9 g/dL (11.5-15.4); Immature Platelets 10.7 % (1.1-6.1); Mean Corpuscular HGB Conc 30.4 g/dL (31.6-35.5); Mean Corpuscular Hemoglobin 32.8 pg (28.0-33.3); Mean Corpuscular Volume 108.1 fL (83.0-100.0); Red Blood Count 2.71 M/mcL (3.82-4.97); Red Cell Distribution Width 14.4 % (11.5-14.5); White Blood Count 6.5 K/mcL (4.3-11.1)
[2020-06-14 06:33] LABS: Calcium 8.9 mg/dL (8.6-10.3); Potassium 4.2 mEq/L (3.5-5.1)
[2020-06-14] MEDS: Cholecalciferol (D-3) 1,000 UNIT (25MCG) TABLET PO SCH (09:28)
[2020-06-14] MEDS: Furosemide 40 MG TABLET PO SCH ×2 (09:28→17:25)
[2020-06-14] MEDS: Miconazole 2% ointment 141 APPL/141 GM TUBE TP SCH ×2 (09:28→21:45)
[2020-06-14] MEDS: Acetaminophen 325 MG TABLET PO PRN ×2 (09:28→21:44)
[2020-06-14] MEDS: Aspirin Enteric Coated 81 MG Tablet PO SCH (09:28)
[2020-06-14] MEDS: allopurinoL 100 MG TABLET PO SCH (09:28)
[2020-06-14] MEDS: Insulin LISPRO 300 UNITS/3 ML VIAL SQ SCH ×4 (09:29→21:46)
[2020-06-14] MEDS: Nystatin POWDER 30 GM BOTTLE TP SCH ×2 (09:29→21:45)
[2020-06-14] MEDS: Ondansetron ODT 4 MG TAB.RAPDIS SL PRN (17:25)
[2020-06-14] MEDS: Melatonin 3 MG TABLET PO SCH (21:43)
[2020-06-15 02:49] LABS: Hemoglobin 8.6 g/dL (11.5-15.4); Mean Corpuscular Hemoglobin 32.7 pg (28.0-33.3); Red Blood Count 2.63 M/mcL (3.82-4.97)
[2020-06-15 02:50] LABS: Hematocrit 28.5 % (35.3-44.9); Mean Corpuscular HGB Conc 30.2 g/dL (31.6-35.5); Mean Corpuscular Volume 108.4 fL (83.0-100.0); Mean Platelet Volume 12.1 fL (9.4-12.4); Red Cell Distribution Width 14.5 % (11.5-14.5); White Blood Count 5.8 K/mcL (4.3-11.1)
[2020-06-15 03:08] LABS: Calcium 8.8 mg/dL (8.6-10.3); Potassium 4.2 mEq/L (3.5-5.1)
[2020-06-15] MEDS: Heparin 25,000UNIT/250ML 1/2NS 25,000 UNIT/250 ML IV.SOLN IVC SCH ×4 (06:30→17:00)
[2020-06-15] MEDS: Cholecalciferol (D-3) 1,000 UNIT (25MCG) TABLET PO SCH (09:15)
[2020-06-15] MEDS: allopurinoL 100 MG TABLET PO SCH (09:16)
[2020-06-15] MEDS: Furosemide 40 MG TABLET PO SCH ×2 (09:16→16:59)
[2020-06-15] MEDS: Insulin LISPRO 300 UNITS/3 ML VIAL SQ SCH ×4 (09:19→21:45)
[2020-06-15] MEDS: Nystatin POWDER 30 GM BOTTLE TP SCH ×2 (10:00→21:44)
[2020-06-15] MEDS: Miconazole 2% ointment 141 APPL/141 GM TUBE TP SCH ×2 (10:30→21:44)
[2020-06-15] MEDS: Ondansetron ODT 4 MG TAB.RAPDIS SL PRN (16:59)
[2020-06-15 18:06] LABS: Hepatitis B Surface Antigen Nonreactive (Nonreactive)
[2020-06-15 18:36] LABS: Hepatitis A Antibody IgM Nonreactive (Nonreactive); Hepatitis C Virus Antibody Nonreactive (Nonreactive)
[2020-06-15 18:37] LABS: Hepatitis B Core IgM Nonreactive (Nonreactive)
[2020-06-15] MEDS: Melatonin 3 MG TABLET PO SCH (21:42)
[2020-06-15] MEDS: Acetaminophen 325 MG TABLET PO PRN (21:43)
[2020-06-16] MEDS: Heparin 25,000UNIT/250ML 1/2NS 25,000 UNIT/250 ML IV.SOLN IVC SCH ×2 (05:50→17:43)
[2020-06-16 06:08] LABS: Mean Corpuscular Hemoglobin 33.3 pg (28.0-33.3); Red Blood Count 2.7 M/mcL (3.82-4.97)
[2020-06-16 06:10] LABS: Hematocrit 29.6 % (35.3-44.9); Immature Platelets 10.4 % (1.1-6.1); Mean Corpuscular HGB Conc 30.4 g/dL (31.6-35.5); Mean Corpuscular Volume 109.6 fL (83.0-100.0); Mean Platelet Volume 11.7 fL (9.4-12.4); Red Cell Distribution Width 14.4 % (11.5-14.5); White Blood Count 6.8 K/mcL (4.3-11.1)
[2020-06-16 06:29] LABS: Calcium 9.3 mg/dL (8.6-10.3); Potassium 4.4 mEq/L (3.5-5.1)
[2020-06-16] MEDS ORDERED: *HR* Heparin 10,000 UNIT/10 ML VIAL IV PRN ×2 (07:11)
[2020-06-16] MEDS ORDERED: 0.9 % Sodium Chloride 250 ML IVC PRN (07:11)
[2020-06-16] MEDS ORDERED: Heparin 1,000 UNITS/500 mL 500 ML ONE (08:56)
[2020-06-16] MEDS ORDERED: *HR* Midazolam HCl 2 MG/2 ML VIAL IVP ONE (09:34)
[2020-06-16] MEDS ORDERED: *HR* FentaNYL (PF) 100 MCG/2 ML VIAL IVP ONE (09:35)
[2020-06-16] MEDS ORDERED: 0.9 % Sodium Chloride 500 ML ONE (09:42)
[2020-06-16] MEDS ORDERED: *HR* Heparin 5,000 UNIT/ML VIAL ONE (09:57)
[2020-06-16] MEDS: Insulin LISPRO 300 UNITS/3 ML VIAL SQ SCH ×4 (10:17→23:12)
[2020-06-16] MEDS: Nystatin POWDER 30 GM BOTTLE TP SCH ×2 (12:41→21:26)
[2020-06-16] MEDS: Miconazole 2% ointment 141 APPL/141 GM TUBE TP SCH ×2 (12:41→21:22)
[2020-06-16] MEDS: Furosemide 40 MG TABLET PO SCH ×2 (12:41→17:42)
[2020-06-16] MEDS: Ondansetron ODT 4 MG TAB.RAPDIS SL PRN (14:30)
[2020-06-16] MEDS: Cholecalciferol (D-3) 1,000 UNIT (25MCG) TABLET PO SCH (14:30)
[2020-06-16] MEDS: allopurinoL 100 MG TABLET PO SCH (14:30)
[2020-06-16] MEDS: Acetaminophen 325 MG TABLET PO PRN ×2 (14:30→21:21)
[2020-06-16] MEDS: carvediloL 6.25 MG TABLET PO SCH (17:42)
[2020-06-16] MEDS ORDERED: Warfarin perPT PO PRN (18:00)
[2020-06-16] MEDS ORDERED: *HR* Warfarin 5 MG TABLET PO ONE (18:00)
[2020-06-16] MEDS: Melatonin 3 MG TABLET PO SCH (21:21)
[2020-06-17 04:56] LABS: Hemoglobin 8.8 g/dL (11.5-15.4); Immature Platelets 9.8 % (1.1-6.1); Mean Corpuscular HGB Conc 30.3 g/dL (31.6-35.5); Mean Corpuscular Volume 108.6 fL (83.0-100.0); Mean Platelet Volume 11.6 fL (9.4-12.4); Red Blood Count 2.67 M/mcL (3.82-4.97); Red Cell Distribution Width 14.6 % (11.5-14.5); White Blood Count 5.2 K/mcL (4.3-11.1)
[2020-06-17 05:00] LABS: INR 1.1; Prothrombin Time 12.5 Seconds (9.4-12.1)
[2020-06-17 05:14] LABS: Calcium 9.1 mg/dL (8.6-10.3); Potassium 4.3 mEq/L (3.5-5.1)
[2020-06-17] MEDS: Heparin 25,000UNIT/250ML 1/2NS 25,000 UNIT/250 ML IV.SOLN IVC SCH ×3 (09:10→22:40)
[2020-06-17] MEDS: Cholecalciferol (D-3) 1,000 UNIT (25MCG) TABLET PO SCH (09:20)
[2020-06-17] MEDS: carvediloL 6.25 MG TABLET PO SCH ×2 (09:20→16:41)
[2020-06-17] MEDS: Furosemide 40 MG TABLET PO SCH ×2 (09:20→16:42)
[2020-06-17] MEDS: allopurinoL 100 MG TABLET PO SCH (09:22)
[2020-06-17] MEDS: Miconazole 2% ointment 141 APPL/141 GM TUBE TP SCH ×2 (09:24→20:35)
[2020-06-17] MEDS: Insulin LISPRO 300 UNITS/3 ML VIAL SQ SCH ×4 (09:24→20:36)
[2020-06-17] MEDS: Acetaminophen 325 MG TABLET PO PRN ×2 (09:27→20:35)
[2020-06-17] MEDS: Nystatin POWDER 30 GM BOTTLE TP SCH ×2 (11:36→20:35)
[2020-06-17] MEDS ORDERED: *HR* Warfarin 5 MG TABLET PO ONE (18:00)
[2020-06-17] MEDS: Melatonin 3 MG TABLET PO SCH (20:36)
[2020-06-18 04:51] LABS: Hematocrit 29.7 % (35.3-44.9); Hemoglobin 8.8 g/dL (11.5-15.4); Immature Platelets 11.5 % (1.1-6.1); Mean Corpuscular HGB Conc 29.6 g/dL (31.6-35.5); Mean Corpuscular Hemoglobin 32.5 pg (28.0-33.3); Mean Corpuscular Volume 109.6 fL (83.0-100.0); Mean Platelet Volume 11.9 fL (9.4-12.4); Red Blood Count 2.71 M/mcL (3.82-4.97); Red Cell Distribution Width 14.5 % (11.5-14.5); White Blood Count 5.2 K/mcL (4.3-11.1)
[2020-06-18 04:58] LABS: INR 1.3; Prothrombin Time 14.2 Seconds (9.4-12.1)
[2020-06-18 05:10] LABS: Potassium 4.6 mEq/L (3.5-5.1)
[2020-06-18] MEDS: Insulin LISPRO 300 UNITS/3 ML VIAL SQ SCH ×4 (07:37→20:23)
[2020-06-18] MEDS ORDERED: 0.9 % Sodium Chloride 250 ML IVC PRN (07:39)
[2020-06-18] MEDS ORDERED: *HR* Heparin 10,000 UNIT/10 ML VIAL IV PRN ×2 (07:39)
[2020-06-18] MEDS: carvediloL 6.25 MG TABLET PO SCH (07:40)
[2020-06-18] MEDS: Furosemide 40 MG TABLET PO SCH ×2 (07:52→16:23)
[2020-06-18] MEDS: allopurinoL 100 MG TABLET PO SCH (07:52)
[2020-06-18] MEDS: Cholecalciferol (D-3) 1,000 UNIT (25MCG) TABLET PO SCH (07:52)
[2020-06-18] MEDS: Aspirin Enteric Coated 81 MG Tablet PO SCH (07:52)
[2020-06-18] MEDS: Nystatin POWDER 30 GM BOTTLE TP SCH ×2 (07:53→20:38)
[2020-06-18] MEDS: Miconazole 2% ointment 141 APPL/141 GM TUBE TP SCH ×2 (07:53→20:38)
[2020-06-18] MEDS: Ondansetron ODT 4 MG TAB.RAPDIS SL PRN (09:42)
[2020-06-18] MEDS: Acetaminophen 325 MG TABLET PO PRN ×2 (09:42→20:38)
[2020-06-18] MEDS: Heparin 25,000UNIT/250ML 1/2NS 25,000 UNIT/250 ML IV.SOLN IVC SCH (16:23)
[2020-06-18] MEDS ORDERED: *HR* Warfarin 7.5 MG TABLET PO ONE (18:00)
[2020-06-18] MEDS: Melatonin 3 MG TABLET PO SCH (20:38)
[2020-06-19] MEDS: Heparin 25,000UNIT/250ML 1/2NS 25,000 UNIT/250 ML IV.SOLN IVC SCH ×2 (05:00→12:14)
[2020-06-19 05:48] LABS: Mean Corpuscular HGB Conc 29.5 g/dL (31.6-35.5); Red Cell Distribution Width 14.5 % (11.5-14.5)
[2020-06-19 05:49] LABS: Hematocrit 28.5 % (35.3-44.9); Hemoglobin 8.4 g/dL (11.5-15.4); Mean Corpuscular Hemoglobin 32.6 pg (28.0-33.3); Mean Corpuscular Volume 110.5 fL (83.0-100.0); Mean Platelet Volume 11.9 fL (9.4-12.4); Red Blood Count 2.58 M/mcL (3.82-4.97); White Blood Count 6.9 K/mcL (4.3-11.1)
[2020-06-19 05:51] LABS: Heparin anti-factor XA UFH 0.55 IU/mL (0.30-0.70)
[2020-06-19 05:52] LABS: INR 1.8; Prothrombin Time 20.2 Seconds (9.4-12.1)
[2020-06-19 06:07] LABS: Calcium 9.2 mg/dL (8.6-10.3)
[2020-06-19] MEDS: Insulin LISPRO 300 UNITS/3 ML VIAL SQ SCH ×4 (09:35→23:12)
[2020-06-19] MEDS: Metoprolol XL (24 HR) Succ 25 MG TAB.ER.24H PO SCH (09:39)
[2020-06-19] MEDS: Furosemide 40 MG TABLET PO SCH ×2 (09:39→17:41)
[2020-06-19] MEDS: Aspirin Enteric Coated 81 MG Tablet PO SCH (09:39)
[2020-06-19] MEDS: allopurinoL 100 MG TABLET PO SCH (09:39)
[2020-06-19] MEDS: Nystatin POWDER 30 GM BOTTLE TP SCH ×2 (09:40→23:12)
[2020-06-19] MEDS: Miconazole 2% ointment 141 APPL/141 GM TUBE TP SCH ×2 (09:40→23:12)
[2020-06-19] MEDS: Cholecalciferol (D-3) 1,000 UNIT (25MCG) TABLET PO SCH (09:40)
[2020-06-19] MEDS: Acetaminophen 325 MG TABLET PO PRN ×2 (12:14→23:11)
[2020-06-19] MEDS ORDERED: *HR* Warfarin 5 MG TABLET PO ONE (18:00)
[2020-06-19] MEDS: Melatonin 3 MG TABLET PO SCH (23:12)
[2020-06-20] MEDS: Acetaminophen 325 MG TABLET PO PRN (05:34)
[2020-06-20 06:08] LABS: Hematocrit 27.7 % (35.3-44.9); Hemoglobin 8.4 g/dL (11.5-15.4); Immature Platelets 10.3 % (1.1-6.1); Mean Corpuscular HGB Conc 30.3 g/dL (31.6-35.5); Mean Corpuscular Hemoglobin 32.9 pg (28.0-33.3); Mean Corpuscular Volume 108.6 fL (83.0-100.0); Mean Platelet Volume 12.3 fL (9.4-12.4); Red Blood Count 2.55 M/mcL (3.82-4.97); Red Cell Distribution Width 14.6 % (11.5-14.5); White Blood Count 6.9 K/mcL (4.3-11.1)
[2020-06-20 06:13] LABS: INR 2.8; Prothrombin Time 31.4 Seconds (9.4-12.1)
[2020-06-20 06:27] LABS: Calcium 9.3 mg/dL (8.6-10.3); Potassium 4.4 mEq/L (3.5-5.1)
[2020-06-20] MEDS ORDERED: 0.9 % Sodium Chloride 250 ML IVC PRN (07:01)
[2020-06-20] MEDS: Insulin LISPRO 300 UNITS/3 ML VIAL SQ SCH ×2 (07:38→11:14)
[2020-06-20] MEDS: Heparin 25,000UNIT/250ML 1/2NS 25,000 UNIT/250 ML IV.SOLN IVC SCH (08:58)
[2020-06-20] MEDS: Furosemide 40 MG TABLET PO SCH (09:14)
[2020-06-20] MEDS: Miconazole 2% ointment 141 APPL/141 GM TUBE TP SCH (09:14)
[2020-06-20] MEDS: Metoprolol XL (24 HR) Succ 25 MG TAB.ER.24H PO SCH (09:14)
[2020-06-20] MEDS: Aspirin Enteric Coated 81 MG Tablet PO SCH (09:14)
[2020-06-20] MEDS: allopurinoL 100 MG TABLET PO SCH (09:14)
[2020-06-20] MEDS: Cholecalciferol (D-3) 1,000 UNIT (25MCG) TABLET PO SCH (09:14)
[2020-06-20] MEDS: Nystatin POWDER 30 GM BOTTLE TP SCH (09:15)
[2020-06-20] MEDS ORDERED: *HR* Heparin 10,000 UNIT/10 ML VIAL IV PRN (11:56)
[2020-06-20 14:33] VITALS: BP 135/69
[2020-06-20] MEDS ORDERED: *HR* Warfarin 4 MG TABLET PO ONE (18:00)
== END 2020-06-20 15:40 | DRG 673 ==
LOC: 2ANU → SUATTDRO 18:30 → 2NNU 06-05 14:21 → SUATTDRO 06-05 14:58 → 2ANU 06-07 14:22
PROVIDERS: ADMIT Family Medicine; ATTEND Internal Medicine
PROC: IRPERMA (2020-06-16 12:00)

== ENCOUNTER 2020-12-19 06:10 | Observation (INO) ==
[2020-12-19] MEDS ORDERED: Naloxone 0.4 MG/ML INJ IVP PRN ×2 (11:56→21:13)
[2020-12-19] MEDS ORDERED: *HR* Dextrose 50 % in Water (Vial) 50 ML VIAL IVP PRN (11:57)
[2020-12-19] MEDS ORDERED: D5% in Water 1,000 ML IVC PRN (11:57)
[2020-12-19] MEDS ORDERED: Dextrose Gel 15 GM/37.5 ML TUBE PO PRN ×2 (11:57)
[2020-12-19 12:37] LABS: Basophils % 0.5 %; Eosinophils # 0.2 K/mcL (0.0-0.6); Hematocrit 31.3 % (35.3-44.9); Hemoglobin 9.3 g/dL (11.5-15.4); Immature Granulocytes % 0.4 % (0-4); Lymphocytes # 0.6 K/mcL (0.6-4.6); Lymphocytes % 11.5 %; Mean Corpuscular HGB Conc 29.7 g/dL (31.6-35.5); Mean Corpuscular Hemoglobin 33.2 pg (28.0-33.3); Mean Corpuscular Volume 111.8 fL (83.0-100.0); Mean Platelet Volume 11.3 fL (9.4-12.4); Monocytes # 0.5 K/mcL (0.0-1.3); Monocytes % 9.7 %; Neutrophils # 4.2 K/mcL (1.6-8.9); Platelet Count 126 K/mcL (140-400); Red Cell Distribution Width 16.2 % (11.5-14.5); Segmented Neutrophils % 74.9 %; White Blood Count 5.6 K/mcL (4.3-11.1)
[2020-12-19 12:39] LABS: INR 3.2
[2020-12-19 12:51] LABS: Calcium 8.8 mg/dL (8.6-10.3); Potassium 4.5 mEq/L (3.5-5.1)
[2020-12-19 12:56] LABS: Macrocytosis Present (Not Present)
[2020-12-19 12:57] LABS: Large Platelets Present (Not Present); Platelet Estimate Slight Decrease (Normal)
[2020-12-19 12:58] LABS: Polychromasia 1+ (Not Present)
[2020-12-19 18:39] LABS: Hematocrit 30.5 % (35.3-44.9)
[2020-12-19] MEDS: Insulin LISPRO 300 UNITS/3 ML VIAL SUBQ SCH (20:23)
[2020-12-19] MEDS: Nystatin POWDER 30 GM BOTTLE TP SCH ×2 (20:23→20:42)
[2020-12-19] MEDS ORDERED: Insulin LISPRO 300 UNITS/3 ML VIAL SUBQ SCH (21:00)
[2020-12-19] MEDS ORDERED: Melatonin 3 MG TABLET PO PRN (21:03)
[2020-12-19] MEDS ORDERED: *HR* HYDROcodone/Acet 5/325 mg TABLET PO PRN (21:13)
[2020-12-19] MEDS ORDERED: Acetaminophen 325 MG TABLET PO PRN (21:13)
[2020-12-20] MEDS: Insulin LISPRO 300 UNITS/3 ML VIAL SUBQ SCH ×2 (09:23→13:12)
[2020-12-20] MEDS: Nystatin POWDER 30 GM BOTTLE TP SCH (09:24)
[2020-12-20 13:09] VITALS: BP 142/71
[2020-12-20] MEDS ORDERED: Pantoprazole 40 MG VIAL IVP SCH (18:00)
== END 2020-12-20 13:42 ==
LOC: 2ANU
PROVIDERS: ADMIT Student in an Organized Health Care Education/Training Program; ATTEND Student in an Organized Health Care Education/Training Program

== ENCOUNTER 2021-02-10 10:03 | Inpatient (IN) ==
[2021-02-10] MEDS ORDERED: Naloxone 0.4 MG/ML INJ IVP PRN (13:51)
[2021-02-10] MEDS ORDERED: Ondansetron ODT 4 MG TAB.RAPDIS PO PRN (14:53)
[2021-02-10] MEDS ORDERED: Nitroglycerin 0.4 MG TAB.SUBL SL PRN (14:53)
[2021-02-10] MEDS ORDERED: Dextrose Gel 15 GM/37.5 ML TUBE PO PRN ×2 (15:03)
[2021-02-10] MEDS ORDERED: D5% in Water 1,000 ML IVC PRN (15:03)
[2021-02-10] MEDS ORDERED: *HR* Dextrose 50 % in Water (Vial) 50 ML VIAL IVP PRN (15:03)
[2021-02-10 16:00] LABS: INR 2.1; Prothrombin Time 24.3 Seconds (9.4-12.1)
[2021-02-10] MEDS ORDERED: *HR* Heparin 10,000 UNIT/10 ML VIAL IV PRN ×2 (16:10)
[2021-02-10] MEDS ORDERED: 0.9 % Sodium Chloride 250 ML IVC PRN (16:10)
[2021-02-10] MEDS ORDERED: 0.9 % Sodium Chloride 1,000 ML PRIME SCH (16:15)
[2021-02-10] MEDS ORDERED: 0.9 % Sodium Chloride 1,000 ML ONE (16:19)
[2021-02-10 16:43] LABS: Estimated Average Glucose 100 mg/dl; Hemoglobin A1C 5.1 %
[2021-02-10 17:03] LABS: Hepatitis B Surface Antibody < 3.10 mIU/mL
[2021-02-10] MEDS: Insulin LISPRO 300 UNITS/3 ML VIAL SUBQ SCH (17:12)
[2021-02-10 17:14] LABS: Hepatitis B Surface Antigen Nonreactive (Nonreactive)
[2021-02-10] MEDS: Gabapentin 300 MG CAPSULE PO SCH (21:32)
[2021-02-11] MEDS: Insulin LISPRO 300 UNITS/3 ML VIAL SUBQ SCH ×4 (01:53→18:09)
[2021-02-11 05:26] LABS: INR 1.9; Prothrombin Time 21.6 Seconds (9.4-12.1)
[2021-02-11 06:13] LABS: Basophils % 0.3 %; Immature Granulocytes % 0.3 % (0-4)
[2021-02-11 06:15] LABS: Eosinophils # 0.1 K/mcL (0.0-0.6); Eosinophils % 1.4 %; Hemoglobin 12.5 g/dL (11.5-15.4); Immature Platelets 7.4 % (1.1-6.1); Lymphocytes # 0.8 K/mcL (0.6-4.6); Lymphocytes % 9.3 %; Mean Corpuscular HGB Conc 29.8 g/dL (31.6-35.5); Mean Corpuscular Hemoglobin 33.2 pg (28.0-33.3); Mean Corpuscular Volume 111.7 fL (83.0-100.0); Mean Platelet Volume 13.2 fL (9.4-12.4); Monocytes # 0.6 K/mcL (0.0-1.3); Monocytes % 6.4 %; Neutrophils # 7.2 K/mcL (1.6-8.9); Red Blood Count 3.76 M/mcL (3.82-4.97); Segmented Neutrophils % 82.3 %; White Blood Count 8.8 K/mcL (4.3-11.1)
[2021-02-11 06:17] LABS: Platelet Count 74 K/mcL (140-400)
[2021-02-11 06:39] LABS: Troponin I 0.37 ng/mL (< 0.04)
[2021-02-11 06:47] LABS: Platelet Estimate Slight Decrease (Normal)
[2021-02-11 06:50] LABS: Calcium 9.1 mg/dL (8.6-10.3); Potassium 4.4 mEq/L (3.5-5.1)
[2021-02-11] MEDS ORDERED: *HR* Heparin 5,000 UNIT/ML VIAL IVP ONE (07:31)
[2021-02-11] MEDS ORDERED: *HR* Heparin 5,000 UNIT/ML VIAL IVP PRN ×2 (07:31)
[2021-02-11] MEDS ORDERED: *HR* Metoprolol 5 MG/5 ML VIAL IVP PRN (07:35)
[2021-02-11] MEDS ORDERED: *HR* Metoprolol 5 MG/5 ML VIAL IVP ONE (07:48)
[2021-02-11] MEDS: Aspirin Enteric Coated 81 MG Tablet PO SCH (08:13)
[2021-02-11] MEDS: Metoprolol XL (24 HR) Succ 25 MG TAB.ER.24H PO SCH ×2 (08:13→08:23)
[2021-02-11] MEDS: Heparin 25,000UNIT/250ML 1/2NS 25,000 UNIT/250 ML IV.SOLN IVC SCH ×2 (09:08→21:27)
[2021-02-11] MEDS: Isosorbide MONOnitrate (24 HR) 30 MG TAB.ER.24H PO SCH (15:49)
[2021-02-11] MEDS: Gabapentin 300 MG CAPSULE PO SCH (19:21)
[2021-02-12] MEDS: Insulin LISPRO 300 UNITS/3 ML VIAL SUBQ SCH ×4 (00:21→17:38)
[2021-02-12 01:08] LABS: Lymphocytes % 9.6 %
[2021-02-12 01:10] LABS: Basophils % 0.3 %; Eosinophils # 0.1 K/mcL (0.0-0.6); Eosinophils % 0.8 %; Hematocrit 32.7 % (35.3-44.9); Hemoglobin 9.8 g/dL (11.5-15.4); Immature Granulocytes % 0.6 % (0-4); Immature Platelets 9.2 % (1.1-6.1); Lymphocytes # 0.7 K/mcL (0.6-4.6); Mean Corpuscular Hemoglobin 32.3 pg (28.0-33.3); Mean Corpuscular Volume 107.9 fL (83.0-100.0); Mean Platelet Volume 12.6 fL (9.4-12.4); Monocytes # 0.6 K/mcL (0.0-1.3); Monocytes % 8.4 %; Neutrophils # 5.7 K/mcL (1.6-8.9); Red Blood Count 3.03 M/mcL (3.82-4.97); Red Cell Distribution Width 14.9 % (11.5-14.5); Segmented Neutrophils % 80.3 %; White Blood Count 7.1 K/mcL (4.3-11.1)
[2021-02-12 01:17] LABS: Platelet Count 72 K/mcL (140-400)
[2021-02-12 01:27] LABS: INR 1.8; Prothrombin Time 20.8 Seconds (9.4-12.1)
[2021-02-12 01:48] LABS: Calcium 8.6 mg/dL (8.6-10.3); Potassium 4.5 mEq/L (3.5-5.1)
[2021-02-12] MEDS: Aspirin Enteric Coated 81 MG Tablet PO SCH (07:46)
[2021-02-12] MEDS: Isosorbide MONOnitrate (24 HR) 30 MG TAB.ER.24H PO SCH (07:46)
[2021-02-12] MEDS: Metoprolol XL (24 HR) Succ 25 MG TAB.ER.24H PO SCH (07:46)
[2021-02-12] MEDS ORDERED: 0.9 % Sodium Chloride 250 ML IVC PRN (07:48)
[2021-02-12] MEDS ORDERED: *HR* Heparin 10,000 UNIT/10 ML VIAL IV PRN ×2 (07:48)
[2021-02-12] MEDS: Heparin 25,000UNIT/250ML 1/2NS 25,000 UNIT/250 ML IV.SOLN IVC SCH ×2 (11:04→13:28)
[2021-02-12] MEDS: Gabapentin 300 MG CAPSULE PO SCH (21:10)
[2021-02-13] MEDS: Insulin LISPRO 300 UNITS/3 ML VIAL SUBQ SCH ×4 (01:54→18:04)
[2021-02-13 03:26] LABS: Basophils % 0.3 %; Eosinophils # 0.1 K/mcL (0.0-0.6); Eosinophils % 1.8 %; Immature Granulocytes % 0.5 % (0-4); Monocytes # 0.5 K/mcL (0.0-1.3); Monocytes % 8.5 %; White Blood Count 6.1 K/mcL (4.3-11.1)
[2021-02-13 03:28] LABS: Hematocrit 32.7 % (35.3-44.9); Hemoglobin 9.9 g/dL (11.5-15.4); Immature Platelets 9.9 % (1.1-6.1); Lymphocytes # 0.5 K/mcL (0.6-4.6); Lymphocytes % 8.5 %; Mean Corpuscular HGB Conc 30.3 g/dL (31.6-35.5); Mean Corpuscular Hemoglobin 32.9 pg (28.0-33.3); Mean Corpuscular Volume 108.6 fL (83.0-100.0); Mean Platelet Volume 12.6 fL (9.4-12.4); Neutrophils # 4.9 K/mcL (1.6-8.9); Red Blood Count 3.01 M/mcL (3.82-4.97); Red Cell Distribution Width 14.8 % (11.5-14.5); Segmented Neutrophils % 80.4 %
[2021-02-13] MEDS: Heparin 25,000UNIT/250ML 1/2NS 25,000 UNIT/250 ML IV.SOLN IVC SCH ×2 (03:30→19:38)
[2021-02-13 03:38] LABS: Platelet Count 75 K/mcL (140-400)
[2021-02-13 03:42] LABS: Calcium 8.3 mg/dL (8.6-10.3)
[2021-02-13 05:35] LABS: Platelet Estimate Normal (Normal)
[2021-02-13 05:36] LABS: Hypochromasia Present (Not Present)
[2021-02-13 07:19] LABS: Heparin anti-factor XA UFH 0.49 IU/mL (0.30-0.70)
[2021-02-13 07:44] LABS: INR 1.5; Prothrombin Time 17.4 Seconds (9.4-12.1)
[2021-02-13] MEDS: Isosorbide MONOnitrate (24 HR) 30 MG TAB.ER.24H PO SCH (07:56)
[2021-02-13] MEDS: Aspirin Enteric Coated 81 MG Tablet PO SCH (07:56)
[2021-02-13] MEDS: Gabapentin 300 MG CAPSULE PO SCH (19:37)
[2021-02-14] MEDS: Insulin LISPRO 300 UNITS/3 ML VIAL SUBQ SCH ×4 (00:24→19:38)
[2021-02-14 07:12] LABS: Basophils % 0.4 %; Red Blood Count 3.35 M/mcL (3.82-4.97); Red Cell Distribution Width 14.6 % (11.5-14.5); Segmented Neutrophils % 68.6 %
[2021-02-14 07:13] LABS: Eosinophils # 0.2 K/mcL (0.0-0.6); Eosinophils % 3.2 %; Hematocrit 35.7 % (35.3-44.9); Hemoglobin 10.7 g/dL (11.5-15.4); Immature Granulocytes % 0.6 % (0-4); Immature Platelets 8.4 % (1.1-6.1); Lymphocytes # 0.8 K/mcL (0.6-4.6); Lymphocytes % 17.2 %; Mean Corpuscular Hemoglobin 31.9 pg (28.0-33.3); Mean Corpuscular Volume 106.6 fL (83.0-100.0); Mean Platelet Volume 12.3 fL (9.4-12.4); Monocytes # 0.5 K/mcL (0.0-1.3); Neutrophils # 3.2 K/mcL (1.6-8.9); White Blood Count 4.7 K/mcL (4.3-11.1)
[2021-02-14 07:24] LABS: Platelet Count 76 K/mcL (140-400)
[2021-02-14 07:25] LABS: Calcium 8.9 mg/dL (8.6-10.3); Potassium 4.4 mEq/L (3.5-5.1)
[2021-02-14] MEDS: Isosorbide MONOnitrate (24 HR) 30 MG TAB.ER.24H PO SCH (08:08)
[2021-02-14] MEDS: Aspirin Enteric Coated 81 MG Tablet PO SCH (08:08)
[2021-02-14] MEDS: Heparin 25,000UNIT/250ML 1/2NS 25,000 UNIT/250 ML IV.SOLN IVC SCH ×2 (11:59→19:46)
[2021-02-14] MEDS: Gabapentin 300 MG CAPSULE PO SCH (19:46)
[2021-02-15] MEDS: Insulin LISPRO 300 UNITS/3 ML VIAL SUBQ SCH ×4 (00:47→17:33)
[2021-02-15] MEDS: Heparin 25,000UNIT/250ML 1/2NS 25,000 UNIT/250 ML IV.SOLN IVC SCH (04:30)
[2021-02-15 06:33] LABS: Red Cell Distribution Width 14.6 % (11.5-14.5)
[2021-02-15 06:35] LABS: Basophils % 0.2 %; Eosinophils # 0.2 K/mcL (0.0-0.6); Eosinophils % 4.4 %; Hematocrit 33.5 % (35.3-44.9); Hemoglobin 10.2 g/dL (11.5-15.4); Immature Granulocytes % 0.9 % (0-4); Immature Platelets 7.4 % (1.1-6.1); Lymphocytes # 0.8 K/mcL (0.6-4.6); Lymphocytes % 18.1 %; Mean Corpuscular HGB Conc 30.4 g/dL (31.6-35.5); Mean Corpuscular Hemoglobin 32.7 pg (28.0-33.3); Mean Corpuscular Volume 107.4 fL (83.0-100.0); Mean Platelet Volume 12.4 fL (9.4-12.4); Monocytes # 0.5 K/mcL (0.0-1.3); Monocytes % 11.2 %; Red Blood Count 3.12 M/mcL (3.82-4.97); Segmented Neutrophils % 65.2 %; White Blood Count 4.5 K/mcL (4.3-11.1)
[2021-02-15 06:41] LABS: INR 1.3; Prothrombin Time 14.9 Seconds (9.4-12.1)
[2021-02-15 06:42] LABS: Neutrophils # 2.9 K/mcL (1.6-8.9); Platelet Count 77 K/mcL (140-400)
[2021-02-15 06:54] LABS: Potassium 4.2 mEq/L (3.5-5.1)
[2021-02-15] MEDS ORDERED: *HR* Heparin 10,000 UNIT/10 ML VIAL IV PRN (07:58)
[2021-02-15] MEDS ORDERED: 0.9 % Sodium Chloride 250 ML IVC PRN (07:58)
[2021-02-15] MEDS ORDERED: 0.9 % Sodium Chloride 1,000 ML PRIME SCH (08:00)
[2021-02-15] MEDS: Isosorbide MONOnitrate (24 HR) 30 MG TAB.ER.24H PO SCH (08:12)
[2021-02-15] MEDS: Aspirin Enteric Coated 81 MG Tablet PO SCH (08:12)
[2021-02-15] MEDS ORDERED: Nitroglycerin 1,000 MCG/5 ML VIAL IV ONE (11:11)
[2021-02-15] MEDS ORDERED: *HR* Heparin 10,000 UNIT/10 ML VIAL ONE (11:11)
[2021-02-15] MEDS ORDERED: Heparin 1,000 UNITS/500 mL 500 ML ONE (11:11)
[2021-02-15] MEDS ORDERED: 0.9 % Sodium Chloride 2,000 ML ONE (11:11)
[2021-02-15] MEDS ORDERED: ISOVUE-370 200 ML INFUS..BTL ONE (11:11)
[2021-02-15] MEDS ORDERED: *HR* FentaNYL (PF) 100 MCG/2 ML VIAL ONE (11:33)
[2021-02-15] MEDS ORDERED: *HR* Midazolam HCl 2 MG/2 ML VIAL ONE (11:33)
[2021-02-15] MEDS ORDERED: Nystatin POWDER 30 GM BOTTLE TP SCH (15:00)
[2021-02-15 15:44] LABS: INR 1.2; Prothrombin Time 14.2 Seconds (9.4-12.1)
[2021-02-15 17:22] VITALS: BP 127/82
[2021-02-15] MEDS ORDERED: Warfarin perPT PO PRN (18:00)
[2021-02-15] MEDS ORDERED: *HR* Warfarin 5 MG TABLET PO ONE (18:00)
== END 2021-02-15 18:39 | DRG 280 ==
LOC: 2ANU → SUATTDRO 12:02 → 2ANU 12:08
PROVIDERS: ADMIT Internal Medicine; ATTEND Student in an Organized Health Care Education/Training Program

== ENCOUNTER 2021-03-29 13:03 | Inpatient (IN) ==
[2021-03-29] MEDS ORDERED: Ondansetron 4 MG/2 ML VIAL IVP PRN (15:46)
[2021-03-29] MEDS ORDERED: Naloxone 0.4 MG/ML INJ IVP PRN (15:46)
[2021-03-29] MEDS ORDERED: Dextrose Gel 15 GM/37.5 ML TUBE PO PRN ×2 (15:49)
[2021-03-29] MEDS ORDERED: D5% in Water 1,000 ML IVC PRN (15:49)
[2021-03-29] MEDS ORDERED: *HR* Dextrose 50 % in Water (Vial) 50 ML VIAL IVP PRN (15:49)
[2021-03-29] MEDS ORDERED: Ipratropium/Albuterol Neb 3 ML IH PRN (16:29)
[2021-03-29 16:41] LABS: Hemoglobin 9.9 g/dL (11.5-15.4); Immature Granulocytes % 0.7 % (0-4)
[2021-03-29 16:43] LABS: Immature Platelets 8.6 % (1.1-6.1)
[2021-03-29 16:49] LABS: ABG Base Excess 5 mEq/L (-2 to 3); ABG HCO3 32 mEq/L (21-27); ABG Oxygen Saturation 99 % (95-98); ABG PCO2 61 mmHg (35-45); ABG PH 7.33 pH Units (7.32-7.45); ABG PO2 167 mmHg (85-104); ABG TCO2 34 mEq/L (20-26)
[2021-03-29 16:56] LABS: Basophils % 0.2 %; Eosinophils # 0.1 K/mcL (0.0-0.6); Eosinophils % 0.9 %; Lymphocytes # 0.4 K/mcL (0.6-4.6); Lymphocytes % 2.9 %; Mean Corpuscular Hemoglobin 32.8 pg (28.0-33.3); Mean Corpuscular Volume 109.3 fL (83.0-100.0); Mean Platelet Volume 12.4 fL (9.4-12.4); Monocytes # 0.6 K/mcL (0.0-1.3); Monocytes % 4.3 %; Neutrophils # 13.4 K/mcL (1.6-8.9); Red Blood Count 3.02 M/mcL (3.82-4.97); Red Cell Distribution Width 14.9 % (11.5-14.5); White Blood Count 14.7 K/mcL (4.3-11.1)
[2021-03-29 17:00] LABS: Prothrombin Time 22.3 Seconds (9.4-12.1)
[2021-03-29] MEDS: Insulin LISPRO 300 UNITS/3 ML VIAL SUBQ SCH (17:09)
[2021-03-29 17:13] LABS: Albumin 3.6 g/dL (3.5-5.7); Albumin/Globulin Ratio 1.3 (1.1-2.2); Bilirubin,Total 0.7 mg/dL (0.3-1.0); Calcium 9.1 mg/dL (8.6-10.3); Globulin 2.7 g/dL (2.4-3.5); Magnesium 1.8 mg/dL (1.6-2.6); Phosphorous 4.3 mg/dL (2.7-4.5); Potassium 4.9 mEq/L (3.5-5.1); Total Protein 6.3 g/dL (6.4-8.9)
[2021-03-29] MEDS ORDERED: Nitroglycerin 0.4 MG TAB.SUBL SL PRN (17:13)
[2021-03-29 17:16] LABS: Platelet Count 88 K/mcL (140-400)
[2021-03-29 17:17] LABS: Platelet Estimate Marked Decrease (Normal)
[2021-03-29 17:18] LABS: Hypochromasia Present (Not Present)
[2021-03-29] MEDS ORDERED: Simethicone 80 MG TAB.CHEW PO PRN (17:42)
[2021-03-29] MEDS ORDERED: Warfarin perPT PO SCH (18:00)
[2021-03-29] MEDS ORDERED: rOPINIRole 0.25 MG TABLET PO SCH (18:00)
[2021-03-29] MEDS ORDERED: *HR* Warfarin 4 MG TABLET PO ONE (18:00)
[2021-03-29 18:51] LABS: Hepatitis B Surface Antibody < 3.10 mIU/mL
[2021-03-29 19:02] LABS: Hepatitis B Surface Antigen Nonreactive (Nonreactive)
[2021-03-29] MEDS: Piperacillin/Tazobactam 3.375 GM in 0.9 % Sodium Chloride Mini Bag 100 ML IVPB SCH (20:31)
[2021-03-29] MEDS: rOPINIRole 0.25 MG TABLET PO SCH (20:33)
[2021-03-29] MEDS: Nystatin POWDER 30 GM BOTTLE TP SCH (20:34)
[2021-03-30 06:50] LABS: INR 1.7; Prothrombin Time 19.2 Seconds (9.4-12.1)
[2021-03-30 07:21] LABS: Troponin I 0.04 ng/mL (< 0.04)
[2021-03-30 07:44] LABS: Calcium 8.6 mg/dL (8.6-10.3); Potassium 4.9 mEq/L (3.5-5.1)
[2021-03-30] MEDS ORDERED: 0.9 % Sodium Chloride 250 ML IVC PRN (08:14)
[2021-03-30] MEDS ORDERED: *HR* Heparin 10,000 UNIT/10 ML VIAL IV PRN ×2 (08:14→08:41)
[2021-03-30] MEDS ORDERED: 0.9 % Sodium Chloride 1,000 ML PRIME SCH (08:15)
[2021-03-30] MEDS: Insulin LISPRO 300 UNITS/3 ML VIAL SUBQ SCH ×3 (08:45→18:26)
[2021-03-30] MEDS: Aspirin Enteric Coated 81 MG Tablet PO SCH (08:46)
[2021-03-30] MEDS: allopurinoL 100 MG TABLET PO SCH (08:56)
[2021-03-30] MEDS: Nystatin POWDER 30 GM BOTTLE TP SCH ×2 (08:58→21:44)
[2021-03-30] MEDS: Metoprolol XL (24 HR) Succ 25 MG TAB.ER.24H PO SCH (13:49)
[2021-03-30] MEDS: Piperacillin/Tazobactam 3.375 GM in 0.9 % Sodium Chloride Mini Bag 100 ML IVPB SCH ×2 (14:02→18:17)
[2021-03-30] MEDS ORDERED: Simethicone 80 MG TAB.CHEW PO PRN (14:23)
[2021-03-30] MEDS ORDERED: *HR* Warfarin 5 MG TABLET PO ONE (18:00)
[2021-03-30] MEDS: rOPINIRole 0.25 MG TABLET PO SCH ×3 (18:16→21:43)
[2021-03-30] MEDS: Furosemide 40 MG TABLET PO SCH (18:17)
[2021-03-30] MEDS: Sennosides/Docusate Sodium TABLET PO SCH (21:43)
[2021-03-30] MEDS: Apixaban 5 MG TABLET PO SCH (21:43)
[2021-03-30] MEDS: Gabapentin 300 MG CAPSULE PO SCH (21:43)
[2021-03-31] MEDS: Piperacillin/Tazobactam 3.375 GM in 0.9 % Sodium Chloride Mini Bag 100 ML IVPB SCH ×2 (05:46→16:25)
[2021-03-31 05:56] LABS: Basophils % 0.6 %; Eosinophils % 4.8 %; Hematocrit 31.9 % (35.3-44.9); Red Cell Distribution Width 14.7 % (11.5-14.5)
[2021-03-31 05:58] LABS: Eosinophils # 0.3 K/mcL (0.0-0.6); Hemoglobin 9.6 g/dL (11.5-15.4); Immature Granulocytes % 0.6 % (0-4); Immature Platelets 7.7 % (1.1-6.1); Lymphocytes # 0.7 K/mcL (0.6-4.6); Lymphocytes % 12.8 %; Mean Corpuscular HGB Conc 30.1 g/dL (31.6-35.5); Mean Corpuscular Hemoglobin 32.5 pg (28.0-33.3); Mean Corpuscular Volume 108.1 fL (83.0-100.0); Mean Platelet Volume 12.4 fL (9.4-12.4); Monocytes # 0.6 K/mcL (0.0-1.3); Monocytes % 10.7 %; Neutrophils # 3.7 K/mcL (1.6-8.9); Red Blood Count 2.95 M/mcL (3.82-4.97); Segmented Neutrophils % 70.5 %; White Blood Count 5.2 K/mcL (4.3-11.1)
[2021-03-31 06:00] LABS: Platelet Count 85 K/mcL (140-400)
[2021-03-31 06:08] LABS: INR 1.6; Prothrombin Time 18.2 Seconds (9.4-12.1)
[2021-03-31 06:10] LABS: Calcium 8.7 mg/dL (8.6-10.3); Magnesium 1.9 mg/dL (1.6-2.6); Potassium 4.3 mEq/L (3.5-5.1)
[2021-03-31] MEDS: Insulin LISPRO 300 UNITS/3 ML VIAL SUBQ SCH ×3 (07:35→18:04)
[2021-03-31] MEDS: Aspirin Enteric Coated 81 MG Tablet PO SCH (07:45)
[2021-03-31] MEDS: Apixaban 5 MG TABLET PO SCH ×2 (07:45→21:53)
[2021-03-31] MEDS: allopurinoL 100 MG TABLET PO SCH (07:46)
[2021-03-31] MEDS: polyethylene glycoL 3350 17 GM POWD.PACK PO SCH (07:46)
[2021-03-31] MEDS: Isosorbide MONOnitrate (24 HR) 30 MG TAB.ER.24H PO SCH (07:46)
[2021-03-31] MEDS: Furosemide 40 MG TABLET PO SCH ×2 (07:46→16:25)
[2021-03-31] MEDS: Sennosides/Docusate Sodium TABLET PO SCH ×2 (07:46→21:53)
[2021-03-31] MEDS: Cholecalciferol (D-3) 1,000 UNIT (25MCG) TABLET PO SCH (07:46)
[2021-03-31] MEDS: Nystatin POWDER 30 GM BOTTLE TP SCH ×2 (07:47→21:54)
[2021-03-31] MEDS ORDERED: 0.9 % Sodium Chloride 250 ML IVC PRN (07:51)
[2021-03-31] MEDS ORDERED: *HR* Heparin 10,000 UNIT/10 ML VIAL IV PRN ×2 (07:51)
[2021-03-31] MEDS ORDERED: 0.9 % Sodium Chloride 1,000 ML PRIME SCH (08:00)
[2021-03-31] MEDS: Metoprolol XL (24 HR) Succ 25 MG TAB.ER.24H PO SCH (10:11)
[2021-03-31] MEDS: lisinopriL 5 MG TABLET PO SCH (10:12)
[2021-03-31] MEDS: rOPINIRole 0.25 MG TABLET PO SCH ×2 (16:25→21:53)
[2021-03-31] MEDS: Gabapentin 300 MG CAPSULE PO SCH (21:53)
[2021-04-01 02:28] LABS: Immature Granulocytes % 0.4 % (0-4)
[2021-04-01 02:30] LABS: Basophils % 0.6 %; Eosinophils # 0.2 K/mcL (0.0-0.6); Eosinophils % 4.6 %; Hematocrit 31.9 % (35.3-44.9); Hemoglobin 9.6 g/dL (11.5-15.4); Immature Platelets 7.1 % (1.1-6.1); Lymphocytes # 0.7 K/mcL (0.6-4.6); Lymphocytes % 14.3 %; Mean Corpuscular HGB Conc 30.1 g/dL (31.6-35.5); Mean Corpuscular Hemoglobin 31.9 pg (28.0-33.3); Mean Platelet Volume 11.9 fL (9.4-12.4); Monocytes # 0.5 K/mcL (0.0-1.3); Monocytes % 9.7 %; Red Blood Count 3.01 M/mcL (3.82-4.97); Red Cell Distribution Width 14.7 % (11.5-14.5); Segmented Neutrophils % 70.4 %; White Blood Count 4.8 K/mcL (4.3-11.1)
[2021-04-01 02:31] LABS: Neutrophils # 3.4 K/mcL (1.6-8.9); Platelet Count 87 K/mcL (140-400)
[2021-04-01 02:35] LABS: INR 1.7
[2021-04-01 02:47] LABS: Calcium 8.8 mg/dL (8.6-10.3); Magnesium 1.9 mg/dL (1.6-2.6); Phosphorous 3.9 mg/dL (2.7-4.5); Potassium 4.1 mEq/L (3.5-5.1)
[2021-04-01] MEDS: Piperacillin/Tazobactam 3.375 GM in 0.9 % Sodium Chloride Mini Bag 100 ML IVPB SCH ×2 (05:29→16:57)
[2021-04-01] MEDS: Metoprolol XL (24 HR) Succ 25 MG TAB.ER.24H PO SCH (08:06)
[2021-04-01] MEDS: Cholecalciferol (D-3) 1,000 UNIT (25MCG) TABLET PO SCH (08:06)
[2021-04-01] MEDS: Aspirin Enteric Coated 81 MG Tablet PO SCH (08:06)
[2021-04-01] MEDS: Isosorbide MONOnitrate (24 HR) 30 MG TAB.ER.24H PO SCH (08:06)
[2021-04-01] MEDS: Apixaban 5 MG TABLET PO SCH ×2 (08:06→21:24)
[2021-04-01] MEDS: allopurinoL 100 MG TABLET PO SCH (08:06)
[2021-04-01] MEDS: Nystatin POWDER 30 GM BOTTLE TP SCH ×2 (08:06→21:25)
[2021-04-01] MEDS: Sennosides/Docusate Sodium TABLET PO SCH ×2 (08:07→21:25)
[2021-04-01] MEDS: Furosemide 40 MG TABLET PO SCH ×2 (08:07→16:57)
[2021-04-01] MEDS: lisinopriL 5 MG TABLET PO SCH (08:07)
[2021-04-01] MEDS: polyethylene glycoL 3350 17 GM POWD.PACK PO SCH (08:07)
[2021-04-01] MEDS: Insulin LISPRO 300 UNITS/3 ML VIAL SUBQ SCH ×3 (08:07→16:51)
[2021-04-01] MEDS: rOPINIRole 0.25 MG TABLET PO SCH ×2 (16:57→21:25)
[2021-04-01] MEDS: Gabapentin 300 MG CAPSULE PO SCH (21:24)
[2021-04-01] MEDS: Melatonin 3 MG TABLET PO SCH (21:25)
[2021-04-02 03:47] LABS: Basophils % 0.6 %; Eosinophils # 0.2 K/mcL (0.0-0.6); Eosinophils % 4.4 %; Hematocrit 32.5 % (35.3-44.9); Hemoglobin 9.7 g/dL (11.5-15.4); Immature Granulocytes % 0.4 % (0-4); Immature Platelets 7.1 % (1.1-6.1); Lymphocytes % 13.7 %; Mean Corpuscular HGB Conc 29.8 g/dL (31.6-35.5); Mean Corpuscular Hemoglobin 32.6 pg (28.0-33.3); Mean Corpuscular Volume 109.1 fL (83.0-100.0); Mean Platelet Volume 12.3 fL (9.4-12.4); Monocytes # 0.5 K/mcL (0.0-1.3); Monocytes % 10.6 %; Neutrophils # 3.3 K/mcL (1.6-8.9); Red Blood Count 2.98 M/mcL (3.82-4.97); Red Cell Distribution Width 14.5 % (11.5-14.5); Segmented Neutrophils % 70.3 %; White Blood Count 4.7 K/mcL (4.3-11.1)
[2021-04-02 03:48] LABS: Lymphocytes # 0.6 K/mcL (0.6-4.6); Platelet Count 90 K/mcL (140-400)
[2021-04-02 03:54] LABS: INR 1.6; Prothrombin Time 18.5 Seconds (9.4-12.1)
[2021-04-02 04:06] LABS: Calcium 8.9 mg/dL (8.6-10.3); Phosphorous 4.8 mg/dL (2.7-4.5); Potassium 4.6 mEq/L (3.5-5.1)
[2021-04-02] MEDS: Piperacillin/Tazobactam 3.375 GM in 0.9 % Sodium Chloride Mini Bag 100 ML IVPB SCH ×2 (06:09→17:05)
[2021-04-02] MEDS: Furosemide 40 MG TABLET PO SCH ×2 (07:40→17:07)
[2021-04-02] MEDS: allopurinoL 100 MG TABLET PO SCH (07:40)
[2021-04-02] MEDS: Aspirin Enteric Coated 81 MG Tablet PO SCH (07:40)
[2021-04-02] MEDS: Cholecalciferol (D-3) 1,000 UNIT (25MCG) TABLET PO SCH (07:40)
[2021-04-02] MEDS: Apixaban 5 MG TABLET PO SCH ×2 (07:40→21:24)
[2021-04-02] MEDS: Isosorbide MONOnitrate (24 HR) 30 MG TAB.ER.24H PO SCH (07:40)
[2021-04-02] MEDS: polyethylene glycoL 3350 17 GM POWD.PACK PO SCH (07:41)
[2021-04-02] MEDS: lisinopriL 5 MG TABLET PO SCH (07:41)
[2021-04-02] MEDS: Sennosides/Docusate Sodium TABLET PO SCH ×2 (07:41→21:25)
[2021-04-02] MEDS: Metoprolol XL (24 HR) Succ 25 MG TAB.ER.24H PO SCH (07:41)
[2021-04-02] MEDS: Insulin LISPRO 300 UNITS/3 ML VIAL SUBQ SCH ×3 (07:41→17:05)
[2021-04-02] MEDS: Nystatin POWDER 30 GM BOTTLE TP SCH ×2 (07:45→21:45)
[2021-04-02] MEDS ORDERED: *HR* Heparin 10,000 UNIT/10 ML VIAL IV PRN (08:00)
[2021-04-02] MEDS ORDERED: 0.9 % Sodium Chloride 250 ML IVC PRN (08:00)
[2021-04-02] MEDS: rOPINIRole 0.25 MG TABLET PO SCH ×2 (17:08→21:25)
[2021-04-02 19:47] VITALS: BP 127/52
[2021-04-02] MEDS: Melatonin 3 MG TABLET PO SCH (21:25)
[2021-04-02] MEDS: Gabapentin 300 MG CAPSULE PO SCH (21:25)
== END 2021-04-02 22:17 | DRG 291 ==
LOC: 2ANU → SUATTDRO 15:26
PROVIDERS: ADMIT Internal Medicine; ATTEND Internal Medicine

== ENCOUNTER 2021-08-31 17:02 | Observation (INO) ==
[2021-08-31] MEDS ORDERED: Acetaminophen 325 MG TABLET PO PRN (23:39)
[2021-09-01] MEDS ORDERED: Ondansetron ODT 4 MG TAB.RAPDIS PO PRN (00:15)
[2021-09-01] MEDS ORDERED: Nitroglycerin 0.4 MG TAB.SUBL SL PRN (00:15)
[2021-09-01] MEDS ORDERED: Dextrose Gel 15 GM/37.5 ML TUBE PO PRN ×2 (00:19)
[2021-09-01] MEDS ORDERED: D5% in Water 1,000 ML IVC PRN (00:19)
[2021-09-01] MEDS ORDERED: *HR* Dextrose 50 % in Water (Syg) 50 ML SYRINGE IVP PRN (00:19)
[2021-09-01] MEDS ORDERED: Naloxone 0.4 MG/ML INJ IVP PRN (00:22)
[2021-09-01] MEDS ORDERED: Albuterol 2.5 MG/3 ML NEBULIZER IH PRN (00:31)
[2021-09-01] MEDS ORDERED: Perflutren Lipid Microsphere 1.3 ML in 0.9 % Sodium Chloride 8.7 ML IVP PRN (00:36)
[2021-09-01] MEDS: Gabapentin 300 MG CAPSULE PO SCH ×2 (01:26→20:45)
[2021-09-01] MEDS: *HR* HYDROcodone/Acet 7.5/325 mg TABLET PO PRN ×2 (01:26→15:33)
[2021-09-01] MEDS: rOPINIRole 0.25 MG TABLET PO SCH ×2 (01:27→20:45)
[2021-09-01 02:09] LABS: Basophils % 0.3 %; Eosinophils # 0.1 K/mcL (0.0-0.6); Eosinophils % 1.7 %; Hematocrit 28.3 % (35.3-44.9); Hemoglobin 9.1 g/dL (11.5-15.4); Immature Granulocytes % 0.2 % (0-4); Lymphocytes # 0.6 K/mcL (0.6-4.6); Lymphocytes % 10.5 %; Mean Corpuscular HGB Conc 32.2 g/dL (31.6-35.5); Mean Corpuscular Hemoglobin 33.8 pg (28.0-33.3); Mean Corpuscular Volume 105.2 fL (83.0-100.0); Mean Platelet Volume 12.3 fL (9.4-12.4); Monocytes # 0.6 K/mcL (0.0-1.3); Neutrophils # 4.4 K/mcL (1.6-8.9); Platelet Count 113 K/mcL (140-400); Red Blood Count 2.69 M/mcL (3.82-4.97); Red Cell Distribution Width 14.2 % (11.5-14.5); Segmented Neutrophils % 76.3 %; White Blood Count 5.7 K/mcL (4.3-11.1)
[2021-09-01 02:17] LABS: Albumin 3.3 g/dL (3.5-5.7); Albumin/Globulin Ratio 1.1 (1.1-2.2); Bilirubin,Total 0.7 mg/dL (0.3-1.0); Calcium 8.5 mg/dL (8.6-10.3); Globulin 2.9 g/dL (2.4-3.5); Potassium 5.5 mEq/L (3.5-5.1); Total Protein 6.2 g/dL (6.4-8.9); Troponin I 0.04 ng/mL (< 0.04)
[2021-09-01] MEDS: Insulin LISPRO 300 UNITS/3 ML VIAL SUBQ SCH ×3 (06:07→18:55)
[2021-09-01] MEDS: allopurinoL 100 MG TABLET PO SCH (07:46)
[2021-09-01] MEDS: Aspirin Enteric Coated 81 MG Tablet PO SCH (07:46)
[2021-09-01] MEDS: Apixaban 5 MG TABLET PO SCH ×2 (07:46→20:45)
[2021-09-01] MEDS: Isosorbide MONOnitrate (24 HR) 30 MG TAB.ER.24H PO SCH (07:46)
[2021-09-01] MEDS: Cholecalciferol (D-3) 1,000 UNIT (25MCG) TABLET PO SCH (07:46)
[2021-09-01] MEDS: Metoprolol XL (24 HR) Succ 25 MG TAB.ER.24H PO SCH (07:46)
[2021-09-01] MEDS: Sennosides/Docusate Sodium TABLET PO SCH ×2 (07:46→20:45)
[2021-09-01] MEDS: Furosemide 40 MG TABLET PO SCH ×2 (07:47→20:45)
[2021-09-01] MEDS ORDERED: lisinopriL 5 MG TABLET PO SCH (09:00)
[2021-09-01] MEDS ORDERED: 0.9 % Sodium Chloride 250 ML IVC PRN (09:06)
[2021-09-01] MEDS ORDERED: *HR* Heparin 10,000 UNIT/10 ML VIAL IV PRN (09:06)
[2021-09-01 09:07] LABS: Hepatitis B Surface Antibody < 3.10 mIU/mL
[2021-09-01] MEDS ORDERED: 0.9 % Sodium Chloride 1,000 ML PRIME SCH (09:15)
[2021-09-01 09:18] LABS: Hepatitis B Surface Antigen Nonreactive (Nonreactive)
[2021-09-01] MEDS ORDERED: Warfarin perPT PO PRN (18:00)
[2021-09-02] MEDS: *HR* HYDROcodone/Acet 7.5/325 mg TABLET PO PRN ×2 (01:05→08:09)
[2021-09-02] MEDS: Insulin LISPRO 300 UNITS/3 ML VIAL SUBQ SCH ×3 (01:07→11:33)
[2021-09-02 01:51] LABS: Calcium 8.6 mg/dL (8.6-10.3); Potassium 4.6 mEq/L (3.5-5.1)
[2021-09-02] MEDS: Furosemide 40 MG TABLET PO SCH (08:09)
[2021-09-02] MEDS: Metoprolol XL (24 HR) Succ 25 MG TAB.ER.24H PO SCH (08:09)
[2021-09-02] MEDS: Cholecalciferol (D-3) 1,000 UNIT (25MCG) TABLET PO SCH (08:09)
[2021-09-02] MEDS: allopurinoL 100 MG TABLET PO SCH (08:09)
[2021-09-02] MEDS: Sennosides/Docusate Sodium TABLET PO SCH (08:09)
[2021-09-02] MEDS: Aspirin Enteric Coated 81 MG Tablet PO SCH (08:09)
[2021-09-02] MEDS: Isosorbide MONOnitrate (24 HR) 30 MG TAB.ER.24H PO SCH (08:09)
[2021-09-02] MEDS: Apixaban 5 MG TABLET PO SCH (08:09)
[2021-09-02 09:38] LABS: Adenovirus Not Detected (Not Detect); Bordetella Pertussis Not Detected (Not Detect); Chlamydophila pneumoniae Not Detected (Not Detect); Coronavirus 229E Not Detected (Not Detect); Coronavirus HKU1 Not Detected (Not Detect); Coronavirus NL63 Not Detected (Not Detect); Coronavirus OC43 Not Detected (Not Detect); Human Metapneumovirus Not Detected (Not Detect); Human Rhinovirus/Enterovirus Not Detected (Not Detect); Influenza A Subtype 2009 H1 Not Detected (Not Detect); Influenza B Not Detected (Not Detect); Mycoplasma pneumoniae Not Detected (Not Detect); Parainfluenza Virus 1 Not Detected (Not Detect); Parainfluenza Virus 2 Not Detected (Not Detect); Parainfluenza Virus 3 Not Detected (Not Detect); Parainfluenza Virus 4 Not Detected (Not Detect); Respiratory Syncytial Virus Not Detected (Not Detect); SARS-CoV-2 Not Detected (Not Detect)
[2021-09-02 10:41] VITALS: BP 136/79; PULSE 92; TEMP 98.2; O2SAT 98
== END 2021-09-02 13:10 | disposition home or self-care (01) ==
LOC: 2ANU → SUATTDRO 23:04
PROVIDERS: ADMIT Family Medicine; ATTEND Internal Medicine

== ENCOUNTER 2022-04-06 11:35 | Inpatient (IN) ==
[2022-04-06] MEDS ORDERED: Albumin Human 5% 12.5 GM/250 ML IV.SOLN IVPB ONE (16:38)
[2022-04-06] MEDS ORDERED: 0.9 % Sodium Chloride 500 ML IVC ONE (16:40)
[2022-04-06] MEDS ORDERED: Calcium Gluconate 1gm/50mL 1 GM/50 ML BAG IVPB ONE (16:42)
[2022-04-06] MEDS ORDERED: Calcium Gluconate 1gm/50mL 1 GM/50 ML BAG IVPB PRN (16:44)
[2022-04-06] MEDS ORDERED: Ondansetron 4 MG/2 ML VIAL IVP ONE (17:25)
[2022-04-06] MEDS: 0.9 % Sodium Chloride 1,000 ML IVC SCH ×2 (18:26→20:25)
[2022-04-06 18:58] LABS: VBG Ionized Calcium 1.03 mmol/L (1.15-1.35)
[2022-04-06 19:07] LABS: Mean Corpuscular Volume 101.7 fL (83.0-100.0); Platelet Count 136 K/mcL (140-400); Red Cell Distribution Width 16.4 % (11.5-14.5)
[2022-04-06 19:09] LABS: Hematocrit 30.6 % (35.3-44.9); Hemoglobin 9.3 g/dL (11.5-15.4); Mean Corpuscular HGB Conc 30.4 g/dL (31.6-35.5); Mean Corpuscular Hemoglobin 30.9 pg (28.0-33.3); Mean Platelet Volume 12.7 fL (9.4-12.4); Red Blood Count 3.01 M/mcL (3.82-4.97)
[2022-04-06 19:12] LABS: White Blood Count 33.8 K/mcL (4.3-11.1)
[2022-04-06 19:30] LABS: Albumin 2.7 g/dL (3.5-5.7); Albumin/Globulin Ratio 1.1 (1.1-2.2); Bilirubin,Direct 2.8 mg/dL (0.0-0.2); Bilirubin,Indirect 0.9 mg/dL (0.0-1.0); Bilirubin,Total 3.7 mg/dL (0.3-1.0); Calcium 7.5 mg/dL (8.6-10.3); Globulin 2.5 g/dL (2.4-3.5); Potassium 3.5 mEq/L (3.5-5.1); Total Protein 5.2 g/dL (6.4-8.9)
[2022-04-06] MEDS ORDERED: Vancomycin 1,500 MG/265 ML IV.SOLN IVPB ONE (20:00)
[2022-04-06 20:13] LABS: Lymphocytes # 0.7 K/mcL (0.6-4.6); Monocytes # 1.4 K/mcL (0.0-1.3); Neutrophils # 31.8 K/mcL (1.6-8.9)
[2022-04-06 20:14] LABS: Platelet Estimate Normal (Normal)
[2022-04-06] MEDS: Norepinephrine 4 MG/254 ML IV.SOLN IVC SCH (21:52)
[2022-04-07 03:43] LABS: Basophils % 0.1 %; Eosinophils % 0.1 %; Hemoglobin 9.4 g/dL (11.5-15.4); Mean Corpuscular Volume 101.7 fL (83.0-100.0); Red Cell Distribution Width 16.6 % (11.5-14.5)
[2022-04-07 03:45] LABS: Hematocrit 30.6 % (35.3-44.9); Immature Granulocytes % 2.3 % (0-4); Immature Platelets 9.9 % (1.1-6.1); Lymphocytes # 0.5 K/mcL (0.6-4.6); Lymphocytes % 3.2 %; Mean Corpuscular HGB Conc 30.7 g/dL (31.6-35.5); Mean Corpuscular Hemoglobin 31.2 pg (28.0-33.3); Mean Platelet Volume 12.2 fL (9.4-12.4); Monocytes # 0.5 K/mcL (0.0-1.3); Monocytes % 3.7 %; Neutrophils # 13.1 K/mcL (1.6-8.9); Red Blood Count 3.01 M/mcL (3.82-4.97); Segmented Neutrophils % 90.6 %; White Blood Count 14.5 K/mcL (4.3-11.1)
[2022-04-07 03:48] LABS: Platelet Count 93 K/mcL (140-400)
[2022-04-07 04:03] LABS: Magnesium 1.7 mg/dL (1.6-2.6); Phosphorous 2.4 mg/dL (2.7-4.5)
[2022-04-07 04:04] LABS: Albumin 2.8 g/dL (3.5-5.7); Bilirubin,Direct 2.9 mg/dL (0.0-0.2); Bilirubin,Indirect 0.9 mg/dL (0.0-1.0); Bilirubin,Total 3.8 mg/dL (0.3-1.0); Globulin 2.7 g/dL (2.4-3.5); Total Protein 5.5 g/dL (6.4-8.9)
[2022-04-07] MEDS: Piperacillin/Tazobactam 3.375 GM in 0.9 % Sodium Chloride Mini Bag 100 ML IVPB SCH ×2 (05:39→20:39)
[2022-04-07] MEDS: Norepinephrine 4 MG/254 ML IV.SOLN IVC SCH ×2 (07:30→14:42)
[2022-04-07] MEDS ORDERED: Albumin 25% 25gram/100mL 25 GM/100 ML IV.SOLN IVPB ONE (07:56)
[2022-04-07] MEDS ORDERED: Albumin 25% 25gram/100mL 25 GM/100 ML IV.SOLN ONE (07:57)
[2022-04-07] MEDS ORDERED: Ondansetron 4 MG/2 ML VIAL IVP ONE (08:22)
[2022-04-07] MEDS ORDERED: *HR* Heparin 10,000 UNIT/10 ML VIAL IV PRN (08:44)
[2022-04-07 09:45] LABS: Troponin I 0.09 ng/mL (< 0.04)
[2022-04-07 10:49] LABS: Hepatitis B Surface Antibody 206.53 mIU/mL
[2022-04-07 11:00] LABS: Hepatitis B Surface Antigen Nonreactive (Nonreactive)
[2022-04-07] MEDS ORDERED: Vancomycin 500 MG in 0.9 % Sodium Chloride Mini Bag 100 ML IVPB ONE (13:00)
[2022-04-07] MEDS: Pantoprazole 40 MG VIAL IVP SCH (13:01)
[2022-04-07] MEDS ORDERED: 0.9 % Sodium Chloride 1,000 ML ONE (13:13)
[2022-04-07] MEDS ORDERED: Perflutren Lipid Microsphere 1.3 ML in 0.9 % Sodium Chloride 8.7 ML IVP PRN (15:07)
[2022-04-07] MEDS ORDERED: *HR* Propofol 200 MG/20 ML VIAL IVP ONE (17:41)
[2022-04-07] MEDS ORDERED: *HR* FentaNYL (PF) 100 MCG/2 ML VIAL ONE (17:41)
[2022-04-07] MEDS ORDERED: Lidocaine -MPF 2% 2 ML VIAL ONE ×2 (17:46→18:00)
[2022-04-07] MEDS ORDERED: *HR* Succinylcholine 200 MG/10 ML VIAL IVP ONE (17:46)
[2022-04-07] MEDS ORDERED: Ondansetron 4 MG/2 ML VIAL ONE (17:46)
[2022-04-07] MEDS ORDERED: Lidocaine HCL 4 ML Topical Solution (Laryng-O-Jet Kit Sterile Pak) TP ONE (17:46)
[2022-04-07] MEDS ORDERED: *HR* Rocuronium Bromide 50 MG/5 ML VIAL ONE (17:46)
[2022-04-07] MEDS ORDERED: Albumin Human 5% 0 GM/0 ML IV.SOLN ONE (17:47)
[2022-04-07] MEDS ORDERED: *HR* Vasopressin 20 UNIT/ML VIAL ONE ×2 (17:48→18:59)
[2022-04-07] MEDS ORDERED: *HR* Midazolam HCl 2 MG/2 ML VIAL ONE (17:55)
[2022-04-07] MEDS ORDERED: Heparin 1,000 UNITS/500 mL 500 ML ONE (17:55)
[2022-04-07 18:10] LABS: Calcium 8.2 mg/dL (8.6-10.3); Magnesium 1.8 mg/dL (1.6-2.6); Potassium 4.1 mEq/L (3.5-5.1)
[2022-04-07] MEDS ORDERED: Indomethacin 50 MG SUPP.RECT RC ONE (19:46)
[2022-04-08] MEDS ORDERED: Ondansetron 4 MG/2 ML VIAL ONE (04:15)
[2022-04-08] MEDS: Ondansetron 4 MG/2 ML VIAL IVP PRN (04:25)
[2022-04-08 04:29] LABS: Hemoglobin 9.1 g/dL (11.5-15.4); Mean Corpuscular HGB Conc 30.3 g/dL (31.6-35.5); Mean Corpuscular Hemoglobin 31.1 pg (28.0-33.3); Mean Corpuscular Volume 102.4 fL (83.0-100.0); Mean Platelet Volume 12.8 fL (9.4-12.4); Platelet Count 119 K/mcL (140-400); Red Blood Count 2.93 M/mcL (3.82-4.97); Red Cell Distribution Width 16.5 % (11.5-14.5); White Blood Count 17.6 K/mcL (4.3-11.1)
[2022-04-08 04:49] LABS: Phosphorous 3.5 mg/dL (2.7-4.5); Potassium 4.7 mEq/L (3.5-5.1)
[2022-04-08 05:30] LABS: VBG Ionized Calcium 1.07 mmol/L (1.15-1.35)
[2022-04-08] MEDS: Piperacillin/Tazobactam 3.375 GM in 0.9 % Sodium Chloride Mini Bag 100 ML IVPB SCH ×2 (06:23→19:37)
[2022-04-08] MEDS: Pantoprazole 40 MG VIAL IVP SCH (08:31)
[2022-04-08] MEDS ORDERED: *HR* Heparin 10,000 UNIT/10 ML VIAL IV PRN ×2 (09:22)
[2022-04-08] MEDS ORDERED: 0.9 % Sodium Chloride 250 ML IVC PRN (09:22)
[2022-04-08] MEDS ORDERED: 0.9 % Sodium Chloride 2,000 ML PRIME SCH (09:30)
[2022-04-08 11:35] LABS: Albumin 2.9 g/dL (3.5-5.7); Albumin/Globulin Ratio 1.1 (1.1-2.2); Bilirubin,Direct 2.6 mg/dL (0.0-0.2); Bilirubin,Indirect 1.2 mg/dL (0.0-1.0); Bilirubin,Total 3.8 mg/dL (0.3-1.0); Globulin 2.6 g/dL (2.4-3.5); Total Protein 5.5 g/dL (6.4-8.9)
[2022-04-08] MEDS: Norepinephrine 4 MG/254 ML IV.SOLN IVC SCH (11:58)
[2022-04-08 14:06] LABS: A.calcoaceticus-baumannii cplx Not Detected (Not Detect); Bacteroides fragilis by PCR Not Detected (Not Detect); Candida albicans by PCR Not Detected (Not Detect); Candida auris by PCR Not Detected (Not Detect); Candida glabrata by PCR Not Detected (Not Detect); Candida krusei by PCR Not Detected (Not Detect); Candida parapsilosis by PCR Not Detected (Not Detect); Candida tropicalis by PCR Not Detected (Not Detect); Crypto. neoformans/gattii PCR Not Detected (Not Detect); Enterobacter cloacae Cmplx PCR Not Detected (Not Detect); Enterobacterales by PCR Not Detected (Not Detect); Enterococcus faecalis by PCR DETECTED (Not Detect); Enterococcus faecium by PCR Not Detected (Not Detect); Escherichia coli by PCR Not Detected (Not Detect); Klebs. pneumoniae group by PCR Not Detected (Not Detect); Klebsiella aerogenes by PCR Not Detected (Not Detect); Klebsiella oxytoca by PCR Not Detected (Not Detect); Proteus by PCR Not Detected (Not Detect); Pseudomonas aeruginosa by PCR Not Detected (Not Detect); Salmonella species by PCR Not Detected (Not Detect); Serratia marcescens by PCR Not Detected (Not Detect); Staph epidermidis by PCR Not Detected (Not Detect); Staph lugdunensis by PCR Not Detected (Not Detect); Staphylococcus aureus by PCR Not Detected (Not Detect); Staphylococcus by PCR Not Detected (Not Detect); Stenotrophomonas maltophilia Not Detected (Not Detect); Streptococcus agalactiae(B)PCR Not Detected (Not Detect); Streptococcus by PCR Not Detected (Not Detect); Streptococcus pneumoniae PCR Not Detected (Not Detect); Streptococcus pyogenes (A) PCR Not Detected (Not Detect); vanA/B Vancomycin-Resist Genes Not Detected (Not Detect)
[2022-04-08] MEDS ORDERED: Vancomycin 1,500 MG/265 ML IV.SOLN IVPB ONE (16:00)
[2022-04-08] MEDS ORDERED: Iopamidol - 370 500 ML MLS IVP ONE (16:35)
[2022-04-08 18:15] LABS: Calcium 8.4 mg/dL (8.6-10.3); Potassium 3.7 mEq/L (3.5-5.1); Troponin I 0.33 ng/mL (< 0.04)
[2022-04-09 04:21] LABS: Eosinophils % 0.3 %; Hematocrit 27.4 % (35.3-44.9); Hemoglobin 8.6 g/dL (11.5-15.4); Immature Granulocytes % 1.8 % (0-4); Immature Platelets 8.3 % (1.1-6.1); Lymphocytes # 0.2 K/mcL (0.6-4.6); Lymphocytes % 2.3 %; Mean Corpuscular HGB Conc 31.4 g/dL (31.6-35.5); Mean Corpuscular Hemoglobin 30.9 pg (28.0-33.3); Mean Corpuscular Volume 98.6 fL (83.0-100.0); Mean Platelet Volume 12.7 fL (9.4-12.4); Monocytes # 0.3 K/mcL (0.0-1.3); Monocytes % 3.5 %; Neutrophils # 8.1 K/mcL (1.6-8.9); Red Blood Count 2.78 M/mcL (3.82-4.97); Red Cell Distribution Width 16.3 % (11.5-14.5); Segmented Neutrophils % 92.1 %; White Blood Count 8.8 K/mcL (4.3-11.1)
[2022-04-09 04:23] LABS: Platelet Count 75 K/mcL (140-400)
[2022-04-09 04:41] LABS: Albumin 2.9 g/dL (3.5-5.7); Albumin/Globulin Ratio 1.2 (1.1-2.2); Bilirubin,Direct 1.5 mg/dL (0.0-0.2); Bilirubin,Indirect 0.9 mg/dL (0.0-1.0); Bilirubin,Total 2.4 mg/dL (0.3-1.0); Globulin 2.5 g/dL (2.4-3.5); Magnesium 2.1 mg/dL (1.6-2.6); Phosphorous 2.5 mg/dL (2.7-4.5); Total Protein 5.4 g/dL (6.4-8.9)
[2022-04-09 04:46] LABS: Troponin I 0.04 ng/mL (< 0.04)
[2022-04-09 06:03] LABS: Calcium 8.1 mg/dL (8.6-10.3); Potassium 3.7 mEq/L (3.5-5.1)
[2022-04-09] MEDS: Piperacillin/Tazobactam 3.375 GM in 0.9 % Sodium Chloride Mini Bag 100 ML IVPB SCH ×2 (06:34→18:38)
[2022-04-09] MEDS: Pantoprazole 40 MG VIAL IVP SCH (09:47)
[2022-04-09] MEDS: Ondansetron 4 MG/2 ML VIAL IVP PRN (09:47)
[2022-04-09] MEDS: Norepinephrine 4 MG/254 ML IV.SOLN IVC SCH ×2 (21:26→21:59)
[2022-04-10 03:47] LABS: Basophils % 0.3 %; Eosinophils # 0.2 K/mcL (0.0-0.6); Eosinophils % 2.1 %; Hematocrit 27.5 % (35.3-44.9); Hemoglobin 8.6 g/dL (11.5-15.4); Immature Granulocytes % 2.8 % (0-4); Lymphocytes # 0.5 K/mcL (0.6-4.6); Lymphocytes % 5.2 %; Mean Corpuscular HGB Conc 31.3 g/dL (31.6-35.5); Mean Corpuscular Hemoglobin 30.6 pg (28.0-33.3); Mean Corpuscular Volume 97.9 fL (83.0-100.0); Mean Platelet Volume 11.9 fL (9.4-12.4); Monocytes # 0.7 K/mcL (0.0-1.3); Monocytes % 6.7 %; Neutrophils # 8.4 K/mcL (1.6-8.9); Platelet Count 105 K/mcL (140-400); Red Blood Count 2.81 M/mcL (3.82-4.97); Red Cell Distribution Width 16.7 % (11.5-14.5); Segmented Neutrophils % 82.9 %; White Blood Count 10.2 K/mcL (4.3-11.1)
[2022-04-10 04:05] LABS: Calcium 8.2 mg/dL (8.6-10.3); Potassium 4.2 mEq/L (3.5-5.1)
[2022-04-10] MEDS: Piperacillin/Tazobactam 3.375 GM in 0.9 % Sodium Chloride Mini Bag 100 ML IVPB SCH ×2 (05:40→17:44)
[2022-04-10] MEDS: Ondansetron 4 MG/2 ML VIAL IVP PRN ×2 (05:40→22:57)
[2022-04-10] MEDS: Pantoprazole 40 MG VIAL IVP SCH (10:54)
[2022-04-10] MEDS: Norepinephrine 4 MG/254 ML IV.SOLN IVC SCH ×2 (17:42→22:55)
[2022-04-10] MEDS: *HR* Heparin 5,000 UNIT/ML VIAL SQ SCH ×2 (17:45→22:55)
[2022-04-11] MEDS: Piperacillin/Tazobactam 3.375 GM in 0.9 % Sodium Chloride Mini Bag 100 ML IVPB SCH ×2 (06:09→18:32)
[2022-04-11] MEDS: *HR* Heparin 5,000 UNIT/ML VIAL SQ SCH (06:10)
[2022-04-11 06:42] LABS: Mean Corpuscular Hemoglobin 30.5 pg (28.0-33.3); Red Blood Count 2.62 M/mcL (3.82-4.97); Segmented Neutrophils % 77.1 %
[2022-04-11 06:43] LABS: Basophils % 0.5 %; Eosinophils # 0.2 K/mcL (0.0-0.6); Eosinophils % 2.9 %; Hematocrit 26.1 % (35.3-44.9); Immature Granulocytes % 2.6 % (0-4); Immature Platelets 8.4 % (1.1-6.1); Lymphocytes # 0.6 K/mcL (0.6-4.6); Lymphocytes % 9.4 %; Mean Corpuscular HGB Conc 30.7 g/dL (31.6-35.5); Mean Corpuscular Volume 99.6 fL (83.0-100.0); Mean Platelet Volume 12.9 fL (9.4-12.4); Monocytes # 0.5 K/mcL (0.0-1.3); Monocytes % 7.5 %; Neutrophils # 5.1 K/mcL (1.6-8.9); Red Cell Distribution Width 16.8 % (11.5-14.5); White Blood Count 6.6 K/mcL (4.3-11.1)
[2022-04-11 06:44] LABS: Platelet Count 77 K/mcL (140-400)
[2022-04-11 06:58] LABS: Calcium 7.9 mg/dL (8.6-10.3); Magnesium 1.9 mg/dL (1.6-2.6); Potassium 4.3 mEq/L (3.5-5.1)
[2022-04-11] MEDS: Pantoprazole 40 MG VIAL IVP SCH (09:26)
[2022-04-11] MEDS ORDERED: 0.9 % Sodium Chloride 250 ML IVC PRN (10:45)
[2022-04-11] MEDS ORDERED: *HR* Heparin 10,000 UNIT/10 ML VIAL IV PRN (10:45)
[2022-04-11] MEDS: Norepinephrine 4 MG/254 ML IV.SOLN IVC SCH (11:35)
[2022-04-11 17:52] LABS: Hematocrit 28.4 % (35.3-44.9); Hemoglobin 8.8 g/dL (11.5-15.4)
[2022-04-11] MEDS: Furosemide 40 MG TABLET PO SCH (18:31)
[2022-04-11] MEDS: Apixaban 5 MG TABLET PO SCH (19:54)
[2022-04-11] MEDS: traZODone 50 MG TABLET PO SCH (21:40)
[2022-04-11] MEDS: rOPINIRole 1 MG TABLET PO SCH (21:40)
[2022-04-12 05:25] LABS: Basophils % 0.3 %; Eosinophils # 0.2 K/mcL (0.0-0.6); Eosinophils % 2.3 %; Hematocrit 24.8 % (35.3-44.9); Hemoglobin 7.5 g/dL (11.5-15.4); Immature Granulocytes % 2.5 % (0-4); Immature Platelets 7.8 % (1.1-6.1); Lymphocytes # 0.7 K/mcL (0.6-4.6); Lymphocytes % 8.9 %; Mean Corpuscular HGB Conc 30.2 g/dL (31.6-35.5); Mean Corpuscular Hemoglobin 30.2 pg (28.0-33.3); Mean Platelet Volume 12.5 fL (9.4-12.4); Monocytes # 0.6 K/mcL (0.0-1.3); Monocytes % 7.8 %; Red Blood Count 2.48 M/mcL (3.82-4.97); Red Cell Distribution Width 17.1 % (11.5-14.5); Segmented Neutrophils % 78.2 %; White Blood Count 7.7 K/mcL (4.3-11.1)
[2022-04-12 05:27] LABS: Platelet Count 88 K/mcL (140-400)
[2022-04-12 05:41] LABS: Magnesium 1.9 mg/dL (1.6-2.6); Phosphorous 2.4 mg/dL (2.7-4.5)
[2022-04-12 05:43] LABS: Albumin 2.7 g/dL (3.5-5.7); Bilirubin,Total 1.4 mg/dL (0.3-1.0); Calcium 8.1 mg/dL (8.6-10.3); Globulin 2.7 g/dL (2.4-3.5); Potassium 4.1 mEq/L (3.5-5.1); Total Protein 5.4 g/dL (6.4-8.9)
[2022-04-12] MEDS: Piperacillin/Tazobactam 3.375 GM in 0.9 % Sodium Chloride Mini Bag 100 ML IVPB SCH (06:18)
[2022-04-12] MEDS: Pantoprazole 40 MG VIAL IVP SCH (08:10)
[2022-04-12] MEDS: Apixaban 5 MG TABLET PO SCH ×2 (08:12→20:07)
[2022-04-12] MEDS: rOPINIRole 1 MG TABLET PO SCH ×2 (08:12→20:08)
[2022-04-12] MEDS: Furosemide 40 MG TABLET PO SCH (08:12)
[2022-04-12] MEDS: Metoprolol XL (24 HR) Succ 25 MG TAB.ER.24H PO SCH (08:13)
[2022-04-12] MEDS: Sennosides/Docusate Sodium TABLET PO SCH (08:13)
[2022-04-12] MEDS: Aspirin Enteric Coated 81 MG Tablet PO SCH (08:13)
[2022-04-12] MEDS: Ondansetron 4 MG/2 ML VIAL IVP PRN ×2 (11:28→20:08)
[2022-04-12] MEDS ORDERED: Simethicone 80 MG TAB.CHEW PO ONE (13:00)
[2022-04-12 16:14] LABS: Hematocrit 26.7 % (35.3-44.9); Hemoglobin 8.1 g/dL (11.5-15.4)
[2022-04-12] MEDS: DAPTOmycin 500 MG in 0.9 % Sodium Chloride 100 ML IVPB SCH (16:31)
[2022-04-12] MEDS: traZODone 50 MG TABLET PO SCH (20:07)
[2022-04-13 01:22] LABS: Basophils % 0.3 %; Hemoglobin 7.9 g/dL (11.5-15.4); Nucleated Red Blood Cells 0.2 /100 WBC (0); Red Cell Distribution Width 17.2 % (11.5-14.5)
[2022-04-13 01:24] LABS: Eosinophils # 0.2 K/mcL (0.0-0.6); Eosinophils % 1.9 %; Hematocrit 26.4 % (35.3-44.9); Immature Granulocytes % 3.1 % (0-4); Immature Platelets 10.8 % (1.1-6.1); Lymphocytes # 1.1 K/mcL (0.6-4.6); Lymphocytes % 9.9 %; Mean Corpuscular HGB Conc 29.9 g/dL (31.6-35.5); Mean Corpuscular Hemoglobin 30.6 pg (28.0-33.3); Mean Corpuscular Volume 102.3 fL (83.0-100.0); Monocytes # 0.7 K/mcL (0.0-1.3); Monocytes % 6.5 %; Red Blood Count 2.58 M/mcL (3.82-4.97); Segmented Neutrophils % 78.3 %; White Blood Count 11.2 K/mcL (4.3-11.1)
[2022-04-13 01:26] LABS: Neutrophils # 8.8 K/mcL (1.6-8.9); Platelet Count 91 K/mcL (140-400)
[2022-04-13 01:35] LABS: Magnesium 1.9 mg/dL (1.6-2.6); Phosphorous 2.7 mg/dL (2.7-4.5)
[2022-04-13 01:37] LABS: Albumin 2.9 g/dL (3.5-5.7); Albumin/Globulin Ratio 1.1 (1.1-2.2); Bilirubin,Total 1.2 mg/dL (0.3-1.0); Calcium 8.2 mg/dL (8.6-10.3); Globulin 2.7 g/dL (2.4-3.5); Potassium 4.5 mEq/L (3.5-5.1); Total Protein 5.6 g/dL (6.4-8.9)
[2022-04-13] MEDS: Aspirin Enteric Coated 81 MG Tablet PO SCH (08:33)
[2022-04-13] MEDS: Apixaban 5 MG TABLET PO SCH ×2 (08:33→21:11)
[2022-04-13] MEDS: Metoprolol XL (24 HR) Succ 25 MG TAB.ER.24H PO SCH (08:33)
[2022-04-13] MEDS: rOPINIRole 1 MG TABLET PO SCH ×2 (08:33→21:11)
[2022-04-13] MEDS: Sennosides/Docusate Sodium TABLET PO SCH (08:33)
[2022-04-13] MEDS: Ondansetron 4 MG/2 ML VIAL IVP PRN (11:02)
[2022-04-13] MEDS ORDERED: 0.9 % Sodium Chloride 250 ML IVC PRN (12:12)
[2022-04-13] MEDS ORDERED: *HR* Heparin 10,000 UNIT/10 ML VIAL IV PRN (12:12)
[2022-04-13] MEDS: traZODone 50 MG TABLET PO SCH (21:11)
[2022-04-14] MEDS ORDERED: Oxymetazoline Nasal SPRAY BOTTLE 15ML NS PRN (06:47)
[2022-04-14 08:04] LABS: Basophils % 0.3 %; Eosinophils # 0.2 K/mcL (0.0-0.6); Eosinophils % 1.9 %; Hematocrit 25.2 % (35.3-44.9); Hemoglobin 7.6 g/dL (11.5-15.4); Immature Granulocytes % 4.9 % (0-4); Lymphocytes # 0.8 K/mcL (0.6-4.6); Lymphocytes % 10.3 %; Mean Corpuscular HGB Conc 30.2 g/dL (31.6-35.5); Mean Corpuscular Hemoglobin 30.8 pg (28.0-33.3); Mean Platelet Volume 12.4 fL (9.4-12.4); Monocytes # 0.6 K/mcL (0.0-1.3); Monocytes % 7.1 %; Neutrophils # 5.8 K/mcL (1.6-8.9); Platelet Count 105 K/mcL (140-400); Red Blood Count 2.47 M/mcL (3.82-4.97); Red Cell Distribution Width 17.3 % (11.5-14.5); Segmented Neutrophils % 75.5 %; White Blood Count 7.7 K/mcL (4.3-11.1)
[2022-04-14 08:23] LABS: Albumin 2.9 g/dL (3.5-5.7); Albumin/Globulin Ratio 1.1 (1.1-2.2); Bilirubin,Direct 0.5 mg/dL (0.0-0.2); Bilirubin,Indirect 0.6 mg/dL (0.0-1.0); Bilirubin,Total 1.1 mg/dL (0.3-1.0); Calcium 8.1 mg/dL (8.6-10.3); Globulin 2.7 g/dL (2.4-3.5); Potassium 3.9 mEq/L (3.5-5.1); Total Protein 5.6 g/dL (6.4-8.9)
[2022-04-14] MEDS: rOPINIRole 1 MG TABLET PO SCH ×2 (09:48→19:48)
[2022-04-14] MEDS: Aspirin Enteric Coated 81 MG Tablet PO SCH (09:49)
[2022-04-14] MEDS: Sennosides/Docusate Sodium TABLET PO SCH (09:49)
[2022-04-14] MEDS: Metoprolol XL (24 HR) Succ 25 MG TAB.ER.24H PO SCH (09:50)
[2022-04-14] MEDS: Apixaban 5 MG TABLET PO SCH ×2 (09:50→19:48)
[2022-04-14] MEDS: Ondansetron 4 MG/2 ML VIAL IVP PRN ×2 (10:14→16:38)
[2022-04-14] MEDS: DAPTOmycin 500 MG in 0.9 % Sodium Chloride 100 ML IVPB SCH (16:38)
[2022-04-14] MEDS: traZODone 50 MG TABLET PO SCH (21:33)
[2022-04-15] MEDS: Ondansetron 4 MG/2 ML VIAL IVP PRN (04:08)
[2022-04-15 04:48] LABS: Basophils % 0.5 %; Eosinophils # 0.1 K/mcL (0.0-0.6); Eosinophils % 1.6 %; Hematocrit 25.2 % (35.3-44.9); Hemoglobin 7.5 g/dL (11.5-15.4); Immature Granulocytes % 4.7 % (0-4); Lymphocytes # 1.1 K/mcL (0.6-4.6); Lymphocytes % 13.5 %; Mean Corpuscular HGB Conc 29.8 g/dL (31.6-35.5); Mean Corpuscular Hemoglobin 30.6 pg (28.0-33.3); Mean Corpuscular Volume 102.9 fL (83.0-100.0); Mean Platelet Volume 12.5 fL (9.4-12.4); Monocytes # 0.6 K/mcL (0.0-1.3); Monocytes % 7.7 %; Neutrophils # 5.8 K/mcL (1.6-8.9); Nucleated Red Blood Cells 0.2 /100 WBC (0); Platelet Count 115 K/mcL (140-400); Red Blood Count 2.45 M/mcL (3.82-4.97); Red Cell Distribution Width 17.2 % (11.5-14.5); White Blood Count 8.1 K/mcL (4.3-11.1)
[2022-04-15 05:07] LABS: Calcium 8.3 mg/dL (8.6-10.3); Potassium 4.2 mEq/L (3.5-5.1)
[2022-04-15] MEDS: Metoprolol XL (24 HR) Succ 25 MG TAB.ER.24H PO SCH (09:31)
[2022-04-15] MEDS: rOPINIRole 1 MG TABLET PO SCH ×2 (09:31→20:24)
[2022-04-15] MEDS: Sennosides/Docusate Sodium TABLET PO SCH (09:31)
[2022-04-15] MEDS: Apixaban 5 MG TABLET PO SCH ×2 (09:32→20:24)
[2022-04-15] MEDS: Aspirin Enteric Coated 81 MG Tablet PO SCH (09:32)
[2022-04-15] MEDS ORDERED: 0.9 % Sodium Chloride 250 ML IVC PRN (09:47)
[2022-04-15] MEDS ORDERED: *HR* Heparin 10,000 UNIT/10 ML VIAL IV PRN (09:47)
[2022-04-15] MEDS ORDERED: Iopamidol - 370 500 ML MLS IVP ONE (10:51)
[2022-04-15] MEDS: traZODone 50 MG TABLET PO SCH (20:24)
[2022-04-16] MEDS: Ondansetron 4 MG/2 ML VIAL IVP PRN ×3 (06:02→19:45)
[2022-04-16 06:42] LABS: Basophils % 0.4 %; Eosinophils # 0.1 K/mcL (0.0-0.6); Eosinophils % 1.4 %; Hematocrit 22.9 % (35.3-44.9); Immature Granulocytes % 3.2 % (0-4); Mean Corpuscular HGB Conc 30.6 g/dL (31.6-35.5); Mean Corpuscular Volume 101.3 fL (83.0-100.0); Mean Platelet Volume 12.5 fL (9.4-12.4); Monocytes # 0.5 K/mcL (0.0-1.3); Monocytes % 6.6 %; Neutrophils # 5.7 K/mcL (1.6-8.9); Platelet Count 108 K/mcL (140-400); Red Blood Count 2.26 M/mcL (3.82-4.97); Red Cell Distribution Width 17.5 % (11.5-14.5); Segmented Neutrophils % 75.4 %; White Blood Count 7.6 K/mcL (4.3-11.1)
[2022-04-16 06:58] LABS: Calcium 8.1 mg/dL (8.6-10.3); Potassium 3.9 mEq/L (3.5-5.1)
[2022-04-16] MEDS: Sennosides/Docusate Sodium TABLET PO SCH (07:37)
[2022-04-16] MEDS: Apixaban 5 MG TABLET PO SCH ×2 (09:04→19:58)
[2022-04-16] MEDS: Metoprolol XL (24 HR) Succ 25 MG TAB.ER.24H PO SCH (09:04)
[2022-04-16] MEDS: rOPINIRole 1 MG TABLET PO SCH ×2 (09:04→19:58)
[2022-04-16] MEDS: Aspirin Enteric Coated 81 MG Tablet PO SCH (09:04)
[2022-04-16] MEDS: DAPTOmycin 500 MG in 0.9 % Sodium Chloride 100 ML IVPB SCH (16:29)
[2022-04-16] MEDS: traZODone 50 MG TABLET PO SCH (19:58)
[2022-04-17] MEDS: Ondansetron 4 MG/2 ML VIAL IVP PRN ×2 (00:39→23:25)
[2022-04-17 00:56] LABS: Basophils % 0.2 %; Eosinophils # 0.1 K/mcL (0.0-0.6); Eosinophils % 1.1 %; Hematocrit 21.8 % (35.3-44.9); Hemoglobin 6.8 g/dL (11.5-15.4); Immature Granulocytes % 1.9 % (0-4); Lymphocytes # 1.1 K/mcL (0.6-4.6); Lymphocytes % 12.6 %; Mean Corpuscular HGB Conc 31.2 g/dL (31.6-35.5); Mean Corpuscular Hemoglobin 31.5 pg (28.0-33.3); Mean Corpuscular Volume 100.9 fL (83.0-100.0); Mean Platelet Volume 11.8 fL (9.4-12.4); Monocytes # 0.7 K/mcL (0.0-1.3); Monocytes % 7.3 %; Neutrophils # 6.9 K/mcL (1.6-8.9); Platelet Count 113 K/mcL (140-400); Red Blood Count 2.16 M/mcL (3.82-4.97); Red Cell Distribution Width 17.4 % (11.5-14.5); Segmented Neutrophils % 76.9 %
[2022-04-17 01:15] LABS: Calcium 8.2 mg/dL (8.6-10.3); Potassium 4.1 mEq/L (3.5-5.1)
[2022-04-17] MEDS: Aspirin Enteric Coated 81 MG Tablet PO SCH (07:34)
[2022-04-17] MEDS: Sennosides/Docusate Sodium TABLET PO SCH (07:35)
[2022-04-17] MEDS: Metoprolol XL (24 HR) Succ 25 MG TAB.ER.24H PO SCH (07:35)
[2022-04-17] MEDS: rOPINIRole 1 MG TABLET PO SCH ×2 (07:35→20:34)
[2022-04-17] MEDS: Apixaban 5 MG TABLET PO SCH ×2 (07:35→20:35)
[2022-04-17] MEDS: traZODone 50 MG TABLET PO SCH (20:35)
[2022-04-18 03:43] LABS: Basophils # 0.1 K/mcL (0.0-0.2); Basophils % 0.6 %; Eosinophils # 0.1 K/mcL (0.0-0.6); Eosinophils % 1.6 %; Hematocrit 20.7 % (35.3-44.9); Hemoglobin 6.2 g/dL (11.5-15.4); Immature Granulocytes % 1.5 % (0-4); Lymphocytes # 0.9 K/mcL (0.6-4.6); Lymphocytes % 11.8 %; Mean Corpuscular Hemoglobin 30.8 pg (28.0-33.3); Mean Platelet Volume 12.2 fL (9.4-12.4); Monocytes # 0.5 K/mcL (0.0-1.3); Monocytes % 6.7 %; Neutrophils # 6.2 K/mcL (1.6-8.9); Platelet Count 114 K/mcL (140-400); Red Blood Count 2.01 M/mcL (3.82-4.97); Red Cell Distribution Width 17.8 % (11.5-14.5); Segmented Neutrophils % 77.8 %
[2022-04-18 04:05] LABS: Calcium 8.2 mg/dL (8.6-10.3); Potassium 4.2 mEq/L (3.5-5.1)
[2022-04-18] MEDS ORDERED: 0.9 % Sodium Chloride 250 ML IVC PRN (07:24)
[2022-04-18] MEDS: Metoprolol XL (24 HR) Succ 25 MG TAB.ER.24H PO SCH (08:41)
[2022-04-18] MEDS: Sennosides/Docusate Sodium TABLET PO SCH (08:42)
[2022-04-18] MEDS: Aspirin Enteric Coated 81 MG Tablet PO SCH (08:42)
[2022-04-18] MEDS: rOPINIRole 1 MG TABLET PO SCH ×2 (08:42→21:12)
[2022-04-18] MEDS: Ondansetron 4 MG/2 ML VIAL IVP PRN (10:08)
[2022-04-18] MEDS: Pantoprazole 40 MG VIAL IVP SCH (17:48)
[2022-04-18] MEDS: DAPTOmycin 500 MG in 0.9 % Sodium Chloride 100 ML IVPB SCH (17:58)
[2022-04-18] MEDS: traZODone 50 MG TABLET PO SCH (21:12)
[2022-04-18] MEDS: Melatonin 3 MG TABLET PO PRN (23:49)
[2022-04-19 03:19] LABS: Basophils # 0.1 K/mcL (0.0-0.2); Basophils % 0.8 %; Eosinophils # 0.1 K/mcL (0.0-0.6); Eosinophils % 0.9 %; Hematocrit 22.3 % (35.3-44.9); Hemoglobin 6.9 g/dL (11.5-15.4); Immature Granulocytes % 0.9 % (0-4); Lymphocytes # 0.8 K/mcL (0.6-4.6); Lymphocytes % 10.6 %; Mean Corpuscular HGB Conc 30.9 g/dL (31.6-35.5); Mean Corpuscular Hemoglobin 31.7 pg (28.0-33.3); Mean Corpuscular Volume 102.3 fL (83.0-100.0); Mean Platelet Volume 12.5 fL (9.4-12.4); Monocytes # 0.5 K/mcL (0.0-1.3); Monocytes % 5.7 %; Neutrophils # 6.4 K/mcL (1.6-8.9); Platelet Count 115 K/mcL (140-400); Red Blood Count 2.18 M/mcL (3.82-4.97); Red Cell Distribution Width 18.3 % (11.5-14.5); Segmented Neutrophils % 81.1 %; White Blood Count 7.9 K/mcL (4.3-11.1)
[2022-04-19 03:36] LABS: Albumin 2.8 g/dL (3.5-5.7); Albumin/Globulin Ratio 1.1 (1.1-2.2); Calcium 8.2 mg/dL (8.6-10.3); Globulin 2.6 g/dL (2.4-3.5); Potassium 3.8 mEq/L (3.5-5.1); Total Protein 5.4 g/dL (6.4-8.9)
[2022-04-19] MEDS ORDERED: *HR* HYDROcodone/Acet 5/325 mg TABLET PO ONE (05:55)
[2022-04-19] MEDS: Metoprolol XL (24 HR) Succ 25 MG TAB.ER.24H PO SCH (07:54)
[2022-04-19] MEDS: Sennosides/Docusate Sodium TABLET PO SCH (07:54)
[2022-04-19] MEDS: rOPINIRole 1 MG TABLET PO SCH ×2 (07:54→20:30)
[2022-04-19] MEDS: Pantoprazole 40 MG VIAL IVP SCH (07:54)
[2022-04-19] MEDS: Aspirin Enteric Coated 81 MG Tablet PO SCH (07:55)
[2022-04-19] MEDS ORDERED: Lidocaine -MPF 2% 2 ML VIAL ONE (11:13)
[2022-04-19] MEDS ORDERED: *HR* FentaNYL (PF) 100 MCG/2 ML VIAL ONE (11:13)
[2022-04-19] MEDS ORDERED: *HR* Propofol 200 MG/20 ML VIAL IVP ONE (11:13)
[2022-04-19] MEDS ORDERED: *HR* Succinylcholine 200 MG/10 ML VIAL IVP ONE (11:14)
[2022-04-19] MEDS ORDERED: Lidocaine HCL 4 ML Topical Solution (Laryng-O-Jet Kit Sterile Pak) TP ONE (11:15)
[2022-04-19] MEDS ORDERED: Ondansetron 4 MG/2 ML VIAL ONE (11:36)
[2022-04-19] MEDS: Ondansetron 4 MG/2 ML VIAL IVP PRN (20:30)
[2022-04-19] MEDS: Melatonin 3 MG TABLET PO PRN (20:30)
[2022-04-19] MEDS: traZODone 50 MG TABLET PO SCH (20:30)
[2022-04-20] MEDS ORDERED: 0.9 % Sodium Chloride 250 ML IVC PRN (07:37)
[2022-04-20] MEDS: Pantoprazole 40 MG VIAL IVP SCH (08:08)
[2022-04-20] MEDS: Sennosides/Docusate Sodium TABLET PO SCH (08:08)
[2022-04-20] MEDS: rOPINIRole 1 MG TABLET PO SCH (08:08)
[2022-04-20] MEDS: Aspirin Enteric Coated 81 MG Tablet PO SCH (08:08)
[2022-04-20] MEDS: Metoprolol XL (24 HR) Succ 25 MG TAB.ER.24H PO SCH (08:08)
[2022-04-20 09:14] LABS: Basophils # 0.1 K/mcL (0.0-0.2); Eosinophils # 0.1 K/mcL (0.0-0.6); Eosinophils % 1.5 %; Hematocrit 27.1 % (35.3-44.9); Hemoglobin 8.2 g/dL (11.5-15.4); Immature Granulocytes % 0.8 % (0-4); Lymphocytes # 1.3 K/mcL (0.6-4.6); Lymphocytes % 14.4 %; Mean Corpuscular HGB Conc 30.3 g/dL (31.6-35.5); Mean Corpuscular Hemoglobin 31.2 pg (28.0-33.3); Mean Platelet Volume 12.2 fL (9.4-12.4); Monocytes # 0.6 K/mcL (0.0-1.3); Monocytes % 6.4 %; Neutrophils # 7.1 K/mcL (1.6-8.9); Platelet Count 129 K/mcL (140-400); Red Blood Count 2.63 M/mcL (3.82-4.97); Red Cell Distribution Width 18.6 % (11.5-14.5); Segmented Neutrophils % 75.9 %; White Blood Count 9.3 K/mcL (4.3-11.1)
[2022-04-20 09:57] LABS: Albumin 3.1 g/dL (3.5-5.7); Albumin/Globulin Ratio 1.1 (1.1-2.2); Bilirubin,Total 0.9 mg/dL (0.3-1.0); Calcium 8.3 mg/dL (8.6-10.3); Globulin 2.9 g/dL (2.4-3.5); Potassium 4.5 mEq/L (3.5-5.1)
[2022-04-20] MEDS: Ondansetron 4 MG/2 ML VIAL IVP PRN (13:03)
[2022-04-20] MEDS: DAPTOmycin 500 MG in 0.9 % Sodium Chloride 100 ML IVPB SCH (17:51)
[2022-04-21] MEDS: rOPINIRole 1 MG TABLET PO SCH ×3 (00:07→21:36)
[2022-04-21] MEDS: traZODone 50 MG TABLET PO SCH ×2 (00:07→21:36)
[2022-04-21] MEDS: Melatonin 3 MG TABLET PO PRN (00:07)
[2022-04-21] MEDS: Nystatin POWDER 30 GM BOTTLE TP SCH ×4 (05:07→21:37)
[2022-04-21] MEDS: Metoprolol XL (24 HR) Succ 25 MG TAB.ER.24H PO SCH (10:21)
[2022-04-21] MEDS: Aspirin Enteric Coated 81 MG Tablet PO SCH (10:21)
[2022-04-21] MEDS: Sennosides/Docusate Sodium TABLET PO SCH (10:21)
[2022-04-21] MEDS: Lactobacillus 1 EACH CAP.SPRINK PO SCH ×2 (13:38→21:36)
[2022-04-21 17:14] LABS: Calcium 8.1 mg/dL (8.6-10.3); Magnesium 1.7 mg/dL (1.6-2.6); Potassium 3.8 mEq/L (3.5-5.1)
[2022-04-21 18:13] LABS: Hematocrit 24.7 % (35.3-44.9); Hemoglobin 7.7 g/dL (11.5-15.4); Mean Corpuscular HGB Conc 31.2 g/dL (31.6-35.5); Mean Corpuscular Hemoglobin 31.8 pg (28.0-33.3); Mean Corpuscular Volume 102.1 fL (83.0-100.0); Mean Platelet Volume 12.3 fL (9.4-12.4); Platelet Count 122 K/mcL (140-400); Red Blood Count 2.42 M/mcL (3.82-4.97); Red Cell Distribution Width 18.7 % (11.5-14.5); White Blood Count 8.6 K/mcL (4.3-11.1)
[2022-04-22] MEDS ORDERED: 0.9 % Sodium Chloride 250 ML IVC PRN (07:22)
[2022-04-22] MEDS ORDERED: Apixaban 2.5 MG TABLET PO SCH (09:00)
[2022-04-22] MEDS ORDERED: GI Cocktail 40 ML EACH PO ONE (10:00)
[2022-04-22 11:18] LABS: Hematocrit 24.1 % (35.3-44.9); Hemoglobin 7.3 g/dL (11.5-15.4); Mean Corpuscular HGB Conc 30.3 g/dL (31.6-35.5); Mean Corpuscular Hemoglobin 31.1 pg (28.0-33.3); Mean Corpuscular Volume 102.6 fL (83.0-100.0); Mean Platelet Volume 12.6 fL (9.4-12.4); Platelet Count 111 K/mcL (140-400); Red Blood Count 2.35 M/mcL (3.82-4.97); Red Cell Distribution Width 18.6 % (11.5-14.5); White Blood Count 7.1 K/mcL (4.3-11.1)
[2022-04-22 11:36] LABS: Calcium 8.2 mg/dL (8.6-10.3); Potassium 3.5 mEq/L (3.5-5.1)
[2022-04-22] MEDS ORDERED: Darbepoetin 100 MCG/0.5 ML SYRINGE SQ SCH (12:00)
[2022-04-22] MEDS: Aspirin Enteric Coated 81 MG Tablet PO SCH (13:44)
[2022-04-22] MEDS: Sennosides/Docusate Sodium TABLET PO SCH (13:45)
[2022-04-22] MEDS: Metoprolol XL (24 HR) Succ 25 MG TAB.ER.24H PO SCH ×2 (13:45→16:21)
[2022-04-22] MEDS: rOPINIRole 1 MG TABLET PO SCH ×2 (13:46→19:53)
[2022-04-22] MEDS: Nystatin POWDER 30 GM BOTTLE TP SCH ×3 (13:46→19:53)
[2022-04-22] MEDS: Lactobacillus 1 EACH CAP.SPRINK PO SCH ×2 (13:46→19:53)
[2022-04-22] MEDS: Simethicone 80 MG TAB.CHEW PO PRN (13:50)
[2022-04-22 14:17] VITALS: O2SAT 100
[2022-04-22] MEDS: DAPTOmycin 500 MG in 0.9 % Sodium Chloride 100 ML IVPB SCH (16:29)
[2022-04-22 17:27] LABS: Influenza A PCR Negative (Negative); Influenza B PCR Negative (Negative); Resp. Syncytial Virus PCR Negative (Negative)
[2022-04-22 17:29] LABS: SARS-CoV-2 by PCR (In House) Negative (Negative)
[2022-04-22] MEDS: Apixaban 2.5 MG TABLET PO SCH (19:53)
[2022-04-22] MEDS: traZODone 50 MG TABLET PO SCH (22:02)
[2022-04-23] MEDS: traZODone 50 MG TABLET PO SCH (01:40)
[2022-04-23] MEDS: Simethicone 80 MG TAB.CHEW PO PRN (01:40)
[2022-04-23 02:36] VITALS: PULSE 84
[2022-04-23 06:39] VITALS: BP 131/71; TEMP 98.4
[2022-04-23] MEDS: rOPINIRole 1 MG TABLET PO SCH (08:18)
[2022-04-23] MEDS: Apixaban 2.5 MG TABLET PO SCH (08:19)
[2022-04-23] MEDS: Lactobacillus 1 EACH CAP.SPRINK PO SCH (08:19)
[2022-04-23] MEDS: Aspirin Enteric Coated 81 MG Tablet PO SCH (08:19)
[2022-04-23] MEDS: Metoprolol XL (24 HR) Succ 25 MG TAB.ER.24H PO SCH (08:19)
[2022-04-23] MEDS: Nystatin POWDER 30 GM BOTTLE TP SCH (08:20)
[2022-04-23] MEDS: Sennosides/Docusate Sodium TABLET PO SCH (08:20)
== END 2022-04-23 13:48 | DRG 871 ==
LOC: SUATTDRO 16:05 → ICNU 16:05 → 2NENU 04-11 14:51
PROVIDERS: ADMIT Emergency Medicine; ATTEND Internal Medicine